=== PATIENT | female | born 1940 | race Caucasian/White ===

== ENCOUNTER 2017-04-23 04:49 | Inpatient (IN) | payer MEDICARE, MEDICAID ==
[~2017-04-23] VITALS: Ht 154.9 cm; Wt 49.5 kg
[2017-04-23] VITALS (19 sets, daily range): BP systolic 118–213; BP diastolic 56–103; PULSE 74–114; RESP 12–30; TEMP 98–98.5; O2SAT 97–100
[2017-04-23] MEDS ORDERED: SODIUM CHLORIDE 0.9% FLUSH 10 ML FLUSH IVF PRN (05:00)
[2017-04-23] MEDS ORDERED: methylPREDNISolone SOD SUCC 125 MG/2 ML VIAL IV PUSH ONE (05:00)
[2017-04-23] MEDS: RESP: ALBUTEROL 2.5 MG/IPRATROPIUM 0.5 MG NEB (SCH) INH ×2 (05:10→05:11)
[2017-04-23] MEDS ORDERED: NITROGLYCERIN 0.4 MG SL 25 TABS/BTL SL PRN (05:15)
[2017-04-23] MEDS ORDERED: NITROGLYCERIN 2% OINT 1 GM PACKET TOPICAL ONE (05:15)
--- NOTE | 2017-04-23 05:17 | PD ---
HPI Chief Complaint: Respiratory Distress Time Seen by Provider: 04:59 Travel History International Travel<30 days: No Contact w/Intl Traveler<30days: No Traveled to known affect area: No History of Present Illness HPI The patient is a 76 year old female who presents to the [facility] emergency department with a history of increased shortness of breath that she reports began 2 days ago. The patient reports that she continues to smoke daily , however she has decided to quit today. The patient also reports having history of congestive heart failure. The patient is noted to have lower extremity edema, however she reports that this is no worse than usual. The patient reports having chest pressure with attempted to take a deep breath. She reports having wheezing. She reports having a cough productive of white sputum. She denies having any known fevers. Otherwise on review of systems, she denies having any worsening neck pain, abdominal pain, vomiting, diarrhea, urinary symptoms, or new neurologic symptoms. The patient is brought in by ambulance services on CPAP. The patient was noted on room air to be saturating 85%. She denies being on any oxygen at home. The patient was given one sublingual nitroglycerin prior to arrival as her blood pressure was 200 systolic. The patient was placed on 4 L nasal cannula O2 and her O2 saturation came up to 95%, however she continued to have significant work of breathing, therefore the patient was placed on CPAP. On arrival the patient reports feeling slightly improved. [facility] Past Medical History Narrative Medical The patient's past medical history is significant for tobacco abuse, hyperlipidemia, history of congestive heart failure, history of coronary artery disease, history of having a valve replacement, history of osteoarthritis, history of spinal stenosis with degenerative disc disease of the spine, history of diabetes mellitus, neuropathy. Arthritis: Yes Asthma: No Autoimmune Disease: No Blood Disorders: No Anxiety: No Depression: No Heart Rhythm Problems: Yes (valve REPLACEMENT) Cancer: Yes (uterine cancer) Cardiovascular Problems: Yes (S/P VALVE REPLACEMENT, [place]) High Cholesterol: Yes Chemotherapy: No Chest Pain: No Congestive Heart Failure: Yes COPD: No Cerebrovascular Accident: No Diabetes: Yes Diminished Hearing: No Endocrine: No Gastrointestinal Disorders: Yes GERD: No Glaucoma: No Genitourinary: No Hepatitis: No Hiatal Hernia: No Hypertension: Yes Immune Disorder: No Implanted Vascular Access Dvce: Yes Musculoskeletal: Yes (OSTEOPOROSIS) Neurologic: Yes (NEUROPATHY FEET) Psychiatric: No Reproductive: No Respiratory: Yes Immunizations Current: Yes Migraines: No Myocardial Infarction: Yes Radiation Therapy: No Seizures: No Thyroid Disease: No Ulcer: No ?: Not Menopausal: Yes Ovarian Cysts: Yes Past Surgical History Narrative Surgical The patient's past surgical history is significant for a hysterectomy, cervical and lumbar spine surgery, spinal stimulator implant, right ankle surgery, valve replacement, 3 vessel coronary artery bypass grafting, cholecystectomy, breast surgery. 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 CD. STIMULATOR FOR PAIN Cardiac Surgery: Yes (open heart valve replacment by-pass x2) Cholecystectomy: Yes Coronary Artery Bypass Graft: Yes (3 vessel) Ear Surgery: No Endocrine Surgery: No Eye Surgery: No Genitourinary Surgery: No Gynecologic Surgery: Yes (hysterectomy ) Hysterectomy: Yes Insulin Pump: No Joint Replacement: Yes (ISAIAS. KNEE, ISAIAS. HIPS) Neurologic Surgery: Yes (CERVICAL FUSION, PLACEMENT SCS, LUMBAR SX X2) Pacemaker: No Thoracic Surgery: Yes (MULTI BREAST LYMPHNODE REMOVAL) Other Surgery: Yes Social History Alcohol Use: No Tobacco Use: Yes (1 PACK PER DAY) Substance Use: No Allergies-Medications (Allergen,Severity, Reaction): Coded Allergies: aspirin (Unverified Allergy, Severe, HIVES, 04/23/17) HIVES diatrizoate meglumine (Unverified Allergy, Severe, HIVES, 04/23/17) diazepam (Unverified Allergy, Severe, 04/23/17) HIVES gadobenic acid (Unverified Allergy, Severe, HIVES, 04/23/17) gadodiamide (Unverified Allergy, Severe, HIVES, 04/23/17) gadoteridol (Unverified Allergy, Severe, HIVES, 04/23/17) iodixanol (Unverified Allergy, Severe, HIVES, 04/23/17) iohexol (Unverified Allergy, Severe, HIVES, 04/23/17) ketorolac (Unverified Allergy, Severe, RASH, 04/23/17) ibuprofen (Unverified Allergy, Intermediate, Itching, 04/23/17) FROM [facility]. FD and C no.5 (tartrazine) (Unverified Allergy, Unknown, 04/23/17) FROM [facility] meperidine (Unverified Allergy, Unknown, 04/23/17) FROM [facility]. Reported Meds & Prescriptions Reported Meds & Active Scripts Active Reported Neurontin (Gabapentin) 400 Mg Cap 400 Mg PO BID Prozac (Fluoxetine HCl) 40 Mg Cap 40 Mg PO DAILY Coumadin (Warfarin) 1 Mg Tab 0.5 Mg PO HS Percocet (Oxycodone-Acetaminophen) 10-325 mg Tab 1 Tab PO TID PRN Clonidine (Clonidine HCl) 0.1 Mg Tab 0.1 Mg PO BID Review of Systems Except as stated in HPI: all other systems reviewed are Neg General / Constitutional: No: Fever Eyes: No: Visual changes HENT: Positive: Congestion, No: Headaches Cardiovascular: Positive: Chest Pain or Discomfort, Dyspnea on exertion Respiratory: Positive: Cough, Shortness of Breath Gastrointestinal: No: Nausea, Vomiting, Diarrhea, Abdominal Pain Genitourinary: No: Dysuria Musculoskeletal: No: Pain Skin: No Rash Neurologic: No: Weakness, Focal Abnormalities, Change in Mentation, Slurred Speech Psychiatric: No: Depression Endocrine: No: Polydipsia Hematologic/Lymphatic: No: Easy Bruising Physical Exam Narrative General: The patient is a well-developed well-nourished female in no acute distress on arrival. Head and Neck exam: Head is normocephalic atraumatic. Eyes: EOMI, pupils are equal round and reactive to light. Nose: Midline septum with pink mucous membranes Mouth: Dentition unremarkable. Moist mucus membranes. Posterior oropharynx is not erythematous. No tonsillar hypertrophy. Uvula midline. Airway patent. Neck: No palpable lymphadenopathy. No nuchal rigidity. No thyromegaly. Cardiovascular: Sinus tachycardia in the 1 teens without murmurs, gallops, or rubs. No pulse deficit to the extremities on simultaneous auscultation and palpation of her radial artery. Lungs: Decreased breath sounds in bilateral bases, crackles audible in the left lower lung base. No rhonchi. No accessory muscle use. No paroxysmal abdominal breathing. No tripoding. Abdomen: Soft, without tenderness to palpation in all 4 quadrants of the abdomen. No guarding, rebound, or rigidity. Normal bowel sounds are audible. No tenderness on palpation of McBurney's point. Extremities: No clubbing or cyanosis. The patient has 1+ pitting edema bilateral lower extremities. 2+ pulses in all 4 extremities. No calf tenderness on palpation. Hyperpigmentation noted of her lower extremities consistent with venous stasis changes. Back: No spinous process tenderness to palpation. No costovertebral angle tenderness to palpation. Neurologic Exam: Grossly nonfocal. Skin Exam: No rash noted. Intact skin that is warm and dry. Data Data Last Documented VS Vital Signs Date Time Temp Pulse Resp B/P (MAP) Pulse Ox O2 Delivery O2 Flow Rate FiO2 04/23/17 05:15 100 BiPAP 35 04/23/17 05:10 28 04/23/17 04:54 98.4 94 211/98 (135) Orders Orders Complete Blood Count With Diff (04/23/17 04:59) Comprehensive Metabolic Panel (04/23/17 04:59) B-Type Natriuretic Peptide (04/23/17 04:59) Act Partial Throm Time (Ptt) (04/23/17 04:59) Prothrombin Time / Inr (Pt) (04/23/17 04:59) Magnesium (Mg) (04/23/17 04:59) Ckmb (Isoenzyme) Profile (04/23/17 04:59) Troponin I (04/23/17 04:59) Arterial Blood Gas (Abg) (04/23/17 04:59) Urinalysis - C+S If Indicated (04/23/17 04:59) Iv Access Insert/Monitor (04/23/17 04:59) Electrocardiogram (04/23/17 04:59) Ecg Monitoring (04/23/17 04:59) Oximetry (04/23/17 04:59) Oxygen Administration (04/23/17 04:59) Chest, Single Ap (04/23/17 04:59) Sodium Chloride 0.9% Flush (Ns Flush) (04/23/17 05:00) Methylprednisolone So Succ Inj (Solumedr (04/23/17 05:00) Albuterol-Ipratropium Neb (Duoneb Neb) (04/23/17 05:00) Resp Bipap / Cpap Non Invas Vt (04/23/17 04:59) Nitroglycerin 2% Oint (Nitroglycerin 2% (04/23/17 05:15) Nitroglycerin Sl (Nitrostat Sl) (04/23/17 05:15) Morphine Inj (Morphine Inj) (04/23/17 05:45) Ondansetron Inj (Zofran Inj) (04/23/17 05:45) Furosemide Inj (Lasix Inj) (04/23/17 06:15) Ceftriaxone Inj (Rocephin Inj) (04/23/17 06:15) Azithromycin Inj (Zithromax Inj) (04/23/17 06:15) Blood Culture (04/23/17 06:15) Lactic Acid Sepsis Protocol (04/23/17 06:15) Ceftriaxone Inj (Rocephin Inj) (04/24/17 06:00) Azithromycin Inj (Zithromax Inj) (04/24/17 06:00) Albuterol-Ipratropium Neb (Duoneb Neb) (04/23/17 08:00) Albuterol-Ipratropium Neb (Duoneb Neb) (04/23/17 06:30) Budeson-Formot 160-4.5 Mcg Inh (Symbicor (04/23/17 09:00) Guaifenesin Er (Mucinex Er) (04/23/17 09:00) Methylprednisolone So Succ Inj (Solumedr (04/23/17 12:00) Furosemide Inj (Lasix Inj) (04/23/17 09:00) Admit To Inpatient (04/23/17 ) Vital Signs (Adult) Q4H (04/23/17 06:24) Activity Oob With Assistance (04/23/17 06:24) Gatekeeper / Telemetry .CONTINUOUS (04/23/17 06:24) Intake + Output HENNY.QSHIFT (04/23/17 06:24) Diet Heart Healthy (04/23/17 Breakfast) Sodium Chloride 0.9% Flush (Ns Flush) (04/23/17 06:30) Sodium Chloride 0.9% Flush (Ns Flush) (04/23/17 09:00) Ondansetron Inj (Zofran Inj) (04/23/17 06:30) Comprehensive Metabolic Panel (04/24/17 06:00) Complete Blood Count With Diff (04/24/17 06:00) Troponin I (04/23/17 11:00) Troponin I (04/23/17 17:00) Heparin Inj (Heparin Inj) (04/23/17 09:00) Acetaminophen (Tylenol) (04/23/17 06:30) Acetamin-Hydrocod 325-5 Mg ([place] 5-325 (04/23/17 06:30) Acetamin-Hydrocod 325-10 Mg ([place] 10-32 (04/23/17 06:30) Docusate Sodium-Senna (Nathaly-Colace) (04/23/17 09:00) Magnesium Hydroxide Liq (Milk Of Magnesi (04/23/17 06:30) Sennosides (Senokot) (04/23/17 06:30) Bisacodyl Supp (Dulcolax Supp) (04/23/17 06:30) Lactulose Liq (Lactulose Liq) (04/23/17 06:30) Inpatient Certification (04/23/17 ) Admit Order (Ed Use Only) (04/23/17 06:33) Echo 2d Comp With Doppler (04/24/17 ) Labs Laboratory Tests Test 04/23/17 05:00 04/23/17 05:13 White Blood Count 7.8 TH/MM3 Red Blood Count 2.92 MIL/MM3 Hemoglobin 9.3 GM/DL Hematocrit 27.5 % Mean Corpuscular Volume 94.1 FL Mean Corpuscular Hemoglobin 31.8 PG Mean Corpuscular Hemoglobin Concent 33.8 % Red Cell Distribution Width 15.6 % Platelet Count 260 TH/MM3 Mean Platelet Volume 9.5 FL Neutrophils (%) (Auto) 68.8 % Lymphocytes (%) (Auto) 17.8 % Monocytes (%) (Auto) 9.6 % Eosinophils (%) (Auto) 2.5 % Basophils (%) (Auto) 1.3 % Neutrophils # (Auto) 5.4 TH/MM3 Lymphocytes # (Auto) 1.4 TH/MM3 Monocytes # (Auto) 0.8 TH/MM3 Eosinophils # (Auto) 0.2 TH/MM3 Basophils # (Auto) 0.1 TH/MM3 CBC Comment DIFF FINAL Differential Comment Prothrombin Time 10.8 SEC Prothromb Time International Ratio 1.1 RATIO Activated Partial Thromboplast Time 24.1 SEC Blood Urea Nitrogen 37 MG/DL Creatinine 2.19 MG/DL Random Glucose 76 MG/DL Total Protein 6.8 GM/DL Albumin 2.5 GM/DL Calcium Level 8.0 MG/DL Magnesium Level 1.8 MG/DL Alkaline Phosphatase 111 U/L Aspartate Amino Transf (AST/SGOT) 23 U/L Alanine Aminotransferase (ALT/SGPT) 13 U/L Total Bilirubin 0.4 MG/DL Sodium Level 138 MEQ/L Potassium Level 3.9 MEQ/L Chloride Level 105 MEQ/L Carbon Dioxide Level 23.4 MEQ/L Anion Gap 10 MEQ/L Estimat Glomerular Filtration Rate 22 ML/MIN Total Creatine Kinase 60 U/L Troponin I 0.06 NG/ML B-Type Natriuretic Peptide 4056 PG/ML Blood Gas Puncture Site RT RADIAL Blood Gas Patient Temperature 98.6 Blood Gas HCO3 22 mmol/L Blood Gas Base Excess -2.6 mmol/L Blood Gas Oxygen Saturation 94 % Arterial Blood pH 7.38 Arterial Blood Partial Pressure CO2 38 mmHg Arterial Blood Partial Pressure O2 94 mmHG Arterial Blood Oxygen Content 11.9 Vol % Arterial Blood Carboxyhemoglobin 3.0 % Arterial Blood Methemoglobin 0.7 % Blood Gas Hemoglobin 8.9 G/DL Oxygen Delivery Device BiPAP Blood Gas Ventilator Setting IPAP12/[id number] Blood Gas Inspired Oxygen 35 % MDM Medical Decision Making Medical Screen Exam Complete: Yes Emergency Medical Condition: Yes Medical Record Reviewed: Yes Interpretation(s) Last Impressions Chest X-Ray 04/23/17 0459 Signed Impressions: Service Date/Time: Sunday, April 23, 2017 05:10 - CONCLUSION: Bibasilar minimal areas of consolidation or atelectasis. Rasta Vieira MD Differential Diagnosis COPD exacerbation, versus congestive heart failure exacerbation, versus acute coronary syndrome, versus pulmonary embolism, versus pneumothorax Narrative Course During the course of the patients emergency department visit, the patients history, examination, and differential diagnosis were reviewed with the patient. The patient was placed on a cellophane tester with oximetry and frequent blood pressure monitoring. The patient had IV access obtained and blood work sent for analysis. The patient was continued on BiPAP at 12 over 5, 40%. An ABG will be ordered. The patient had an ECG done on arrival that shows a sinus rhythm heart rate of 92, QRS duration is 87 ms, QTC 408 ms with what appeared to be ST segment elevation in V2 V3, however this is compared to prior ECG done at this facility and is similar in appearance regarding this ST elevation in the anteroseptal leads when compared to an August 11, 2014 ECG. T waves are inverted in lead 3, aVF which is new compared to previously. The patient was initially provided nitroglycerin sublingual every 5 minutes 3, nitroglycerin 1 inch to the chest wall. According to the record, the patient does have a severe allergy to aspirin. The patient is unsure whether she's been on Plavix in the past. She reports that she is on Coumadin, however she has not been taking this over the last few days as she has not had a good appetite. The patient's INR is 1.1. The patient's troponin is elevated at 0.06. The patient was started on heparin per [place] protocol, Plavix 75 mg by mouth 1. The patient on reexamination reports feeling improved. She is resting comfortably on BiPAP. The patients laboratory studies were reviewed and remarkable for a CBC that shows a hemoglobin of 9.3 which is stable compared to previously, CMP remarkable for a BUN of 37, creatinine 2.19 in a patient with a history of renal insufficiency, troponin I slightly elevated at 0.06 which could be related to her renal insufficiency, however an acute coronary syndrome will be ruled out with serial cardiac enzymes. BNP is 4056, INR 1.1, urinalysis is unremarkable. Radiology studies were reviewed and remarkable for a chest x-ray that shows bibasilar consolidation versus atelectasis. The patients results were discussed with the patient, including the plan of care. I explained that further testing and/ or monitoring is indicated based on the patients history, examination, and/ or laboratory findings. Therefore, I recommended admission for additional evaluation. The patient expressed understanding and was agreeable with this plan. The patient was admitted to the hospital in guarded condition and [facility] Physician Communication Physician Communication The patient's case including history, pertinent physical examination findings, and laboratory studies were discussed with Dr. Lopez. It was agreed that [facility] Diagnosis Primary Impression: CHF exacerbation Qualified Codes: I50.9 - Heart failure, unspecified Additional Impressions: Elevated troponin Renal insufficiency Admitting Information Admitting Physician Requests: Admit Rain Vera MD Apr 23, 2017 05:17
[2017-04-23 05:25] LABS: AUTOMATED NEUTROPHIL # 5.4 TH/MM3 (1.8-7.7); BASOPHIL # 0.1 TH/MM3 (0-0.2); BASOPHIL % 1.3 % (0.0-2.0); EOSINOPHIL # 0.2 TH/MM3 (0-0.4); EOSINOPHIL % 2.5 % (0.0-4.0); HEMATOCRIT 27.5 % (35.0-46.0); HEMOGLOBIN 9.3 GM/DL (11.6-15.3); LYMPH % 17.8 % (9.0-44.0); LYMPHOCYTE # 1.4 TH/MM3 (1.0-4.8); MEAN CELL VOLUME 94.1 FL (80.0-100.0); MEAN CORPUSCULAR HEMOGLOBIN 31.8 PG (27.0-34.0); MEAN CORPUSCULAR HGB CONC 33.8 % (32.0-36.0); MEAN PLATELET VOLUME 9.5 FL (7.0-11.0); MONO % 9.6 % (0.0-8.0); MONOCYTE # 0.8 TH/MM3 (0-0.9); NEUT % 68.8 % (16.0-70.0); PLATELET COUNT 260 TH/MM3 (150-450); RED BLOOD COUNT 2.92 MIL/MM3 (4.00-5.30); RED CELL DISTRIBUTION WIDTH 15.6 % (11.6-17.2); WHITE BLOOD COUNT 7.8 TH/MM3 (4.0-11.0)
[2017-04-23] MEDS ORDERED: CLON0.1T PO (05:33)
[2017-04-23] MEDS ORDERED: PERC10TA27 PO (05:33)
[2017-04-23] MEDS ORDERED: PROZ40CA PO (05:33)
[2017-04-23] MEDS ORDERED: COUM1TAB PO (05:33)
[2017-04-23] MEDS ORDERED: NEUR400C PO (05:33)
[2017-04-23] MEDS ORDERED: MORPHINE SULFATE 2 MG/ML INJ IV PUSH ONE (05:45)
[2017-04-23] MEDS ORDERED: ONDANSETRON HCL 4 MG/2 ML VIAL IV PUSH ONE (05:45)
[2017-04-23 05:46] LABS: ALBUMIN 2.5 GM/DL (3.4-5.0); AST (GOT) 23 U/L (15-37); BICARBONATE 23.4 MEQ/L (21.0-32.0); BLOOD UREA NITROGEN 37 MG/DL (7-18); CHLORIDE 105 MEQ/L (98-107); CREATININE 2.19 MG/DL (0.50-1.00); GLOMERULAR FILTRATION RATE 22 ML/MIN (>89); GLUCOSE,RANDOM 76 MG/DL (74-106); INTERNATIONAL NORMALIZED RATIO 1.1 RATIO; MAGNESIUM 1.8 MG/DL (1.5-2.5); PROTHROMBIN TIME - PATIENT 10.8 SEC (9.8-11.6); SODIUM (NA) 138 MEQ/L (136-145)
[2017-04-23 05:47] LABS: ALT (GPT) 13 U/L (10-53)
[2017-04-23 05:51] LABS: ALKALINE PHOSPHATASE 111 U/L (45-117); TOTAL BILIRUBIN ADULT 0.4 MG/DL (0.2-1.0); TOTAL PROTEIN 6.8 GM/DL (6.4-8.2); TROPONIN I 0.06 NG/ML (0.02-0.05)
--- NOTE | 2017-04-23 05:53 | RADRPT ---
EXAM DATE/TIME: 04/23/2017 05:10 [facility] COMPARISON: CHEST SINGLE AP, June 08, 2014, 9:02. INDICATIONS : Shortness of breath. MEDICAL HISTORY : Congestive heart failure. Diabetes mellitus type II. Hypertension. [facility] SURGICAL HISTORY : Fusion, cervical. Fusion, lumbar. Appendectomy. CABG Cholecystectomy ENCOUNTER: Initial ACUITY: 1 day PAIN SCORE: 0/10 LOCATION: Bilateral chest FINDINGS: The patient is status post sternotomy. The heart size is normal. There is minimal increased density at the lateral bases bilaterally. The remaining aspects of the lungs are clear. There is electronic d evice and lead seen over the right chest. Surgical hardware seen in the lumbar spine. There is surgic al plate at the left humerus. Surgical hardware is seen in the cervical spine. CONCLUSION: Bibasilar minimal areas of consolidation or atelectasis. Rasta Vieira MD on April 23, 2017 at 5:49 Board Certified Radiologist. This report was verified electronically.
[2017-04-23] MEDS ORDERED: cefTRIAXone INJ 1,000 MG in SODIUM CHLORIDE 0.9% INJ 100 ML IV ONE (06:15)
[2017-04-23] MEDS ORDERED: AZITHROMYCIN INJ 500 MG in SODIUM CHLOR 0.9% 250 ML INJ 250 ML IV ONE (06:15)
[2017-04-23] MEDS ORDERED: FUROSEMIDE 40 MG/4 ML VIAL IV PUSH ONE (06:15)
[2017-04-23] MEDS ORDERED: LACTULOSE SYRUP 20 GM/30 ML CUP PO PRN (06:30)
[2017-04-23] MEDS ORDERED: SODIUM CHLORIDE 0.9% FLUSH 10 ML FLUSH IV FLUSH PRN (06:30)
[2017-04-23] MEDS ORDERED: ONDANSETRON HCL 4 MG/2 ML VIAL IVP PRN (06:30)
[2017-04-23] MEDS ORDERED: BISACODYL 10 MG SUPP RECTAL PRN (06:30)
[2017-04-23] MEDS ORDERED: SENNOSIDES 8.6 MG TAB PO PRN (06:30)
[2017-04-23] MEDS ORDERED: ACETAMINOPHEN 325 MG TAB PO PRN (06:30)
[2017-04-23] MEDS ORDERED: HEPARIN-D5W 25,000 U/250 ML 250 ML IV PRN ×2 (06:45→15:15)
[2017-04-23] MEDS ORDERED: HEPARIN SODIUM - IV 10,000 UNITS/10 ML VIAL IV ONE (06:45)
[2017-04-23] MEDS ORDERED: CLOPIDOGREL 75 MG TAB PO ONE (06:45)
[2017-04-23] MEDS: ACETAMINOPHEN/HYDROcodone 325 MG/10 MG TAB PO PRN ×2 (07:10→15:59)
[2017-04-23] MEDS: RESP: ALBUTEROL 2.5 MG/IPRATROPIUM 0.5 MG NEB (SCH) NEB ×3 (07:14→20:36)
[2017-04-23 07:15] LABS: HEMOGLOBIN 8.7 GM/DL (11.6-15.3); MEAN CELL VOLUME 93.4 FL (80.0-100.0); MEAN CORPUSCULAR HEMOGLOBIN 31.4 PG (27.0-34.0); MEAN CORPUSCULAR HGB CONC 33.6 % (32.0-36.0); MEAN PLATELET VOLUME 9.1 FL (7.0-11.0); PLATELET COUNT 219 TH/MM3 (150-450); RED BLOOD COUNT 2.79 MIL/MM3 (4.00-5.30); RED CELL DISTRIBUTION WIDTH 15.9 % (11.6-17.2); WHITE BLOOD COUNT 8.1 TH/MM3 (4.0-11.0)
[2017-04-23 07:22] LABS: INTERNATIONAL NORMALIZED RATIO 1.1 RATIO; PROTHROMBIN TIME - PATIENT 11.1 SEC (9.8-11.6)
[2017-04-23] MEDS: DOCUSATE SODIUM 50 MG/SENNA 8.6 MG TAB PO SCH ×2 (09:00→20:09)
[2017-04-23] MEDS: SODIUM CHLORIDE 0.9% FLUSH 10 ML FLUSH IV FLUSH SCH ×2 (09:00→20:58)
[2017-04-23] MEDS ORDERED: HEPARIN SODIUM - SQ 10,000 UNITS/ML VIAL SQ SCH (09:00)
[2017-04-23 10:52] LABS: BACTERIA, URINE OCC /hpf; BILIRUBIN, URINE NEG (NEG); BLOOD, URINE TRACE (NEG); GLUCOSE,URINE NEG (NEG); KETONE, URINE NEG (NEG); NITRITE,URINE NEG (NEG); PH, URINE 6.5 (5.0-8.5); SQUAMOUS EPITHELIAL CELL URINE <1 /hpf (0-5); URINE COLOR LIGHT-YELLOW (YELLW/STRAW); URINE LEUKOCYTE ESTERASE SMALL (NEG)
[2017-04-23] MEDS: guaiFENesin E.R. 600 MG TAB PO SCH ×2 (10:58→20:09)
[2017-04-23] MEDS: FUROSEMIDE 20 MG/2 ML VIAL IV PUSH SCH ×2 (10:58→18:00)
--- NOTE | 2017-04-23 11:26 | HHI.HP ---
HPI Service [facility] Hospitalists Primary Care Physician Unknown Admission Diagnosis Chf and copd exacerbation Diagnoses: Chief Complaint: Difficulty breathing. Travel History International Travel<30 Days: No Contact w/Intl Traveler <30 Da: No Traveled to Known Affected Are: No History of Present Illness This is a 76-year-old female with past medical history significant for CHF, COPD , diabetes, hypertension and history of cervical cancer who presents to [facility] complaining of worsening shortness of breath which started approximately 2 days before associated with cough which is productive of clear sputum and chest tightness which is nonradiating and as per patient was constant , described as tightness increased when trying to take a deep breath. The patient was seen in emergency department and provided emergency care administering 125 mg of IV Solu-Medrol and 40 mg of IV Lasix. The patient had to be placed on BiPAP which she has been taken off on his cornea nasal cannula. The patient denies any chest pain at the moment. Patient also denies any fevers or chills, dysuria, abdominal pain. Review of Systems As per history of present illness, other systems reviewed by me and negative. Past Family Social History Past Medical History 1. COPD. 2. Diabetes mellitus. 3. Hypertension. 4. Congestive heart failure. 5. History of cervical cancer. Past Surgical History 1. CABG in 2003. 2. Bilateral knee replacement. 3. Bilateral hip replacement. 4. Left humeral fracture ORIF. 5. Right ankle surgery. 6. Umbilical hernia repair. 8. The lateral breast cystectomy. 9. Total abdominal hysterectomy with bilateral septic nephrectomy. 10. Cholecystectomy. 11. Appendectomy. 12. Cervical fusion. Reported Medications Reported Meds & Active Scripts Active Reported Neurontin (Gabapentin) 400 Mg Cap 400 Mg PO BID Prozac (Fluoxetine HCl) 40 Mg Cap 40 Mg PO DAILY Coumadin (Warfarin) 1 Mg Tab 0.5 Mg PO HS Percocet (Oxycodone-Acetaminophen) 10-325 mg Tab 1 Tab PO TID PRN Clonidine (Clonidine HCl) 0.1 Mg Tab 0.1 Mg PO BID Allergies: Coded Allergies: aspirin (Unverified Allergy, Severe, HIVES, 04/23/17) HIVES diatrizoate meglumine (Unverified Allergy, Severe, HIVES, 04/23/17) diazepam (Unverified Allergy, Severe, 04/23/17) HIVES gadobenic acid (Unverified Allergy, Severe, HIVES, 04/23/17) gadodiamide (Unverified Allergy, Severe, HIVES, 04/23/17) gadoteridol (Unverified Allergy, Severe, HIVES, 04/23/17) iodixanol (Unverified Allergy, Severe, HIVES, 04/23/17) iohexol (Unverified Allergy, Severe, HIVES, 04/23/17) ketorolac (Unverified Allergy, Severe, RASH, 04/23/17) ibuprofen (Unverified Allergy, Intermediate, Itching, 04/23/17) FROM [facility]. FD and C no.5 (tartrazine) (Unverified Allergy, Unknown, 04/23/17) FROM [facility] meperidine (Unverified Allergy, Unknown, 04/23/17) FROM [facility]. Active Ordered Medications Current Medications Medications (Trade) Dose Ordered Sig/Rosemarie Route Start Time Stop Time Status Last Admin (NS Flush) 2 ml UNSCH PRN IVF 04/23/17 05:00 (Nitrostat Sl) 0.4 mg Q5M PRN SL 04/23/17 05:15 Ceftriaxone Sodium 1000 mg/ Sodium Chloride 100 ml @ 200 mls/hr Q24H IV 04/24/17 06:00 Azithromycin 500 mg/Sodium Chloride 250 ml @ 250 mls/hr Q24H IV 04/24/17 06:00 (Duoneb Neb) 1 ampule Q4HR WHILE AWAKE NEB NEB 04/23/17 08:00 04/23/17 07:14 (Duoneb Neb) 1 ampule Q2HR NEB PRN NEB 04/23/17 06:30 (Symbicort 160-4.5 Mcg Inh) 2 puff Q12HR INH 04/23/17 09:00 04/23/17 12:55 (Mucinex Er) 600 mg BID PO 04/23/17 09:00 04/23/17 10:58 (SoluMEDROL INJ) 40 mg Q6HR IV PUSH 04/23/17 12:00 (Lasix Inj) 20 mg BID@09,18 IV PUSH 04/23/17 09:00 04/23/17 10:58 (NS Flush) 2 ml UNSCH PRN IV FLUSH 04/23/17 06:30 (NS Flush) 2 ml BID IV FLUSH 04/23/17 09:00 (Zofran Inj) 4 mg Q6H PRN IVP 04/23/17 06:30 (Tylenol) 650 mg Q6H PRN PO 04/23/17 06:30 ([place] 5-325 Mg) 1 tab Q4H PRN PO 04/23/17 06:30 04/23/17 13:39 ([place] 10-325 Mg) 1 tab Q4H PRN PO 04/23/17 06:30 04/23/17 07:10 (Nathaly-Colace) 1 tab BID PO 04/23/17 09:00 (Milk Of Magnesia Liq) 30 ml Q12H PRN PO 04/23/17 06:30 (Senokot) 17.2 mg Q12H PRN PO 04/23/17 06:30 (Dulcolax Supp) 10 mg DAILY PRN RECTAL 04/23/17 06:30 (Lactulose Liq) 30 ml DAILY PRN PO 04/23/17 06:30 Heparin Sodium/ Dextrose 250 ml @ 7 mls/hr TITRATE PRN IV 04/23/17 06:45 Family History Patient states her son from brain cancer. Social History The patient smokes one pack per day. Denies alcohol intake or illicit drug use. The patient is she has 2 children, a daughter and a son. Her daughter is at bedside during this interview. Physical Exam Vital Signs Vital Signs Date Time Temp Pulse Resp B/P (MAP) Pulse Ox O2 Delivery O2 Flow Rate FiO2 04/23/17 09:45 83 18 146/67 (93) 100 Nasal Cannula 3.00 04/23/17 08:31 98 Nasal Cannula 3.00 04/23/17 07:15 97 35 04/23/17 07:12 83 18 162/69 (100) 98 BiPAP 04/23/17 06:43 84 12 118/56 (76) 98 BiPAP 35 12/18/17 05:15 100 BiPAP 35 04/23/17 05:10 28 100 BiPAP 35 04/23/17 04:54 98.4 94 30 211/98 (135) 99 04/23/17 04:50 100 35 04/23/17 04:50 100 BiPAP 35 Physical Exam GENERAL: This is a well-nourished, well-developed patient, in no apparent distress. SKIN: No rashes, ecchymoses or lesions. Cool and dry. HEAD: Atraumatic. Normocephalic. No temporal or scalp tenderness. EYES: Pupils equal round and reactive. Extraocular motions intact. No scleral icterus. No injection or drainage. ENT: Nose without bleeding, purulent drainage or septal hematoma. Throat without erythema, tonsillar hypertrophy or exudate. Uvula midline. Airway patent. NECK: Trachea midline. No JVD or lymphadenopathy. Supple, nontender, no meningeal signs. CARDIOVASCULAR: Regular rate and rhythm without murmurs, gallops, or rubs. RESPIRATORY: Decreased breath sounds bilaterally with mild crackles at bilateral bases. GASTROINTESTINAL: Abdomen soft, non-tender, nondistended. No hepato-splenomegaly , or palpable masses. No guarding. MUSCULOSKELETAL: Extremities without clubbing, cyanosis, or edema. No joint tenderness, effusion, or edema noted. No calf tenderness. Negative Homans sign bilaterally. NEUROLOGICAL: Awake and alert. Cranial nerves II through XII intact. Motor and sensory grossly within normal limits. Five out of 5 muscle strength in all muscle groups. Normal speech. Laboratory Laboratory Tests Test 04/23/17 05:00 04/23/17 05:13 04/23/17 06:45 04/23/17 06:55 White Blood Count 7.8 8.1 Red Blood Count 2.92 2.79 Hemoglobin 9.3 8.7 Hematocrit 27.5 26.0 Mean Corpuscular Volume 94.1 93.4 Mean Corpuscular Hemoglobin 31.8 31.4 Mean Corpuscular Hemoglobin Concent 33.8 33.6 Red Cell Distribution Width 15.6 15.9 Platelet Count 260 219 Mean Platelet Volume 9.5 9.1 Neutrophils (%) (Auto) 68.8 Lymphocytes (%) (Auto) 17.8 Monocytes (%) (Auto) 9.6 Eosinophils (%) (Auto) 2.5 Basophils (%) (Auto) 1.3 Neutrophils # (Auto) 5.4 Lymphocytes # (Auto) 1.4 Monocytes # (Auto) 0.8 Eosinophils # (Auto) 0.2 Basophils # (Auto) 0.1 CBC Comment DIFF FINAL Differential Comment Prothrombin Time 10.8 11.1 Prothromb Time International Ratio 1.1 1.1 Activated Partial Thromboplast Time 24.1 24.5 Blood Urea Nitrogen 37 Creatinine 2.19 Random Glucose 76 Total Protein 6.8 Albumin 2.5 Calcium Level 8.0 Magnesium Level 1.8 Alkaline Phosphatase 111 Aspartate Amino Transf (AST/SGOT) 23 Alanine Aminotransferase (ALT/SGPT) 13 Total Bilirubin 0.4 Sodium Level 138 Potassium Level 3.9 Chloride Level 105 Carbon Dioxide Level 23.4 Anion Gap 10 Estimat Glomerular Filtration Rate 22 Total Creatine Kinase 60 Troponin I 0.06 B-Type Natriuretic Peptide 4056 Blood Gas Puncture Site RT RADIAL Blood Gas Patient Temperature 98.6 Blood Gas HCO3 22 Blood Gas Base Excess -2.6 Blood Gas Oxygen Saturation 94 Arterial Blood pH 7.38 Arterial Blood Partial Pressure CO2 38 Arterial Blood Partial Pressure O2 94 Arterial Blood Oxygen Content 11.9 Arterial Blood Carboxyhemoglobin 3.0 Arterial Blood Methemoglobin 0.7 Blood Gas Hemoglobin 8.9 Oxygen Delivery Device BiPAP Blood Gas Ventilator Setting IPAP12/EPAP5 Blood Gas Inspired Oxygen 35 Lactic Acid Level 1.0 Test 04/23/17 10:33 Urine Color LIGHT-YELLOW Urine Turbidity CLEAR Urine pH 6.5 Urine Specific [place] 1.008 Urine Protein 100 Urine Glucose (UA) NEG Urine Ketones NEG Urine Occult Blood TRACE Urine Nitrite NEG Urine Bilirubin NEG Urine Urobilinogen LESS THAN 2.0 Urine Leukocyte Esterase SMALL Urine RBC 2 Urine WBC 4 Urine Squamous Epithelial Cells <1 Urine Bacteria OCC Microscopic Urinalysis Comment CULT NOT INDICATED Date/Time Source Procedure Growth Status 04/23/17 06:55 Blood Peripheral Aerobic Blood Culture Pending Received 04/23/17 06:55 Blood Peripheral Anaerobic Blood Culture Pending Received Result Diagram: 04/23/17 0645 04/23/17 0500 Imaging Last Impressions Chest X-Ray 04/23/17 0459 Signed Impressions: Service Date/Time: Sunday, April 23, 2017 05:10 - CONCLUSION: Bibasilar minimal areas of consolidation or atelectasis. Rasta Vieira MD Reviewed by me. Alfred VTE Risk Assessment Alfred VTE Risk Assessment: Mod/High Risk (score >= 2) Caprini Risk Assessment Model Point Value = 1 Point Value = 2 Point Value = 3 Point Value = 5 Age 41-60 Minor surgery BMI > 25 kg/m2 Swollen legs Varicose veins or History of unexplained or recurrent spontaneous Oral contraceptives or hormone replacement Sepsis (< 1 month) Serious lung disease, including pneumonia (< 1 month) Abnormal pulmonary function Acute myocardial infarction Congestive heart failure (< 1 month) History of inflammatory bowel disease Medical patient at bed rest Age 61-74 Arthroscopic surgery Major open surgery (> 45 min) Laparoscopic surgery (> 45 min) Malignancy Confined to bed (> 72 hours) Immobilizing plaster cast Central venous access Age >= 75 History of VTE Family history of VTE Factor V Leiden Prothrombin [id number] Lupus anticoagulant Anticardiolipin antibodies Elevated serum homocysteine Heparin-induced thrombocytopenia Other congenital or acquired thrombophilia Stroke (< 1 month) Elective arthroplasty Hip, pelvis, or leg fracture Acute spinal cord injury (< 1 month) Prophylaxis Regimen Total Risk Factor Score Risk Level Prophylaxis Regimen 0-1 Low Early ambulation 2 Moderate Order ONE of the following: *Sequential Compression Device (SCD) *Heparin 5000 units SQ BID 3-4 Higher Order ONE of the following medications: *Heparin 5000 units SQ TID *Enoxaparin/Lovenox 40 mg SQ daily (WT < 150 kg, CrCl > 30 mL/min) *Enoxaparin/Lovenox 30 mg SQ daily (WT < 150 kg, CrCl > 10-29 mL/min) *Enoxaparin/Lovenox 30 mg SQ BID (WT < 150 kg, CrCl > 30 mL/min) AND/OR *Sequential Compression Device (SCD) 5 or more Highest Order ONE of the following medications: *Heparin 5000 units SQ TID (Preferred with Epidurals) *Enoxaparin/Lovenox 40 mg SQ daily (WT < 150 kg, CrCl > 30 mL/min) *Enoxaparin/Lovenox 30 mg SQ daily (WT < 150 kg, CrCl > 10-29 mL/min) *Enoxaparin/Lovenox 30 mg SQ BID (WT < 150 kg, CrCl > 30 mL/min) AND *Sequential Compression Device (SCD) Assessment and Plan Problem List: (1) Acute hypoxemic respiratory failure ICD Code: J96.01 - Acute respiratory failure with hypoxia Status: Acute Plan: The patient presented with respiratory distress and acute hypoxemic respiratory secondary to a combination of congestive heart failure exacerbation , COPD exacerbation and pneumonia. Patient had to be placed on BiPAP, when oxygen as tolerated to keep oxygen saturation more than 92%. Chest x-ray reviewed by me show bibasilar minimal areas of consolidation or atelectasis. Method the patient to the medical floor, continue IV Rocephin and azithromycin. Continue IV Solu-Medrol and IV Lasix. (2) CHF exacerbation ICD Code: I50.9 - Heart failure, unspecified Status: Acute Plan: BNP elevated at 4056 in a patient with shortness of breath and respiratory failure. At this moment unknown type of congestive heart failure. We'll check 2-D echocardiogram. Status post-IV Lasix in the emergency department. I will continue IV Lasix with a caution to follow-up the creatinine to avoid further rise on it. (3) Community acquired pneumonia ICD Code: J18.9 - Pneumonia, unspecified organism Status: Acute Plan: Continue empiric IV broad-spectrum antibiotics as mentioned above. Follow-up blood cultures, check a strep pneumonia antigen, urine Legionella antigen and mycoplasma antigen. (4) COPD exacerbation ICD Code: J44.1 - Obstructive chronic bronchitis with exacerbation Status: Acute Plan: Status post one-time 125 mg of IV Solu-Medrol in emergency department. Continue treatment with IV steroids. (5) MILI (acute kidney injury) ICD Code: N17.9 - Acute kidney injury Status: Acute Plan: Upon review of records the patient has had elevated creatinine in 2016. 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 Baseline creatinine seems to be between 1.4 1.6, creatinine currently at 2.19. Continue to monitor BUN/creatinine, monitor strict I's and O's, avoid nephrotoxins. (6) Anemia ICD Code: D64.9 - Anemia Status: Chronic Plan: Anemia seems to be chronic and normocytic. I will check iron studies and stool guaiac. (7) Elevated troponin ICD Code: R74.8 - Abnormal levels of other serum enzymes Plan: Patient has mildly elevated troponin of 0.06 associated with chest pain. I will order a cardiology consultation and continue heparin IV drip for now. (8) HTN (hypertension) ICD Code: I10 - Hypertension Status: Chronic Plan: Continue home clonidine. Vital signs. BP seems to be relatively stable. (9) DM (diabetes mellitus screen) ICD Code: Z13.1 - Screening for diabetes mellitus Status: Chronic Plan: Blood sugars today controlled as the patient states she has lost a lot of weight. We'll place on SSI with insulin NovoLog and monitor Accu-Cheks given that the patient has been administered IV steroids. Code Status Full code Discussed Condition With Patient Physician Certification 2 Midnight Certification Type: Admission for Inpatient Services Order for Inpatient Services The services are ordered in accordance with Medicare regulations or non- Medicare payer requirements, as applicable. In the case of services not specified as inpatient-only, they are appropriately provided as inpatient services in accordance with the 2-midnight benchmark. Estimated LOS (days): 2 days is the estimated time the patient will need to remain in the hospital, assuming treatment plan goals are met and no additional complications. Post-Hospital Plan: Not yet determined Problem Qualifiers (1) CHF exacerbation: Qualified Codes: I50.9 - Heart failure, unspecified (2) Community acquired pneumonia: Qualified Codes: J18.9 - Pneumonia, unspecified organism (3) Anemia: Qualified Codes: D64.9 - Anemia, unspecified (4) HTN (hypertension): Qualified Codes: I10 - Essential (primary) hypertension Arnaldo Wiggins MD Apr 23, 2017 11:26
[2017-04-23] MEDS: methylPREDNISolone SOD SUCC 40 MG/1 ML VIAL IV PUSH SCH ×2 (12:00→18:00)
[2017-04-23] MEDS: BUDESONIDE-FORMOTEROL 160/4.5 MCG INHALER INH SCH ×2 (12:55→20:08)
[2017-04-23] MEDS: ACETAMINOPHEN/HYDROcodone 325 MG/5 MG TAB PO PRN ×2 (13:39→20:09)
--- NOTE | 2017-04-23 17:25 | MB ---
cc: DUNCAN ABEL DATE OF CONSULTATION 04/23/2017 HISTORY A 76-year-old white female with history of coronary artery bypass by Dr. Wesley in 2003 presented with progressive dyspnea and cough for the last two days. She has had chronic lower extremity edema. She denies any chest pain. She had myocardial infarction and chest pain prior to her bypass. PAST MEDICAL HISTORY Positive for: 1. Coronary bypass. 2. Coronary artery disease. 3. Myocardial infarction. 4. Coronary bypass in 2003. The patient has not seen a community liaison since her bypass. 5. History of COPD. 6. Diabetes mellitus. 7. Hypertension. 8. Congestive heart failure. 9. Cervical cancer. 10. Bilateral knee replacement. 11. bilateral hip replacement. 12. Left humeral fracture open reduction, internal fixation. 13. Right ankle surgery. 14. Umbilical hernia repair. 15. Breast cystectomy. 16. Abdominal hysterectomy with bilateral oophorectomy. 17. Cholecystectomy. 18. Appendectomy. 19. Cervical fusion. MEDICATIONS Include: 1. Clonidine. 2. Percocet. 3. Coumadin. 4. Prozac. 5. Neurontin. ALLERGIES INCLUDE ASPIRIN, DIATRIZOATE, MEGLUMINE, DIAZEPAM, GADODIAMIDE, IBUPROFEN, IODIXANOL, MEPERIDINE, TARTRAZINE. SOCIAL HISTORY The patient is a smoker. She quit smoking after a bypass but started to smoke three months later. She does not drink alcohol. FAMILY HISTORY Positive for heart disease in her father. REVIEW OF SYSTEMS Otherwise negative. PHYSICAL EXAMINATION VITAL SIGNS: Blood pressure 160/71, pulse 74 and regular. HEENT: Negative. 2+ carotid upstrokes. No bruits. LUNGS: With a few bilateral crackles. Decreased breath sounds. HEART: Regular with no murmur, gallop or rub. ABDOMEN: Soft. No bruits. EXTREMITIES: With 2+ pitting edema. Diminished distal pulses NEUROLOGIC: Exam is grossly nonfocal. EKG was reviewed and showed sinus rhythm, PACs, right axis, delayed R-wave progression of pericardial leads and anteroseptal Q-waves, diffuse ST-T changes. LABORATORY DATA Hemoglobin 8.7. Potassium 3.9, creatinine 2.2, AST 23, ALT 1.3. Troponin 0.06 and 0.04. BNP 4056. DIAGNOSES 1. Acute congestive heart failure. 2. Coronary artery disease, history of coronary artery bypass. 3. Acute respiratory failure. 4. Pneumonia. 5. COPD exacerbation. 6. Renal insufficiency. 7. Anemia. 8. Hypertension. 9. Diabetes mellitus. DISPOSITION Ms. Silvestre will be monitored on telemetry. Recommend to continue IV diuresis closely monitoring her renal function. Recommend strict monitoring of her ins and outs. We will obtain echocardiogram to evaluate her left ventricle function. Her troponin is slightly abnormal, this is likely related to her renal insufficiency. There is no evidence of acute coronary syndrome at this time. I will follow her for cardiology during her hospitalization. She was strongly encouraged to quit smoking. I recommend to continue therapy for her COPD exacerbation and suspected pneumonia. MD FARA Olson/KK /4:32 PM /4:58 PM GUS
--- NOTE | 2017-04-23 18:07 | EKG ---
Date Performed: 04/23/2017 Time Performed: 04:58:11 PTAGE: 76 years EKG: Sinus rhythm WITH FREQUENT SUPRAVENTRICULAR PREMATURE COMPLEXES POSSIBLE RIGHT VENTRICULAR HYPERTROPHY INFERIOR M YOCARDIAL INFARCTION ANTEROSEPTAL MYOCARDIAL INFARCTION ABNORMAL ECG PREVIOUS TRACING 08/11/2014 08.49.06 Since previous tracing, no significant change noted DOCTOR: Regino Xavier Interpretating Date/Time 04/23/2017 18:05:01
[2017-04-23 18:48] LABS: % SATURATION IRON PROFILE 11.4 % (20-50); IRON (FE) 29 MCG/DL (50-170); TOTAL IRON BINDING CAPACITY 255 MCG/DL (250-450)
[2017-04-23 18:51] LABS: FERRITIN 83 NG/ML (8-252); TROPONIN I 0.03 NG/ML (0.02-0.05)
[2017-04-23] MEDS: GABAPENTIN 400 MG CAP PO SCH (20:09)
[2017-04-23] MEDS: cloNIDine HCL 0.1 MG TAB PO SCH (20:09)
[2017-04-24] VITALS (30 sets, daily range): BP systolic 135–196; BP diastolic 60–118; PULSE 63–107; RESP 16–19; TEMP 98.1–98.8; O2SAT 94–99
[2017-04-24] MEDS: methylPREDNISolone SOD SUCC 40 MG/1 ML VIAL IV PUSH SCH ×5 (00:06→21:30)
[2017-04-24] MEDS: ACETAMINOPHEN/HYDROcodone 325 MG/10 MG TAB PO PRN ×6 (00:07→21:30)
[2017-04-24] MEDS: LABETALOL HCL 100 MG/20 ML VIAL IV PUSH PRN ×2 (04:09→16:14)
[2017-04-24] MEDS: AZITHROMYCIN INJ 500 MG in SODIUM CHLOR 0.9% 250 ML INJ 250 ML IV SCH (05:53)
[2017-04-24 06:31] LABS: AUTOMATED NEUTROPHIL # 7.5 TH/MM3 (1.8-7.7); BASOPHIL % 0.1 % (0.0-2.0); HEMATOCRIT 23.8 % (35.0-46.0); LYMPH % 3.7 % (9.0-44.0); LYMPHOCYTE # 0.3 TH/MM3 (1.0-4.8); MEAN CELL VOLUME 93.2 FL (80.0-100.0); MEAN CORPUSCULAR HEMOGLOBIN 31.3 PG (27.0-34.0); MEAN CORPUSCULAR HGB CONC 33.6 % (32.0-36.0); MEAN PLATELET VOLUME 9.4 FL (7.0-11.0); MONO % 1.4 % (0.0-8.0); MONOCYTE # 0.1 TH/MM3 (0-0.9); NEUT % 94.8 % (16.0-70.0); PLATELET COUNT 207 TH/MM3 (150-450); RED BLOOD COUNT 2.56 MIL/MM3 (4.00-5.30); RED CELL DISTRIBUTION WIDTH 15.4 % (11.6-17.2); WHITE BLOOD COUNT 7.9 TH/MM3 (4.0-11.0)
[2017-04-24 07:02] LABS: ALBUMIN 2.4 GM/DL (3.4-5.0); ALT (GPT) 10 U/L (10-53); AST (GOT) 13 U/L (15-37); BLOOD UREA NITROGEN 52 MG/DL (7-18); CHLORIDE 102 MEQ/L (98-107); CREATININE 2.57 MG/DL (0.50-1.00); GLOMERULAR FILTRATION RATE 18 ML/MIN (>89); GLUCOSE,RANDOM 223 MG/DL (74-106); SODIUM (NA) 134 MEQ/L (136-145)
[2017-04-24 07:03] LABS: ALKALINE PHOSPHATASE 97 U/L (45-117); TOTAL BILIRUBIN ADULT 0.3 MG/DL (0.2-1.0); TOTAL PROTEIN 6.3 GM/DL (6.4-8.2)
[2017-04-24] MEDS: cefTRIAXone INJ 1,000 MG in SODIUM CHLORIDE 0.9% INJ 100 ML IV SCH (07:23)
[2017-04-24] MEDS: RESP: ALBUTEROL 2.5 MG/IPRATROPIUM 0.5 MG NEB (SCH) NEB ×4 (07:52→21:57)
[2017-04-24] MEDS: guaiFENesin E.R. 600 MG TAB PO SCH ×2 (08:19→21:29)
[2017-04-24] MEDS: FUROSEMIDE 20 MG/2 ML VIAL IV PUSH SCH ×2 (08:20→18:00)
[2017-04-24] MEDS: GABAPENTIN 400 MG CAP PO SCH ×2 (08:20→21:29)
[2017-04-24] MEDS: FLUoxetine HCL 20 MG CAP PO SCH (08:20)
[2017-04-24] MEDS: cloNIDine HCL 0.1 MG TAB PO SCH ×2 (08:21→21:29)
[2017-04-24] MEDS: SODIUM CHLORIDE 0.9% FLUSH 10 ML FLUSH IV FLUSH SCH ×2 (08:22→21:30)
[2017-04-24] MEDS: BUDESONIDE-FORMOTEROL 160/4.5 MCG INHALER INH SCH ×2 (08:22→21:30)
[2017-04-24] MEDS: DOCUSATE SODIUM 50 MG/SENNA 8.6 MG TAB PO SCH ×2 (08:23→21:29)
[2017-04-24] MEDS ORDERED: DEXTROSE 50% IN WATER 50 ML VIAL(D50) IV PUSH PRN (15:00)
[2017-04-24] MEDS ORDERED: GLUCAGON 1 MG/ML VIAL OTHER PRN (15:00)
--- NOTE | 2017-04-24 16:57 | HHI.PR ---
Subjective Remarks breathing better. Creatinine rising. c/o headache. Blood sugars severely elevated. started having epistaxis few moments ago. Objective Vitals Vital Signs Date Time Temp Pulse Resp B/P (MAP) Pulse Ox O2 Delivery O2 Flow Rate FiO2 04/24/17 16:14 64 18 176/76 (109) 94 04/24/17 14:14 18 04/24/17 13:00 70 04/24/17 12:00 68 04/24/17 11:20 98.4 65 17 135/60 (85) 95 04/24/17 11:00 63 04/24/17 10:00 76 04/24/17 09:00 74 04/24/17 08:00 68 04/24/17 07:52 95 21 04/24/17 07:46 98.2 70 16 169/80 (109) 94 04/24/17 07:00 69 04/24/17 06:03 74 04/24/17 05:12 70 04/24/17 04:30 73 04/24/17 03:30 76 04/24/17 03:30 98.1 107 19 170/118 (135) 94 04/24/17 02:15 77 04/24/17 01:04 81 04/24/17 00:56 95 04/24/17 00:00 80 04/23/17 23:40 98.5 95 18 182/74 (110) 97 04/23/17 23:00 88 04/23/17 22:00 90 04/23/17 21:00 110 04/23/17 20:36 100 Nasal Cannula 3.00 04/23/17 20:00 109 04/23/17 19:00 98.1 114 17 213/103 (139) 99 04/23/17 19:00 85 04/23/17 18:02 78 04/23/17 17:00 74 I/O 04/23/17 04/23/17 04/23/17 04/24/17 04/24/17 04/24/17 07:00 15:00 23:00 07:00 15:00 23:00 Intake Total 350 ml 480 ml Output Total 700 ml Balance 350 ml -220 ml Intake Oral 350 ml 480 ml Output Urine Total 700 ml Result Diagram: 04/24/17 0541 04/24/17 0541 Imaging Last Impressions Chest X-Ray 04/23/17 0459 Signed Impressions: Service Date/Time: Sunday, April 23, 2017 05:10 - CONCLUSION: Bibasilar minimal areas of consolidation or atelectasis. Rasta Vieira MD Objective Remarks GENERAL: This is a well-nourished, well-developed patient, in no apparent distress. SKIN: No rashes, ecchymoses or lesions. Cool and dry. HEAD: Atraumatic. Normocephalic. No temporal or scalp tenderness. EYES: Pupils equal round and reactive. Extraocular motions intact. No scleral icterus. No injection or drainage. ENT: Nose without bleeding, purulent drainage or septal hematoma. Throat without erythema, tonsillar hypertrophy or exudate. Uvula midline. Airway patent. NECK: Trachea midline. No JVD or lymphadenopathy. Supple, nontender, no meningeal signs. CARDIOVASCULAR: Regular rate and rhythm without murmurs, gallops, or rubs. RESPIRATORY: Better air movement with improved breath sounds which are clear to auscultation BL. GASTROINTESTINAL: Abdomen soft, non-tender, nondistended. No hepato-splenomegaly , or palpable masses. No guarding. MUSCULOSKELETAL: Extremities without clubbing, cyanosis, or edema. No joint tenderness, effusion, or edema noted. No calf tenderness. Negative Homans sign bilaterally. NEUROLOGICAL: Awake and alert. Cranial nerves II through XII intact. Motor and sensory grossly within normal limits. Five out of 5 muscle strength in all muscle groups. Normal speech. Medications and IVs Current Medications Medications (Trade) Dose Ordered Sig/Rosemarie Route Start Time Stop Time Status Last Admin (NS Flush) 2 ml UNSCH PRN IVF 04/23/17 05:00 (Nitrostat Sl) 0.4 mg Q5M PRN SL 04/23/17 05:15 Ceftriaxone Sodium 1000 mg/ Sodium Chloride 100 ml @ 200 mls/hr Q24H IV 04/24/17 06:00 04/24/17 07:23 Azithromycin 500 mg/Sodium Chloride 250 ml @ 250 mls/hr Q24H IV 04/24/17 06:00 04/24/17 05:53 (Duoneb Neb) 1 ampule Q4HR WHILE AWAKE NEB NEB 04/23/17 08:00 04/24/17 16:31 (Duoneb Neb) 1 ampule Q2HR NEB PRN NEB 04/23/17 06:30 (Symbicort 160-4.5 Mcg Inh) 2 puff Q12HR INH 04/23/17 09:00 04/24/17 08:22 (Mucinex Er) 600 mg BID PO 04/23/17 09:00 04/24/17 08:19 (SoluMEDROL INJ) 40 mg Q6HR IV PUSH 04/23/17 12:00 04/24/17 12:56 (Lasix Inj) 20 mg BID@18 IV PUSH 04/23/17 09:00 04/24/17 08:20 (NS Flush) 2 ml UNSCH PRN IV FLUSH 04/23/17 06:30 (NS Flush) 2 ml BID IV FLUSH 04/23/17 09:00 04/24/17 08:22 (Zofran Inj) 4 mg Q6H PRN IVP 04/23/17 06:30 (Tylenol) 650 mg Q6H PRN PO 04/23/17 06:30 ([place] 5-325 Mg) 1 tab Q4H PRN PO 04/23/17 06:30 04/23/17 20:09 ([place] 10-325 Mg) 1 tab Q4H PRN PO 04/23/17 06:30 04/24/17 12:57 (Nathaly-Colace) 1 tab BID PO 04/23/17 09:00 04/23/17 20:09 (Milk Of Magnesia Liq) 30 ml Q12H PRN PO 04/23/17 06:30 (Senokot) 17.2 mg Q12H PRN PO 04/23/17 06:30 (Dulcolax Supp) 10 mg DAILY PRN RECTAL 04/23/17 06:30 (Lactulose Liq) 30 ml DAILY PRN PO 04/23/17 06:30 Heparin Sodium/ Dextrose 250 ml @ 7.08 mls/hr TITRATE PRN IV 04/23/17 15:15 04/23/17 15:56 (Catapres) 0.1 mg BID PO 04/23/17 21:00 04/24/17 08:21 (Neurontin) 400 mg BID PO 04/23/17 21:00 04/24/17 08:20 (PROzac) 40 mg DAILY PO 04/24/17 09:00 04/24/17 08:20 (Trandate Inj) 10 mg Q6H PRN IV PUSH 04/23/17 20:45 04/24/17 16:14 (D50w (Vial) Inj) 50 ml UNSCH PRN IV PUSH 04/24/17 15:00 (Glucagon Inj) 1 mg UNSCH PRN OTHER 04/24/17 15:00 (NovoLOG SUPPLEMENTAL SCALE) 1 ACHS SLIDING SCALE SQ 04/24/17 17:00 A/P Problem List: (1) Acute hypoxemic respiratory failure ICD Code: J96.01 - Acute respiratory failure with hypoxia Status: Acute Plan: The patient presented with respiratory distress and acute hypoxemic respiratory secondary to a combination of congestive heart failure exacerbation , COPD exacerbation and pneumonia. Patient had to be placed on BiPAP, when oxygen as tolerated to keep oxygen saturation more than 92%. Chest x-ray reviewed by me show bibasilar minimal areas of consolidation or atelectasis. Method the patient to the medical floor, continue IV Rocephin and azithromycin. Continue IV Solu-Medrol and IV Lasix. 04/24 Breathing status much improved. Continue IV antibiotics, IV steroids, DC IV Lasix given rising creatinine. (2) CHF exacerbation ICD Code: I50.9 - Heart failure, unspecified Status: Acute Plan: BNP elevated at 4056 in a patient with shortness of breath and respiratory failure. At this moment unknown type of congestive heart failure. We'll check 2-D echocardiogram. Status post-IV Lasix in the emergency department. I will continue IV Lasix with a caution to follow-up the creatinine to avoid further rise on it. 04/24 with an trending up. Discontinue Lasix. Continue to monitor BUN/ creatinine. 2-D echocardiogram shows the ventricular systolic function that is low normal with an estimated ejection fraction the range of 50-55%. Mild concentric left ventricular hypertrophy. Mild to moderate mitral valve regurgitation. Moderate mitral valve stenosis. Trace tricuspid valve regurgitation and a moderate left-sided pleural effusion is noted. (3) Community acquired pneumonia ICD Code: J18.9 - Pneumonia, unspecified organism Status: Acute Plan: Continue empiric IV broad-spectrum antibiotics as mentioned above. Follow-up blood cultures, check a strep pneumonia antigen, urine Legionella antigen and mycoplasma antigen. (4) COPD exacerbation ICD Code: J44.1 - Obstructive chronic bronchitis with exacerbation Status: Acute Plan: Status post one-time 125 mg of IV Solu-Medrol in emergency department. 04/24 decrease Solu-Medrol dose down to 40 g IV every 12 hours. (5) MILI (acute kidney injury) ICD Code: N17.9 - Acute kidney injury Status: Acute Plan: Upon review of records the patient has had elevated creatinine in 2016. 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 Baseline creatinine seems to be between 1.4 1.6, creatinine currently at 2.19. Continue to monitor BUN/creatinine, monitor strict I's and O's, avoid nephrotoxins. 04/24 creatinine is trending up from 2.19-2.57. I will DC IV Lasix and start on gentle IV fluids. Monitor for overload. (6) Anemia ICD Code: D64.9 - Anemia Status: Chronic Plan: Anemia seems to be chronic and normocytic. I will check iron studies and stool guaiac. 04/24 I studies consistent with iron deficiency anemia. I will start the patient for sulfate. Will also find out if patient has had previous colonoscopies or endoscopies in the past. If not then the patient to follow-up as an outpatient with gastroenterology. (7) Elevated troponin ICD Code: R74.8 - Abnormal levels of other serum enzymes Plan: Patient has mildly elevated troponin of 0.06 associated with chest pain. I will order a cardiology consultation and continue heparin IV drip for now. 04/24 Appreciate cardiology input. Recommended continuing IV diuresis, however at this point the patient's history of present illness is worsening. I will DC Lasix and start the patient on gentle IV fluid hydration. Troponin elevation likely secondary to demand ischemia and CHF exacerbation with decreased clearance from acute kidney injury. Patient is chest pain-free. (8) HTN (hypertension) ICD Code: I10 - Hypertension Status: Chronic Plan: BP elevated. Continue clonidine 0.1 mg by mouth twice a day. Continue labetalol as needed for elevated blood pressure. If BP continues to be elevated then will increase the dose of clonidine. (9) DM (diabetes mellitus screen) ICD Code: Z13.1 - Screening for diabetes mellitus Status: Chronic Plan: On admission blood sugars were very well controlled. Patient not on any medications after she lost weight. 04/24 blood sugars very elevated and uncontrolled in the [address] on SSI with insulin NovoLog and monitor Accu-Cheks. The blood sugar showed improved after steroids are tapered. (10) Epistaxis ICD Code: R04.0 - Epistaxis Status: Acute Plan: Discontinue IV heparin (11) Headache ICD Code: R51 - Headache Plan: Patient is complaining of headaches today. I will start the patient oral Percocet. Assessment and Plan DVT prophylaxis: SCDs, DC IV heparin. No chemoprophylaxis given epistaxis. Discharge Planning Continue to monitor the telemetry floor. Creatinine trending up. Problem Qualifiers (1) CHF exacerbation: Qualified Codes: I50.9 - Heart failure, unspecified (2) Community acquired pneumonia: Qualified Codes: J18.9 - Pneumonia, unspecified organism (3) Anemia: Qualified Codes: D64.9 - Anemia, unspecified (4) HTN (hypertension): Qualified Codes: I10 - Essential (primary) hypertension Arnaldo Wiggins MD Apr 24, 2017 16:57
--- NOTE | 2017-04-24 17:23 | ECHRPT ---
Indication: Heart Failure CONCLUSIONS The left ventricular systolic function is low normal with an estimated ejection fraction in the rang e of 50- 55%. Mild concentric left ventricular hypertrophy. Ouqs-hx-chgebirx mitral valve regurgitation. Moderate mitral valve stenosis (MVA 2.68, mean grad 7 mmHg at 71bpm). There is trace tricuspid valve regurgitation. A moderate left sided pleural effusion is noted. BP: 170 / 118 HR: 107 Rhythm: Technical Quality:Good FINDINGS LEFT VENTRICLE Normal left ventricular size. Mild concentric left ventricular hypertrophy. The left ventricular systolic function is low normal with an estimated ejection fraction in the rang e of 50- 55%. There is apical hypokinesis. RIGHT VENTRICLE The right ventricular systoilc function is mildly decreased. LEFT ATRIUM The left atrial size is mildly dilated. RIGHT ATRIUM The right atrial size is normal. ATRIAL SEPTUM Normal atrial septal thickness. AORTA The aortic root and proximal ascending aorta are normal in size on limited imaging. MITRAL VALVE Moderate mitral annular calcification Crhm-ti-fuvozqmk mitral valve regurgitation. Moderate mitral valve stenosis (MVA 2.68, mean grad 7 mmHg at 71bpm) AORTIC VALVE Aortic valve sclerosis is present. No aortic valve regurgitation. No aortic valve stenosis. TRICUSPID VALVE Structurally normal tricuspid valve. There is trace tricuspid valve regurgitation. There is estimated blmiblvu-rt-zccjbu pulmonary hypertension present (70 mmHg). PULMONARY VALVE Trivial pulmonary valve regurgitation. VESSELS The inferior vena cava is normal in size. PERICARDIUM A moderate left sided pleural effusion is noted. Hussain Lyon DO (Electronically Signed) Final Date:24 April 2017 17:08
[2017-04-24] MEDS: INSULIN ASPART SUPPLEMENTAL SCALE SQ SCH ×2 (17:30→21:00)
[2017-04-24] MEDS: SODIUM CHLOR 0.9% 1000 ML INJ 1,000 ML IV SCH (18:00)
--- NOTE | 2017-04-24 20:46 | PD.CARD.PN ---
Subjective Subjective Remarks No CP, mild SOB, c/o [place] Objective Medications Current Medications Medications (Trade) Dose Ordered Sig/Rosemarie Route Start Time Stop Time Status Last Admin (NS Flush) 2 ml UNSCH PRN IVF 04/23/17 05:00 (Nitrostat Sl) 0.4 mg Q5M PRN SL 04/23/17 05:15 Ceftriaxone Sodium 1000 mg/ Sodium Chloride 100 ml @ 200 mls/hr Q24H IV 04/24/17 06:00 04/24/17 07:23 Azithromycin 500 mg/Sodium Chloride 250 ml @ 250 mls/hr Q24H IV 04/24/17 06:00 04/24/17 05:53 (Duoneb Neb) 1 ampule Q4HR WHILE AWAKE NEB NEB 04/23/17 08:00 04/24/17 16:31 (Duoneb Neb) 1 ampule Q2HR NEB PRN NEB 04/23/17 06:30 (Symbicort 160-4.5 Mcg Inh) 2 puff Q12HR INH 04/23/17 09:00 04/24/17 08:22 (Mucinex Er) 600 mg BID PO 04/23/17 09:00 04/24/17 08:19 (NS Flush) 2 ml UNSCH PRN IV FLUSH 04/23/17 06:30 (NS Flush) 2 ml BID IV FLUSH 04/23/17 09:00 04/24/17 08:22 (Zofran Inj) 4 mg Q6H PRN IVP 04/23/17 06:30 (Tylenol) 650 mg Q6H PRN PO 04/23/17 06:30 ([place] 5-325 Mg) 1 tab Q4H PRN PO 04/23/17 06:30 04/23/17 20:09 ([place] 10-325 Mg) 1 tab Q4H PRN PO 04/23/17 06:30 04/24/17 17:02 (Nathaly-Colace) 1 tab BID PO 04/23/17 09:00 04/23/17 20:09 (Milk Of Magnesia Liq) 30 ml Q12H PRN PO 04/23/17 06:30 (Senokot) 17.2 mg Q12H PRN PO 04/23/17 06:30 (Dulcolax Supp) 10 mg DAILY PRN RECTAL 04/23/17 06:30 (Lactulose Liq) 30 ml DAILY PRN PO 04/23/17 06:30 (Catapres) 0.1 mg BID PO 04/23/17 21:00 04/24/17 08:21 (Neurontin) 400 mg BID PO 04/23/17 21:00 04/24/17 08:20 (PROzac) 40 mg DAILY PO 04/24/17 09:00 04/24/17 08:20 (Trandate Inj) 10 mg Q6H PRN IV PUSH 04/23/17 20:45 04/24/17 16:14 (D50w (Vial) Inj) 50 ml UNSCH PRN IV PUSH 04/24/17 15:00 (Glucagon Inj) 1 mg UNSCH PRN OTHER 04/24/17 15:00 (NovoLOG SUPPLEMENTAL SCALE) 1 ACHS SLIDING SCALE SQ 04/24/17 17:00 04/24/17 17:30 (SoluMEDROL INJ) 40 mg Q12HR IV PUSH 04/24/17 21:00 Sodium Chloride 1,000 ml @ 84 mls/hr [id number] IV 04/24/17 17:00 04/24/17 18:00 Vital Signs / I&O Vital Signs Date Time Temp Pulse Resp B/P (MAP) Pulse Ox O2 Delivery O2 Flow Rate FiO2 04/24/17 18:00 76 04/24/17 17:00 70 04/24/17 16:14 64 18 176/76 (109) 94 04/24/17 16:00 72 04/24/17 15:00 71 04/24/17 14:14 18 04/24/17 14:00 68 04/24/17 13:00 70 04/24/17 12:00 68 04/24/17 11:20 98.4 65 17 135/60 (85) 95 04/24/17 11:00 63 04/24/17 10:00 76 04/24/17 09:00 74 04/24/17 08:00 68 04/24/17 07:52 95 21 04/24/17 07:46 98.2 70 16 169/80 (109) 94 04/24/17 07:00 69 04/24/17 06:03 74 04/24/17 05:12 70 04/24/17 04:30 73 04/24/17 03:30 76 04/24/17 03:30 98.1 107 19 170/118 (135) 94 04/24/17 02:15 77 04/24/17 01:04 81 04/24/17 00:56 95 04/24/17 00:00 80 04/23/17 23:40 98.5 95 18 182/74 (110) 97 04/23/17 23:00 88 04/23/17 22:00 90 04/23/17 21:00 110 I/O 04/23/17 04/23/17 04/23/17 04/24/17 04/24/17 04/24/17 07:00 15:00 23:00 07:00 15:00 23:00 Intake Total 350 ml 480 ml 740 ml Output Total 700 ml 850 ml Balance 350 ml -220 ml -110 ml Intake Oral 350 ml 480 ml 740 ml Output Urine Total 700 ml 850 ml Physical Exam GENERAL: In NAD SKIN: Warm and dry. HEAD: Normocephalic. EYES: No scleral icterus. No injection or drainage. NECK: Supple, trachea midline. No JVD or lymphadenopathy. CARDIOVASCULAR: Regular rate and rhythm without murmurs, gallops, or rubs. RESPIRATORY: Breath sounds equal bilaterally. No accessory muscle use. GASTROINTESTINAL: Abdomen soft, non-tender, nondistended. MUSCULOSKELETAL: No cyanosis, mild edema. Laboratory Laboratory Tests Test 04/23/17 22:19 04/24/17 05:41 04/24/17 12:48 04/24/17 19:35 Activated Partial Thromboplast Time 28.8 SEC 33.4 SEC 23.8 SEC White Blood Count 7.9 TH/MM3 Red Blood Count 2.56 MIL/MM3 Hemoglobin 8.0 GM/DL Hematocrit 23.8 % Mean Corpuscular Volume 93.2 FL Mean Corpuscular Hemoglobin 31.3 PG Mean Corpuscular Hemoglobin Concent 33.6 % Red Cell Distribution Width 15.4 % Platelet Count 207 TH/MM3 Mean Platelet Volume 9.4 FL Neutrophils (%) (Auto) 94.8 % Lymphocytes (%) (Auto) 3.7 % Monocytes (%) (Auto) 1.4 % Eosinophils (%) (Auto) 0.0 % Basophils (%) (Auto) 0.1 % Neutrophils # (Auto) 7.5 TH/MM3 Lymphocytes # (Auto) 0.3 TH/MM3 Monocytes # (Auto) 0.1 TH/MM3 Eosinophils # (Auto) 0.0 TH/MM3 Basophils # (Auto) 0.0 TH/MM3 CBC Comment DIFF FINAL Differential Comment Blood Urea Nitrogen 52 MG/DL Creatinine 2.57 MG/DL Random Glucose 223 MG/DL Total Protein 6.3 GM/DL Albumin 2.4 GM/DL Calcium Level 8.0 MG/DL Alkaline Phosphatase 97 U/L Aspartate Amino Transf (AST/SGOT) 13 U/L Alanine Aminotransferase (ALT/SGPT) 10 U/L Total Bilirubin 0.3 MG/DL Sodium Level 134 MEQ/L Potassium Level 4.3 MEQ/L Chloride Level 102 MEQ/L Carbon Dioxide Level 25.0 MEQ/L Anion Gap 7 MEQ/L Estimat Glomerular Filtration Rate 18 ML/MIN Assessment and Plan Problem List: (1) Acute hypoxemic respiratory failure ICD Codes: J96.01 - Acute respiratory failure with hypoxia Status: Acute (2) CHF exacerbation ICD Codes: I50.9 - Heart failure, unspecified Status: Acute (3) COPD exacerbation ICD Codes: J44.1 - Obstructive chronic bronchitis with exacerbation Status: Acute (4) Community acquired pneumonia ICD Codes: J18.9 - Pneumonia, unspecified organism Status: Acute (5) MILI (acute kidney injury) ICD Codes: N17.9 - Acute kidney injury Status: Acute (6) Anemia ICD Codes: D64.9 - Anemia Status: Chronic (7) HTN (hypertension) ICD Codes: I10 - Hypertension Status: Chronic (8) DM (diabetes mellitus screen) ICD Codes: Z13.1 - Screening for diabetes mellitus Status: Chronic Assessment and Plan Continue tx for CHF including diuresis closely monitoring renal fx. Echo with low nl LV fx. Continue tx for pneumonia and COPD exacerbation. Increase activity. Problem Qualifiers (1) CHF exacerbation: Qualified Codes: I50.9 - Heart failure, unspecified (2) Community acquired pneumonia: Qualified Codes: J18.9 - Pneumonia, unspecified organism (3) Anemia: Qualified Codes: D64.9 - Anemia, unspecified (4) HTN (hypertension): Qualified Codes: I10 - Essential (primary) hypertension Yulissa Fitzgerald MD Apr 24, 2017 20:46
[2017-04-24] MEDS ORDERED: oxyCODONE/ACETAMINOPHEN 10 MG/325 MG TAB PO ONE (21:45)
[2017-04-25] VITALS (28 sets, daily range): BP systolic 136–191; BP diastolic 67–85; PULSE 66–88; RESP 18–20; TEMP 97.1–98.6; O2SAT 97–100
[2017-04-25] MEDS: LABETALOL HCL 100 MG/20 ML VIAL IV PUSH PRN ×2 (00:08→15:48)
--- NOTE | 2017-04-25 00:09 | RADRPT ---
EXAM DATE/TIME: 04/24/2017 23:08 [facility] COMPARISON: US KIDNEY/RENAL/BLADDER, May 17, 2014, 14:48. INDICATIONS : Increased lab values. MEDICAL HISTORY : Hypertension. Hypercholesterolemia. Chronic obstructive pulmonary disease. Congestive heart failure. Myocardial infarction. Osteoporosis. DIabetes. SURGICAL HISTORY : Cholecystectomy. Appendectomy. Bilateral knee replacement. Bilateral hip replacement. ENCOUNTER: Initial ACUITY: 1 day PAIN SCORE: 0/10 LOCATION: Bilateral flank MEASUREMENTS: RIGHT KIDNEY: 10.4 x 5.2 x 4.7 cm LEFT KIDNEY: 9.6 x 4.5 x 4.7 cm FINDINGS: The kidneys demonstrate increased echogenicity. No hydronephrosis is seen. There is a 1.6 cm cyst at the inferior right kidney. There is a minimal amount of fluid between the right kidney and the liver. There is a left pleural effusion. CONCLUSION: 1. Echogenic kidneys likely secondary to medical renal disease. 2. Minimal ascites. 3. Left pleural effusion. Rasta Vieira MD on April 25, 2017 at 0:05 Board Certified Radiologist. This report was verified electronically.
[2017-04-25] MEDS: ACETAMINOPHEN/HYDROcodone 325 MG/10 MG TAB PO PRN ×5 (03:41→16:42)
[2017-04-25] MEDS ORDERED: hydrALAZINE HCL 20 MG/ML VIAL IV PUSH ONE (04:15)
[2017-04-25] MEDS: AZITHROMYCIN INJ 500 MG in SODIUM CHLOR 0.9% 250 ML INJ 250 ML IV SCH (04:37)
[2017-04-25] MEDS: SODIUM CHLOR 0.9% 1000 ML INJ 1,000 ML IV SCH ×2 (04:37→15:51)
[2017-04-25] MEDS: cefTRIAXone INJ 1,000 MG in SODIUM CHLORIDE 0.9% INJ 100 ML IV SCH (05:30)
[2017-04-25 06:43] LABS: HEMATOCRIT 23.8 % (35.0-46.0); HEMOGLOBIN 7.8 GM/DL (11.6-15.3); MEAN CORPUSCULAR HEMOGLOBIN 30.9 PG (27.0-34.0); MEAN CORPUSCULAR HGB CONC 32.9 % (32.0-36.0); MEAN PLATELET VOLUME 9.8 FL (7.0-11.0); PLATELET COUNT 203 TH/MM3 (150-450); RED BLOOD COUNT 2.53 MIL/MM3 (4.00-5.30); RED CELL DISTRIBUTION WIDTH 15.3 % (11.6-17.2); WHITE BLOOD COUNT 12.3 TH/MM3 (4.0-11.0)
[2017-04-25 07:19] LABS: BICARBONATE 22.9 MEQ/L (21.0-32.0); CALCIUM 7.9 MG/DL (8.5-10.1); CREATININE 2.45 MG/DL (0.50-1.00); MAGNESIUM 1.7 MG/DL (1.5-2.5); PHOSPHORUS 4.9 MG/DL (2.5-4.9)
[2017-04-25] MEDS: RESP: ALBUTEROL 2.5 MG/IPRATROPIUM 0.5 MG NEB (SCH) NEB ×4 (07:43→19:27)
[2017-04-25] MEDS: INSULIN ASPART SUPPLEMENTAL SCALE SQ SCH ×4 (08:26→21:00)
[2017-04-25] MEDS: guaiFENesin E.R. 600 MG TAB PO SCH ×2 (08:27→21:19)
[2017-04-25] MEDS: methylPREDNISolone SOD SUCC 40 MG/1 ML VIAL IV PUSH SCH ×2 (08:27→21:21)
[2017-04-25] MEDS: GABAPENTIN 400 MG CAP PO SCH ×2 (08:27→21:21)
[2017-04-25] MEDS: cloNIDine HCL 0.1 MG TAB PO SCH (08:27)
[2017-04-25] MEDS: FLUoxetine HCL 20 MG CAP PO SCH (08:27)
[2017-04-25] MEDS: SODIUM CHLORIDE 0.9% FLUSH 10 ML FLUSH IV FLUSH SCH ×2 (08:28→21:21)
[2017-04-25] MEDS: DOCUSATE SODIUM 50 MG/SENNA 8.6 MG TAB PO SCH ×2 (08:28→21:20)
[2017-04-25] MEDS: BUDESONIDE-FORMOTEROL 160/4.5 MCG INHALER INH SCH ×2 (11:16→21:26)
--- NOTE | 2017-04-25 14:15 | PD.CARD.PN ---
Subjective Subjective Remarks No CP, mild SOB, still c/o [place] Objective Medications Current Medications Medications (Trade) Dose Ordered Sig/Rosemarie Route Start Time Stop Time Status Last Admin (NS Flush) 2 ml UNSCH PRN IVF 04/23/17 05:00 (Nitrostat Sl) 0.4 mg Q5M PRN SL 04/23/17 05:15 Ceftriaxone Sodium 1000 mg/ Sodium Chloride 100 ml @ 200 mls/hr Q24H IV 04/24/17 06:00 04/25/17 05:30 Azithromycin 500 mg/Sodium Chloride 250 ml @ 250 mls/hr Q24H IV 04/24/17 06:00 04/25/17 04:37 (Duoneb Neb) 1 ampule Q4HR WHILE AWAKE NEB NEB 04/23/17 08:00 04/25/17 07:43 (Duoneb Neb) 1 ampule Q2HR NEB PRN NEB 04/23/17 06:30 (Symbicort 160-4.5 Mcg Inh) 2 puff Q12HR INH 04/23/17 09:00 04/25/17 11:16 (Mucinex Er) 600 mg BID PO 04/23/17 09:00 04/25/17 08:27 (NS Flush) 2 ml UNSCH PRN IV FLUSH 04/23/17 06:30 (NS Flush) 2 ml BID IV FLUSH 04/23/17 09:00 04/25/17 08:28 (Zofran Inj) 4 mg Q6H PRN IVP 04/23/17 06:30 (Tylenol) 650 mg Q6H PRN PO 04/23/17 06:30 ([place] 5-325 Mg) 1 tab Q4H PRN PO 04/23/17 06:30 04/23/17 20:09 ([place] 10-325 Mg) 1 tab Q4H PRN PO 04/23/17 06:30 04/25/17 11:28 (Nathaly-Colace) 1 tab BID PO 04/23/17 09:00 04/25/17 08:28 (Milk Of Magnesia Liq) 30 ml Q12H PRN PO 04/23/17 06:30 (Senokot) 17.2 mg Q12H PRN PO 04/23/17 06:30 (Dulcolax Supp) 10 mg DAILY PRN RECTAL 04/23/17 06:30 (Lactulose Liq) 30 ml DAILY PRN PO 04/23/17 06:30 (Catapres) 0.1 mg BID PO 04/23/17 21:00 04/25/17 08:27 (Neurontin) 400 mg BID PO 04/23/17 21:00 04/25/17 08:27 (PROzac) 40 mg DAILY PO 04/24/17 09:00 04/25/17 08:27 (Trandate Inj) 10 mg Q6H PRN IV PUSH 04/23/17 20:45 04/25/17 00:08 (D50w (Vial) Inj) 50 ml UNSCH PRN IV PUSH 04/24/17 15:00 (Glucagon Inj) 1 mg UNSCH PRN OTHER 04/24/17 15:00 (NovoLOG SUPPLEMENTAL SCALE) 1 ACHS SLIDING SCALE SQ 04/24/17 17:00 04/25/17 12:59 (SoluMEDROL INJ) 40 mg Q12HR IV PUSH 04/24/17 21:00 04/25/17 08:27 Sodium Chloride 1,000 ml @ 84 mls/hr [id number] IV 04/24/17 17:00 04/25/17 04:37 Vital Signs / I&O Vital Signs Date Time Temp Pulse Resp B/P (MAP) Pulse Ox O2 Delivery O2 Flow Rate FiO2 04/25/17 13:00 70 04/25/17 12:00 70 04/25/17 11:20 98.2 73 19 151/71 (97) 97 04/25/17 11:00 70 04/25/17 10:00 88 04/25/17 09:00 78 04/25/17 08:00 76 04/25/17 07:43 98 21 04/25/17 07:30 67 04/25/17 07:30 97.9 69 18 155/69 (97) 97 04/25/17 06:00 68 04/25/17 05:32 136/67 (90) 04/25/17 05:00 71 04/25/17 04:00 71 04/25/17 03:00 98.6 69 20 190/84 (119) 98 04/25/17 02:00 70 04/25/17 01:00 71 04/25/17 00:00 75 04/25/17 00:00 76 04/24/17 23:00 98.8 76 18 171/71 (104) 95 04/24/17 22:00 76 04/24/17 21:57 94 21 04/24/17 21:00 78 04/24/17 20:00 80 04/24/17 19:00 98.7 82 18 196/88 (124) 99 04/24/17 18:00 76 04/24/17 17:00 70 04/24/17 16:14 64 18 176/76 (109) 94 04/24/17 16:00 72 04/24/17 15:00 71 I/O 04/24/17 04/24/17 04/24/17 04/25/17 04/25/17 04/25/17 07:00 15:00 23:00 07:00 15:00 23:00 Intake Total 480 ml 740 ml 360 ml Output Total 700 ml 850 ml 1350 ml Balance -220 ml -110 ml -990 ml Intake Oral 480 ml 740 ml 360 ml Output Urine Total 700 ml 850 ml 1350 ml Physical Exam GENERAL: In NAD SKIN: Warm and dry. HEAD: Normocephalic. EYES: No scleral icterus. No injection or drainage. NECK: Supple, trachea midline. No JVD or lymphadenopathy. CARDIOVASCULAR: Regular rate and rhythm without murmurs, gallops, or rubs. RESPIRATORY: Breath sounds equal bilaterally. No accessory muscle use. GASTROINTESTINAL: Abdomen soft, non-tender, nondistended. MUSCULOSKELETAL: No cyanosis, mild edema. Laboratory Laboratory Tests Test 04/24/17 19:35 04/25/17 06:05 04/25/17 13:06 Activated Partial Thromboplast Time 23.8 SEC White Blood Count 12.3 TH/MM3 Red Blood Count 2.53 MIL/MM3 Hemoglobin 7.8 GM/DL Hematocrit 23.8 % Mean Corpuscular Volume 94.0 FL Mean Corpuscular Hemoglobin 30.9 PG Mean Corpuscular Hemoglobin Concent 32.9 % Red Cell Distribution Width 15.3 % Platelet Count 203 TH/MM3 Mean Platelet Volume 9.8 FL Blood Urea Nitrogen 65 MG/DL Creatinine 2.45 MG/DL Random Glucose 142 MG/DL Calcium Level 7.9 MG/DL Phosphorus Level 4.9 MG/DL Magnesium Level 1.7 MG/DL Sodium Level 134 MEQ/L Potassium Level 4.0 MEQ/L Chloride Level 103 MEQ/L Carbon Dioxide Level 22.9 MEQ/L Anion Gap 8 MEQ/L Estimat Glomerular Filtration Rate 19 ML/MIN Assessment and Plan Problem List: (1) Acute hypoxemic respiratory failure ICD Codes: J96.01 - Acute respiratory failure with hypoxia Status: Acute (2) CHF exacerbation ICD Codes: I50.9 - Heart failure, unspecified Status: Acute (3) COPD exacerbation ICD Codes: J44.1 - Obstructive chronic bronchitis with exacerbation Status: Acute (4) Community acquired pneumonia ICD Codes: J18.9 - Pneumonia, unspecified organism Status: Acute (5) MILI (acute kidney injury) ICD Codes: N17.9 - Acute kidney injury Status: Acute (6) Anemia ICD Codes: D64.9 - Anemia Status: Chronic (7) HTN (hypertension) ICD Codes: I10 - Hypertension Status: Chronic (8) DM (diabetes mellitus screen) ICD Codes: Z13.1 - Screening for diabetes mellitus Status: Chronic Assessment and Plan Slow progress. Renal fx impaired, pt still volume overloaded. Continue tx for CHF including diuresis closely monitoring renal fx. Echo with low nl LV syst fx. Continue tx for pneumonia and COPD exacerbation. Increase activity. Problem Qualifiers (1) CHF exacerbation: Qualified Codes: I50.9 - Heart failure, unspecified (2) Community acquired pneumonia: Qualified Codes: J18.9 - Pneumonia, unspecified organism (3) Anemia: Qualified Codes: D64.9 - Anemia, unspecified (4) HTN (hypertension): Qualified Codes: I10 - Essential (primary) hypertension Yulissa Fitzgerald MD Apr 25, 2017 14:15
[2017-04-25] MEDS ORDERED: SODIUM CHLORID 0.9% 500 ML INJ 500 ML IV SCH (15:30)
[2017-04-25] MEDS ORDERED: DOXAZOSIN MESYLATE 2 MG TAB PO ONE (17:00)
[2017-04-25] MEDS: hydrALAZINE HCL 20 MG/ML VIAL IV PUSH PRN (17:51)
[2017-04-25] MEDS ORDERED: oxyCODONE/ACETAMINOPHEN 10 MG/325 MG TAB PO ONE (18:00)
--- NOTE | 2017-04-25 19:47 | HHI.PR ---
Subjective Remarks deferred entry - patient seen earlier at 10:30 am Patient c/o neck pain and headache states breathing is improved. Objective Vitals Vital Signs Date Time Temp Pulse Resp B/P (MAP) Pulse Ox O2 Delivery O2 Flow Rate FiO2 04/25/17 19:30 21 04/25/17 15:40 97.9 73 19 191/84 (119) 100 04/25/17 13:00 70 04/25/17 12:00 70 04/25/17 11:20 98.2 73 19 151/71 (97) 97 04/25/17 11:00 70 04/25/17 10:00 88 04/25/17 09:00 78 04/25/17 08:00 76 04/25/17 07:43 98 21 04/25/17 07:30 67 04/25/17 07:30 97.9 69 18 155/69 (97) 97 04/25/17 06:00 68 04/25/17 05:32 136/67 (90) 04/25/17 05:00 71 04/25/17 04:00 71 04/25/17 03:00 98.6 69 20 190/84 (119) 98 04/25/17 02:00 70 04/25/17 01:00 71 04/25/17 00:00 75 04/25/17 00:00 76 04/24/17 23:00 98.8 76 18 171/71 (104) 95 04/24/17 22:00 76 04/24/17 21:57 94 21 04/24/17 21:00 78 04/24/17 20:00 80 I/O 04/24/17 04/24/17 04/24/17 04/25/17 04/25/17 04/25/17 07:00 15:00 23:00 07:00 15:00 23:00 Intake Total 480 ml 740 ml 360 ml 1710 ml Output Total 700 ml 850 ml 1350 ml 650 ml Balance -220 ml -110 ml -990 ml 1060 ml Intake Oral 480 ml 740 ml 360 ml 520 ml IV Total 1190 ml Output Urine Total 700 ml 850 ml 1350 ml 650 ml # Voids 2 # Bowel Movements 0 Result Diagram: 04/25/17 0605 04/25/17 0605 Imaging Last Impressions Renal Ultrasound 04/24/17 0000 Signed Impressions: Service Date/Time: Monday, April 24, 2017 23:08 - CONCLUSION: 1. Echogenic kidneys likely secondary to medical renal disease. 2. Minimal ascites. 3. Left pleural effusion. Rasta Vieira MD Chest X-Ray 04/23/17 0459 Signed Impressions: Service Date/Time: Sunday, April 23, 2017 05:10 - CONCLUSION: Bibasilar minimal areas of consolidation or atelectasis. Rasta Vieira MD Objective Remarks GENERAL: This is a well-nourished, well-developed patient, in no apparent distress. SKIN: No rashes, ecchymoses or lesions. Cool and dry. HEAD: Atraumatic. Normocephalic. No temporal or scalp tenderness. EYES: Pupils equal round and reactive. Extraocular motions intact. No scleral icterus. No injection or drainage. ENT: Nose without bleeding, purulent drainage or septal hematoma. Throat without erythema, tonsillar hypertrophy or exudate. Uvula midline. Airway patent. NECK: Trachea midline. No JVD or lymphadenopathy. Supple, nontender, no meningeal signs. CARDIOVASCULAR: Regular rate and rhythm without murmurs, gallops, or rubs. RESPIRATORY: Better air movement with improved breath sounds which are clear to auscultation BL. GASTROINTESTINAL: Abdomen soft, non-tender, nondistended. No hepato-splenomegaly , or palpable masses. No guarding. MUSCULOSKELETAL: Extremities without clubbing, cyanosis, or edema. No joint tenderness, effusion, or edema noted. No calf tenderness. Negative Homans sign bilaterally. NEUROLOGICAL: Awake and alert. Cranial nerves II through XII intact. Motor and sensory grossly within normal limits. Five out of 5 muscle strength in all muscle groups. Normal speech. Medications and IVs Current Medications Medications (Trade) Dose Ordered Sig/Rosemarie Route Start Time Stop Time Status Last Admin (NS Flush) 2 ml UNSCH PRN IVF 04/23/17 05:00 (Nitrostat Sl) 0.4 mg Q5M PRN SL 04/23/17 05:15 Ceftriaxone Sodium 1000 mg/ Sodium Chloride 100 ml @ 200 mls/hr Q24H IV 04/24/17 06:00 04/25/17 05:30 Azithromycin 500 mg/Sodium Chloride 250 ml @ 250 mls/hr Q24H IV 04/24/17 06:00 04/25/17 04:37 (Duoneb Neb) 1 ampule Q4HR WHILE AWAKE NEB NEB 04/23/17 08:00 04/25/17 19:27 (Duoneb Neb) 1 ampule Q2HR NEB PRN NEB 04/23/17 06:30 (Symbicort 160-4.5 Mcg Inh) 2 puff Q12HR INH 04/23/17 09:00 04/25/17 11:16 (Mucinex Er) 600 mg BID PO 04/23/17 09:00 04/25/17 08:27 (NS Flush) 2 ml UNSCH PRN IV FLUSH 04/23/17 06:30 (NS Flush) 2 ml BID IV FLUSH 04/23/17 09:00 04/25/17 08:28 (Zofran Inj) 4 mg Q6H PRN IVP 04/23/17 06:30 (Tylenol) 650 mg Q6H PRN PO 04/23/17 06:30 (Nathaly-Colace) 1 tab BID PO 04/23/17 09:00 04/25/17 08:28 (Milk Of Magnesia Liq) 30 ml Q12H PRN PO 04/23/17 06:30 (Senokot) 17.2 mg Q12H PRN PO 04/23/17 06:30 (Dulcolax Supp) 10 mg DAILY PRN RECTAL 04/23/17 06:30 (Lactulose Liq) 30 ml DAILY PRN PO 04/23/17 06:30 (Catapres) 0.1 mg BID PO 04/23/17 21:00 04/25/17 08:27 (Neurontin) 400 mg BID PO 04/23/17 21:00 04/25/17 08:27 (PROzac) 40 mg DAILY PO 04/24/17 09:00 04/25/17 08:27 (Trandate Inj) 10 mg Q6H PRN IV PUSH 04/23/17 20:45 04/25/17 15:48 (D50w (Vial) Inj) 50 ml UNSCH PRN IV PUSH 04/24/17 15:00 (Glucagon Inj) 1 mg UNSCH PRN OTHER 04/24/17 15:00 (NovoLOG SUPPLEMENTAL SCALE) 1 ACHS SLIDING SCALE SQ 04/24/17 17:00 04/25/17 18:01 (SoluMEDROL INJ) 40 mg Q12HR IV PUSH 04/24/17 21:00 04/25/17 08:27 Sodium Chloride 1,000 ml @ 84 mls/hr [id number] IV 04/24/17 17:00 04/25/17 15:51 (Apresoline Inj) 10 mg Q4HR PRN IV PUSH 04/25/17 16:15 04/25/17 17:51 (Percocet 10-325 Mg) 1 tab Q4H PRN PO 04/25/17 18:00 (Catapres) 0.2 mg Q8HR PO 04/25/17 22:00 UNV A/P Problem List: (1) Acute hypoxemic respiratory failure ICD Code: J96.01 - Acute respiratory failure with hypoxia Status: Acute (2) CHF exacerbation ICD Code: I50.9 - Heart failure, unspecified Status: Acute (3) Community acquired pneumonia ICD Code: J18.9 - Pneumonia, unspecified organism Status: Acute (4) COPD exacerbation ICD Code: J44.1 - Obstructive chronic bronchitis with exacerbation Status: Acute (5) MILI (acute kidney injury) ICD Code: N17.9 - Acute kidney injury Status: Acute (6) Anemia ICD Code: D64.9 - Anemia Status: Chronic (7) Elevated troponin ICD Code: R74.8 - Abnormal levels of other serum enzymes (8) HTN (hypertension) ICD Code: I10 - Hypertension Status: Chronic (9) DM (diabetes mellitus screen) ICD Code: Z13.1 - Screening for diabetes mellitus Status: Chronic (10) Epistaxis ICD Code: R04.0 - Epistaxis Status: Acute (11) Headache ICD Code: R51 - Headache Status: Acute (12) Pleural effusion, left ICD Code: J90 - Pleural effusion, not elsewhere classified Plan: Chest x-ray obtained 04/23 and reviewed by me showed bibasilar areas of consolidation or atelectasis. Echocardiogram mentions a moderate left-sided pleural effusion. I will repeat a chest x-ray to assess this finding and to determine the need of a thoracentesis. Pleural effusions likely parapneumonic. Assessment and Plan (1) Acute hypoxemic respiratory failure Plan: The patient presented with respiratory distress and acute hypoxemic respiratory secondary to a combination of congestive heart failure exacerbation , COPD exacerbation and pneumonia. Patient had to be placed on BiPAP, when oxygen as tolerated to keep oxygen saturation more than 92%. Chest x-ray reviewed by me show bibasilar minimal areas of consolidation or atelectasis. Method the patient to the medical floor, continue IV Rocephin and azithromycin. Continue IV Solu-Medrol and IV Lasix. 04/24 Breathing status much improved. Continue IV antibiotics, IV steroids, DC IV Lasix given rising creatinine. 04/25 DC IV Solumedrol. Start on oral prednisone 20 mg po bid. (2) CHF exacerbation Plan: BNP elevated at 4056 in a patient with shortness of breath and respiratory failure. At this moment unknown type of congestive heart failure. We'll check 2-D echocardiogram. Status post-IV Lasix in the emergency department. I will continue IV Lasix with a caution to follow-up the creatinine to avoid further rise on it. 04/24 Creatinine trending up. Discontinue Lasix. Continue to monitor BUN/ creatinine. 2-D echocardiogram shows the ventricular systolic function that is low normal with an estimated ejection fraction the range of 50-55%. Mild concentric left ventricular hypertrophy. Mild to moderate mitral valve regurgitation. Moderate mitral valve stenosis. Trace tricuspid valve regurgitation and a moderate left-sided pleural effusion is noted. (3) Community acquired pneumonia Plan: Continue empiric IV broad-spectrum antibiotics as mentioned above. Follow-up blood cultures, check a strep pneumonia antigen, urine Legionella antigen and mycoplasma antigen --> ordered (4) COPD exacerbation Plan: Status post one-time 125 mg of IV Solu-Medrol in emergency department. 04/24 decrease Solu-Medrol dose down to 40 g IV every 12 hours. 04/25 Much improved Dc solumedrol and start prednisone taper. (5) MILI (acute kidney injury) Plan: Upon review of records the patient has had elevated creatinine in 2016. 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 Baseline creatinine seems to be between 1.4 1.6, creatinine currently at 2.19. Continue to monitor BUN/creatinine, monitor strict I's and O's, avoid nephrotoxins. 04/24 creatinine is trending up from 2.19-2.57. I will DC IV Lasix and start on gentle IV fluids. Monitor for overload. 04/25 Creatinine improving and down to 2.45. Continue gentle IV fluids. Continue to monitor BUN/creatinine. No signs of fluid overload. Renal us shows signs of medical renal disease and a left pleural effusion. (6) Anemia Plan: Anemia seems to be chronic and normocytic. I will check iron studies and stool guaiac. 04/24 I studies consistent with iron deficiency anemia. I will start the patient for sulfate. Will also find out if patient has had previous colonoscopies or endoscopies in the past. If not then the patient to follow-up as an outpatient with gastroenterology. 04/25 hemoglobin trending down from 9.3 on admission down to 7.8. Will start on protonix. Continue to monitor hemoglobin. Transfuse as needed for hemoglobin less than 7 or symptomatic anemia. Goal hemoglobin after transfusion more than 8. check stool guaiac for occult blood. Will Rx IV iron. Consult GI. (7) Elevated troponin ICD Code: R74.8 - Abnormal levels of other serum enzymes Plan: Patient has mildly elevated troponin of 0.06 associated with chest pain. I will order a cardiology consultation and continue heparin IV drip for now. Appreciate cardiology input. Recommended continuing IV diuresis, however at this point the patient's history of present illness is worsening. I will DC Lasix and start the patient on gentle IV fluid hydration. Troponin elevation likely secondary to demand ischemia and CHF exacerbation with decreased clearance from acute kidney injury. Patient is chest pain-free. (8) HTN (hypertension) Plan: BP elevated. Continue clonidine 0.1 mg by mouth twice a day. Continue labetalol as needed for elevated blood pressure. If BP continues to be elevated then will increase the dose of clonidine. 04/25 BP very uncontrolled and severely elevated to a systolic blood pressure max of 190. This is even after given a dose of Cardura. I will increase the dose of clonidine to 0.2 minutes by mouth 3 times a day. I will also DC IV Solu -Medrol and start on prednisone taper which should help on BP control. BP likely controlled secondary to steroids. (9) DM (diabetes mellitus screen) Plan: On admission blood sugars were very well controlled. Patient not on any medications after she lost weight. 04/24 blood sugars very elevated and uncontrolled in the [address] on SSI with insulin NovoLog and monitor Accu-Cheks. The blood sugar showed improved after steroids are tapered. 04/25 blood sugars still elevated but with improved control. Continue SSI with insulin NovoLog and Accu-Cheks. Check hemoglobin A1c. (10) Epistaxis Plan: Likely secondary to IV heparin. Resolved after IV heparin discontinuation. Continue to monitor for recurrent epistaxis. (11) Headache Plan: Patient is complaining of headaches today. I will start the patient oral Percocet. 04/[address] of the head without IV contrast given that the patient has persistent severe headache and has been recently on IV heparin to rule out intracranial hemorrhage. Consult PT DVT prophylaxis: SCDs, DC IV heparin. No chemoprophylaxis given h/o epistaxis. Discharge Planning Continue to monitor the telemetry floor. GI consulted due to drop in hemoglobin. Creatinine better but still elevated. Problem Qualifiers (1) CHF exacerbation: Qualified Codes: I50.9 - Heart failure, unspecified (2) Community acquired pneumonia: Qualified Codes: J18.9 - Pneumonia, unspecified organism (3) Anemia: Qualified Codes: D64.9 - Anemia, unspecified (4) HTN (hypertension): Qualified Codes: I10 - Essential (primary) hypertension Arnaldo Wiggins MD Apr 25, 2017 19:47
[2017-04-25] MEDS ORDERED: IRON DEXTRAN 100 MG/2 ML VIAL IV PUSH ONE ×2 (20:00→22:00)
[2017-04-25] MEDS: cloNIDine HCL 0.2 MG TAB PO SCH (21:20)
[2017-04-25] MEDS: oxyCODONE/ACETAMINOPHEN 10 MG/325 MG TAB PO PRN (21:20)
[2017-04-25] MEDS: PANTOPRAZOLE SOD 40 MG DELAYED RELEASE TAB PO SCH (21:20)
--- NOTE | 2017-04-25 23:14 | RADRPT ---
EXAM DATE/TIME: 04/25/2017 22:28 [facility] COMPARISON: CT BRAIN W/O CONTRAST, August 11, 2014, 9:02. INDICATIONS : Cephalgia. RADIATION DOSE: 45.89 CTDIvol (mGy) MEDICAL HISTORY : Hypertension. Myocardial infarction. Chronic obstructive pulmonary disease. SURGICAL HISTORY : CABG ENCOUNTER: Initial ACUITY: 1 day PAIN SCALE: 8/10 LOCATION: cranial TECHNIQUE: Multiple contiguous axial images were obtained of the head. Using automated exposure control and adj ustment of the mA and/or kV according to patient size, radiation dose was kept as low as reasonably a chievable to obtain optimal diagnostic quality images. DICOM format image data is available electro nically for review and comparison. FINDINGS: CEREBRUM: The ventricles are normal for age. No evidence of midline shift, mass lesion, hemorrhage or acute in farction. No extra-axial fluid collections are seen. POSTERIOR FOSSA: The cerebellum and brainstem are intact. The 4th ventricle is midline. The cerebellopontine angle i s unremarkable. EXTRACRANIAL: The visualized portion of the orbits is intact. SKULL: The calvaria is intact. No evidence of skull fracture. CONCLUSION: 1. Negative noncontrast CT brain. Leo Gonzales MD on April 25, 2017 at 23:11 Board Certified Radiologist. This report was verified electronically.
--- NOTE | 2017-04-25 23:35 | RADRPT ---
EXAM DATE/TIME: 04/25/2017 21:41 [facility] COMPARISON: CHEST SINGLE AP, April 23, 2017, 5:10. INDICATIONS : Cough, chest congestion MEDICAL HISTORY : Congestive heart failure. Diabetes mellitus type II. Hypertension. GA SURGICAL HISTORY : Fusion, cervical. Fusion, lumbar. Appendectomy. CABG Cholecystectomy ENCOUNTER: Subsequent ACUITY: 3 days PAIN SCORE: 0/10 LOCATION: Bilateral chest FINDINGS: The patient is status post sternotomy. The heart size is enlarged. The lungs demonstrate mild diffuse increased interstitial markings. Minimal bilateral pleural effusions are present. Surgical hardware seen at the cervical spine and at the left humerus. CONCLUSION: Cardiomegaly with increased interstitial markings and mild bilateral effusions likely related to CHF. This appears worse when compared to the prior exam. Rasta Vieira MD on April 25, 2017 at 23:32 Board Certified Radiologist. This report was verified electronically.
[2017-04-26] VITALS (27 sets, daily range): BP systolic 124–178; BP diastolic 54–76; PULSE 56–71; RESP 18–20; TEMP 96.8–98.5; O2SAT 92–100
[2017-04-26] MEDS: oxyCODONE/ACETAMINOPHEN 10 MG/325 MG TAB PO PRN ×5 (02:50→20:58)
[2017-04-26] MEDS: SODIUM CHLOR 0.9% 1000 ML INJ 1,000 ML IV SCH (04:45)
[2017-04-26] MEDS: cloNIDine HCL 0.2 MG TAB PO SCH ×3 (06:04→21:01)
[2017-04-26] MEDS: cefTRIAXone INJ 1,000 MG in SODIUM CHLORIDE 0.9% INJ 100 ML IV SCH (06:06)
[2017-04-26] MEDS: AZITHROMYCIN INJ 500 MG in SODIUM CHLOR 0.9% 250 ML INJ 250 ML IV SCH (06:06)
[2017-04-26 06:23] LABS: AUTOMATED NEUTROPHIL # 12.7 TH/MM3 (1.8-7.7); BASOPHIL % 0.1 % (0.0-2.0); HEMATOCRIT 24.7 % (35.0-46.0); LYMPH % 1.3 % (9.0-44.0); LYMPHOCYTE # 0.2 TH/MM3 (1.0-4.8); MEAN CORPUSCULAR HEMOGLOBIN 30.4 PG (27.0-34.0); MEAN CORPUSCULAR HGB CONC 32.3 % (32.0-36.0); MEAN PLATELET VOLUME 10.1 FL (7.0-11.0); MONO % 1.3 % (0.0-8.0); MONOCYTE # 0.2 TH/MM3 (0-0.9); NEUT % 97.3 % (16.0-70.0); PLATELET COUNT 214 TH/MM3 (150-450); RED BLOOD COUNT 2.62 MIL/MM3 (4.00-5.30); RED CELL DISTRIBUTION WIDTH 15.7 % (11.6-17.2)
[2017-04-26 07:00] LABS: ALBUMIN 2.5 GM/DL (3.4-5.0); ALKALINE PHOSPHATASE 81 U/L (45-117); ALT (GPT) 20 U/L (10-53); AST (GOT) 19 U/L (15-37); BICARBONATE 21.1 MEQ/L (21.0-32.0); BLOOD UREA NITROGEN 68 MG/DL (7-18); CALCIUM 7.9 MG/DL (8.5-10.1); CHLORIDE 103 MEQ/L (98-107); CREATININE 2.58 MG/DL (0.50-1.00); GLOMERULAR FILTRATION RATE 18 ML/MIN (>89); GLUCOSE,RANDOM 165 MG/DL (74-106); MAGNESIUM 1.7 MG/DL (1.5-2.5); PHOSPHORUS 4.5 MG/DL (2.5-4.9); SODIUM (NA) 133 MEQ/L (136-145); TOTAL BILIRUBIN ADULT 0.2 MG/DL (0.2-1.0); TOTAL PROTEIN 6.1 GM/DL (6.4-8.2)
[2017-04-26] MEDS: RESP: ALBUTEROL 2.5 MG/IPRATROPIUM 0.5 MG NEB (SCH) NEB ×4 (08:00→20:00)
[2017-04-26] MEDS ORDERED: DOXAZOSIN MESYLATE 2 MG TAB PO SCH (09:00)
[2017-04-26] MEDS ORDERED: IRON DEXTRAN 100 MG/2 ML VIAL IV PUSH SCH (09:00)
[2017-04-26] MEDS: BUDESONIDE-FORMOTEROL 160/4.5 MCG INHALER INH SCH ×2 (09:01→21:00)
[2017-04-26] MEDS: PANTOPRAZOLE SOD 40 MG DELAYED RELEASE TAB PO SCH ×2 (09:01→20:59)
[2017-04-26] MEDS: INSULIN ASPART SUPPLEMENTAL SCALE SQ SCH ×4 (09:01→22:13)
[2017-04-26] MEDS: methylPREDNISolone SOD SUCC 40 MG/1 ML VIAL IV PUSH SCH ×2 (09:02→21:00)
[2017-04-26] MEDS: DOCUSATE SODIUM 50 MG/SENNA 8.6 MG TAB PO SCH ×2 (09:02→20:59)
[2017-04-26] MEDS: GABAPENTIN 400 MG CAP PO SCH ×2 (09:03→20:59)
[2017-04-26] MEDS: FLUoxetine HCL 20 MG CAP PO SCH (09:03)
[2017-04-26] MEDS: guaiFENesin E.R. 600 MG TAB PO SCH ×2 (09:03→20:59)
[2017-04-26] MEDS: SODIUM CHLORIDE 0.9% FLUSH 10 ML FLUSH IV FLUSH SCH ×2 (09:04→21:00)
[2017-04-26] MEDS ORDERED: DOXAZOSIN MESYLATE 2 MG TAB PO ONE (10:00)
--- NOTE | 2017-04-26 10:02 | PD.CONS ---
HPI History of Present Illness This is a 76 year old female admitted to the hospital on the 04-23-2017 with symptoms of shortness of breath and cough 1 week, patient has known COPD and is a current smoker but states that she has not been able to smoke since her illness. She notes 2 episodes of epistaxis last week; patient is a long-term Coumadin patient it is noted in her labs the patient has chronic normocytic anemia, current hemoglobin is 9.3 on admission now 8.7. Patient denies any acute bleeding, no nausea, no vomiting, no heartburn, no recent weight loss or weight gain. Patient does have a history of heart disease and CABG. Patient has been off her Coumadin for 3 days, supplemented with heparin. Initially patient was managed on BiPAP for her COPD but is now able to tolerate O2 per nasal cannula. She denies any fever or abdominal pain. (Sofya John) [facility] Past Medical History 1. COPD. 2. Diabetes mellitus. 3. Hypertension. 4. Congestive heart failure. 5. History of cervical cancer. Coumadin therapy Cardiovascular disease Past Surgical History 1. CABG in 2003. 2. Bilateral knee replacement. 3. Bilateral hip replacement. 4. Left humeral fracture ORIF. 5. Right ankle surgery. 6. Umbilical hernia repair. 8. The lateral breast cystectomy. 9. Total abdominal hysterectomy with bilateral septic nephrectomy. 10. Cholecystectomy. 11. Appendectomy. 12. Cervical fusion. (Sofya John) Coded Allergies: aspirin (Unverified Allergy, Severe, HIVES, 04/23/17) HIVES diatrizoate meglumine (Unverified Allergy, Severe, HIVES, 04/23/17) diazepam (Unverified Allergy, Severe, 04/23/17) HIVES gadobenic acid (Unverified Allergy, Severe, HIVES, 04/23/17) gadodiamide (Unverified Allergy, Severe, HIVES, 04/23/17) gadoteridol (Unverified Allergy, Severe, HIVES, 04/23/17) iodixanol (Unverified Allergy, Severe, HIVES, 04/23/17) iohexol (Unverified Allergy, Severe, HIVES, 04/23/17) ketorolac (Unverified Allergy, Severe, RASH, 04/23/17) ibuprofen (Unverified Allergy, Intermediate, Itching, 04/23/17) FROM [facility]. FD and C no.5 (tartrazine) (Unverified Allergy, Unknown, 04/23/17) FROM [facility] meperidine (Unverified Allergy, Unknown, 04/23/17) FROM [facility]. Medications Administered Medications Medications (Trade) Dose Ordered Sig/Rosemarie Route PRN Reason Start Time Stop Time Status Last Admin Dose Admin Ceftriaxone Sodium 1000 mg/ Sodium Chloride 100 ml @ 200 mls/hr Q24H IV 04/24/17 06:00 04/26/17 06:06 Azithromycin 500 mg/Sodium Chloride 250 ml @ 250 mls/hr Q24H IV 04/24/17 06:00 04/26/17 06:06 Albuterol/ Ipratropium (Duoneb Neb) 1 ampule Q4HR WHILE AWAKE NEB NEB 04/23/17 08:00 04/25/17 19:27 Budesonide/ Formoterol Fumarate (Symbicort 160-4.5 Mcg Inh) 2 puff Q12HR INH 04/23/17 09:00 04/26/17 09:01 Guaifenesin (Mucinex Er) 600 mg BID PO 04/23/17 09:00 04/26/17 09:03 Sodium Chloride (NS Flush) 2 ml BID IV FLUSH 04/23/17 09:00 04/26/17 09:04 Senna/Docusate Sodium (Nathaly-Colace) 1 tab BID PO 04/23/17 09:00 04/26/17 09:02 Sennosides (Senokot) 17.2 mg Q12H PRN PO Moderate constipation 04/23/17 06:30 04/25/17 21:22 Gabapentin (Neurontin) 400 mg BID PO 04/23/17 21:00 04/26/17 09:03 Fluoxetine HCl (PROzac) 40 mg DAILY PO 04/24/17 09:00 04/26/17 09:03 Labetalol HCl (Trandate Inj) 10 mg Q6H PRN IV PUSH SEE LABEL COMMENTS 04/23/17 20:45 04/25/17 15:48 Insulin Aspart (NovoLOG SUPPLEMENTAL SCALE) 1 ACHS SLIDING SCALE SQ 04/24/17 17:00 12/21/17 09:01 Methylprednisolone Sodium Succinate (SoluMEDROL INJ) 40 mg Q12HR IV PUSH 04/24/17 21:00 04/26/17 09:02 Sodium Chloride 1,000 ml @ 84 mls/hr [id number] IV 04/24/17 17:00 04/26/17 04:45 Hydralazine HCl (Apresoline Inj) 10 mg Q4HR PRN IV PUSH SYS BP GREATER THAN 170 MMHG 04/25/17 16:15 04/25/17 17:51 Oxycodone/ Acetaminophen (Percocet 10-325 Mg) 1 tab Q4H PRN PO PAIN 1 TO 10 AND/OR AGITATION 04/25/17 18:00 04/26/17 06:43 Clonidine (Catapres) 0.2 mg Q8HR PO 04/25/17 22:00 04/26/17 06:04 Iron Dextran (Infed Inj) 100 mg DAILY IV PUSH 04/26/17 09:00 04/26/17 09:04 Pantoprazole Sodium (Protonix) 40 mg Q12HR PO 04/25/17 21:00 04/26/17 09:01 Family History Patient states her son from brain cancer. Patient is single and lives alone Social History The patient smokes one pack per day for many years Denies alcohol intake or illicit drug use. Currently patient lives alone (Sofya John) Review of Systems Constitutional: COMPLAINS OF: Fatigue Cardiovascular: COMPLAINS OF: Chest pain (currently stabilized) (Sofya John) GI Exam Vitals I&O Vital Signs Date Time Temp Pulse Resp B/P (MAP) Pulse Ox O2 Delivery O2 Flow Rate FiO2 04/26/17 08:11 98.2 66 18 161/75 (103) 98 04/26/17 06:40 161/68 (99) 04/26/17 06:00 63 04/26/17 05:00 69 04/26/17 04:00 70 04/26/17 04:00 98.5 70 20 166/65 (98) 97 04/26/17 03:00 67 04/26/17 02:00 70 04/26/17 01:00 68 04/26/17 00:00 71 04/25/17 23:00 97.1 69 20 158/85 (109) 97 04/25/17 23:00 70 04/25/17 22:00 82 04/25/17 21:00 78 04/25/17 20:00 74 04/25/17 19:30 21 04/25/17 19:00 97.8 79 20 156/76 (102) 98 04/25/17 19:00 77 04/25/17 18:00 66 04/25/17 17:00 66 04/25/17 16:00 72 04/25/17 15:40 97.9 73 19 191/84 (119) 100 04/25/17 15:00 73 04/25/17 14:00 76 04/25/17 13:00 70 04/25/17 12:00 70 04/25/17 11:20 98.2 73 19 151/71 (97) 97 04/25/17 11:00 70 I/O 04/25/17 04/25/17 04/25/17 04/26/17 04/26/17 04/26/17 07:00 15:00 23:00 07:00 15:00 23:00 Intake Total 360 ml 1710 ml 240 ml 350 ml Output Total 1350 ml 650 ml 300 ml Balance -990 ml 1060 ml -60 ml 350 ml Intake Oral 360 ml 520 ml 240 ml IV Total 1190 ml 350 ml Output Urine Total 1350 ml 650 ml 300 ml # Voids 2 1 # Bowel Movements 0 Imaging Last Impressions Head CT 04/25/17 0000 Signed Impressions: Service Date/Time: Tuesday, April 25, 2017 22:28 - CONCLUSION: 1. Negative noncontrast CT brain. Leo Gonzales MD Chest X-Ray 04/25/17 0000 Signed Impressions: Service Date/Time: Tuesday, April 25, 2017 21:41 - CONCLUSION: Cardiomegaly with increased interstitial markings and mild bilateral effusions likely related to CHF. This appears worse when compared to the prior exam. Rasta Vieira MD Renal Ultrasound 04/24/17 0000 Signed Impressions: Service Date/Time: Monday, April 24, 2017 23:08 - CONCLUSION: 1. Echogenic kidneys likely secondary to medical renal disease. 2. Minimal ascites. 3. Left pleural effusion. Rasta Vieira MD Laboratory Test 04/25/17 13:06 04/26/17 04:50 04/26/17 04:56 Blood Urea Nitrogen 68 MG/DL Creatinine 2.58 MG/DL Random Glucose 165 MG/DL Total Protein 6.1 GM/DL Albumin 2.5 GM/DL Calcium Level 7.9 MG/DL Phosphorus Level 4.5 MG/DL Magnesium Level 1.7 MG/DL Alkaline Phosphatase 81 U/L Aspartate Amino Transf (AST/SGOT) 19 U/L Alanine Aminotransferase (ALT/SGPT) 20 U/L Total Bilirubin 0.2 MG/DL Sodium Level 133 MEQ/L Potassium Level 4.1 MEQ/L Chloride Level 103 MEQ/L Carbon Dioxide Level 21.1 MEQ/L Anion Gap 9 MEQ/L Estimat Glomerular Filtration Rate 18 ML/MIN White Blood Count 13.0 TH/MM3 Red Blood Count 2.62 MIL/MM3 Hemoglobin 8.0 GM/DL Hematocrit 24.7 % Mean Corpuscular Volume 94.0 FL Mean Corpuscular Hemoglobin 30.4 PG Mean Corpuscular Hemoglobin Concent 32.3 % Red Cell Distribution Width 15.7 % Platelet Count 214 TH/MM3 Mean Platelet Volume 10.1 FL Neutrophils (%) (Auto) 97.3 % Lymphocytes (%) (Auto) 1.3 % Monocytes (%) (Auto) 1.3 % Eosinophils (%) (Auto) 0.0 % Basophils (%) (Auto) 0.1 % Neutrophils # (Auto) 12.7 TH/MM3 Lymphocytes # (Auto) 0.2 TH/MM3 Monocytes # (Auto) 0.2 TH/MM3 Eosinophils # (Auto) 0.0 TH/MM3 Basophils # (Auto) 0.0 TH/MM3 CBC Comment DIFF FINAL Differential Comment Date/Time Source Procedure Growth Status 04/23/17 06:55 Blood Peripheral Aerobic Blood Culture - Preliminary NO GROWTH IN 2 DAYS Resulted 04/23/17 06:55 Blood Peripheral Anaerobic Blood Culture - Preliminary NO GROWTH IN 2 DAYS Resulted Physical Examination HEENT: Pupils round and reactive to light; normocephalic; atraumatic; no jaundice. NECK: Neck is supple, no JVD, no lymphadenopathy. CHEST: Chest is with low volumes, small amount of rhonchi small amount of wheezing noted CARDIAC: Regular rate and rhythm with no murmur gallop or rubs. ABDOMEN: Soft, nondistended, nontender; no hepatosplenomegaly; bowel sounds are present in all four quadrants. EXTREMITIES: 3+ chronic lower extremity edema. SKIN: Thin skin turgor Normal; no rash; no jaundice. SAFETY SUPERVISOR: No focal deficits; alert and oriented times three. (Sofya John) Assessment and Plan Assessment: (1) Periodic health assessment, general screening, adult ICD Codes: Z00.00 - Encounter for general adult medical examination without abnormal findings (2) Iron deficiency anemia ICD Codes: D50.9 - Iron deficiency anemia, unspecified (3) Epistaxis ICD Codes: R04.0 - Epistaxis Status: Acute (4) GI bleed ICD Codes: K92.2 - Gastrointestinal hemorrhage Status: Acute Plan Plan for EGD and colonoscopy in a.m. Nothing by mouth at midnight Clear liquids today, patient had regular heart healthy breakfast Hold all blood thinners PT INR in a.m. Fresh frozen plasma on hold for today and tomorrow Consents to procedure Call for any acute bleeding hemorrhage Monitor labs PPI Plan of care will be based on patient's symptoms and findings This patient was seen by myself and , this note was written on his behalf (Sofya John) Physician Comments Seen and examined, plan as above, will proceed with EGD and Colonoscopy in AM. (Sanjay Mo MD) Sofya John Apr 26, 2017 10:02 Sanjay Mo MD Apr 26, 2017 12:54
[2017-04-26] MEDS ORDERED: POLYETHYLENE GLYCOL 17 GM PKG PO ONE (11:00)
[2017-04-26] MEDS ORDERED: BISACODYL EC 5 MG TABEC PO ONE (11:00)
[2017-04-26 14:45] LABS: MYCOPLASMA PNEUMONIAE IGG Negative (Negative); MYCOPLASMA PNEUMONIAE IGM Negative (Negative)
--- NOTE | 2017-04-26 14:45 | PD.CONS ---
HPI Service Nephrology Consult Requested By Reason for Consult Acute on CKD Primary Care Physician Unknown History of Present Illness This is a very pleasant 76 y/o female patient. She was admitted on for shortness fo breath, productive cough, and pleuritic chest pain. PMH of COPD, current smoker, CHF, aortic valve replacement on chronic Coumadin. She is being treated for community acquired PNA, is on Zithromax and Rocephin. Her creatinine was 2.19 on admission, is 2.5 today and has remained relatively stable overnight. She is making urine. IVF was stopped and she has began diuresis with Lasix BID. US is negative for obstruction. She has seen Dr. Ramirez in the past month, but he does not have privileges at this facility therefore we were consulted to assist with management. she is a full code. (Camila Cline) Review of Systems Constitutional: COMPLAINS OF: Fatigue, Weight gain, DENIES: Fever Respiratory: COMPLAINS OF: Cough, Sputum production, Shortness of breath, DENIES: Hemoptysis Cardiovascular: COMPLAINS OF: Chest pain, Dyspnea on Exertion, Lower Extremity Edema, DENIES: Palpitations Gastrointestinal: DENIES: Abdominal pain (Camila Cline) Past Family Social History Allergies: Coded Allergies: aspirin (Unverified Allergy, Severe, HIVES, 04/23/17) HIVES diatrizoate meglumine (Unverified Allergy, Severe, HIVES, 04/23/17) diazepam (Unverified Allergy, Severe, 04/23/17) HIVES gadobenic acid (Unverified Allergy, Severe, HIVES, 04/23/17) gadodiamide (Unverified Allergy, Severe, HIVES, 04/23/17) gadoteridol (Unverified Allergy, Severe, HIVES, 04/23/17) iodixanol (Unverified Allergy, Severe, HIVES, 04/23/17) iohexol (Unverified Allergy, Severe, HIVES, 04/23/17) ketorolac (Unverified Allergy, Severe, RASH, 04/23/17) ibuprofen (Unverified Allergy, Intermediate, Itching, 04/23/17) FROM [facility]. FD and C no.5 (tartrazine) (Unverified Allergy, Unknown, 04/23/17) FROM [facility] meperidine (Unverified Allergy, Unknown, 04/23/17) FROM [facility]. Past Medical History CKD 3, baseline GFR 30, Creatinine 1.61 COPD. Diabetes mellitus II Hypertension. Congestive heart failure. History of cervical cancer. Aortic mechanical valve replacement on chronic coumadin therapy CAD Depression Chronic pain Past Surgical History Mechanical valve replacement 2003 Bilateral TKR Bilateral hip replacement. Left humeral fracture ORIF. Right ankle surgery. Umbilical hernia repair. Unilateral breast lumpectomy Total abdominal hysterectomy with bilateral salpingectomy Cholecystectomy. Appendectomy. Cervical fusion. Reported Medications Neurontin (Gabapentin) 400 Mg Cap 400 Mg PO BID Prozac (Fluoxetine HCl) 40 Mg Cap 40 Mg PO DAILY Coumadin (Warfarin) 1 Mg Tab 0.5 Mg PO HS Percocet (Oxycodone-Acetaminophen) 10-325 mg Tab 1 Tab PO TID PRN Clonidine (Clonidine HCl) 0.1 Mg Tab 0.1 Mg PO BID Active Ordered Medications Current Medications Medications (Trade) Dose Ordered Sig/Rosemarie Route Start Time Stop Time Status Last Admin (NS Flush) 2 ml UNSCH PRN IVF 04/23/17 05:00 (Nitrostat Sl) 0.4 mg Q5M PRN SL 04/23/17 05:15 Ceftriaxone Sodium 1000 mg/ Sodium Chloride 100 ml @ 200 mls/hr Q24H IV 04/24/17 06:00 04/26/17 06:06 Azithromycin 500 mg/Sodium Chloride 250 ml @ 250 mls/hr Q24H IV 04/24/17 06:00 04/26/17 06:06 (Duoneb Neb) 1 ampule Q2HR NEB PRN NEB 04/23/17 06:30 (Symbicort 160-4.5 Mcg Inh) 2 puff Q12HR INH 04/23/17 09:00 04/26/17 09:01 (Mucinex Er) 600 mg BID PO 04/23/17 09:00 04/26/17 09:03 (NS Flush) 2 ml UNSCH PRN IV FLUSH 04/23/17 06:30 (NS Flush) 2 ml BID IV FLUSH 04/23/17 09:00 04/26/17 09:04 (Zofran Inj) 4 mg Q6H PRN IVP 04/23/17 06:30 (Tylenol) 650 mg Q6H PRN PO 04/23/17 06:30 (Nathaly-Colace) 1 tab BID PO 04/23/17 09:00 04/26/17 09:02 (Milk Of Magnesia Liq) 30 ml Q12H PRN PO 04/23/17 06:30 (Senokot) 17.2 mg Q12H PRN PO 04/23/17 06:30 04/25/17 21:22 (Dulcolax Supp) 10 mg DAILY PRN RECTAL 04/23/17 06:30 (Lactulose Liq) 30 ml DAILY PRN PO 04/23/17 06:30 (Neurontin) 400 mg BID PO 04/23/17 21:00 04/26/17 09:03 (PROzac) 40 mg DAILY PO 04/24/17 09:00 04/26/17 09:03 (Trandate Inj) 10 mg Q6H PRN IV PUSH 04/23/17 20:45 04/25/17 15:48 (D50w (Vial) Inj) 50 ml UNSCH PRN IV PUSH 04/24/17 15:00 (Glucagon Inj) 1 mg UNSCH PRN OTHER 04/24/17 15:00 (NovoLOG SUPPLEMENTAL SCALE) 1 ACHS SLIDING SCALE SQ 04/24/17 17:00 04/26/17 09:01 (SoluMEDROL INJ) 40 mg Q12HR IV PUSH 04/24/17 21:00 04/26/17 09:02 (Apresoline Inj) 10 mg Q4HR PRN IV PUSH 04/25/17 16:15 04/25/17 17:51 (Percocet 10-325 Mg) 1 tab Q4H PRN PO 04/25/17 18:00 04/26/17 12:39 (Catapres) 0.2 mg Q8HR PO 04/25/17 22:00 04/26/17 13:44 (Protonix) 40 mg Q12HR PO 04/25/17 21:00 04/26/17 09:01 (Cardura) 2 mg DAILY PO 04/27/17 09:00 (Duoneb Neb) 1 ampule Q4HR WHILE AWAKE NEB NEB 04/26/17 16:00 (Lasix Inj) 40 mg BID@09,18 IV PUSH 04/26/17 18:00 Iron Sucrose 100 mg/Sodium Chloride 105 ml @ 105 mls/hr DAILY IV 04/27/17 09:00 04/29/17 09:59 Family History No hx of renal disorders Social History Smokes tobacco daily No ETOH , lives alone locally Retired Full Code (Camila Cline) Physical Exam Vital Signs Vital Signs Date Time Temp Pulse Resp B/P (MAP) Pulse Ox O2 Delivery O2 Flow Rate FiO2 04/26/17 12:09 97.8 61 20 147/70 (95) 98 04/26/17 12:00 56 04/26/17 11:00 58 04/26/17 10:00 60 04/26/17 09:00 58 04/26/17 08:11 98.2 66 18 161/75 (103) 98 04/26/17 08:00 60 04/26/17 07:00 63 04/26/17 06:40 161/68 (99) 04/26/17 06:00 63 04/26/17 05:00 69 04/26/17 04:00 70 04/26/17 04:00 98.5 70 20 166/65 (98) 97 04/26/17 03:00 67 04/26/17 02:00 70 04/26/17 01:00 68 04/26/17 00:00 71 04/25/17 23:00 97.1 69 20 158/85 (109) 97 04/25/17 23:00 70 04/25/17 22:00 82 04/25/17 21:00 78 04/25/17 20:00 74 04/25/17 19:30 21 04/25/17 19:00 97.8 79 20 156/76 (102) 98 04/25/17 19:00 77 04/25/17 18:00 66 04/25/17 17:00 66 04/25/17 16:00 72 04/25/17 15:40 97.9 73 19 191/84 (119) 100 04/25/17 15:00 73 Physical Exam GENERAL: Elderly female, she appears malnourished. SKIN: Warm and dry. Abrasions and skin tears to lower extremities. HEAD: Normocephalic. EYES: No scleral icterus. No injection or drainage. NECK: Supple, trachea midline. No JVD or lymphadenopathy. CARDIOVASCULAR: Regular rate and rhythm without murmurs, gallops, or rubs. Mechanical valve auscultated. RESPIRATORY: Breath sounds equal bilaterally. No accessory muscle use. + bibasilar rales, scattered, expiratory wheezing. GASTROINTESTINAL: Abdomen soft, non-tender, nondistended. MUSCULOSKELETAL: No cyanosis, 2-3+ lower extremity edema. BACK: Nontender without obvious deformity. No CVA tenderness. Laboratory Laboratory Tests Test 04/26/17 04:50 04/26/17 04:56 Blood Urea Nitrogen 68 Creatinine 2.58 Random Glucose 165 Total Protein 6.1 Albumin 2.5 Calcium Level 7.9 Phosphorus Level 4.5 Magnesium Level 1.7 Alkaline Phosphatase 81 Aspartate Amino Transf (AST/SGOT) 19 Alanine Aminotransferase (ALT/SGPT) 20 Total Bilirubin 0.2 Sodium Level 133 Potassium Level 4.1 Chloride Level 103 Carbon Dioxide Level 21.1 Anion Gap 9 Estimat Glomerular Filtration Rate 18 White Blood Count 13.0 Red Blood Count 2.62 Hemoglobin 8.0 Hematocrit 24.7 Mean Corpuscular Volume 94.0 Mean Corpuscular Hemoglobin 30.4 Mean Corpuscular Hemoglobin Concent 32.3 Red Cell Distribution Width 15.7 Platelet Count 214 Mean Platelet Volume 10.1 Neutrophils (%) (Auto) 97.3 Lymphocytes (%) (Auto) 1.3 Monocytes (%) (Auto) 1.3 Eosinophils (%) (Auto) 0.0 Basophils (%) (Auto) 0.1 Neutrophils # (Auto) 12.7 Lymphocytes # (Auto) 0.2 Monocytes # (Auto) 0.2 Eosinophils # (Auto) 0.0 Basophils # (Auto) 0.0 CBC Comment DIFF FINAL Differential Comment Date/Time Source Procedure Growth Status 04/23/17 06:55 Blood Peripheral Aerobic Blood Culture - Preliminary NO GROWTH IN 3 DAYS Resulted 04/23/17 06:55 Blood Peripheral Anaerobic Blood Culture - Preliminary NO GROWTH IN 3 DAYS Resulted (Camila Cline) Result Diagram: 04/26/17 0456 04/26/17 0450 Imaging Last [address] 04/25/17 0000 Signed Impressions: Service Date/Time: Tuesday, April 25, 2017 22:28 - CONCLUSION: 1. Negative noncontrast CT brain. Leo Gonzales MD Chest X-Ray 04/25/17 0000 Signed Impressions: Service Date/Time: Tuesday, April 25, 2017 21:41 - CONCLUSION: Cardiomegaly with increased interstitial markings and mild bilateral effusions likely related to CHF. This appears worse when compared to the prior exam. Rasta Vieira MD Renal Ultrasound 04/24/17 0000 Signed Impressions: Service Date/Time: Monday, April 24, 2017 23:08 - CONCLUSION: 1. Echogenic kidneys likely secondary to medical renal disease. 2. Minimal ascites. 3. Left pleural effusion. Rasta Vieira MD (Camila Cline) Assessment and Plan Problem List: (1) MILI (acute kidney injury) ICD Codes: N17.9 - Acute kidney injury Status: Acute Plan: She has underlying CKD 3, baseline GFR 30, creatinine 1.61 Suspected underlying diabetic nephropathy as she does have proteinuria. SPEP in 2014 showed hyper gamma globulinemia with no abnormal bands. MILI may be due to CHF exacerbation and increased renal vein pressure. IVF was stopped, needs diuresis. On Lasix 40 BID and doxazosin. Follow urine output, she is non oliguric. Quantify proteinuria. Renal US showing medical renal disease Avoid nephrotoxic agents, renally dose when appropriate Repeat labs in AM (2) Anemia ICD Codes: D64.9 - Anemia Status: Chronic Plan: She has iron deficiency. Venofer ordered. May have anemia of chronic disease. (3) CHF exacerbation ICD Codes: I50.9 - Heart failure, unspecified Status: Acute Plan: Echo this month shows: LVH Apical hypokinesis Left ventricular function is low normal, EF 50-55% follow I/O, fluid status, weight fluid restriction discussed. (4) Acute hypoxemic respiratory failure ICD Codes: J96.01 - Acute respiratory failure with hypoxia Status: Resolved Plan: Being treated for CAP On Zithromax and Rocephin Refusing BiPap, on oxygen via nasal canula Recent saturation 98% oh 2L NC Former smoker, cessation discussed (5) Community acquired pneumonia ICD Codes: J18.9 - Pneumonia, unspecified organism Status: Acute Plan: See above Continue supportive care On nebulizers, inhalers, oxygen . (Camila Cline) Problem List: (1) MILI (acute kidney injury) ICD Codes: N17.9 - Acute kidney injury Status: Acute Plan: She has underlying CKD 3, baseline GFR 30, creatinine 1.61 Suspected underlying diabetic nephropathy as she does have proteinuria. SPEP in 2014 showed hyper gamma globulinemia with no abnormal bands. MILI may be due to CHF exacerbation and increased renal vein pressure. IVF was stopped, needs diuresis. On Lasix 40 BID and doxazosin. Follow urine output, she is non oliguric. Quantify proteinuria. Renal US showing medical renal disease Avoid nephrotoxic agents, renally dose when appropriate Repeat labs in AM (2) Anemia ICD Codes: D64.9 - Anemia Status: Chronic Plan: She has iron deficiency. Venofer ordered. May have anemia of chronic disease. (3) CHF exacerbation ICD Codes: I50.9 - Heart failure, unspecified Status: Acute Plan: Echo this month shows: LVH Apical hypokinesis Left ventricular function is low normal, EF 50-55% follow I/O, fluid status, weight fluid restriction discussed. (4) Acute hypoxemic respiratory failure ICD Codes: J96.01 - Acute respiratory failure with hypoxia Status: Resolved Plan: Being treated for CAP On Zithromax and Rocephin Refusing BiPap, on oxygen via nasal canula Recent saturation 98% oh 2L NC Former smoker, cessation discussed (5) Community acquired pneumonia ICD Codes: J18.9 - Pneumonia, unspecified organism Status: Acute Plan: See above Continue supportive care On nebulizers, inhalers, oxygen . Assessment and Plan patient was seen and examined. Agree with above assessment and plan. Acute on CKD, possible diabetic nephropathy. Avoid nephrotoxins. On Lasix. (Abebe Patten MD) Problem Qualifiers (1) Anemia: Qualified Codes: D64.9 - Anemia, unspecified (2) CHF exacerbation: Qualified Codes: I50.9 - Heart failure, unspecified (3) Community acquired pneumonia: Qualified Codes: J18.9 - Pneumonia, unspecified organism Camila ClineP Apr 26, 2017 14:45 Abebe Patten MD Apr 27, 2017 15:41
[2017-04-26] MEDS: hydrALAZINE HCL 20 MG/ML VIAL IV PUSH PRN (15:04)
[2017-04-26] MEDS: FUROSEMIDE 40 MG/4 ML VIAL IV PUSH SCH (17:03)
--- NOTE | 2017-04-26 17:18 | HHI.PR ---
Subjective Remarks Patient states headache is improving. States breathing is much improved. Denies cp/sob. c/o lower extremity edema. Creatinine stable at 2.5 Objective Vitals Vital Signs Date Time Temp Pulse Resp B/P (MAP) Pulse Ox O2 Delivery O2 Flow Rate FiO2 04/26/17 16:40 92 04/26/17 16:23 61 18 124/54 (77) 99 04/26/17 15:01 98.2 62 20 178/76 (110) 100 04/26/17 14:00 64 04/26/17 13:00 62 04/26/17 12:09 97.8 61 20 147/70 (95) 98 04/26/17 12:00 56 04/26/17 11:00 58 04/26/17 10:00 60 04/26/17 09:00 58 04/26/17 08:11 98.2 66 18 161/75 (103) 98 04/26/17 08:00 60 04/26/17 07:00 63 04/26/17 06:40 161/68 (99) 04/26/17 06:00 63 04/26/17 05:00 69 04/26/17 04:00 70 04/26/17 04:00 98.5 70 20 166/65 (98) 97 04/26/17 03:00 67 04/26/17 02:00 70 04/26/17 01:00 68 04/26/17 00:00 71 04/25/17 23:00 97.1 69 20 158/85 (109) 97 04/25/17 23:00 70 04/25/17 22:00 82 04/25/17 21:00 78 04/25/17 20:00 74 04/25/17 19:30 21 04/25/17 19:00 97.8 79 20 156/76 (102) 98 04/25/17 19:00 77 04/25/17 18:00 66 I/O 04/25/17 04/25/17 04/25/17 04/26/17 04/26/17 04/26/17 07:00 15:00 23:00 07:00 15:00 23:00 Intake Total 360 ml 1710 ml 240 ml 770 ml Output Total 1350 ml 650 ml 300 ml Balance -990 ml 1060 ml -60 ml 770 ml Intake Oral 360 ml 520 ml 240 ml IV Total 1190 ml 770 ml Output Urine Total 1350 ml 650 ml 300 ml # Voids 2 1 # Bowel Movements 0 Result Diagram: 04/26/17 0456 04/26/17 0450 Imaging Last [address] 04/25/17 0000 Signed Impressions: Service Date/Time: Tuesday, April 25, 2017 22:28 - CONCLUSION: 1. Negative noncontrast CT brain. Leo Gonzales MD Chest X-Ray 04/25/17 0000 Signed Impressions: Service Date/Time: Tuesday, April 25, 2017 21:41 - CONCLUSION: Cardiomegaly with increased interstitial markings and mild bilateral effusions likely related to CHF. This appears worse when compared to the prior exam. Rasta Vieira MD Renal Ultrasound 04/24/17 0000 Signed Impressions: Service Date/Time: Monday, April 24, 2017 23:08 - CONCLUSION: 1. Echogenic kidneys likely secondary to medical renal disease. 2. Minimal ascites. 3. Left pleural effusion. Rasta Vieira MD Objective Remarks GENERAL: This is a well-nourished, well-developed patient, in no apparent distress. SKIN: No rashes, ecchymoses or lesions. Cool and dry. HEAD: Atraumatic. Normocephalic. No temporal or scalp tenderness. EYES: Pupils equal round and reactive. Extraocular motions intact. No scleral icterus. No injection or drainage. ENT: Nose without bleeding, purulent drainage or septal hematoma. Throat without erythema, tonsillar hypertrophy or exudate. Uvula midline. Airway patent. NECK: Trachea midline. No JVD or lymphadenopathy. Supple, nontender, no meningeal signs. CARDIOVASCULAR: Regular rate and rhythm without murmurs, gallops, or rubs. RESPIRATORY: Better air movement with improved breath sounds which are clear to auscultation BL. GASTROINTESTINAL: Abdomen soft, non-tender, nondistended. No hepato-splenomegaly , or palpable masses. No guarding. MUSCULOSKELETAL: Extremities without clubbing, cyanosis, or edema. No joint tenderness, effusion, or edema noted. No calf tenderness. Negative Homans sign bilaterally. NEUROLOGICAL: Awake and alert. Cranial nerves II through XII intact. Motor and sensory grossly within normal limits. Five out of 5 muscle strength in all muscle groups. Normal speech. Medications and IVs Current Medications Medications (Trade) Dose Ordered Sig/Rosemarie Route Start Time Stop Time Status Last Admin (Nitrostat Sl) 0.4 mg Q5M PRN SL 04/23/17 05:15 Ceftriaxone Sodium 1000 mg/ Sodium Chloride 100 ml @ 200 mls/hr Q24H IV 04/24/17 06:00 04/26/17 06:06 Azithromycin 500 mg/Sodium Chloride 250 ml @ 250 mls/hr Q24H IV 04/24/17 06:00 04/26/17 06:06 (Duoneb Neb) 1 ampule Q2HR NEB PRN NEB 04/23/17 06:30 (Symbicort 160-4.5 Mcg Inh) 2 puff Q12HR INH 04/23/17 09:00 04/26/17 09:01 (Mucinex Er) 600 mg BID PO 04/23/17 09:00 04/26/17 09:03 (NS Flush) 2 ml UNSCH PRN IV FLUSH 04/23/17 06:30 (NS Flush) 2 ml BID IV FLUSH 04/23/17 09:00 04/26/17 09:04 (Zofran Inj) 4 mg Q6H PRN IVP 04/23/17 06:30 (Tylenol) 650 mg Q6H PRN PO 04/23/17 06:30 (Nathaly-Colace) 1 tab BID PO 04/23/17 09:00 04/26/17 09:02 (Milk Of Magnesia Liq) 30 ml Q12H PRN PO 04/23/17 06:30 (Senokot) 17.2 mg Q12H PRN PO 04/23/17 06:30 04/25/17 21:22 (Dulcolax Supp) 10 mg DAILY PRN RECTAL 04/23/17 06:30 (Lactulose Liq) 30 ml DAILY PRN PO 04/23/17 06:30 (Neurontin) 400 mg BID PO 04/23/17 21:00 04/26/17 09:03 (PROzac) 40 mg DAILY PO 04/24/17 09:00 04/26/17 09:03 (Trandate Inj) 10 mg Q6H PRN IV PUSH 04/23/17 20:45 04/25/17 15:48 (D50w (Vial) Inj) 50 ml UNSCH PRN IV PUSH 04/24/17 15:00 (Glucagon Inj) 1 mg UNSCH PRN OTHER 04/24/17 15:00 (NovoLOG SUPPLEMENTAL SCALE) 1 ACHS SLIDING SCALE SQ 04/24/17 17:00 04/26/17 09:01 (SoluMEDROL INJ) 40 mg Q12HR IV PUSH 04/24/17 21:00 04/26/17 09:02 (Apresoline Inj) 10 mg Q4HR PRN IV PUSH 04/25/17 16:15 04/26/17 15:04 (Percocet 10-325 Mg) 1 tab Q4H PRN PO 04/25/17 18:00 04/26/17 17:02 (Catapres) 0.2 mg Q8HR PO 04/25/17 22:00 04/26/17 13:44 (Protonix) 40 mg Q12HR PO 04/25/17 21:00 04/26/17 09:01 (Cardura) 2 mg DAILY PO 04/27/17 09:00 (Duoneb Neb) 1 ampule Q4HR WHILE AWAKE NEB NEB 04/26/17 16:00 04/26/17 16:35 (Lasix Inj) 40 mg BID@09,18 IV PUSH 04/26/17 18:00 04/26/17 17:03 Iron Sucrose 100 mg/Sodium Chloride 105 ml @ 105 mls/hr DAILY IV 04/27/17 09:00 04/29/17 09:59 A/P Problem List: (1) Acute hypoxemic respiratory failure ICD Code: J96.01 - Acute respiratory failure with hypoxia Status: Resolved (2) CHF exacerbation ICD Code: I50.9 - Heart failure, unspecified Status: Acute (3) Community acquired pneumonia ICD Code: J18.9 - Pneumonia, unspecified organism Status: Acute (4) COPD exacerbation ICD Code: J44.1 - Obstructive chronic bronchitis with exacerbation Status: Resolved (5) MILI (acute kidney injury) ICD Code: N17.9 - Acute kidney injury Status: Acute (6) Anemia ICD Code: D64.9 - Anemia Status: Chronic (7) Elevated troponin ICD Code: R74.8 - Abnormal levels of other serum enzymes Status: Acute (8) HTN (hypertension) ICD Code: I10 - Hypertension Status: Chronic (9) DM (diabetes mellitus screen) ICD Code: Z13.1 - Screening for diabetes mellitus Status: Chronic (10) Epistaxis ICD Code: R04.0 - Epistaxis Status: Resolved (11) Headache ICD Code: R51 - Headache Status: Acute (12) Pleural effusion, left ICD Code: J90 - Pleural effusion, not elsewhere classified Status: Acute Assessment and Plan (1) Acute hypoxemic respiratory failure Plan: The patient presented with respiratory distress and acute hypoxemic respiratory secondary to a combination of congestive heart failure exacerbation , COPD exacerbation and pneumonia. Patient had to be placed on BiPAP, when oxygen as tolerated to keep oxygen saturation more than 92%. Chest x-ray reviewed by me show bibasilar minimal areas of consolidation or atelectasis. Method the patient to the medical floor, continue IV Rocephin and azithromycin. Continue IV Solu-Medrol and IV Lasix. 04/24 Breathing status much improved. Continue IV antibiotics, IV steroids, DC IV Lasix given rising creatinine. 04/25 DC IV Solumedrol. Start on oral prednisone 20 mg po bid. 04/26 continue to taper. (2) CHF exacerbation Plan: BNP elevated at 4056 in a patient with shortness of breath and respiratory failure. At this moment unknown type of congestive heart failure. We'll check 2-D echocardiogram. Status post-IV Lasix in the emergency department. I will continue IV Lasix with a caution to follow-up the creatinine to avoid further rise on it. Creatinine was trending up on 04/24. Lasix was discontinued and the patient was placed on gentle IV fluids with transient improvement of creatinine. 2-D echocardiogram shows the ventricular systolic function that is low normal with an estimated ejection fraction the range of 50-55%. Mild concentric left ventricular hypertrophy. Mild to moderate mitral valve regurgitation. Moderate mitral valve stenosis. Trace tricuspid valve regurgitation and a moderate left-sided pleural effusion is noted. 04/26 CHF likely acute on chronic systolic heart failure. Discontinue IV fluids and start the patient on Lasix given pulmonary vascular congestion seen on chest x-ray. (3) Community acquired pneumonia Plan: Continue empiric IV broad-spectrum antibiotics as mentioned above. Follow-up blood cultures, check a strep pneumonia antigen, urine Legionella antigen and mycoplasma antigen --> ordered (4) COPD exacerbation Plan: Status post one-time 125 mg of IV Solu-Medrol in emergency department. 04/24 decrease Solu-Medrol dose down to 40 g IV every 12 hours. 04/25 Much improved Dc solumedrol and start prednisone taper. 04/26 continue steroid taper. (5) MILI (acute kidney injury) Plan: Upon review of records the patient has had elevated creatinine in 2016. 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 Baseline creatinine seems to be between 1.4 1.6, creatinine currently at 2.19. Continue to monitor BUN/creatinine, monitor strict I's and O's, avoid nephrotoxins. 04/24 creatinine is trending up from 2.19-2.57. I will DC IV Lasix and start on gentle IV fluids. Monitor for overload. 04/25 Creatinine improving and down to 2.45. Continue gentle IV fluids. Continue to monitor BUN/creatinine. No signs of fluid overload. Renal us shows signs of medical renal disease and a left pleural effusion. 04/26 creatinine slightly elevated but at 2.5. I will consult nephrology and discontinue IV fluids. I will start the patient on Lasix. (6) Anemia Plan: Anemia seems to be chronic and normocytic. I will check iron studies and stool guaiac. 04/24 I studies consistent with iron deficiency anemia. I will start the patient for sulfate. Will also find out if patient has had previous colonoscopies or endoscopies in the past. If not then the patient to follow-up as an outpatient with gastroenterology. 04/25 hemoglobin trending down from 9.3 on admission down to 7.8. Will start on protonix. Continue to monitor hemoglobin. Transfuse as needed for hemoglobin less than 7 or symptomatic anemia. Goal hemoglobin after transfusion more than 8. check stool guaiac for occult blood. Will Rx IV iron. Consult GI. 04/26 case discussed with GI - Dr Mo. The patient will go for EGD for/ colonoscopy in a.m. (7) Elevated troponin ICD Code: R74.8 - Abnormal levels of other serum enzymes Plan: Patient has mildly elevated troponin of 0.06 associated with chest pain. I will order a cardiology consultation and continue heparin IV drip for now. Appreciate cardiology input. Recommended continuing IV diuresis, however at this point the patient's history of present illness is worsening. I will DC Lasix and start the patient on gentle IV fluid hydration. Troponin elevation likely secondary to demand ischemia and CHF exacerbation with decreased clearance from acute kidney injury. Patient is chest pain-free. (8) HTN (hypertension) Plan: BP elevated. Continue clonidine 0.1 mg by mouth twice a day. Continue labetalol as needed for elevated blood pressure. If BP continues to be elevated then will increase the dose of clonidine. 04/25 BP very uncontrolled and severely elevated to a systolic blood pressure max of 190. This is even after given a dose of Cardura. I will increase the dose of clonidine to 0.2 minutes by mouth 3 times a day. I will also DC IV Solu -Medrol and start on prednisone taper which should help on BP control. BP likely controlled secondary to steroids. 04/26 blood pressure much improved. Continue management with clonidine 0.2 mg by mouth times a day and Cardura 2 mg by mouth daily. (9) DM (diabetes mellitus screen) Plan: On admission blood sugars were very well controlled. Patient not on any medications after she lost weight. 04/24 blood sugars very elevated and uncontrolled in the [address] on SSI with insulin NovoLog and monitor Accu-Cheks. The blood sugar showed improved after steroids are tapered. blood sugars still elevated but with improved control. Continue SSI with insulin NovoLog and Accu-Cheks. Check hemoglobin A1c. (10) Epistaxis Plan: Likely secondary to IV heparin. Resolved after IV heparin discontinuation. Continue to monitor for recurrent epistaxis. (11) Headache Plan: Patient is complaining of headaches today. I will start the patient oral Percocet. ET of the head negative for acute process. Patient states headache is much improved after BP controlled and with oral Percocet. Consult PT DVT prophylaxis: SCDs, DC IV heparin. No chemoprophylaxis given h/o epistaxis. Discharge Planning Continue to monitor the telemetry floor. GI consulted due to drop in hemoglobin. Creatinine better but still elevated. Problem Qualifiers (1) CHF exacerbation: Qualified Codes: I50.9 - Heart failure, unspecified (2) Community acquired pneumonia: Qualified Codes: J18.9 - Pneumonia, unspecified organism (3) Anemia: Qualified Codes: D64.9 - Anemia, unspecified (4) HTN (hypertension): Qualified Codes: I10 - Essential (primary) hypertension (5) Headache: Qualified Codes: R51 - Headache Arnaldo Wiggins MD Apr 26, 2017 17:18
--- NOTE | 2017-04-26 17:57 | PD.CARD.PN ---
Subjective Subjective Remarks No CP, mild SOB, sitting in the chair Objective Medications Current Medications Medications (Trade) Dose Ordered Sig/Rosemarie Route Start Time Stop Time Status Last Admin (Nitrostat Sl) 0.4 mg Q5M PRN SL 04/23/17 05:15 Ceftriaxone Sodium 1000 mg/ Sodium Chloride 100 ml @ 200 mls/hr Q24H IV 04/24/17 06:00 04/26/17 06:06 Azithromycin 500 mg/Sodium Chloride 250 ml @ 250 mls/hr Q24H IV 04/24/17 06:00 04/26/17 06:06 (Duoneb Neb) 1 ampule Q2HR NEB PRN NEB 04/23/17 06:30 (Symbicort 160-4.5 Mcg Inh) 2 puff Q12HR INH 04/23/17 09:00 04/26/17 09:01 (Mucinex Er) 600 mg BID PO 04/23/17 09:00 04/26/17 09:03 (NS Flush) 2 ml UNSCH PRN IV FLUSH 04/23/17 06:30 (NS Flush) 2 ml BID IV FLUSH 04/23/17 09:00 04/26/17 09:04 (Zofran Inj) 4 mg Q6H PRN IVP 04/23/17 06:30 (Tylenol) 650 mg Q6H PRN PO 04/23/17 06:30 (Nathaly-Colace) 1 tab BID PO 04/23/17 09:00 04/26/17 09:02 (Milk Of Magnesia Liq) 30 ml Q12H PRN PO 04/23/17 06:30 (Senokot) 17.2 mg Q12H PRN PO 04/23/17 06:30 04/25/17 21:22 (Dulcolax Supp) 10 mg DAILY PRN RECTAL 04/23/17 06:30 (Lactulose Liq) 30 ml DAILY PRN PO 04/23/17 06:30 (Neurontin) 400 mg BID PO 04/23/17 21:00 04/26/17 09:03 (PROzac) 40 mg DAILY PO 04/24/17 09:00 04/26/17 09:03 (Trandate Inj) 10 mg Q6H PRN IV PUSH 04/23/17 20:45 04/25/17 15:48 (D50w (Vial) Inj) 50 ml UNSCH PRN IV PUSH 04/24/17 15:00 (Glucagon Inj) 1 mg UNSCH PRN OTHER 04/24/17 15:00 (NovoLOG SUPPLEMENTAL SCALE) 1 ACHS SLIDING SCALE SQ 04/24/17 17:00 04/26/17 09:01 (SoluMEDROL INJ) 40 mg Q12HR IV PUSH 04/24/17 21:00 04/26/17 09:02 (Apresoline Inj) 10 mg Q4HR PRN IV PUSH 04/25/17 16:15 04/26/17 15:04 (Percocet 10-325 Mg) 1 tab Q4H PRN PO 04/25/17 18:00 04/26/17 17:02 (Catapres) 0.2 mg Q8HR PO 04/25/17 22:00 04/26/17 13:44 (Protonix) 40 mg Q12HR PO 04/25/17 21:00 04/26/17 09:01 (Cardura) 2 mg DAILY PO 04/27/17 09:00 (Duoneb Neb) 1 ampule Q4HR WHILE AWAKE NEB NEB 04/26/17 16:00 04/26/17 16:35 (Lasix Inj) 40 mg BID@09,18 IV PUSH 04/26/17 18:00 04/26/17 17:03 Iron Sucrose 100 mg/Sodium Chloride 105 ml @ 105 mls/hr DAILY IV 04/27/17 09:00 04/29/17 09:59 Vital Signs / I&O Vital Signs Date Time Temp Pulse Resp B/P (MAP) Pulse Ox O2 Delivery O2 Flow Rate FiO2 04/26/17 16:40 92 04/26/17 16:23 61 18 124/54 (77) 99 04/26/17 15:01 98.2 62 20 178/76 (110) 100 04/26/17 14:00 64 04/26/17 13:00 62 04/26/17 12:09 97.8 61 20 147/70 (95) 98 04/26/17 12:00 56 04/26/17 11:00 58 04/26/17 10:00 60 04/26/17 09:00 58 04/26/17 08:11 98.2 66 18 161/75 (103) 98 04/26/17 08:00 60 04/26/17 07:00 63 04/26/17 06:40 161/68 (99) 04/26/17 06:00 63 04/26/17 05:00 69 04/26/17 04:00 70 04/26/17 04:00 98.5 70 20 166/65 (98) 97 04/26/17 03:00 67 04/26/17 02:00 70 04/26/17 01:00 68 04/26/17 00:00 71 04/25/17 23:00 97.1 69 20 158/85 (109) 97 04/25/17 23:00 70 04/25/17 22:00 82 04/25/17 21:00 78 04/25/17 20:00 74 04/25/17 19:30 21 04/25/17 19:00 97.8 79 20 156/76 (102) 98 04/25/17 19:00 77 04/25/17 18:00 66 I/O 04/25/17 04/25/17 04/25/17 04/26/17 04/26/17 04/26/17 07:00 15:00 23:00 07:00 15:00 23:00 Intake Total 360 ml 1710 ml 240 ml 770 ml 720 ml Output Total 1350 ml 650 ml 300 ml 800 ml Balance -990 ml 1060 ml -60 ml 770 ml -80 ml Intake Oral 360 ml 520 ml 240 ml 720 ml IV Total 1190 ml 770 ml Output Urine Total 1350 ml 650 ml 300 ml 800 ml # Voids 2 1 # Bowel Movements 0 Physical Exam GENERAL: In NAD SKIN: Warm and dry. HEAD: Normocephalic. EYES: No scleral icterus. No injection or drainage. NECK: Supple, trachea midline. No JVD or lymphadenopathy. CARDIOVASCULAR: Regular rate and rhythm without murmurs, gallops, or rubs. RESPIRATORY: Breath sounds equal bilaterally. No accessory muscle use. GASTROINTESTINAL: Abdomen soft, non-tender, nondistended. MUSCULOSKELETAL: No cyanosis, mild edema. Laboratory Laboratory Tests Test 04/26/17 04:50 04/26/17 04:56 Blood Urea Nitrogen 68 MG/DL Creatinine 2.58 MG/DL Random Glucose 165 MG/DL Total Protein 6.1 GM/DL Albumin 2.5 GM/DL Calcium Level 7.9 MG/DL Phosphorus Level 4.5 MG/DL Magnesium Level 1.7 MG/DL Alkaline Phosphatase 81 U/L Aspartate Amino Transf (AST/SGOT) 19 U/L Alanine Aminotransferase (ALT/SGPT) 20 U/L Total Bilirubin 0.2 MG/DL Sodium Level 133 MEQ/L Potassium Level 4.1 MEQ/L Chloride Level 103 MEQ/L Carbon Dioxide Level 21.1 MEQ/L Anion Gap 9 MEQ/L Estimat Glomerular Filtration Rate 18 ML/MIN White Blood Count 13.0 TH/MM3 Red Blood Count 2.62 MIL/MM3 Hemoglobin 8.0 GM/DL Hematocrit 24.7 % Mean Corpuscular Volume 94.0 FL Mean Corpuscular Hemoglobin 30.4 PG Mean Corpuscular Hemoglobin Concent 32.3 % Red Cell Distribution Width 15.7 % Platelet Count 214 TH/MM3 Mean Platelet Volume 10.1 FL Neutrophils (%) (Auto) 97.3 % Lymphocytes (%) (Auto) 1.3 % Monocytes (%) (Auto) 1.3 % Eosinophils (%) (Auto) 0.0 % Basophils (%) (Auto) 0.1 % Neutrophils # (Auto) 12.7 TH/MM3 Lymphocytes # (Auto) 0.2 TH/MM3 Monocytes # (Auto) 0.2 TH/MM3 Eosinophils # (Auto) 0.0 TH/MM3 Basophils # (Auto) 0.0 TH/MM3 CBC Comment DIFF FINAL Differential Comment Assessment and Plan Problem List: (1) Acute hypoxemic respiratory failure ICD Codes: J96.01 - Acute respiratory failure with hypoxia Status: Resolved (2) CHF exacerbation ICD Codes: I50.9 - Heart failure, unspecified Status: Acute (3) COPD exacerbation ICD Codes: J44.1 - Obstructive chronic bronchitis with exacerbation Status: Resolved (4) Community acquired pneumonia ICD Codes: J18.9 - Pneumonia, unspecified organism Status: Acute (5) MILI (acute kidney injury) ICD Codes: N17.9 - Acute kidney injury Status: Acute (6) Anemia ICD Codes: D64.9 - Anemia Status: Chronic (7) HTN (hypertension) ICD Codes: I10 - Hypertension Status: Chronic (8) DM (diabetes mellitus screen) ICD Codes: Z13.1 - Screening for diabetes mellitus Status: Chronic Assessment and Plan No new cardiac issues. Continue current program including diuresis. Continue tx for CHF, closely monitor renal fx. Echo with low nl LV syst fx. Continue tx for pneumonia and COPD exacerbation as well. Increase activity. Problem Qualifiers (1) CHF exacerbation: Qualified Codes: I50.9 - Heart failure, unspecified (2) Community acquired pneumonia: Qualified Codes: J18.9 - Pneumonia, unspecified organism (3) Anemia: Qualified Codes: D64.9 - Anemia, unspecified (4) HTN (hypertension): Qualified Codes: I10 - Essential (primary) hypertension Yulissa Fitzgerald MD Apr 26, 2017 17:57
[2017-04-26] MEDS ORDERED: BUMETANIDE 1 MG TAB PO SCH (18:00)
[2017-04-27] VITALS (18 sets, daily range): BP systolic 112–160; BP diastolic 60–91; PULSE 57–82; RESP 16–20; TEMP 96.8–98.8; O2SAT 95–100
[2017-04-27] MEDS: oxyCODONE/ACETAMINOPHEN 10 MG/325 MG TAB PO PRN ×5 (01:09→20:52)
[2017-04-27] MEDS: AZITHROMYCIN INJ 500 MG in SODIUM CHLOR 0.9% 250 ML INJ 250 ML IV SCH (05:07)
[2017-04-27] MEDS: cefTRIAXone INJ 1,000 MG in SODIUM CHLORIDE 0.9% INJ 100 ML IV SCH (05:47)
[2017-04-27] MEDS: cloNIDine HCL 0.2 MG TAB PO SCH ×3 (05:49→20:52)
[2017-04-27 07:02] LABS: INTERNATIONAL NORMALIZED RATIO 1.1 RATIO; PROTHROMBIN TIME - PATIENT 11.4 SEC (9.8-11.6)
[2017-04-27 07:23] LABS: ALBUMIN 2.4 GM/DL (3.4-5.0); BICARBONATE 22.7 MEQ/L (21.0-32.0); CALCIUM 7.7 MG/DL (8.5-10.1); CREATININE 2.48 MG/DL (0.50-1.00)
[2017-04-27] MEDS: INSULIN ASPART SUPPLEMENTAL SCALE SQ SCH ×4 (08:00→20:58)
[2017-04-27] MEDS: RESP: ALBUTEROL 2.5 MG/IPRATROPIUM 0.5 MG NEB (SCH) NEB ×4 (08:00→21:41)
[2017-04-27] MEDS: PANTOPRAZOLE SOD 40 MG DELAYED RELEASE TAB PO SCH ×2 (08:32→20:51)
[2017-04-27] MEDS: guaiFENesin E.R. 600 MG TAB PO SCH ×2 (08:32→20:51)
[2017-04-27] MEDS: DOCUSATE SODIUM 50 MG/SENNA 8.6 MG TAB PO SCH ×2 (08:32→20:51)
[2017-04-27] MEDS: GABAPENTIN 400 MG CAP PO SCH ×2 (08:32→20:51)
[2017-04-27] MEDS: DOXAZOSIN MESYLATE 2 MG TAB PO SCH (08:32)
[2017-04-27] MEDS: FLUoxetine HCL 20 MG CAP PO SCH (08:32)
[2017-04-27] MEDS: BUDESONIDE-FORMOTEROL 160/4.5 MCG INHALER INH SCH ×2 (08:33→20:50)
[2017-04-27] MEDS: FUROSEMIDE 40 MG/4 ML VIAL IV PUSH SCH ×3 (08:33→17:32)
[2017-04-27] MEDS: SODIUM CHLORIDE 0.9% FLUSH 10 ML FLUSH IV FLUSH SCH ×2 (08:33→20:50)
[2017-04-27] MEDS: methylPREDNISolone SOD SUCC 40 MG/1 ML VIAL IV PUSH SCH ×2 (08:33→09:00)
[2017-04-27] MEDS: IRON SUCROSE INJ 100 MG in SODIUM CHLORIDE 0.9% INJ 100 ML IV SCH (08:40)
--- NOTE | 2017-04-27 10:08 | HHI.NPPN ---
Subjective General Problems: Anemia Renal Failure: Chronic, Acute, Stage III Interval History Renal function is slightly better. She is due for EGD/colonoscopy today but has not had good bowel prep. She is anxious about procedure. Urine output is adequate. (Camila Cline) Review of Systems General Constitutional: Fatigue (Camila Cline) Respiratory Lungs: SOB (Camila Cline) Cardiovascular Cardiac: Edema (Camila Cline) Objective Data Data Vital Signs Date Time Temp Pulse Resp B/P (MAP) Pulse Ox O2 Delivery O2 Flow Rate FiO2 04/27/17 04:00 98.8 70 18 152/91 (111) 100 04/27/17 04:00 Room Air 04/27/17 02:00 Room Air 04/27/17 00:26 96.8 61 18 160/70 (100) 98 04/27/17 00:25 64 04/27/17 00:25 98 Nasal Cannula 2.00 04/26/17 21:14 97 04/26/17 21:00 95 Nasal Cannula 2.00 04/26/17 21:00 96.8 64 18 139/67 (91) 95 04/26/17 21:00 63 04/26/17 18:09 65 04/26/17 17:00 68 04/26/17 16:40 92 04/26/17 16:23 61 18 124/54 (77) 99 04/26/17 16:00 60 04/26/17 15:01 98.2 62 20 178/76 (110) 100 04/26/17 15:00 61 04/26/17 14:00 64 04/26/17 13:00 62 04/26/17 12:09 97.8 61 20 147/70 (95) 98 04/26/17 12:00 56 04/26/17 11:00 58 (Camila Cline) -: 04/26/17 0456 04/27/17 0542 Imaging Last [address] 04/25/17 0000 Signed Impressions: Service Date/Time: Tuesday, April 25, 2017 22:28 - CONCLUSION: 1. Negative noncontrast CT brain. Leo Gonzales MD Chest X-Ray 04/25/17 0000 Signed Impressions: Service Date/Time: Tuesday, April 25, 2017 21:41 - CONCLUSION: Cardiomegaly with increased interstitial markings and mild bilateral effusions likely related to CHF. This appears worse when compared to the prior exam. Rasta Vieira MD (Camila Cline) Physical Exam General Appearance: Well Developed, Comfortable, Malnourished (Camila Cline B. LEAD RADIATION THERAPIST) Throat Throat Exam: Oral Mucosa Hooper & Moist (Camila Cline B. LEAD RADIATION THERAPIST) Neck Neck Exam: Neck Supple (Camila Cline B. LEAD RADIATION THERAPIST) Pulmonary Resp Exam: Clear Bilaterally, Breath Sounds Equal (Camila Cline B. LEAD RADIATION THERAPIST) Cardiology CV Exam: Regular, Normal Sinus Rhythm, Good Perfusion (Camila Cline B. LEAD RADIATION THERAPIST) Gastrointestinal/Abdomen GI Exam: Soft, Non-Tender, Bowel Sounds Present (Camila Cline B. LEAD RADIATION THERAPIST) Musculoskeletal MS Exam: Normal Gait, Normal Tone (Camila Cline B. LEAD RADIATION THERAPIST) Integumentary Skin Exam: Warm, Dry Skin Remarks scattered lower extremity abrasions (Camila Cline B. LEAD RADIATION THERAPIST) Extremeties Extremities Exam: Pedal Pulses Palpable, Moderate Edema (Camila Cline B. LEAD RADIATION THERAPIST) Neurologic Neuro Exam: Alert, Awake, Oriented, Speech Clear, Moving All Extremities (Camila Cline B. LEAD RADIATION THERAPIST) Psychiatric Psych Exam: Appropriate Responses (Camila Cline BMahogany LEAD RADIATION THERAPIST) Assessment/Plan Discussed Condition With: Patient Assessment Summary: MILI/Acute Renal Failure, Anemia of CKD, Fluid/Volume Overload, Proteinuria, Hypertension, Diabetes Mellitus, CKD Stage III Problem List: (1) MILI (acute kidney injury) ICD Codes: N17.9 - Acute kidney injury Status: Acute Plan: She has underlying CKD 3, baseline GFR 30, creatinine 1.61. Suspected underlying diabetic nephropathy MILI may be due to CHF exacerbation and increased renal vein pressure. Renal function is slightly better today. Continue diuresis with Lasix 40 BID and doxazosin. Avoid IVF. Follow urine output, she is currently non oliguric. Urine proteinuria quantification ordered but not available. Renal US showing medical renal disease Avoid nephrotoxic agents, renally dose when appropriate Repeat labs in AM Consider FARTUN inhibitor or ARB at discharge. (2) Anemia ICD Codes: D64.9 - Anemia Status: Chronic Plan: She has iron deficiency. Venofer ordered. May have anemia of chronic disease. Due for EGD/colonoscopy today. (3) CHF exacerbation ICD Codes: I50.9 - Heart failure, unspecified Status: Acute Plan: Echo this month shows: LVH Apical hypokinesis Left ventricular function is low normal, EF 50-55% follow I/O, fluid status, weight fluid restriction discussed. (4) Acute hypoxemic respiratory failure ICD Codes: J96.01 - Acute respiratory failure with hypoxia Status: Resolved Plan: Being treated for CAP On Zithromax and Rocephin Refusing BiPap, on oxygen via nasal canula Recent saturation 98% oh 2L NC Former smoker, cessation discussed (5) Community acquired pneumonia ICD Codes: J18.9 - Pneumonia, unspecified organism Status: Acute Plan: See above Continue supportive care On nebulizers, inhalers, oxygen . (6) DM (diabetes mellitus screen) ICD Codes: Z13.1 - Screening for diabetes mellitus Status: Chronic Plan: Insulin as needed, maintain glucose 140-180 mg/dL. (Camila Cline) Plan patient was seen and examined. Agree with above assessment and plan. Renal function is slightly better. (Abebe Patten MD) Problem Qualifiers (1) Anemia: Qualified Codes: D64.9 - Anemia, unspecified (2) CHF exacerbation: Qualified Codes: I50.9 - Heart failure, unspecified (3) Community acquired pneumonia: Qualified Codes: J18.9 - Pneumonia, unspecified organism Camila Cline Apr 27, 2017 10:08 Abebe Patten MD Apr 27, 2017 15:46
[2017-04-27] MEDS ORDERED: PROPOFOL 200 MG/20 ML AMP IV ONE (12:00)
[2017-04-27] MEDS ORDERED: DO NOT ADM ANY ANTICOAGULANT DRUGS PRN (12:01)
--- NOTE | 2017-04-27 12:03 | GIPROC ---
[facility] [address] [facility]. [facility], [address] EGD PROCEDURE REPORT EXAM DATE: 04/27/2017 PATIENT NAME: Felisa Silvestre MR #: [id number] BIRTHDATE: 1940 ATTENDING: Sanjay Mo MD ORDER #: [id number] WRITING TUTOR: Hayde Smith and Gertrude Naylor STATUS: inpatient INDICATIONS: The patient is a 76 yr old female here for an EGD due to anemia PROCEDURE PERFORMED: EGD w/ biopsy MEDICATIONS: None and Per Anesthesia. TOPICAL ANESTHETIC: none CONSENT: The patient understands the risks and benefits of the procedure and understands that these risks include, but are not limited to: sedation, allergic reaction, infection, perforation and/or bleeding. Alternative means of evaluation and treatment include, among others: physical exam, x-rays, and/or surgical intervention. The patient elects to proceed with this endoscopic procedure. medical equipment was checked for proper function. Hand hygiene and appropriate measures for infection prevention was taken. After the risks, benefits and alternatives of the procedure were thoroughly explained, Informed consent was verified, confirmed and timeout was successfully executed by the treatment team. The patient was anesthetized with topical anesthesia and the Pentax EG-[id number] endoscope was introduced through the mouth and advanced to the second portion of the duodenum. Retroflexed views revealed a hiatal hernia The gastroscope was then slowly withdrawn and removed. ESOPHAGUS: A mildly severe Schatzki ring was found in the lower third of the esophagus. STOMACH: There was erythematous moderate gastritis in the entire examined stomach. Multiple biopsies were performed using cold forceps. Sample sent for histology. DUODENUM: Mild duodenal inflammation was found in the duodenal bulb. ADVERSE EVENTS: There were no complications. IMPRESSIONS: 1. Schatzki ring was found in the lower third of the esophagus 2. There was erythematous gastritis in the entire examined stomach; multiple biopsies were performed 3. Duodenal inflammation was found in the duodenal bulb 4. Retroflexed views revealed a hiatal hernia RECOMMENDATIONS: 1. Await biopsy results. Biopsy results will not be ready for 7-10 days. If you don't hear from us in two weeks, call our office for biopsy results. 2. Continue PPI 3. Colonoscopy as out patient PATIENT CONDITION: stable DISPOSITION: Observation REPEAT EXAM: Colonoscopy as out patient for further evaluation. Sanjay Mo MD eSigned: Sanjay Mo MD 04/27/2017 12:03 PM cc: PATIENT NAME: Felisa Silvestre MR#: [id number]
[2017-04-27] MEDS ORDERED: *RESP: ALBUTEROL 2.5 MG/3 ML NEB (PRN) PERIprocedural Use ONLY NEB ONE (12:19)
--- NOTE | 2017-04-27 14:59 | PD.CARD.PN ---
Subjective Subjective Remarks No CP, mild SOB, no new c/o Objective Medications Current Medications Medications (Trade) Dose Ordered Sig/Rosemarie Route Start Time Stop Time Status Last Admin (Nitrostat Sl) 0.4 mg Q5M PRN SL 04/23/17 05:15 Ceftriaxone Sodium 1000 mg/ Sodium Chloride 100 ml @ 200 mls/hr Q24H IV 04/24/17 06:00 04/27/17 05:47 Azithromycin 500 mg/Sodium Chloride 250 ml @ 250 mls/hr Q24H IV 04/24/17 06:00 04/27/17 05:07 (Duoneb Neb) 1 ampule Q2HR NEB PRN NEB 04/23/17 06:30 (Symbicort 160-4.5 Mcg Inh) 2 puff Q12HR INH 04/23/17 09:00 04/27/17 08:33 (Mucinex Er) 600 mg BID PO 04/23/17 09:00 04/27/17 08:32 (NS Flush) 2 ml UNSCH PRN IV FLUSH 04/23/17 06:30 (NS Flush) 2 ml BID IV FLUSH 04/23/17 09:00 04/27/17 08:33 (Zofran Inj) 4 mg Q6H PRN IVP 04/23/17 06:30 (Tylenol) 650 mg Q6H PRN PO 04/23/17 06:30 (Nathaly-Colace) 1 tab BID PO 04/23/17 09:00 04/27/17 08:32 (Milk Of Magnesia Liq) 30 ml Q12H PRN PO 04/23/17 06:30 (Senokot) 17.2 mg Q12H PRN PO 04/23/17 06:30 04/25/17 21:22 (Dulcolax Supp) 10 mg DAILY PRN RECTAL 04/23/17 06:30 (Lactulose Liq) 30 ml DAILY PRN PO 04/23/17 06:30 (Neurontin) 400 mg BID PO 04/23/17 21:00 04/27/17 08:32 (PROzac) 40 mg DAILY PO 04/24/17 09:00 04/27/17 08:32 (Trandate Inj) 10 mg Q6H PRN IV PUSH 04/23/17 20:45 04/25/17 15:48 (D50w (Vial) Inj) 50 ml UNSCH PRN IV PUSH 04/24/17 15:00 (Glucagon Inj) 1 mg UNSCH PRN OTHER 04/24/17 15:00 (NovoLOG SUPPLEMENTAL SCALE) 1 ACHS SLIDING SCALE SQ 04/24/17 17:00 04/26/17 22:13 (SoluMEDROL INJ) 40 mg Q12HR IV PUSH 04/24/17 21:00 04/26/17 21:00 (Apresoline Inj) 10 mg Q4HR PRN IV PUSH 04/25/17 16:15 04/26/17 15:04 (Percocet 10-325 Mg) 1 tab Q4H PRN PO 04/25/17 18:00 04/27/17 11:02 (Catapres) 0.2 mg Q8HR PO 04/25/17 22:00 04/27/17 13:43 (Protonix) 40 mg Q12HR PO 04/25/17 21:00 04/27/17 08:32 (Cardura) 2 mg DAILY PO 04/27/17 09:00 04/27/17 08:32 (Duoneb Neb) 1 ampule Q4HR WHILE AWAKE NEB NEB 04/26/17 16:00 04/26/17 16:35 (Lasix Inj) 40 mg BID@09,18 IV PUSH 04/26/17 18:00 04/26/17 17:03 Iron Sucrose 100 mg/Sodium Chloride 105 ml @ 105 mls/hr DAILY IV 04/27/17 09:00 04/29/17 09:59 Miscellaneous Information ALL NURSING DEPARTME... UNSCH PRN .XX 04/27/17 12:01 04/28/17 12:00 Vital Signs / I&O Vital Signs Date Time Temp Pulse Resp B/P (MAP) Pulse Ox O2 Delivery O2 Flow Rate FiO2 04/27/17 14:07 61 04/27/17 13:11 66 04/27/17 12:15 58 25 140/65 (90) 98 Nasal Cannula 3 04/27/17 12:08 97.5 54 16 135/63 (87) 96 Nasal Cannula 3 04/27/17 11:00 95 Room Air 04/27/17 11:00 57 04/27/17 11:00 98.0 60 18 152/69 (96) 95 04/27/17 10:14 57 04/27/17 09:00 58 04/27/17 08:30 98.2 65 20 140/60 (86) 98 04/27/17 08:30 59 04/27/17 08:30 98 Room Air 04/27/17 04:00 98.8 70 18 152/91 (111) 100 04/27/17 04:00 Room Air 04/27/17 02:00 Room Air 04/27/17 00:26 96.8 61 18 160/70 (100) 98 04/27/17 00:25 64 04/27/17 00:25 98 Nasal Cannula 2.00 04/26/17 21:14 97 04/26/17 21:00 95 Nasal Cannula 2.00 04/26/17 21:00 96.8 64 18 139/67 (91) 95 04/26/17 21:00 63 04/26/17 18:09 65 04/26/17 17:00 68 04/26/17 16:40 92 04/26/17 16:23 61 18 124/54 (77) 99 04/26/17 16:00 60 04/26/17 15:01 98.2 62 20 178/76 (110) 100 04/26/17 15:00 61 I/O 04/26/17 04/26/17 04/26/17 04/27/17 04/27/17 04/27/17 07:00 15:00 23:00 07:00 15:00 23:00 Intake Total 240 ml 770 ml 720 ml 770 ml 100 ml Output Total 300 ml 800 ml 501 ml Balance -60 ml 770 ml -80 ml 269 ml 100 ml Intake Oral 240 ml 720 ml 520 ml IV Total 770 ml 250 ml Other 100 ml Output Urine Total 300 ml 800 ml 500 ml Stool Total 1 ml # Voids 1 Physical Exam GENERAL: In NAD SKIN: Warm and dry. HEAD: Normocephalic. EYES: No scleral icterus. No injection or drainage. NECK: Supple, trachea midline. No JVD or lymphadenopathy. CARDIOVASCULAR: Regular rate and rhythm without murmurs, gallops, or rubs. RESPIRATORY: Breath sounds equal bilaterally. No accessory muscle use. GASTROINTESTINAL: Abdomen soft, non-tender, nondistended. MUSCULOSKELETAL: No cyanosis, mild edema. Laboratory Laboratory Tests Test 04/26/17 19:11 04/27/17 05:42 Prothrombin Time 11.4 SEC Prothromb Time International Ratio 1.1 RATIO Blood Urea Nitrogen 66 MG/DL Creatinine 2.48 MG/DL Random Glucose 157 MG/DL Albumin 2.4 GM/DL Calcium Level 7.7 MG/DL Phosphorus Level 5.0 MG/DL Sodium Level 134 MEQ/L Potassium Level 4.3 MEQ/L Chloride Level 102 MEQ/L Carbon Dioxide Level 22.7 MEQ/L Anion Gap 9 MEQ/L Estimat Glomerular Filtration Rate 19 ML/MIN Assessment and Plan Problem List: (1) Acute hypoxemic respiratory failure ICD Codes: J96.01 - Acute respiratory failure with hypoxia Status: Resolved (2) CHF exacerbation ICD Codes: I50.9 - Heart failure, unspecified Status: Acute (3) COPD exacerbation ICD Codes: J44.1 - Obstructive chronic bronchitis with exacerbation Status: Resolved (4) Community acquired pneumonia ICD Codes: J18.9 - Pneumonia, unspecified organism Status: Acute (5) MILI (acute kidney injury) ICD Codes: N17.9 - Acute kidney injury Status: Acute (6) Anemia ICD Codes: D64.9 - Anemia Status: Chronic (7) HTN (hypertension) ICD Codes: I10 - Hypertension Status: Chronic (8) DM (diabetes mellitus screen) ICD Codes: Z13.1 - Screening for diabetes mellitus Status: Chronic Assessment and Plan Slow progress. Continue current program including diuresis. Continue tx for CHF , closely monitor renal fx (significantly impaired). Echo with low nl LV syst fx. Continue tx for pneumonia and COPD exacerbation. Increase activity. Problem Qualifiers (1) CHF exacerbation: Qualified Codes: I50.9 - Heart failure, unspecified (2) Community acquired pneumonia: Qualified Codes: J18.9 - Pneumonia, unspecified organism (3) Anemia: Qualified Codes: D64.9 - Anemia, unspecified (4) HTN (hypertension): Qualified Codes: I10 - Essential (primary) hypertension Yulissa Fitzgerald MD Apr 27, 2017 14:59
[2017-04-27 17:39] LABS: HEMOGLOBIN A1C 5.4 % (4.3-6.0)
--- NOTE | 2017-04-27 18:47 | HHI.PR ---
Subjective Remarks BP better. Creatinine improving. The patient denies headache. Denies chest pain or shortness of breath. Denies further epistaxis. States that she feels cold. Objective Vitals Vital Signs Date Time Temp Pulse Resp B/P (MAP) Pulse Ox O2 Delivery O2 Flow Rate FiO2 04/27/17 18:00 60 04/27/17 17:22 18 04/27/17 17:03 62 04/27/17 16:23 63 04/27/17 15:30 57 04/27/17 15:30 98.2 61 16 155/64 (94) 97 04/27/17 14:07 61 04/27/17 13:11 66 04/27/17 12:15 58 25 140/65 (90) 98 Nasal Cannula 3 04/27/17 12:08 97.5 54 16 135/63 (87) 96 Nasal Cannula 3 04/27/17 11:00 95 Room Air 04/27/17 11:00 57 04/27/17 11:00 98.0 60 18 152/69 (96) 95 04/27/17 10:14 57 04/27/17 09:00 58 04/27/17 08:30 98.2 65 20 140/60 (86) 98 04/27/17 08:30 59 04/27/17 08:30 98 Room Air 04/27/17 04:00 98.8 70 18 152/91 (111) 100 04/27/17 04:00 Room Air 04/27/17 02:00 Room Air 04/27/17 00:26 96.8 61 18 160/70 (100) 98 04/27/17 00:25 64 04/27/17 00:25 98 Nasal Cannula 2.00 04/26/17 21:14 97 04/26/17 21:00 95 Nasal Cannula 2.00 04/26/17 21:00 96.8 64 18 139/67 (91) 95 04/26/17 21:00 63 I/O 04/26/17 04/26/17 04/26/17 04/27/17 04/27/17 04/27/17 07:00 15:00 23:00 07:00 15:00 23:00 Intake Total 240 ml 770 ml 720 ml 770 ml 100 ml 460 ml Output Total 300 ml 800 ml 501 ml Balance -60 ml 770 ml -80 ml 269 ml 100 ml 460 ml Intake Oral 240 ml 720 ml 520 ml 460 ml IV Total 770 ml 250 ml Other 100 ml Output Urine Total 300 ml 800 ml 500 ml Stool Total 1 ml # Voids 1 2 # Bowel Movements 0 Result Diagram: 04/26/17 0456 04/27/17 0542 Imaging Last Impressions Head CT 04/25/17 0000 Signed Impressions: Service Date/Time: Tuesday, April 25, 2017 22:28 - CONCLUSION: 1. Negative noncontrast CT brain. Leo Gonzales MD Chest X-Ray 04/25/17 0000 Signed Impressions: Service Date/Time: Tuesday, April 25, 2017 21:41 - CONCLUSION: Cardiomegaly with increased interstitial markings and mild bilateral effusions likely related to CHF. This appears worse when compared to the prior exam. Rasta Vieira MD Renal Ultrasound 04/24/17 0000 Signed Impressions: Service Date/Time: Monday, April 24, 2017 23:08 - CONCLUSION: 1. Echogenic kidneys likely secondary to medical renal disease. 2. Minimal ascites. 3. Left pleural effusion. Rasta Vieira MD Objective Remarks GENERAL: This is a well-nourished, well-developed patient, in no apparent distress. SKIN: No rashes, ecchymoses or lesions. Cool and dry. HEAD: Atraumatic. Normocephalic. No temporal or scalp tenderness. EYES: Pupils equal round and reactive. Extraocular motions intact. No scleral icterus. No injection or drainage. ENT: Nose without bleeding, purulent drainage or septal hematoma. Throat without erythema, tonsillar hypertrophy or exudate. Uvula midline. Airway patent. NECK: Trachea midline. No JVD or lymphadenopathy. Supple, nontender, no meningeal signs. CARDIOVASCULAR: Regular rate and rhythm without murmurs, gallops, or rubs. RESPIRATORY: Better air movement with improved breath sounds which are clear to auscultation BL. GASTROINTESTINAL: Abdomen soft, non-tender, nondistended. No hepato-splenomegaly , or palpable masses. No guarding. MUSCULOSKELETAL: Extremities without clubbing, cyanosis, or edema. No joint tenderness, effusion, or edema noted. No calf tenderness. Negative Homans sign bilaterally. NEUROLOGICAL: Awake and alert. Cranial nerves II through XII intact. Motor and sensory grossly within normal limits. Five out of 5 muscle strength in all muscle groups. Normal speech. Medications and IVs Current Medications Medications (Trade) Dose Ordered Sig/Rosemarie Route Start Time Stop Time Status Last Admin (Nitrostat Sl) 0.4 mg Q5M PRN SL 04/23/17 05:15 Ceftriaxone Sodium 1000 mg/ Sodium Chloride 100 ml @ 200 mls/hr Q24H IV 04/24/17 06:00 04/27/17 05:47 Azithromycin 500 mg/Sodium Chloride 250 ml @ 250 mls/hr Q24H IV 04/24/17 06:00 04/27/17 05:07 (Duoneb Neb) 1 ampule Q2HR NEB PRN NEB 04/23/17 06:30 (Symbicort 160-4.5 Mcg Inh) 2 puff Q12HR INH 04/23/17 09:00 04/27/17 08:33 (Mucinex Er) 600 mg BID PO 04/23/17 09:00 04/27/17 08:32 (NS Flush) 2 ml UNSCH PRN IV FLUSH 04/23/17 06:30 (NS Flush) 2 ml BID IV FLUSH 04/23/17 09:00 04/27/17 08:33 (Zofran Inj) 4 mg Q6H PRN IVP 04/23/17 06:30 (Tylenol) 650 mg Q6H PRN PO 04/23/17 06:30 (Nathaly-Colace) 1 tab BID PO 04/23/17 09:00 04/27/17 08:32 (Milk Of Magnesia Liq) 30 ml Q12H PRN PO 04/23/17 06:30 (Senokot) 17.2 mg Q12H PRN PO 04/23/17 06:30 04/25/17 21:22 (Dulcolax Supp) 10 mg DAILY PRN RECTAL 04/23/17 06:30 (Lactulose Liq) 30 ml DAILY PRN PO 04/23/17 06:30 (Neurontin) 400 mg BID PO 04/23/17 21:00 04/27/17 08:32 (PROzac) 40 mg DAILY PO 04/24/17 09:00 04/27/17 08:32 (Trandate Inj) 10 mg Q6H PRN IV PUSH 04/23/17 20:45 04/25/17 15:48 (D50w (Vial) Inj) 50 ml UNSCH PRN IV PUSH 04/24/17 15:00 (Glucagon Inj) 1 mg UNSCH PRN OTHER 04/24/17 15:00 (NovoLOG SUPPLEMENTAL SCALE) 1 ACHS SLIDING SCALE SQ 04/24/17 17:00 04/27/17 17:00 (SoluMEDROL INJ) 40 mg Q12HR IV PUSH 04/24/17 21:00 04/26/17 21:00 (Apresoline Inj) 10 mg Q4HR PRN IV PUSH 04/25/17 16:15 04/26/17 15:04 (Percocet 10-325 Mg) 1 tab Q4H PRN PO 04/25/17 18:00 04/27/17 16:31 (Catapres) 0.2 mg Q8HR PO 04/25/17 22:00 04/27/17 13:43 (Protonix) 40 mg Q12HR PO 04/25/17 21:00 04/27/17 08:32 (Cardura) 2 mg DAILY PO 04/27/17 09:00 04/27/17 08:32 (Duoneb Neb) 1 ampule Q4HR WHILE AWAKE NEB NEB 04/26/17 16:00 04/26/17 16:35 (Lasix Inj) 40 mg BID@09,18 IV PUSH 04/26/17 18:00 04/27/17 17:32 Iron Sucrose 100 mg/Sodium Chloride 105 ml @ 105 mls/hr DAILY IV 04/27/17 09:00 04/29/17 09:59 Miscellaneous Information ALL NURSING DEPARTME... UNSCH PRN .XX 04/27/17 12:01 04/28/17 12:00 A/P Problem List: (1) Acute hypoxemic respiratory failure ICD Code: J96.01 - Acute respiratory failure with hypoxia Status: Resolved (2) CHF exacerbation ICD Code: I50.9 - Heart failure, unspecified Status: Acute (3) Community acquired pneumonia ICD Code: J18.9 - Pneumonia, unspecified organism Status: Acute (4) COPD exacerbation ICD Code: J44.1 - Obstructive chronic bronchitis with exacerbation Status: Resolved (5) MILI (acute kidney injury) ICD Code: N17.9 - Acute kidney injury Status: Acute (6) Anemia ICD Code: D64.9 - Anemia Status: Chronic (7) Elevated troponin ICD Code: R74.8 - Abnormal levels of other serum enzymes Status: Acute (8) HTN (hypertension) ICD Code: I10 - Hypertension Status: Chronic (9) DM (diabetes mellitus screen) ICD Code: Z13.1 - Screening for diabetes mellitus Status: Chronic (10) Epistaxis ICD Code: R04.0 - Epistaxis Status: Resolved (11) Headache ICD Code: R51 - Headache Status: Acute (12) Pleural effusion, left ICD Code: J90 - Pleural effusion, not elsewhere classified Status: Acute Assessment and Plan (1) Acute hypoxemic respiratory failure Plan: The patient presented with respiratory distress and acute hypoxemic respiratory secondary to a combination of congestive heart failure exacerbation , COPD exacerbation and pneumonia. Patient had to be placed on BiPAP, when oxygen as tolerated to keep oxygen saturation more than 92%. Chest x-ray reviewed by me show bibasilar minimal areas of consolidation or atelectasis. Method the patient to the medical floor, continue IV Rocephin and azithromycin. Continue IV Solu-Medrol and IV Lasix. 04/27 DV IV Solumedrol which has not been discontinued yet and start prednisone. (2) CHF exacerbation Plan: BNP elevated at 4056 in a patient with shortness of breath and respiratory failure. At this moment unknown type of congestive heart failure. We'll check 2-D echocardiogram. Status post-IV Lasix in the emergency department. I will continue IV Lasix with a caution to follow-up the creatinine to avoid further rise on it. Creatinine was trending up on 04/24. Lasix was discontinued and the patient was placed on gentle IV fluids with transient improvement of creatinine. 2-D echocardiogram shows the ventricular systolic function that is low normal with an estimated ejection fraction the range of 50-55%. Mild concentric left ventricular hypertrophy. Mild to moderate mitral valve regurgitation. Moderate mitral valve stenosis. Trace tricuspid valve regurgitation and a moderate left-sided pleural effusion is noted. 04/26 CHF likely acute on chronic systolic heart failure. Discontinue IV fluids and start the patient on Lasix given pulmonary vascular congestion seen on chest x-ray. 04/27 Continue IV lasix. (3) Community acquired pneumonia Plan: Continue empiric IV broad-spectrum antibiotics as mentioned above. Blood cultures NTD, check a strep pneumonia antigen, urine Legionella antigen and mycoplasma antigen --> ordered (4) COPD exacerbation Plan: Status post one-time 125 mg of IV Solu-Medrol in emergency department. 04/24 decrease Solu-Medrol dose down to 40 g IV every 12 hours. 04/25 Much improved Dc solumedrol and start prednisone taper. 04/26 continue steroid taper. (5) MILI (acute kidney injury) Plan: Upon review of records the patient has had elevated creatinine in 2016. 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 Baseline creatinine seems to be between 1.4 1.6, creatinine currently at 2.19. Continue to monitor BUN/creatinine, monitor strict I's and O's, avoid nephrotoxins. 04/24 creatinine is trending up from 2.19-2.57. I will DC IV Lasix and start on gentle IV fluids. Monitor for overload. 04/25 Creatinine improving and down to 2.45. Continue gentle IV fluids. Continue to monitor BUN/creatinine. No signs of fluid overload. Renal us shows signs of medical renal disease and a left pleural effusion. 04/26 creatinine slightly elevated but at 2.5. I will consult nephrology and discontinue IV fluids. I will start the patient on Lasix. 04/27 appreciate nephrology input. Creatinine slowly trended down and now 2.48. Continue to monitor BUN/creatinine. Avoid nephrotoxins. (6) Anemia Plan: Anemia seems to be chronic and normocytic. I will check iron studies and stool guaiac. 04/24 I studies consistent with iron deficiency anemia. I will start the patient for sulfate. Will also find out if patient has had previous colonoscopies or endoscopies in the past. If not then the patient to follow-up as an outpatient with gastroenterology. 04/25 hemoglobin trending down from 9.3 on admission down to 7.8. Will start on protonix. Continue to monitor hemoglobin. Transfuse as needed for hemoglobin less than 7 or symptomatic anemia. Goal hemoglobin after transfusion more than 8. check stool guaiac for occult blood. Will Rx IV iron. Consult GI. 04/26 case discussed with GI - Dr Mo. The patient will go for EGD for/ colonoscopy in a.m. 04/27 status post EGD for/colonoscopy which showed Schatzki ring found in the lower third of the esophagus. Erythematous gastritis, duodenal inflammation, hiatal hernia. Await biopsy results, continue PPI, colonoscopy as an outpatient. (7) Elevated troponin ICD Code: R74.8 - Abnormal levels of other serum enzymes Plan: Patient has mildly elevated troponin of 0.06 associated with chest pain. I will order a cardiology consultation and continue heparin IV drip for now. Is a cardiology input. Levator troponin likely secondary to acute kidney injury. The patient is chest pain-free. (8) HTN (hypertension) Plan: BP elevated. Continue clonidine 0.1 mg by mouth twice a day. Continue labetalol as needed for elevated blood pressure. If BP continues to be elevated then will increase the dose of clonidine. 04/25 BP very uncontrolled and severely elevated to a systolic blood pressure max of 190. This is even after given a dose of Cardura. I will increase the dose of clonidine to 0.2 minutes by mouth 3 times a day. I will also DC IV Solu -Medrol and start on prednisone taper which should help on BP control. BP likely controlled secondary to steroids. 04/27 blood pressure much improved. Continue management with clonidine 0.2 mg by mouth times a day and Cardura 2 mg by mouth daily. BP likely isn't controlled secondary to steroid use. (9) DM (diabetes mellitus screen) Plan: On admission blood sugars were very well controlled. Patient not on any medications after she lost weight. 04/24 blood sugars very elevated and uncontrolled in the [address] on SSI with insulin NovoLog and monitor Accu-Cheks. The blood sugar showed improved after steroids are tapered. blood sugars still elevated but with improved control. Continue SSI with insulin NovoLog and Accu-Cheks. Check hemoglobin A1c. (10) Epistaxis Plan: Likely secondary to IV heparin. Resolved after IV heparin discontinuation. Continue to monitor for recurrent epistaxis. (11) Headache Plan: Patient is complaining of headaches today. I will start the patient oral Percocet. ET of the head negative for acute process. Patient states headache is much improved after BP controlled and with oral Percocet. 04/27 headache has resolved. Continue pain control as above. Consult PT DVT prophylaxis: SCDs, DC IV heparin. No chemoprophylaxis given h/o epistaxis. Discharge Planning Continue to monitor the telemetry floor. GI consulted due to drop in hemoglobin. Creatinine better but still elevated. Problem Qualifiers (1) CHF exacerbation: Qualified Codes: I50.9 - Heart failure, unspecified (2) Community acquired pneumonia: Qualified Codes: J18.9 - Pneumonia, unspecified organism (3) Anemia: Qualified Codes: D64.9 - Anemia, unspecified (4) HTN (hypertension): Qualified Codes: I10 - Essential (primary) hypertension (5) Headache: Qualified Codes: R51 - Headache Arnaldo Wiggins MD Apr 27, 2017 18:47
[2017-04-27] MEDS: predniSONE 10 MG TAB PO SCH (20:51)
[2017-04-27] MEDS ORDERED: BENZOCAINE-MENTHOL (SUGAR FREE) 15 MG-3.6 MG LOZENGE BUCCAL PRN (23:00)
[2017-04-28] VITALS (24 sets, daily range): BP systolic 134–180; BP diastolic 58–77; PULSE 60–73; RESP 16–20; TEMP 97.7–98.5; O2SAT 95–98
[2017-04-28] MEDS: oxyCODONE/ACETAMINOPHEN 10 MG/325 MG TAB PO PRN ×6 (00:53→21:01)
[2017-04-28] MEDS: AZITHROMYCIN INJ 500 MG in SODIUM CHLOR 0.9% 250 ML INJ 250 ML IV SCH (05:33)
[2017-04-28] MEDS: cefTRIAXone INJ 1,000 MG in SODIUM CHLORIDE 0.9% INJ 100 ML IV SCH (06:00)
[2017-04-28] MEDS: cloNIDine HCL 0.2 MG TAB PO SCH ×3 (06:00→21:54)
[2017-04-28 07:38] LABS: ALBUMIN 2.4 GM/DL (3.4-5.0); BICARBONATE 22.1 MEQ/L (21.0-32.0); CALCIUM 7.7 MG/DL (8.5-10.1); CREATININE 2.57 MG/DL (0.50-1.00); PHOSPHORUS 4.2 MG/DL (2.5-4.9)
[2017-04-28] MEDS: RESP: ALBUTEROL 2.5 MG/IPRATROPIUM 0.5 MG NEB (SCH) NEB ×4 (08:00→21:00)
[2017-04-28] MEDS: INSULIN ASPART SUPPLEMENTAL SCALE SQ SCH ×4 (08:00→21:00)
[2017-04-28] MEDS: SODIUM CHLORIDE 0.9% FLUSH 10 ML FLUSH IV FLUSH SCH ×2 (08:53→21:53)
[2017-04-28] MEDS: guaiFENesin E.R. 600 MG TAB PO SCH ×2 (08:54→21:53)
[2017-04-28] MEDS: FUROSEMIDE 40 MG/4 ML VIAL IV PUSH SCH ×2 (08:54→17:05)
[2017-04-28] MEDS: FLUoxetine HCL 20 MG CAP PO SCH (08:54)
[2017-04-28] MEDS: GABAPENTIN 400 MG CAP PO SCH ×2 (08:54→21:52)
[2017-04-28] MEDS: DOXAZOSIN MESYLATE 2 MG TAB PO SCH (08:54)
[2017-04-28] MEDS: DOCUSATE SODIUM 50 MG/SENNA 8.6 MG TAB PO SCH ×2 (08:55→21:53)
[2017-04-28] MEDS: BUDESONIDE-FORMOTEROL 160/4.5 MCG INHALER INH SCH (09:00)
[2017-04-28] MEDS: PANTOPRAZOLE SOD 40 MG DELAYED RELEASE TAB PO SCH ×2 (10:43→21:53)
[2017-04-28] MEDS: IRON SUCROSE INJ 100 MG in SODIUM CHLORIDE 0.9% INJ 100 ML IV SCH (10:43)
[2017-04-28] MEDS: predniSONE 10 MG TAB PO SCH ×2 (10:43→21:52)
--- NOTE | 2017-04-28 10:53 | HHI.NPPN ---
Subjective General Problems: Anemia Renal Failure: Chronic, Acute, Stage III Additional Remarks Patient is alert, sitting on the chair, breathing is better, not in distress. Review of Systems General Constitutional: Fatigue Respiratory Lungs: SOB Cardiovascular Cardiac: Edema Objective Data Data Vital Signs Date Time Temp Pulse Resp B/P (MAP) Pulse Ox O2 Delivery O2 Flow Rate FiO2 04/28/17 09:59 98 21 04/28/17 06:28 18 04/28/17 06:00 71 04/28/17 05:00 70 04/28/17 04:00 70 04/28/17 03:00 62 04/28/17 03:00 98.2 73 18 167/71 (103) 95 04/28/17 02:00 64 04/28/17 01:00 66 04/28/17 00:00 66 04/27/17 23:00 98.1 68 16 158/67 (97) 97 04/27/17 23:00 68 04/27/17 22:00 62 04/27/17 21:00 60 04/27/17 20:00 58 04/27/17 19:00 97.5 60 18 155/76 (102) 99 04/27/17 19:00 60 04/27/17 18:00 60 04/27/17 17:03 62 04/27/17 16:23 63 04/27/17 15:30 57 04/27/17 15:30 98.2 61 16 155/64 (94) 97 04/27/17 14:07 61 04/27/17 13:11 66 04/27/17 12:15 58 25 140/65 (90) 98 Nasal Cannula 3 04/27/17 12:08 97.5 54 16 135/63 (87) 96 Nasal Cannula 3 04/27/17 11:00 95 Room Air 04/27/17 11:00 57 04/27/17 11:00 98.0 60 18 152/69 (96) 95 -: 04/26/17 0456 04/28/17 0630 Physical Exam General Appearance: Well Developed, No Acute Distress, Comfortable, Malnourished Throat Throat Exam: Oral Mucosa [place] & Moist Neck Neck Exam: Neck Supple Pulmonary Resp Exam: Clear Bilaterally, Breath Sounds Equal Cardiology CV Exam: Regular, Normal Sinus Rhythm, Good Perfusion Gastrointestinal/Abdomen GI Exam: Soft, Non-Tender, Bowel Sounds Present Musculoskeletal MS Exam: Normal Gait, Normal Tone Integumentary Skin Exam: Warm, Dry Extremeties Extremities Exam: Moderate Edema, Pitting Edema, Dependent Edema Neurologic Neuro Exam: Alert, Awake, Oriented, Speech Clear, Moving All Extremities Psychiatric Psych Exam: Appropriate Responses Assessment/Plan Discussed Condition With: Patient Assessment Summary: MILI/Acute Renal Failure, Anemia of CKD, Fluid/Volume Overload, Proteinuria, Hypertension, Diabetes Mellitus, CKD Stage III Problem List: (1) MILI (acute kidney injury) ICD Codes: N17.9 - Acute kidney injury Status: Acute Plan: She has underlying CKD 3, baseline GFR 30, creatinine 1.61 Suspected underlying diabetic nephropathy as she does have proteinuria. SPEP in 2015 showed hyper gamma globulinemia with no abnormal bands. MILI may be due to CHF exacerbation and increased renal vein pressure. IVF was stopped, needs diuresis. On Lasix 40 BID and doxazosin. Follow urine output, she is non oliguric. Quantify proteinuria. Renal US showing medical renal disease Avoid nephrotoxic agents, renally dose when appropriate Creatinine is stable, Continue Lasix. Told to restrict salt and fluid intake. (2) Anemia ICD Codes: D64.9 - Anemia Status: Chronic Plan: She has iron deficiency. Venofer ordered. May have anemia of chronic disease. (3) CHF exacerbation ICD Codes: I50.9 - Heart failure, unspecified Status: Acute Plan: Echo this month shows: LVH Apical hypokinesis Left ventricular function is low normal, EF 50-55% follow I/O, fluid status, weight fluid restriction discussed. (4) Acute hypoxemic respiratory failure ICD Codes: J96.01 - Acute respiratory failure with hypoxia Status: Resolved Plan: Being treated for CAP On Zithromax and Rocephin Refusing BiPap, on oxygen via nasal canula Recent saturation 98% oh 2L NC Former smoker, cessation discussed (5) Community acquired pneumonia ICD Codes: J18.9 - Pneumonia, unspecified organism Status: Acute Plan: See above Continue supportive care On nebulizers, inhalers, oxygen . Plan patient was seen and examined. Agree with above assessment and plan. Renal function is slightly better. Problem Qualifiers (1) Anemia: Qualified Codes: D64.9 - Anemia, unspecified (2) CHF exacerbation: Qualified Codes: I50.9 - Heart failure, unspecified (3) Community acquired pneumonia: Qualified Codes: J18.9 - Pneumonia, unspecified organism Jumani,Ranjith Q. MD Apr 28, 2017 10:53
--- NOTE | 2017-04-28 13:48 | HHI.PR ---
Subjective Remarks Follow-up CHF exacerbation/community acquired pneumonia/acute renal failure/ respiratory failure/anemia 04/28/17-patient seen and examined, reports some improvement or shortness of breath, and denies any chest pain and still with some bilateral lower extremity edema. Creatinine trending up Objective Vitals Vital Signs Date Time Temp Pulse Resp B/P (MAP) Pulse Ox O2 Delivery O2 Flow Rate FiO2 04/28/17 09:59 98 21 04/28/17 08:00 97.9 68 16 165/58 (93) 95 04/28/17 06:28 18 04/28/17 06:00 71 04/28/17 05:00 70 04/28/17 04:00 70 04/28/17 03:00 62 04/28/17 03:00 98.2 73 18 167/71 (103) 95 04/28/17 02:00 64 04/28/17 01:00 66 04/28/17 00:00 66 04/27/17 23:00 98.1 68 16 158/67 (97) 97 04/27/17 23:00 68 04/27/17 22:00 62 04/27/17 21:00 60 04/27/17 20:00 58 04/27/17 19:00 97.5 60 18 155/76 (102) 99 04/27/17 19:00 60 04/27/17 18:00 60 04/27/17 17:03 62 04/27/17 16:23 63 04/27/17 15:30 57 04/27/17 15:30 98.2 61 16 155/64 (94) 97 04/27/17 14:07 61 I/O 04/27/17 04/27/17 04/27/17 04/28/17 04/28/17 04/28/17 07:00 15:00 23:00 07:00 15:00 23:00 Intake Total 770 ml 100 ml 460 ml 840 ml Output Total 501 ml Balance 269 ml 100 ml 460 ml 840 ml Intake Oral 520 ml 460 ml 840 ml IV Total 250 ml Other 100 ml Output Urine Total 500 ml Stool Total 1 ml # Voids 2 3 # Bowel Movements 0 Result Diagram: 04/26/17 0456 04/28/17 0630 Imaging Last Impressions Head CT 04/25/17 0000 Signed Impressions: Service Date/Time: Tuesday, April 25, 2017 22:28 - CONCLUSION: 1. Negative noncontrast CT brain. Leo Gonzales MD Chest X-Ray 04/25/17 0000 Signed Impressions: Service Date/Time: Tuesday, April 25, 2017 21:41 - CONCLUSION: Cardiomegaly with increased interstitial markings and mild bilateral effusions likely related to CHF. This appears worse when compared to the prior exam. Rasta Vieira MD Renal Ultrasound 04/24/17 0000 Signed Impressions: Service Date/Time: Monday, April 24, 2017 23:08 - CONCLUSION: 1. Echogenic kidneys likely secondary to medical renal disease. 2. Minimal ascites. 3. Left pleural effusion. Rasta Vieira MD Objective Remarks GENERAL: NAD SKIN: Warm and dry. HEAD: Normocephalic. EYES: No scleral icterus. No injection or drainage. NECK: Supple, trachea midline. No JVD or lymphadenopathy. CARDIOVASCULAR: Regular rate and rhythm without murmurs, gallops, or rubs. RESPIRATORY: Breath sounds equal bilaterally. No accessory muscle use. GASTROINTESTINAL: Abdomen soft, non-tender, nondistended. MUSCULOSKELETAL: No cyanosis; + BLE edema. BACK: Nontender without obvious deformity. No CVA tenderness. A/P Problem List: (1) Acute hypoxemic respiratory failure ICD Code: J96.01 - Acute respiratory failure with hypoxia Status: Resolved (2) CHF exacerbation ICD Code: I50.9 - Heart failure, unspecified Status: Acute (3) Community acquired pneumonia ICD Code: J18.9 - Pneumonia, unspecified organism Status: Acute (4) COPD exacerbation ICD Code: J44.1 - Obstructive chronic bronchitis with exacerbation Status: Resolved (5) MILI (acute kidney injury) ICD Code: N17.9 - Acute kidney injury Status: Acute (6) Anemia ICD Code: D64.9 - Anemia Status: Chronic (7) Elevated troponin ICD Code: R74.8 - Abnormal levels of other serum enzymes Status: Acute (8) HTN (hypertension) ICD Code: I10 - Hypertension Status: Chronic (9) DM (diabetes mellitus screen) ICD Code: Z13.1 - Screening for diabetes mellitus Status: Chronic (10) Epistaxis ICD Code: R04.0 - Epistaxis Status: Resolved (11) Headache ICD Code: R51 - Headache Status: Acute (12) Pleural effusion, left ICD Code: J90 - Pleural effusion, not elsewhere classified Status: Acute Assessment and Plan 76-year-old female with Acute hypoxemic respiratory failure Community-acquired pneumonia continue IV Rocephin and azithromycin. Continue with prednisone 10 mg twice a day, long-acting beta agonist as well as short-acting. Maintain oxygen saturation above 92% CHF exacerbation 2-D echocardiogram shows the ventricular systolic function that is low normal with an estimated ejection fraction the range of 50-55%. Appreciate input from cardiology Continue IV lasix. Community acquired pneumonia Continue empiric IV broad-spectrum antibiotics including azithromycin and Rocephin Blood cultures NTD COPD exacerbation Continue prednisone 10 mg twice a day, breathing therapy, maintain oxygen saturation above 92% MILI (acute kidney injury)-stage IV Appreciate input from nephrology, continue to monitor BUN and creatinine and avoid all nephrotoxic drugs Anemia status post EGD for/colonoscopy which showed Schatzki ring found in the lower third of the esophagus. Erythematous gastritis, duodenal inflammation, hiatal hernia. Await biopsy results, continue PPI, colonoscopy as an outpatient. Elevated troponin Elevated troponin likely secondary to acute kidney injury. Appreciate input from cardiology HTN (hypertension) Continue clonidine 0.2 mg by mouth twice a day and Cardura 2 mg by mouth daily. DM (diabetes mellitus screen) Continue SSI with insulin NovoLog and Accu-Cheks. Epistaxis Resolved Headache Resolved. Continue pain control as above. Consult PT DVT prophylaxis: SCDs, No chemoprophylaxis given h/o epistaxis. Problem Qualifiers (1) CHF exacerbation: Qualified Codes: I50.9 - Heart failure, unspecified (2) Community acquired pneumonia: Qualified Codes: J18.9 - Pneumonia, unspecified organism (3) Anemia: Qualified Codes: D64.9 - Anemia, unspecified (4) HTN (hypertension): Qualified Codes: I10 - Essential (primary) hypertension (5) Headache: Qualified Codes: R51 - Headache Fernando Trotter MD Apr 28, 2017 13:48
--- NOTE | 2017-04-28 16:23 | PD.CARD.PN ---
Subjective Subjective Remarks No CP, still has edema and dyspnea Objective Medications Current Medications Medications (Trade) Dose Ordered Sig/Rosemarie Route Start Time Stop Time Status Last Admin (Nitrostat Sl) 0.4 mg Q5M PRN SL 04/23/17 05:15 Ceftriaxone Sodium 1000 mg/ Sodium Chloride 100 ml @ 200 mls/hr Q24H IV 04/24/17 06:00 04/28/17 06:00 Azithromycin 500 mg/Sodium Chloride 250 ml @ 250 mls/hr Q24H IV 04/24/17 06:00 04/28/17 05:33 (Duoneb Neb) 1 ampule Q2HR NEB PRN NEB 04/23/17 06:30 (Symbicort 160-4.5 Mcg Inh) 2 puff Q12HR INH 04/23/17 09:00 04/28/17 09:00 (Mucinex Er) 600 mg BID PO 04/23/17 09:00 04/28/17 08:54 (NS Flush) 2 ml UNSCH PRN IV FLUSH 04/23/17 06:30 (NS Flush) 2 ml BID IV FLUSH 04/23/17 09:00 04/28/17 08:53 (Zofran Inj) 4 mg Q6H PRN IVP 04/23/17 06:30 (Tylenol) 650 mg Q6H PRN PO 04/23/17 06:30 (Nathaly-Colace) 1 tab BID PO 04/23/17 09:00 04/28/17 08:55 (Milk Of Magnesia Liq) 30 ml Q12H PRN PO 04/23/17 06:30 (Senokot) 17.2 mg Q12H PRN PO 04/23/17 06:30 04/25/17 21:22 (Dulcolax Supp) 10 mg DAILY PRN RECTAL 04/23/17 06:30 (Lactulose Liq) 30 ml DAILY PRN PO 04/23/17 06:30 (Neurontin) 400 mg BID PO 04/23/17 21:00 04/28/17 08:54 (PROzac) 40 mg DAILY PO 04/24/17 09:00 04/28/17 08:54 (Trandate Inj) 10 mg Q6H PRN IV PUSH 04/23/17 20:45 04/25/17 15:48 (D50w (Vial) Inj) 50 ml UNSCH PRN IV PUSH 04/24/17 15:00 (Glucagon Inj) 1 mg UNSCH PRN OTHER 04/24/17 15:00 (NovoLOG SUPPLEMENTAL SCALE) 1 ACHS SLIDING SCALE SQ 04/24/17 17:00 04/27/17 17:00 (Apresoline Inj) 10 mg Q4HR PRN IV PUSH 04/25/17 16:15 04/26/17 15:04 (Percocet 10-325 Mg) 1 tab Q4H PRN PO 04/25/17 18:00 04/28/17 13:12 (Catapres) 0.2 mg Q8HR PO 04/25/17 22:00 04/28/17 13:16 (Protonix) 40 mg Q12HR PO 04/25/17 21:00 04/28/17 10:43 (Cardura) 2 mg DAILY PO 04/27/17 09:00 04/28/17 08:54 (Duoneb Neb) 1 ampule Q4HR WHILE AWAKE NEB NEB 04/26/17 16:00 04/27/17 21:41 (Lasix Inj) 40 mg BID@09,18 IV PUSH 04/26/17 18:00 04/28/17 08:54 Iron Sucrose 100 mg/Sodium Chloride 105 ml @ 105 mls/hr DAILY IV 04/27/17 09:00 04/29/17 09:59 04/28/17 10:43 (Deltasone) 10 mg BID PO 04/27/17 21:00 04/28/17 10:43 (Cepacol Extra Uli (Sugar Free)) 1 lozenge Q2HR PRN BUCCAL 04/27/17 23:00 Vital Signs / I&O Vital Signs Date Time Temp Pulse Resp B/P (MAP) Pulse Ox O2 Delivery O2 Flow Rate FiO2 04/28/17 14:00 70 04/28/17 13:00 72 04/28/17 12:00 98.1 66 20 148/63 (91) 96 04/28/17 11:00 62 04/28/17 10:00 70 04/28/17 09:59 98 21 04/28/17 09:00 60 04/28/17 08:00 97.9 68 16 165/58 (93) 95 04/28/17 08:00 66 04/28/17 06:28 18 04/28/17 06:00 71 04/28/17 05:00 70 04/28/17 04:00 70 04/28/17 03:00 62 04/28/17 03:00 98.2 73 18 167/71 (103) 95 04/28/17 02:00 64 04/28/17 01:00 66 04/28/17 00:00 66 04/27/17 23:00 98.1 68 16 158/67 (97) 97 04/27/17 23:00 68 04/27/17 22:00 62 04/27/17 21:00 60 04/27/17 20:00 58 04/27/17 19:00 97.5 60 18 155/76 (102) 99 04/27/17 19:00 60 04/27/17 18:00 60 04/27/17 17:03 62 04/27/17 16:23 63 I/O 04/27/17 04/27/17 04/27/17 04/28/17 04/28/17 04/28/17 07:00 15:00 23:00 07:00 15:00 23:00 Intake Total 770 ml 100 ml 460 ml 840 ml Output Total 501 ml Balance 269 ml 100 ml 460 ml 840 ml Intake Oral 520 ml 460 ml 840 ml IV Total 250 ml Other 100 ml Output Urine Total 500 ml Stool Total 1 ml # Voids 2 3 # Bowel Movements 0 Physical Exam GENERAL: In NAD SKIN: Warm and dry. HEAD: Normocephalic. EYES: No scleral icterus. No injection or drainage. NECK: Supple, trachea midline. No JVD or lymphadenopathy. CARDIOVASCULAR: Regular rate and rhythm without murmurs, gallops, or rubs. RESPIRATORY: Breath sounds equal bilaterally. No accessory muscle use. GASTROINTESTINAL: Abdomen soft, non-tender, nondistended. MUSCULOSKELETAL: No cyanosis, mild edema. Laboratory Laboratory Tests Test 04/28/17 06:30 Blood Urea Nitrogen 64 MG/DL Creatinine 2.57 MG/DL Random Glucose 152 MG/DL Albumin 2.4 GM/DL Calcium Level 7.7 MG/DL Phosphorus Level 4.2 MG/DL Sodium Level 132 MEQ/L Potassium Level 4.2 MEQ/L Chloride Level 101 MEQ/L Carbon Dioxide Level 22.1 MEQ/L Anion Gap 9 MEQ/L Estimat Glomerular Filtration Rate 18 ML/MIN Assessment and Plan Problem List: (1) Acute hypoxemic respiratory failure ICD Codes: J96.01 - Acute respiratory failure with hypoxia Status: Resolved (2) CHF exacerbation ICD Codes: I50.9 - Heart failure, unspecified Status: Acute (3) COPD exacerbation ICD Codes: J44.1 - Obstructive chronic bronchitis with exacerbation Status: Resolved (4) Community acquired pneumonia ICD Codes: J18.9 - Pneumonia, unspecified organism Status: Acute (5) MILI (acute kidney injury) ICD Codes: N17.9 - Acute kidney injury Status: Acute (6) Anemia ICD Codes: D64.9 - Anemia Status: Chronic (7) HTN (hypertension) ICD Codes: I10 - Hypertension Status: Chronic (8) DM (diabetes mellitus screen) ICD Codes: Z13.1 - Screening for diabetes mellitus Status: Chronic Assessment and Plan Still dyspneic with minimal exertion and edematous. Continue current program including diuresis, monitor renal fx. Continue tx for CHF. Echo with low nl LV syst fx. Continue tx for pneumonia and COPD exacerbation. Increase activity, PT. Problem Qualifiers (1) CHF exacerbation: Qualified Codes: I50.9 - Heart failure, unspecified (2) Community acquired pneumonia: Qualified Codes: J18.9 - Pneumonia, unspecified organism (3) Anemia: Qualified Codes: D64.9 - Anemia, unspecified (4) HTN (hypertension): Qualified Codes: I10 - Essential (primary) hypertension Yulissa Fitzgerald MD Apr 28, 2017 16:23
[2017-04-28] MEDS: hydrALAZINE HCL 20 MG/ML VIAL IV PUSH PRN (17:04)
[2017-04-28] MEDS: MAGNESIUM HYDROXIDE SUSP 30 ML CUP PO PRN (18:04)
[2017-04-29] VITALS (23 sets, daily range): BP systolic 144–175; BP diastolic 59–72; PULSE 60–88; RESP 16–22; TEMP 97.3–98.6; O2SAT 97–100
[2017-04-29] MEDS: BUDESONIDE-FORMOTEROL 160/4.5 MCG INHALER INH SCH ×3 (01:27→21:00)
[2017-04-29] MEDS: oxyCODONE/ACETAMINOPHEN 10 MG/325 MG TAB PO PRN ×6 (01:28→20:46)
[2017-04-29] MEDS: hydrALAZINE HCL 20 MG/ML VIAL IV PUSH PRN (03:54)
[2017-04-29] MEDS: cloNIDine HCL 0.2 MG TAB PO SCH ×3 (05:37→22:00)
[2017-04-29] MEDS: AZITHROMYCIN INJ 500 MG in SODIUM CHLOR 0.9% 250 ML INJ 250 ML IV SCH (05:37)
[2017-04-29] MEDS: RESP: ALBUTEROL 2.5 MG/IPRATROPIUM 0.5 MG NEB (SCH) NEB ×4 (07:35→20:00)
[2017-04-29 08:02] LABS: AUTOMATED NEUTROPHIL # 8.1 TH/MM3 (1.8-7.7); BASOPHIL % 0.2 % (0.0-2.0); EOSINOPHIL % 0.1 % (0.0-4.0); HEMATOCRIT 22.9 % (35.0-46.0); HEMOGLOBIN 7.5 GM/DL (11.6-15.3); LYMPH % 2.8 % (9.0-44.0); LYMPHOCYTE # 0.3 TH/MM3 (1.0-4.8); MEAN CELL VOLUME 94.2 FL (80.0-100.0); MEAN CORPUSCULAR HEMOGLOBIN 30.9 PG (27.0-34.0); MEAN CORPUSCULAR HGB CONC 32.8 % (32.0-36.0); MEAN PLATELET VOLUME 10.9 FL (7.0-11.0); MONO % 7.1 % (0.0-8.0); MONOCYTE # 0.6 TH/MM3 (0-0.9); NEUT % 89.8 % (16.0-70.0); PLATELET COUNT 182 TH/MM3 (150-450); RED BLOOD COUNT 2.43 MIL/MM3 (4.00-5.30); RED CELL DISTRIBUTION WIDTH 15.2 % (11.6-17.2)
[2017-04-29 08:32] LABS: BICARBONATE 22.7 MEQ/L (21.0-32.0); CALCIUM 7.6 MG/DL (8.5-10.1); CREATININE 2.52 MG/DL (0.50-1.00)
[2017-04-29] MEDS: cefTRIAXone INJ 1,000 MG in SODIUM CHLORIDE 0.9% INJ 100 ML IV SCH (08:33)
[2017-04-29] MEDS: FUROSEMIDE 40 MG/4 ML VIAL IV PUSH SCH ×2 (08:40→16:51)
[2017-04-29] MEDS: DOXAZOSIN MESYLATE 2 MG TAB PO SCH (08:42)
[2017-04-29] MEDS: PANTOPRAZOLE SOD 40 MG DELAYED RELEASE TAB PO SCH ×2 (08:42→20:45)
[2017-04-29] MEDS: guaiFENesin E.R. 600 MG TAB PO SCH ×2 (08:42→20:44)
[2017-04-29] MEDS: GABAPENTIN 400 MG CAP PO SCH ×2 (08:42→20:45)
[2017-04-29] MEDS: DOCUSATE SODIUM 50 MG/SENNA 8.6 MG TAB PO SCH ×2 (08:42→20:45)
[2017-04-29] MEDS: FLUoxetine HCL 20 MG CAP PO SCH (08:42)
[2017-04-29] MEDS: predniSONE 10 MG TAB PO SCH ×2 (08:42→20:45)
[2017-04-29] MEDS: INSULIN ASPART SUPPLEMENTAL SCALE SQ SCH ×4 (08:43→21:00)
--- NOTE | 2017-04-29 10:26 | HHI.PR ---
Subjective Remarks Follow-up CHF exacerbation/community acquired pneumonia/acute renal failure/ respiratory failure/anemia 04/28/17-patient seen and examined, reports some improvement or shortness of breath, and denies any chest pain and still with some bilateral lower extremity edema. Creatinine trending up 04/29/17-patient seen and examined, reports some slight shortness of breath and continues to complain of bilateral lower extremity edema. Denies any chest pain Objective Vitals Vital Signs Date Time Temp Pulse Resp B/P (MAP) Pulse Ox O2 Delivery O2 Flow Rate FiO2 04/29/17 08:27 98.1 64 18 150/65 (93) 100 04/29/17 07:35 99 Nasal Cannula 2.00 04/29/17 06:00 68 04/29/17 04:29 98.0 74 18 175/63 (100) 97 04/29/17 04:00 70 04/29/17 03:01 70 04/29/17 00:00 98.0 74 18 144/59 (87) 97 04/28/17 21:00 97 04/28/17 20:00 97.7 65 20 134/60 (84) 97 04/28/17 18:00 62 04/28/17 17:42 153/69 (97) 04/28/17 17:00 68 04/28/17 16:55 180/77 (111) 04/28/17 16:26 98.5 65 20 170/77 (108) 98 04/28/17 16:00 62 04/28/17 15:00 64 04/28/17 14:00 70 04/28/17 13:00 72 04/28/17 12:00 98.1 66 20 148/63 (91) 96 04/28/17 11:00 62 I/O 04/28/17 04/28/17 04/28/17 04/29/17 04/29/17 04/29/17 07:00 15:00 23:00 07:00 15:00 23:00 Intake Total 840 ml 960 ml 600 ml Output Total 600 ml 1200 ml Balance 840 ml 360 ml -600 ml Intake Oral 840 ml 960 ml 600 ml Output Urine Total 600 ml 1200 ml # Voids 3 3 Result Diagram: 04/29/1771304/29/17713 Objective Remarks GENERAL: NAD SKIN: Warm and dry. HEAD: Normocephalic. EYES: No scleral icterus. No injection or drainage. NECK: Supple, trachea midline. No JVD or lymphadenopathy. CARDIOVASCULAR: Regular rate and rhythm without murmurs, gallops, or rubs. RESPIRATORY: Breath sounds equal bilaterally. No accessory muscle use. GASTROINTESTINAL: Abdomen soft, non-tender, nondistended. MUSCULOSKELETAL: No cyanosis; + BLE edema. BACK: Nontender without obvious deformity. No CVA tenderness. A/P Problem List: (1) Acute hypoxemic respiratory failure ICD Code: J96.01 - Acute respiratory failure with hypoxia Status: Resolved (2) CHF exacerbation ICD Code: I50.9 - Heart failure, unspecified Status: Acute (3) Community acquired pneumonia ICD Code: J18.9 - Pneumonia, unspecified organism Status: Acute (4) COPD exacerbation ICD Code: J44.1 - Obstructive chronic bronchitis with exacerbation Status: Resolved (5) MILI (acute kidney injury) ICD Code: N17.9 - Acute kidney injury Status: Acute (6) Anemia ICD Code: D64.9 - Anemia Status: Chronic (7) Elevated troponin ICD Code: R74.8 - Abnormal levels of other serum enzymes Status: Acute (8) HTN (hypertension) ICD Code: I10 - Hypertension Status: Chronic (9) DM (diabetes mellitus screen) ICD Code: Z13.1 - Screening for diabetes mellitus Status: Chronic (10) Epistaxis ICD Code: R04.0 - Epistaxis Status: Resolved (11) Headache ICD Code: R51 - Headache Status: Resolved (12) Pleural effusion, left ICD Code: J90 - Pleural effusion, not elsewhere classified Status: Acute Assessment and Plan 76-year-old female with Acute hypoxemic respiratory failure-resolved Community-acquired pneumonia Currently on IV Rocephin and azithromycin. Continue with prednisone 10 mg twice a day, long-acting beta agonist as well as short-acting. Maintain oxygen saturation above 92% CHF exacerbation 2-D echocardiogram shows the ventricular systolic function that is low normal with an estimated ejection fraction the range of 50-55%. Appreciate input from cardiology Continue IV Lasix. Community acquired pneumonia Currently on IV broad-spectrum antibiotics including azithromycin and Rocephin, and continue treatment 1 more day Blood cultures NTD COPD exacerbation Continue prednisone 10 mg twice a day, breathing therapy, antibiotics, maintain oxygen saturation above 92% MILI (acute kidney injury)-stage IV Appreciate input from nephrology, continue to monitor BUN and creatinine and avoid all nephrotoxic drugs Anemia status post EGD for/colonoscopy which showed Schatzki ring found in the lower third of the esophagus. Erythematous gastritis, duodenal inflammation, hiatal hernia. Await biopsy results, continue PPI, colonoscopy as an outpatient. Elevated troponin Elevated troponin likely secondary to acute kidney injury. Appreciate input from cardiology HTN (hypertension) Continue clonidine 0.2 mg by mouth twice a day and Cardura 2 mg by mouth daily. DM (diabetes mellitus screen) Continue SSI with insulin NovoLog and Accu-Cheks. Epistaxis Resolved Headache Resolved. Continue pain control as above. Consult PT DVT prophylaxis: SCDs, No chemoprophylaxis given h/o epistaxis. Problem Qualifiers (1) CHF exacerbation: Qualified Codes: I50.9 - Heart failure, unspecified (2) Community acquired pneumonia: Qualified Codes: J18.9 - Pneumonia, unspecified organism (3) Anemia: Qualified Codes: D64.9 - Anemia, unspecified (4) HTN (hypertension): Qualified Codes: I10 - Essential (primary) hypertension (5) Headache: Qualified Codes: R51 - Headache Fernando Trotter MD Apr 29, 2017 10:26
--- NOTE | 2017-04-29 10:32 | HHI.NPPN ---
Subjective General Problems: Anemia Renal Failure: Chronic, Acute, Stage III Additional Remarks Patient is alert, sitting on the chair, breathing is better, clinically same. Review of Systems General Constitutional: Fatigue Respiratory Lungs: SOB Cardiovascular Cardiac: Edema Objective Data Data Vital Signs Date Time Temp Pulse Resp B/P (MAP) Pulse Ox O2 Delivery O2 Flow Rate FiO2 04/29/17 08:27 98.1 64 18 150/65 (93) 100 04/29/17 07:35 99 Nasal Cannula 2.00 04/29/17 06:00 68 04/29/17 04:29 98.0 74 18 175/63 (100) 97 04/29/17 04:00 70 04/29/17 03:01 70 04/29/17 00:00 98.0 74 18 144/59 (87) 97 04/28/17 21:00 97 04/28/17 20:00 97.7 65 20 134/60 (84) 97 04/28/17 18:00 62 04/28/17 17:42 153/69 (97) 04/28/17 17:00 68 04/28/17 16:55 180/77 (111) 04/28/17 16:26 98.5 65 20 170/77 (108) 98 04/28/17 16:00 62 04/28/17 15:00 64 04/28/17 14:00 70 04/28/17 13:00 72 04/28/17 12:00 98.1 66 20 148/63 (91) 96 04/28/17 11:00 62 -: 04/29/17 0714 04/29/17 0714 Physical Exam General Appearance: Well Developed, No Acute Distress, Comfortable, Malnourished Throat Throat Exam: Oral Mucosa Blanca & Moist Neck Neck Exam: Neck Supple Pulmonary Resp Exam: Clear Bilaterally, Breath Sounds Equal Cardiology CV Exam: Regular, Normal Sinus Rhythm, Good Perfusion Gastrointestinal/Abdomen GI Exam: Soft, Non-Tender, Bowel Sounds Present Musculoskeletal MS Exam: Normal Gait, Normal Tone Integumentary Skin Exam: Warm, Dry Extremeties Extremities Exam: Moderate Edema, Pitting Edema, Dependent Edema Neurologic Neuro Exam: Alert, Awake, Oriented, Speech Clear, Moving All Extremities Psychiatric Psych Exam: Appropriate Responses Assessment/Plan Discussed Condition With: Patient Assessment Summary: MILI/Acute Renal Failure, Anemia of CKD, Fluid/Volume Overload, Proteinuria, Hypertension, Diabetes Mellitus, CKD Stage III Problem List: (1) MILI (acute kidney injury) ICD Codes: N17.9 - Acute kidney injury Status: Acute Plan: She has underlying CKD 3, baseline GFR 30, creatinine 1.61 Suspected underlying diabetic nephropathy as she does have proteinuria. SPEP in 2015 showed hyper gamma globulinemia with no abnormal bands. MILI may be due to CHF exacerbation and increased renal vein pressure. IVF was stopped, needs diuresis. On Lasix 40 BID and doxazosin. Follow urine output, she is non oliguric. Quantify proteinuria. Renal US showing medical renal disease Avoid nephrotoxic agents, renally dose when appropriate Creatinine is stable, Continue Lasix. Told to restrict salt and fluid intake. Na. is 130, urine out put is better. Dr. Patten will follow from AM. (2) Anemia ICD Codes: D64.9 - Anemia Status: Chronic Plan: She has iron deficiency. Venofer ordered. May have anemia of chronic disease. (3) CHF exacerbation ICD Codes: I50.9 - Heart failure, unspecified Status: Acute Plan: Echo this month shows: LVH Apical hypokinesis Left ventricular function is low normal, EF 50-55% follow I/O, fluid status, weight fluid restriction discussed. (4) Acute hypoxemic respiratory failure ICD Codes: J96.01 - Acute respiratory failure with hypoxia Status: Resolved Plan: Being treated for CAP On Zithromax and Rocephin Refusing BiPap, on oxygen via nasal canula Recent saturation 98% oh 2L NC Former smoker, cessation discussed (5) Community acquired pneumonia ICD Codes: J18.9 - Pneumonia, unspecified organism Status: Acute Plan: See above Continue supportive care On nebulizers, inhalers, oxygen . Plan patient was seen and examined. Agree with above assessment and plan. Renal function is slightly better. Problem Qualifiers (1) Anemia: Qualified Codes: D64.9 - Anemia, unspecified (2) CHF exacerbation: Qualified Codes: I50.9 - Heart failure, unspecified (3) Community acquired pneumonia: Qualified Codes: J18.9 - Pneumonia, unspecified organism Tennille Schuler MD Apr 29, 2017 10:32
[2017-04-29] MEDS: IRON SUCROSE INJ 100 MG in SODIUM CHLORIDE 0.9% INJ 100 ML IV SCH (12:05)
[2017-04-29] MEDS: SODIUM CHLORIDE 0.9% FLUSH 10 ML FLUSH IV FLUSH SCH ×2 (12:06→20:49)
--- NOTE | 2017-04-29 12:11 | HHI.GIFU ---
Subjective Remarks Pt OOB to chair, just had bath. tolerating diet. c/o constipation. (Nelida Fisher) Objective Vitals I&O Vital Signs Date Time Temp Pulse Resp B/P (MAP) Pulse Ox O2 Delivery O2 Flow Rate FiO2 04/29/17 10:00 64 04/29/17 09:00 64 04/29/17 08:27 98.1 64 18 150/65 (93) 100 04/29/17 08:00 65 04/29/17 07:35 99 Nasal Cannula 2.00 04/29/17 06:00 68 04/29/17 04:29 98.0 74 18 175/63 (100) 97 04/29/17 04:00 70 04/29/17 03:01 70 04/29/17 00:00 98.0 74 18 144/59 (87) 97 04/28/17 21:00 97 04/28/17 20:00 97.7 65 20 134/60 (84) 97 04/28/17 18:00 62 04/28/17 17:42 153/69 (97) 04/28/17 17:00 68 04/28/17 16:55 180/77 (111) 04/28/17 16:26 98.5 65 20 170/77 (108) 98 04/28/17 16:00 62 04/28/17 15:00 64 04/28/17 14:00 70 04/28/17 13:00 72 I/O 04/28/17 04/28/17 04/28/17 04/29/17 04/29/17 04/29/17 07:00 15:00 23:00 07:00 15:00 23:00 Intake Total 840 ml 960 ml 600 ml Output Total 600 ml 1200 ml Balance 840 ml 360 ml -600 ml Intake Oral 840 ml 960 ml 600 ml Output Urine Total 600 ml 1200 ml # Voids 3 3 Laboratory Laboratory Tests Test 04/29/17 07:14 White Blood Count 9.0 Red Blood Count 2.43 Hemoglobin 7.5 Hematocrit 22.9 Mean Corpuscular Volume 94.2 Mean Corpuscular Hemoglobin 30.9 Mean Corpuscular Hemoglobin Concent 32.8 Red Cell Distribution Width 15.2 Platelet Count 182 Mean Platelet Volume 10.9 Neutrophils (%) (Auto) 89.8 Lymphocytes (%) (Auto) 2.8 Monocytes (%) (Auto) 7.1 Eosinophils (%) (Auto) 0.1 Basophils (%) (Auto) 0.2 Neutrophils # (Auto) 8.1 Lymphocytes # (Auto) 0.3 Monocytes # (Auto) 0.6 Eosinophils # (Auto) 0.0 Basophils # (Auto) 0.0 CBC Comment DIFF FINAL Differential Comment Blood Urea Nitrogen 71 Creatinine 2.52 Random Glucose 163 Calcium Level 7.6 Sodium Level 130 Potassium Level 4.4 Chloride Level 99 Carbon Dioxide Level 22.7 Anion Gap 8 Estimat Glomerular Filtration Rate 19 Date/Time Source Procedure Growth Status 04/23/17 06:55 Blood Peripheral Aerobic Blood Culture - Final NO GROWTH IN 5 DAYS Complete 04/23/17 06:55 Blood Peripheral Anaerobic Blood Culture - Final NO GROWTH IN 5 DAYS Complete Imaging Last Impressions Head CT 04/25/17 0000 Signed Impressions: Service Date/Time: Tuesday, April 25, 2017 22:28 - CONCLUSION: 1. Negative noncontrast CT brain. Leo Gonzales MD Chest X-Ray 04/25/17 0000 Signed Impressions: Service Date/Time: Tuesday, April 25, 2017 21:41 - CONCLUSION: Cardiomegaly with increased interstitial markings and mild bilateral effusions likely related to CHF. This appears worse when compared to the prior exam. Rasta Vieira MD Renal Ultrasound 04/24/17 0000 Signed Impressions: Service Date/Time: Monday, April 24, 2017 23:08 - CONCLUSION: 1. Echogenic kidneys likely secondary to medical renal disease. 2. Minimal ascites. 3. Left pleural effusion. Rasta Vieira MD Physical Exam HEENT: PERRL; normocephalic; atraumatic; no jaundice. CHEST: CTA CARDIAC: RRR ABDOMEN: Soft, mildly distended, nontender; no hepatosplenomegaly; bowel sounds are present in all four quadrants. EXTREMITIES: No clubbing, cyanosis, or edema. SKIN: hypopigmented lesions and scabs BLE ; no rash; no jaundice. HULL DRAFTER: No focal deficits; alert and oriented times three. (Nelida Fisher) Assessment and Plan Assessment: (1) Periodic health assessment, general screening, adult ICD Codes: Z00.00 - Encounter for general adult medical examination without abnormal findings (2) Iron deficiency anemia ICD Codes: D50.9 - Iron deficiency anemia, unspecified (3) Epistaxis ICD Codes: R04.0 - Epistaxis Status: Resolved (4) GI bleed ICD Codes: K92.2 - Gastrointestinal hemorrhage Status: Acute Plan 04/29/17 - HH mild drop today, no obvious bleeding. s/p EGD found schatzkiring , hiatal hernia, duodenal inflammation, path pending. c/o constipation. has tried pericolace, stool softener, MOM PLAN - 1 x bottle mg citrate - if above unsuccessful for BM will consider relistor - await path - monitor labs - notify GI of active bleeding - supportive care This patient was seen by myself and , this note was written on his behalf (Nelida Fisher) Physician Comments Seen and examined, plan as above. Further recommendations to follow. (Sanjay Mo MD) Nelida Fisher Apr 29, 2017 12:11 Sanjay Mo MD Apr 29, 2017 13:40
[2017-04-29] MEDS ORDERED: MAGNESIUM CITRATE SOLN 300 ML BTL PO ONE (12:15)
--- NOTE | 2017-04-29 16:34 | PD.CARD.PN ---
Subjective Subjective Remarks No CP, still has edema, c/o dyspnea and [place] Objective Medications Current Medications Medications (Trade) Dose Ordered Sig/Rosemarie Route Start Time Stop Time Status Last Admin (Nitrostat Sl) 0.4 mg Q5M PRN SL 04/23/17 05:15 Ceftriaxone Sodium 1000 mg/ Sodium Chloride 100 ml @ 200 mls/hr Q24H IV 04/24/17 06:00 04/29/17 08:33 Azithromycin 500 mg/Sodium Chloride 250 ml @ 250 mls/hr Q24H IV 04/24/17 06:00 04/29/17 05:37 (Duoneb Neb) 1 ampule Q2HR NEB PRN NEB 04/23/17 06:30 (Symbicort 160-4.5 Mcg Inh) 2 puff Q12HR INH 04/23/17 09:00 04/29/17 12:05 (Mucinex Er) 600 mg BID PO 04/23/17 09:00 04/29/17 08:42 (NS Flush) 2 ml UNSCH PRN IV FLUSH 04/23/17 06:30 (NS Flush) 2 ml BID IV FLUSH 04/23/17 09:00 04/29/17 12:06 (Zofran Inj) 4 mg Q6H PRN IVP 04/23/17 06:30 (Tylenol) 650 mg Q6H PRN PO 04/23/17 06:30 (Nathaly-Colace) 1 tab BID PO 04/23/17 09:00 04/29/17 08:42 (Milk Of Magnesia Liq) 30 ml Q12H PRN PO 04/23/17 06:30 04/28/17 18:04 (Senokot) 17.2 mg Q12H PRN PO 04/23/17 06:30 04/25/17 21:22 (Dulcolax Supp) 10 mg DAILY PRN RECTAL 04/23/17 06:30 (Lactulose Liq) 30 ml DAILY PRN PO 04/23/17 06:30 (Neurontin) 400 mg BID PO 04/23/17 21:00 04/29/17 08:42 (PROzac) 40 mg DAILY PO 04/24/17 09:00 04/29/17 08:42 (Trandate Inj) 10 mg Q6H PRN IV PUSH 04/23/17 20:45 04/25/17 15:48 (D50w (Vial) Inj) 50 ml UNSCH PRN IV PUSH 04/24/17 15:00 (Glucagon Inj) 1 mg UNSCH PRN OTHER 04/24/17 15:00 (NovoLOG SUPPLEMENTAL SCALE) 1 ACHS SLIDING SCALE SQ 04/24/17 17:00 04/29/17 08:43 (Apresoline Inj) 10 mg Q4HR PRN IV PUSH 04/25/17 16:15 04/29/17 03:54 (Percocet 10-325 Mg) 1 tab Q4H PRN PO 04/25/17 18:00 04/29/17 12:07 (Catapres) 0.2 mg Q8HR PO 04/25/17 22:00 04/29/17 15:21 (Protonix) 40 mg Q12HR PO 04/25/17 21:00 04/29/17 08:42 (Cardura) 2 mg DAILY PO 04/27/17 09:00 04/29/17 08:42 (Duoneb Neb) 1 ampule Q4HR WHILE AWAKE NEB NEB 04/26/17 16:00 04/28/17 21:00 (Lasix Inj) 40 mg BID@09,18 IV PUSH 04/26/17 18:00 04/29/17 08:40 (Deltasone) 10 mg BID PO 04/27/17 21:00 04/29/17 08:42 (Cepacol Extra Uli (Sugar Free)) 1 lozenge Q2HR PRN BUCCAL 04/27/17 23:00 Vital Signs / I&O Vital Signs Date Time Temp Pulse Resp B/P (MAP) Pulse Ox O2 Delivery O2 Flow Rate FiO2 04/29/17 16:00 88 04/29/17 15:33 97.3 75 16 04/29/17 15:33 74 04/29/17 15:29 16 04/29/17 13:00 60 04/29/17 12:00 64 04/29/17 11:00 98.2 62 18 151/72 (98) 98 04/29/17 10:00 64 04/29/17 09:00 64 04/29/17 08:27 98.1 64 18 150/65 (93) 100 04/29/17 08:00 65 04/29/17 07:35 99 Nasal Cannula 2.00 04/29/17 06:00 68 04/29/17 04:29 98.0 74 18 175/63 (100) 97 04/29/17 04:00 70 04/29/17 03:01 70 04/29/17 00:00 98.0 74 18 144/59 (87) 97 04/28/17 21:00 97 04/28/17 20:00 97.7 65 20 134/60 (84) 97 04/28/17 18:00 62 04/28/17 17:42 153/69 (97) 04/28/17 17:00 68 04/28/17 16:55 180/77 (111) I/O 04/28/17 04/28/17 04/28/17 04/29/17 04/29/17 04/29/17 07:00 15:00 23:00 07:00 15:00 23:00 Intake Total 840 ml 960 ml 600 ml Output Total 600 ml 1200 ml Balance 840 ml 360 ml -600 ml Intake Oral 840 ml 960 ml 600 ml Output Urine Total 600 ml 1200 ml # Voids 3 3 Physical Exam GENERAL: In NAD SKIN: Warm and dry. HEAD: Normocephalic. EYES: No scleral icterus. No injection or drainage. NECK: Supple, trachea midline. No JVD or lymphadenopathy. CARDIOVASCULAR: Regular rate and rhythm without murmurs, gallops, or rubs. RESPIRATORY: Breath sounds equal bilaterally. No accessory muscle use. GASTROINTESTINAL: Abdomen soft, non-tender, nondistended. MUSCULOSKELETAL: No cyanosis, mild edema. Laboratory Laboratory Tests Test 04/29/17 07:14 White Blood Count 9.0 TH/MM3 Red Blood Count 2.43 MIL/MM3 Hemoglobin 7.5 GM/DL Hematocrit 22.9 % Mean Corpuscular Volume 94.2 FL Mean Corpuscular Hemoglobin 30.9 PG Mean Corpuscular Hemoglobin Concent 32.8 % Red Cell Distribution Width 15.2 % Platelet Count 182 TH/MM3 Mean Platelet Volume 10.9 FL Neutrophils (%) (Auto) 89.8 % Lymphocytes (%) (Auto) 2.8 % Monocytes (%) (Auto) 7.1 % Eosinophils (%) (Auto) 0.1 % Basophils (%) (Auto) 0.2 % Neutrophils # (Auto) 8.1 TH/MM3 Lymphocytes # (Auto) 0.3 TH/MM3 Monocytes # (Auto) 0.6 TH/MM3 Eosinophils # (Auto) 0.0 TH/MM3 Basophils # (Auto) 0.0 TH/MM3 CBC Comment DIFF FINAL Differential Comment Blood Urea Nitrogen 71 MG/DL Creatinine 2.52 MG/DL Random Glucose 163 MG/DL Calcium Level 7.6 MG/DL Sodium Level 130 MEQ/L Potassium Level 4.4 MEQ/L Chloride Level 99 MEQ/L Carbon Dioxide Level 22.7 MEQ/L Anion Gap 8 MEQ/L Estimat Glomerular Filtration Rate 19 ML/MIN Assessment and Plan Problem List: (1) Acute hypoxemic respiratory failure ICD Codes: J96.01 - Acute respiratory failure with hypoxia Status: Resolved (2) CHF exacerbation ICD Codes: I50.9 - Heart failure, unspecified Status: Acute (3) COPD exacerbation ICD Codes: J44.1 - Obstructive chronic bronchitis with exacerbation Status: Resolved (4) Community acquired pneumonia ICD Codes: J18.9 - Pneumonia, unspecified organism Status: Acute (5) MILI (acute kidney injury) ICD Codes: N17.9 - Acute kidney injury Status: Acute (6) Anemia ICD Codes: D64.9 - Anemia Status: Chronic (7) HTN (hypertension) ICD Codes: I10 - Hypertension Status: Chronic (8) DM (diabetes mellitus screen) ICD Codes: Z13.1 - Screening for diabetes mellitus Status: Chronic Assessment and Plan Still dyspneic with minimal exertion and edematous. Continue current program including diuresis, monitor renal fx (has renal insufficiency). Continue tx for CHF. Echo with low nl LV syst fx. Continue tx for pneumonia and COPD exacerbation. Increase activity, PT. Slow progress. Problem Qualifiers (1) CHF exacerbation: Qualified Codes: I50.9 - Heart failure, unspecified (2) Community acquired pneumonia: Qualified Codes: J18.9 - Pneumonia, unspecified organism (3) Anemia: Qualified Codes: D64.9 - Anemia, unspecified (4) HTN (hypertension): Qualified Codes: I10 - Essential (primary) hypertension Yulissa Fitzgerald MD Apr 29, 2017 16:34
[2017-04-29] MEDS: MAGNESIUM HYDROXIDE SUSP 30 ML CUP PO PRN (20:53)
[2017-04-30] VITALS (22 sets, daily range): BP systolic 152–172; BP diastolic 68–76; PULSE 62–70; RESP 20; TEMP 98–98.6; O2SAT 95–100
[2017-04-30] MEDS: oxyCODONE/ACETAMINOPHEN 10 MG/325 MG TAB PO PRN ×6 (01:22→22:51)
[2017-04-30] MEDS: cloNIDine HCL 0.2 MG TAB PO SCH ×3 (05:19→21:37)
[2017-04-30] MEDS: cefTRIAXone INJ 1,000 MG in SODIUM CHLORIDE 0.9% INJ 100 ML IV SCH (05:22)
[2017-04-30] MEDS: AZITHROMYCIN INJ 500 MG in SODIUM CHLOR 0.9% 250 ML INJ 250 ML IV SCH (05:22)
[2017-04-30] MEDS: INSULIN ASPART SUPPLEMENTAL SCALE SQ SCH ×4 (08:00→22:13)
[2017-04-30] MEDS: DOCUSATE SODIUM 50 MG/SENNA 8.6 MG TAB PO SCH ×2 (09:00→21:37)
[2017-04-30] MEDS: predniSONE 10 MG TAB PO SCH ×2 (09:03→21:36)
[2017-04-30] MEDS: GABAPENTIN 400 MG CAP PO SCH ×2 (09:03→21:00)
[2017-04-30] MEDS: DOXAZOSIN MESYLATE 2 MG TAB PO SCH (09:03)
[2017-04-30] MEDS: FUROSEMIDE 40 MG/4 ML VIAL IV PUSH SCH ×2 (09:03→17:38)
[2017-04-30] MEDS: FLUoxetine HCL 20 MG CAP PO SCH (09:03)
[2017-04-30] MEDS: PANTOPRAZOLE SOD 40 MG DELAYED RELEASE TAB PO SCH ×2 (09:03→21:36)
[2017-04-30] MEDS: SODIUM CHLORIDE 0.9% FLUSH 10 ML FLUSH IV FLUSH SCH ×2 (09:04→21:37)
[2017-04-30] MEDS: guaiFENesin E.R. 600 MG TAB PO SCH ×2 (09:04→21:37)
[2017-04-30] MEDS: BUDESONIDE-FORMOTEROL 160/4.5 MCG INHALER INH SCH ×2 (09:07→21:38)
--- NOTE | 2017-04-30 10:48 | HHI.NPPN ---
Subjective General Problems: Anemia Renal Failure: Chronic, Acute, Stage III Interval History sitting on a chair, reports that she is feeling a little better, but continues to have symptoms of shortness of breath and also has edema. Review of Systems General Constitutional: Fatigue Respiratory Lungs: SOB Cardiovascular Cardiac: Edema Objective Data Data Vital Signs Date Time Temp Pulse Resp B/P (MAP) Pulse Ox O2 Delivery O2 Flow Rate FiO2 04/30/17 08:32 98.2 62 20 163/76 (105) 99 04/30/17 04:51 98.6 63 20 169/70 (103) 98 04/30/17 03:00 66 04/30/17 02:00 68 04/30/17 01:23 157/68 (97) 04/30/17 01:00 66 04/30/17 00:00 69 04/29/17 23:15 98.6 69 18 165/69 (101) 97 04/29/17 23:00 66 04/29/17 22:00 64 04/29/17 21:00 62 04/29/17 20:00 68 04/29/17 19:53 97.6 62 22 163/70 (101) 99 04/29/17 19:00 66 04/29/17 18:15 79 04/29/17 17:26 14 04/29/17 16:00 88 04/29/17 15:33 97.3 75 16 04/29/17 15:33 74 04/29/17 13:00 60 04/29/17 12:00 64 04/29/17 11:00 98.2 62 18 151/72 (98) 98 -: 04/29/17 0714 04/29/17 0714 Physical Exam General Appearance: Well Developed, No Acute Distress, Comfortable, Malnourished Throat Throat Exam: Oral Mucosa [place] & Moist Neck Neck Exam: Neck Supple Pulmonary Resp Exam: Clear Bilaterally, Breath Sounds Equal Cardiology CV Exam: Regular, Normal Sinus Rhythm, Good Perfusion Gastrointestinal/Abdomen GI Exam: Soft, Non-Tender, Bowel Sounds Present Musculoskeletal MS Exam: Normal Gait, Normal Tone Integumentary Skin Exam: Warm, Dry Extremeties Extremities Exam: Moderate Edema, Pitting Edema, Dependent Edema Neurologic Neuro Exam: Alert, Awake, Oriented, Speech Clear, Moving All Extremities Psychiatric Psych Exam: Appropriate Responses Assessment/Plan Discussed Condition With: Patient Assessment Summary: MILI/Acute Renal Failure, Anemia of CKD, Fluid/Volume Overload, Proteinuria, Hypertension, Diabetes Mellitus, CKD Stage III Problem List: (1) MILI (acute kidney injury) ICD Codes: N17.9 - Acute kidney injury Status: Acute Plan: She has underlying CKD 3, baseline GFR 30, creatinine 1.61 Suspected underlying diabetic nephropathy as she does have proteinuria. SPEP in 2015 showed hyper gamma globulinemia with no abnormal bands. MILI may be due to CHF exacerbation and increased renal vein pressure. On Lasix. Follow urine output, she is non oliguric. Quantify proteinuria. Results not available. Renal US showing medical renal disease Avoid nephrotoxic agents, renally dose when appropriate Creatinine is stable, Continue Lasix. Told to restrict salt and fluid intake. (2) Anemia ICD Codes: D64.9 - Anemia Status: Chronic Plan: She has iron deficiency. Venofer ordered. May have anemia of chronic disease. (3) CHF exacerbation ICD Codes: I50.9 - Heart failure, unspecified Status: Acute Plan: Echo this month shows: LVH Apical hypokinesis Left ventricular function is low normal, EF 50-55% follow I/O, fluid status, weight fluid restriction discussed. (4) Acute hypoxemic respiratory failure ICD Codes: J96.01 - Acute respiratory failure with hypoxia Status: Resolved Plan: Being treated for CAP On Zithromax and Rocephin Refusing BiPap, on oxygen via nasal canula Recent saturation 98% oh 2L NC Former smoker, cessation discussed (5) Community acquired pneumonia ICD Codes: J18.9 - Pneumonia, unspecified organism Status: Acute Plan: See above Continue supportive care On nebulizers, inhalers, oxygen . Problem Qualifiers (1) Anemia: Qualified Codes: D64.9 - Anemia, unspecified (2) CHF exacerbation: Qualified Codes: I50.9 - Heart failure, unspecified (3) Community acquired pneumonia: Qualified Codes: J18.9 - Pneumonia, unspecified organism Abebe Patten MD Apr 30, 2017 10:48
--- NOTE | 2017-04-30 12:15 | HHI.PR ---
Subjective Remarks Follow-up CHF exacerbation/community acquired pneumonia/acute renal failure/ respiratory failure/anemia 04/28/17-patient seen and examined, reports some improvement or shortness of breath, and denies any chest pain and still with some bilateral lower extremity edema. Creatinine trending up 04/29/17-patient seen and examined, reports some slight shortness of breath and continues to complain of bilateral lower extremity edema. Denies any chest pain 04/30/17-patient seen and examined, still complains of some shortness of breath + BLE edema Objective Vitals Vital Signs Date Time Temp Pulse Resp B/P (MAP) Pulse Ox O2 Delivery O2 Flow Rate FiO2 04/30/17 11:05 20 04/30/17 08:32 98.2 62 20 163/76 (105) 99 04/30/17 04:51 98.6 63 20 169/70 (103) 98 04/30/17 03:00 66 04/30/17 02:00 68 04/30/17 01:23 157/68 (97) 04/30/17 01:00 66 04/30/17 00:00 69 04/29/17 23:15 98.6 69 18 165/69 (101) 97 04/29/17 23:00 66 04/29/17 22:00 64 04/29/17 21:00 62 04/29/17 20:00 68 04/29/17 19:53 97.6 62 22 163/70 (101) 99 04/29/17 19:00 66 04/29/17 18:15 79 04/29/17 16:00 88 04/29/17 15:33 97.3 75 16 04/29/17 15:33 74 04/29/17 13:00 60 I/O 04/29/17 04/29/17 04/29/17 04/30/17 04/30/17 04/30/17 07:00 15:00 23:00 07:00 15:00 23:00 Intake Total 600 ml 600 ml 580 ml Output Total 1200 ml 1200 ml Balance -600 ml 600 ml -620 ml Intake Oral 600 ml 600 ml 480 ml IV Total 100 ml Output Urine Total 1200 ml 1200 ml # Voids 4 # Bowel Movements 0 Result Diagram: 04/29/17 0714 04/29/17 0714 Imaging Last Impressions Head CT 04/25/17 0000 Signed Impressions: Service Date/Time: Tuesday, April 25, 2017 22:28 - CONCLUSION: 1. Negative noncontrast CT brain. Leo Gonzales MD Chest X-Ray 04/25/17 0000 Signed Impressions: Service Date/Time: Tuesday, April 25, 2017 21:41 - CONCLUSION: Cardiomegaly with increased interstitial markings and mild bilateral effusions likely related to CHF. This appears worse when compared to the prior exam. Rasta Vieira MD Renal Ultrasound 04/24/17 0000 Signed Impressions: Service Date/Time: Monday, April 24, 2017 23:08 - CONCLUSION: 1. Echogenic kidneys likely secondary to medical renal disease. 2. Minimal ascites. 3. Left pleural effusion. Rasta Vieira MD Objective Remarks GENERAL: NAD SKIN: Warm and dry. HEAD: Normocephalic. EYES: No scleral icterus. No injection or drainage. NECK: Supple, trachea midline. No JVD or lymphadenopathy. CARDIOVASCULAR: Regular rate and rhythm without murmurs, gallops, or rubs. RESPIRATORY: Breath sounds equal bilaterally. No accessory muscle use. GASTROINTESTINAL: Abdomen soft, non-tender, nondistended. MUSCULOSKELETAL: No cyanosis; + BLE edema. BACK: Nontender without obvious deformity. No CVA tenderness. A/P Problem List: (1) Acute hypoxemic respiratory failure ICD Code: J96.01 - Acute respiratory failure with hypoxia Status: Resolved (2) CHF exacerbation ICD Code: I50.9 - Heart failure, unspecified Status: Acute (3) Community acquired pneumonia ICD Code: J18.9 - Pneumonia, unspecified organism Status: Acute (4) COPD exacerbation ICD Code: J44.1 - Obstructive chronic bronchitis with exacerbation Status: Resolved (5) MILI (acute kidney injury) ICD Code: N17.9 - Acute kidney injury Status: Acute (6) Anemia ICD Code: D64.9 - Anemia Status: Chronic (7) Elevated troponin ICD Code: R74.8 - Abnormal levels of other serum enzymes Status: Acute (8) HTN (hypertension) ICD Code: I10 - Hypertension Status: Chronic (9) DM (diabetes mellitus screen) ICD Code: Z13.1 - Screening for diabetes mellitus Status: Chronic (10) Epistaxis ICD Code: R04.0 - Epistaxis Status: Resolved (11) Headache ICD Code: R51 - Headache Status: Resolved (12) Pleural effusion, left ICD Code: J90 - Pleural effusion, not elsewhere classified Status: Acute Assessment and Plan 76-year-old female with Acute hypoxemic respiratory failure-resolved Community-acquired pneumonia d/c IV Rocephin and azithromycin. Continue with prednisone 10 mg twice a day, long-acting beta agonist as well as short-acting. Maintain oxygen saturation above 92% CHF exacerbation 2-D echocardiogram shows the ventricular systolic function that is low normal with an estimated ejection fraction the range of 50-55%. Appreciate input from cardiology Continue IV Lasix. Community acquired pneumonia Currently on IV broad-spectrum antibiotics including azithromycin and Rocephin, which I will d/c Blood cultures NTD COPD exacerbation Continue prednisone 10 mg twice a day, breathing therapy, antibiotics, maintain oxygen saturation above 92% MILI (acute kidney injury)-stage IV Appreciate input from nephrology, continue to monitor BUN and creatinine and avoid all nephrotoxic drugs Anemia status post EGD for/colonoscopy which showed Schatzki ring found in the lower third of the esophagus. Erythematous gastritis, duodenal inflammation, hiatal hernia. Await biopsy results, continue PPI, colonoscopy as an outpatient. Elevated troponin Elevated troponin likely secondary to acute kidney injury. Appreciate input from cardiology HTN (hypertension) Continue clonidine 0.2 mg by mouth twice a day and Cardura 2 mg by mouth daily. DM (diabetes mellitus screen) Continue SSI with insulin NovoLog and Accu-Cheks. Epistaxis Resolved Headache Resolved. Continue pain control as above. Consult PT DVT prophylaxis: SCDs, No chemoprophylaxis given h/o epistaxis. Problem Qualifiers (1) CHF exacerbation: Qualified Codes: I50.9 - Heart failure, unspecified (2) Community acquired pneumonia: Qualified Codes: J18.9 - Pneumonia, unspecified organism (3) Anemia: Qualified Codes: D64.9 - Anemia, unspecified (4) HTN (hypertension): Qualified Codes: I10 - Essential (primary) hypertension (5) Headache: Qualified Codes: R51 - Headache Fernando Trotter MD Apr 30, 2017 12:15
--- NOTE | 2017-04-30 19:32 | PD.CARD.PN ---
Subjective Subjective Remarks No CP, still has edema and SOB Objective Medications Current Medications Medications (Trade) Dose Ordered Sig/Rosemarie Route Start Time Stop Time Status Last Admin (Nitrostat Sl) 0.4 mg Q5M PRN SL 04/23/17 05:15 (Duoneb Neb) 1 ampule Q2HR NEB PRN NEB 04/23/17 06:30 (Symbicort 160-4.5 Mcg Inh) 2 puff Q12HR INH 04/23/17 09:00 04/30/17 09:07 (Mucinex Er) 600 mg BID PO 04/23/17 09:00 04/30/17 09:04 (NS Flush) 2 ml UNSCH PRN IV FLUSH 04/23/17 06:30 (NS Flush) 2 ml BID IV FLUSH 04/23/17 09:00 04/30/17 09:04 (Zofran Inj) 4 mg Q6H PRN IVP 04/23/17 06:30 (Tylenol) 650 mg Q6H PRN PO 04/23/17 06:30 (Nathaly-Colace) 1 tab BID PO 04/23/17 09:00 04/29/17 20:45 (Milk Of Magnesia Liq) 30 ml Q12H PRN PO 04/23/17 06:30 04/29/17 20:53 (Senokot) 17.2 mg Q12H PRN PO 04/23/17 06:30 04/25/17 21:22 (Dulcolax Supp) 10 mg DAILY PRN RECTAL 04/23/17 06:30 (Lactulose Liq) 30 ml DAILY PRN PO 04/23/17 06:30 (Neurontin) 400 mg BID PO 04/23/17 21:00 04/30/17 09:03 (PROzac) 40 mg DAILY PO 04/24/17 09:00 04/30/17 09:03 (Trandate Inj) 10 mg Q6H PRN IV PUSH 04/23/17 20:45 04/25/17 15:48 (D50w (Vial) Inj) 50 ml UNSCH PRN IV PUSH 04/24/17 15:00 (Glucagon Inj) 1 mg UNSCH PRN OTHER 04/24/17 15:00 (NovoLOG SUPPLEMENTAL SCALE) 1 ACHS SLIDING SCALE SQ 04/24/17 17:00 04/30/17 17:44 (Apresoline Inj) 10 mg Q4HR PRN IV PUSH 04/25/17 16:15 04/29/17 03:54 (Percocet 10-325 Mg) 1 tab Q4H PRN PO 04/25/17 18:00 04/30/17 17:43 (Catapres) 0.2 mg Q8HR PO 04/25/17 22:00 04/30/17 17:46 (Protonix) 40 mg Q12HR PO 04/25/17 21:00 04/30/17 09:03 (Cardura) 2 mg DAILY PO 04/27/17 09:00 04/30/17 09:03 (Lasix Inj) 40 mg BID@,18 IV PUSH 04/26/17 18:00 04/30/17 17:38 (Deltasone) 10 mg BID PO 04/27/17 21:00 04/30/17 09:03 (Cepacol Extra Uli (Sugar Free)) 1 lozenge Q2HR PRN BUCCAL 04/27/17 23:00 (Duoneb Neb) 1 ampule Q4HR WHILE AWAKE NEB NEB 04/30/17 16:00 (Zithromax) 250 mg DAILY PO 05/01/17 09:00 Vital Signs / I&O Vital Signs Date Time Temp Pulse Resp B/P (MAP) Pulse Ox O2 Delivery O2 Flow Rate FiO2 04/30/17 18:08 98.0 70 20 159/68 (98) 98 04/30/17 18:00 68 04/30/17 15:30 20 04/30/17 14:00 66 04/30/17 13:00 66 04/30/17 12:33 95 04/30/17 12:00 98.6 68 172/76 (108) 99 04/30/17 10:00 68 04/30/17 09:00 64 04/30/17 08:32 98.2 62 20 163/76 (105) 99 04/30/17 04:51 98.6 63 20 169/70 (103) 98 04/30/17 03:00 66 04/30/17 02:00 68 04/30/17 01:23 157/68 (97) 04/30/17 01:00 66 04/30/17 00:00 69 04/29/17 23:15 98.6 69 18 165/69 (101) 97 04/29/17 23:00 66 04/29/17 22:00 64 04/29/17 21:00 62 04/29/17 20:00 68 04/29/17 19:53 97.6 62 22 163/70 (101) 99 I/O 04/29/17 04/29/17 04/29/17 04/30/17 04/30/17 04/30/17 07:00 15:00 23:00 07:00 15:00 23:00 Intake Total 600 ml 600 ml 580 ml 200 ml Output Total 1200 ml 1200 ml 1200 ml Balance -600 ml 600 ml -620 ml -1000 ml Intake Oral 600 ml 600 ml 480 ml IV Total 100 ml 200 ml Output Urine Total 1200 ml 1200 ml 1200 ml # Voids 4 1 # Bowel Movements 0 Physical Exam GENERAL: In NAD SKIN: Warm and dry. HEAD: Normocephalic. EYES: No scleral icterus. No injection or drainage. NECK: Supple, trachea midline. No JVD or lymphadenopathy. CARDIOVASCULAR: Regular rate and rhythm without murmurs, gallops, or rubs. RESPIRATORY: Breath sounds equal bilaterally. No accessory muscle use. GASTROINTESTINAL: Abdomen soft, non-tender, nondistended. MUSCULOSKELETAL: No cyanosis, 1-2+ edema. Assessment and Plan Problem List: (1) Acute hypoxemic respiratory failure ICD Codes: J96.01 - Acute respiratory failure with hypoxia Status: Resolved (2) CHF exacerbation ICD Codes: I50.9 - Heart failure, unspecified Status: Acute (3) COPD exacerbation ICD Codes: J44.1 - Obstructive chronic bronchitis with exacerbation Status: Resolved (4) Community acquired pneumonia ICD Codes: J18.9 - Pneumonia, unspecified organism Status: Acute (5) MILI (acute kidney injury) ICD Codes: N17.9 - Acute kidney injury Status: Acute (6) Anemia ICD Codes: D64.9 - Anemia Status: Chronic (7) HTN (hypertension) ICD Codes: I10 - Hypertension Status: Chronic (8) DM (diabetes mellitus screen) ICD Codes: Z13.1 - Screening for diabetes mellitus Status: Chronic Assessment and Plan Not much improvement. Still dyspneic with minimal exertion and edematous. Continue current program including diuresis, closely monitor renal fx (has underlying renal insufficiency). Echo with low nl LV syst fx. Also continue tx for pneumonia and COPD exacerbation. Increase activity, PT. Problem Qualifiers (1) CHF exacerbation: Qualified Codes: I50.9 - Heart failure, unspecified (2) Community acquired pneumonia: Qualified Codes: J18.9 - Pneumonia, unspecified organism (3) Anemia: Qualified Codes: D64.9 - Anemia, unspecified (4) HTN (hypertension): Qualified Codes: I10 - Essential (primary) hypertension Yulissa Fitzgerald MD Apr 30, 2017 19:32
[2017-04-30] MEDS: RESP: ALBUTEROL 2.5 MG/IPRATROPIUM 0.5 MG NEB (SCH) NEB (20:00)
[2017-04-30] MEDS: RESP: ALBUTEROL 2.5 MG/IPRATROPIUM 0.5 MG NEB (PRN) NEB (23:32)
[2017-05-01] VITALS (28 sets, daily range): BP systolic 159–178; BP diastolic 66–76; PULSE 60–80; RESP 16–20; TEMP 97.7–98.5; O2SAT 97–99
[2017-05-01] MEDS: oxyCODONE/ACETAMINOPHEN 10 MG/325 MG TAB PO PRN ×5 (03:14→20:08)
[2017-05-01] MEDS: cloNIDine HCL 0.2 MG TAB PO SCH ×3 (06:17→21:17)
[2017-05-01 06:35] LABS: BICARBONATE 25.7 MEQ/L (21.0-32.0); CALCIUM 8.3 MG/DL (8.5-10.1); CREATININE 2.51 MG/DL (0.50-1.00)
[2017-05-01] MEDS: GABAPENTIN 400 MG CAP PO SCH ×2 (07:53→21:16)
[2017-05-01] MEDS: PANTOPRAZOLE SOD 40 MG DELAYED RELEASE TAB PO SCH ×2 (07:53→21:17)
[2017-05-01] MEDS: DOXAZOSIN MESYLATE 2 MG TAB PO SCH (07:53)
[2017-05-01] MEDS: AZITHROMYCIN 250 MG TAB PO SCH (07:54)
[2017-05-01] MEDS: FLUoxetine HCL 20 MG CAP PO SCH (07:54)
[2017-05-01] MEDS: DOCUSATE SODIUM 50 MG/SENNA 8.6 MG TAB PO SCH (07:54)
[2017-05-01] MEDS: FUROSEMIDE 40 MG/4 ML VIAL IV PUSH SCH (07:54)
[2017-05-01] MEDS: guaiFENesin E.R. 600 MG TAB PO SCH ×2 (07:54→21:16)
[2017-05-01] MEDS: predniSONE 10 MG TAB PO SCH ×2 (07:54→21:17)
[2017-05-01] MEDS: SODIUM CHLORIDE 0.9% FLUSH 10 ML FLUSH IV FLUSH SCH ×2 (07:55→21:16)
[2017-05-01] MEDS: BUDESONIDE-FORMOTEROL 160/4.5 MCG INHALER INH SCH ×2 (07:56→21:15)
[2017-05-01] MEDS: INSULIN ASPART SUPPLEMENTAL SCALE SQ SCH ×4 (08:00→21:00)
[2017-05-01] MEDS: RESP: ALBUTEROL 2.5 MG/IPRATROPIUM 0.5 MG NEB (SCH) NEB ×4 (08:30→19:52)
--- NOTE | 2017-05-01 10:33 | HHI.PR ---
Subjective Remarks Follow-up CHF exacerbation/community acquired pneumonia/acute renal failure/ respiratory failure/anemia 04/28/17-patient seen and examined, reports some improvement or shortness of breath, and denies any chest pain and still with some bilateral lower extremity edema. Creatinine trending up 04/29/17-patient seen and examined, reports some slight shortness of breath and continues to complain of bilateral lower extremity edema. Denies any chest pain 04/30/17-patient seen and examined, still complains of some shortness of breath + BLE edema 05/01/17-patient seen and examined, reports significant improvement or shortness of breath as well as lower extremity edema. Renal indices trending up and BP up Objective Vitals Vital Signs Date Time Temp Pulse Resp B/P (MAP) Pulse Ox O2 Delivery O2 Flow Rate FiO2 05/01/17 09:00 70 05/01/17 09:00 16 05/01/17 08:33 99 05/01/17 08:00 68 05/01/17 07:00 68 16 172/71 (104) 97 05/01/17 07:00 66 05/01/17 05:00 74 05/01/17 04:12 166/74 (104) 05/01/17 04:00 73 05/01/17 03:14 98.4 73 18 172/68 (102) 97 05/01/17 03:00 74 05/01/17 02:00 72 05/01/17 01:00 74 05/01/17 00:00 97.9 76 20 159/70 (99) 99 05/01/17 00:00 75 04/30/17 23:33 96 04/30/17 23:00 68 04/30/17 22:00 64 04/30/17 21:00 64 04/30/17 20:26 97 04/30/17 20:00 98.0 66 20 152/72 (98) 100 04/30/17 20:00 64 04/30/17 19:00 68 04/30/17 18:08 98.0 70 20 159/68 (98) 98 04/30/17 18:00 68 04/30/17 14:00 66 04/30/17 13:00 66 04/30/17 12:33 95 04/30/17 12:00 98.6 68 172/76 (108) 99 I/O 04/30/17 04/30/17 04/30/17 05/01/17 05/01/17 05/01/17 07:00 15:00 23:00 07:00 15:00 23:00 Intake Total 580 ml 200 ml 480 ml Output Total 1200 ml 1200 ml 600 ml Balance -620 ml -1000 ml -120 ml Intake Oral 480 ml 480 ml IV Total 100 ml 200 ml Output Urine Total 1200 ml 1200 ml 600 ml # Voids 1 # Bowel Movements 0 0 Result Diagram: 04/29/17 0714 05/01/17 0542 Imaging Last Impressions Head CT 04/25/17 0000 Signed Impressions: Service Date/Time: Tuesday, April 25, 2017 22:28 - CONCLUSION: 1. Negative noncontrast CT brain. Leo Gonzales MD Chest X-Ray 04/25/17 0000 Signed Impressions: Service Date/Time: Tuesday, April 25, 2017 21:41 - CONCLUSION: Cardiomegaly with increased interstitial markings and mild bilateral effusions likely related to CHF. This appears worse when compared to the prior exam. Rasta Vieira MD Renal Ultrasound 04/24/17 0000 Signed Impressions: Service Date/Time: Monday, April 24, 2017 23:08 - CONCLUSION: 1. Echogenic kidneys likely secondary to medical renal disease. 2. Minimal ascites. 3. Left pleural effusion. Rasta Vieira MD Objective Remarks GENERAL: NAD SKIN: Warm and dry. HEAD: Normocephalic. EYES: No scleral icterus. No injection or drainage. NECK: Supple, trachea midline. No JVD or lymphadenopathy. CARDIOVASCULAR: Regular rate and rhythm without murmurs, gallops, or rubs. RESPIRATORY: Breath sounds equal bilaterally. No accessory muscle use. GASTROINTESTINAL: Abdomen soft, non-tender, nondistended. MUSCULOSKELETAL: No cyanosis; + BLE edema. BACK: Nontender without obvious deformity. No CVA tenderness. A/P Problem List: (1) Acute hypoxemic respiratory failure ICD Code: J96.01 - Acute respiratory failure with hypoxia Status: Resolved (2) CHF exacerbation ICD Code: I50.9 - Heart failure, unspecified Status: Acute (3) Community acquired pneumonia ICD Code: J18.9 - Pneumonia, unspecified organism Status: Acute (4) COPD exacerbation ICD Code: J44.1 - Obstructive chronic bronchitis with exacerbation Status: Resolved (5) MILI (acute kidney injury) ICD Code: N17.9 - Acute kidney injury Status: Acute (6) Anemia ICD Code: D64.9 - Anemia Status: Chronic (7) Elevated troponin ICD Code: R74.8 - Abnormal levels of other serum enzymes Status: Acute (8) HTN (hypertension) ICD Code: I10 - Hypertension Status: Chronic (9) DM (diabetes mellitus screen) ICD Code: Z13.1 - Screening for diabetes mellitus Status: Chronic (10) Epistaxis ICD Code: R04.0 - Epistaxis Status: Resolved (11) Headache ICD Code: R51 - Headache Status: Resolved (12) Pleural effusion, left ICD Code: J90 - Pleural effusion, not elsewhere classified Status: Acute Assessment and Plan 76-year-old female with Acute hypoxemic respiratory failure-resolved Community-acquired pneumonia s/p IV Rocephin and azithromycin. Continue with prednisone 10 mg twice a day, long-acting beta agonist as well as short-acting. Maintain oxygen saturation above 92% CHF exacerbation 2-D echocardiogram shows the ventricular systolic function that is low normal with an estimated ejection fraction the range of 50-55%. Appreciate input from cardiology Continue IV Lasix however decrease to 40mg daily. Community acquired pneumonia Completed IV broad-spectrum antibiotics including azithromycin and Rocephin Blood cultures NTD COPD exacerbation-resolved Continue prednisone 10 mg twice a day, breathing therapy, antibiotics, maintain oxygen saturation above 92% MILI (acute kidney injury)-stage IV Appreciate input from nephrology, continue to monitor BUN and creatinine and avoid all nephrotoxic drugs Worsening renal function, will decrease Lasix to 40 mg daily Anemia status post EGD for/colonoscopy which showed Schatzki ring found in the lower third of the esophagus. Erythematous gastritis, duodenal inflammation, hiatal hernia. Await biopsy results, continue PPI, colonoscopy as an outpatient. Elevated troponin Elevated troponin likely secondary to acute kidney injury. Appreciate input from cardiology HTN (hypertension) Labile BP Add hydralazine 50 mg twice a day Continue clonidine 0.2 mg by mouth twice a day and Cardura 2 mg by mouth daily. DM (diabetes mellitus screen) Continue SSI with insulin NovoLog and Accu-Cheks. Epistaxis Resolved Headache Resolved. Continue pain control as above. Consult PT DVT prophylaxis: SCDs, No chemoprophylaxis given h/o epistaxis. Problem Qualifiers (1) CHF exacerbation: Qualified Codes: I50.9 - Heart failure, unspecified (2) Community acquired pneumonia: Qualified Codes: J18.9 - Pneumonia, unspecified organism (3) Anemia: Qualified Codes: D64.9 - Anemia, unspecified (4) HTN (hypertension): Qualified Codes: I10 - Essential (primary) hypertension (5) Headache: Qualified Codes: R51 - Headache Fernando Trotter MD May 01, 2017 10:32
--- NOTE | 2017-05-01 10:55 | HHI.NPPN ---
Subjective General Problems: Anemia Renal Failure: Chronic, Acute, Stage III Interval History Lasix changed to oral formulation. BUN is higher, Creatinine about the same. Review of Systems General Constitutional: Fatigue Respiratory Lungs: SOB Cardiovascular Cardiac: Edema Objective Data Data Vital Signs Date Time Temp Pulse Resp B/P (MAP) Pulse Ox O2 Delivery O2 Flow Rate FiO2 05/01/17 09:00 70 05/01/17 09:00 16 05/01/17 08:33 99 05/01/17 08:00 68 05/01/17 07:00 68 16 172/71 (104) 97 05/01/17 07:00 66 05/01/17 05:00 74 05/01/17 04:12 166/74 (104) 05/01/17 04:00 73 05/01/17 03:14 98.4 73 18 172/68 (102) 97 05/01/17 03:00 74 05/01/17 02:00 72 05/01/17 01:00 74 05/01/17 00:00 97.9 76 20 159/70 (99) 99 05/01/17 00:00 75 04/30/17 23:33 96 04/30/17 23:00 68 04/30/17 22:00 64 04/30/17 21:00 64 04/30/17 20:26 97 04/30/17 20:00 98.0 66 20 152/72 (98) 100 04/30/17 20:00 64 04/30/17 19:00 68 04/30/17 18:08 98.0 70 20 159/68 (98) 98 04/30/17 18:00 68 04/30/17 14:00 66 04/30/17 13:00 66 04/30/17 12:33 95 04/30/17 12:00 98.6 68 172/76 (108) 99 -: 04/29/17 0714 05/01/17 0542 Physical Exam General Appearance: Well Developed, No Acute Distress, Comfortable, Malnourished Throat Throat Exam: Oral Mucosa [place] & Moist Neck Neck Exam: Neck Supple Pulmonary Resp Exam: Clear Bilaterally, Breath Sounds Equal Cardiology CV Exam: Regular, Normal Sinus Rhythm, Good Perfusion Gastrointestinal/Abdomen GI Exam: Soft, Non-Tender, Bowel Sounds Present Musculoskeletal MS Exam: Normal Gait, Normal Tone Integumentary Skin Exam: Warm, Dry Extremeties Extremities Exam: Moderate Edema, Pitting Edema, Dependent Edema Neurologic Neuro Exam: Alert, Awake, Oriented, Speech Clear, Moving All Extremities Psychiatric Psych Exam: Appropriate Responses Assessment/Plan Discussed Condition With: Patient Assessment Summary: MILI/Acute Renal Failure, Anemia of CKD, Fluid/Volume Overload, Proteinuria, Hypertension, Diabetes Mellitus, CKD Stage III Problem List: (1) MILI (acute kidney injury) ICD Codes: N17.9 - Acute kidney injury Status: Acute Plan: She has underlying CKD 3, baseline GFR 30, creatinine 1.61 Suspected underlying diabetic nephropathy as she does have proteinuria. SPEP in 2015 showed hyper gamma globulinemia with no abnormal bands. MILI may be due to CHF exacerbation and increased renal vein pressure. On Lasix. Follow urine output, she is non oliguric. Quantify proteinuria. Results not available. Reordered. Renal US showing medical renal disease Avoid nephrotoxic agents, renally dose when appropriate Creatinine is stable, Continue Lasix. Told to restrict salt and fluid intake. (2) Anemia ICD Codes: D64.9 - Anemia Status: Chronic Plan: She has iron deficiency. Venofer ordered. May have anemia of chronic disease. (3) CHF exacerbation ICD Codes: I50.9 - Heart failure, unspecified Status: Acute Plan: Echo this month shows: LVH Apical hypokinesis Left ventricular function is low normal, EF 50-55% follow I/O, fluid status, weight fluid restriction discussed. (4) Acute hypoxemic respiratory failure ICD Codes: J96.01 - Acute respiratory failure with hypoxia Status: Resolved Plan: Being treated for CAP On Zithromax and Rocephin Refusing BiPap, on oxygen via nasal canula Recent saturation 98% oh 2L NC Former smoker, cessation discussed (5) Community acquired pneumonia ICD Codes: J18.9 - Pneumonia, unspecified organism Status: Acute Plan: See above Continue supportive care On nebulizers, inhalers, oxygen . Plan She can be discharged from renal standpoint. Problem Qualifiers (1) Anemia: Qualified Codes: D64.9 - Anemia, unspecified (2) CHF exacerbation: Qualified Codes: I50.9 - Heart failure, unspecified (3) Community acquired pneumonia: Qualified Codes: J18.9 - Pneumonia, unspecified organism Abebe Patten MD May 01, 2017 10:55
--- NOTE | 2017-05-01 11:37 | HHI.GIFU ---
Subjective Remarks Ambulating and sitting up in chair Noted hemoglobin 7.5 today but patient denies any shortness of breath or dizziness Constipation 1 week relieved with large hard formed stool on 04/30/17 Occasional mild lower abdominal cramping which seems to be better today after large BM (Sofya John) Objective Vitals I&O Vital Signs Date Time Temp Pulse Resp B/P (MAP) Pulse Ox O2 Delivery O2 Flow Rate FiO2 05/01/17 09:00 70 05/01/17 09:00 16 05/01/17 08:33 99 05/01/17 08:00 68 05/01/17 07:00 68 16 172/71 (104) 97 05/01/17 07:00 66 05/01/17 05:00 74 05/01/17 04:12 166/74 (104) 05/01/17 04:00 73 05/01/17 03:14 98.4 73 18 172/68 (102) 97 05/01/17 03:00 74 05/01/17 02:00 72 05/01/17 01:00 74 05/01/17 00:00 97.9 76 20 159/70 (99) 99 05/01/17 00:00 75 04/30/17 23:33 96 04/30/17 23:00 68 04/30/17 22:00 64 04/30/17 21:00 64 04/30/17 20:26 97 04/30/17 20:00 98.0 66 20 152/72 (98) 100 04/30/17 20:00 64 04/30/17 19:00 68 04/30/17 18:08 98.0 70 20 159/68 (98) 98 04/30/17 18:00 68 04/30/17 14:00 66 04/30/17 13:00 66 04/30/17 12:33 95 04/30/17 12:00 98.6 68 172/76 (108) 99 I/O 04/30/17 04/30/17 04/30/17 05/01/17 05/01/17 05/01/17 06:59 14:59 22:59 06:59 14:59 22:59 Intake Total 580 ml 200 ml 480 ml Output Total 1200 ml 1200 ml 600 ml Balance -620 ml -1000 ml -120 ml Intake Oral 480 ml 480 ml IV Total 100 ml 200 ml Output Urine Total 1200 ml 1200 ml 600 ml # Voids 1 # Bowel Movements 0 0 Laboratory Laboratory Tests Test 05/01/17 05:42 Blood Urea Nitrogen 81 Creatinine 2.51 Random Glucose 164 Calcium Level 8.3 Sodium Level 128 Potassium Level 4.8 Chloride Level 95 Carbon Dioxide Level 25.7 Anion Gap 7 Estimat Glomerular Filtration Rate 19 Date/Time Source Procedure Growth Status 04/23/17 06:55 Blood Peripheral Aerobic Blood Culture - Final NO GROWTH IN 5 DAYS Complete 04/23/17 06:55 Blood Peripheral Anaerobic Blood Culture - Final NO GROWTH IN 5 DAYS Complete Imaging Last Impressions Head CT 04/25/17 0000 Signed Impressions: Service Date/Time: Tuesday, April 25, 2017 22:28 - CONCLUSION: 1. Negative noncontrast CT brain. Leo Gonzales MD Chest X-Ray 04/25/17 0000 Signed Impressions: Service Date/Time: Tuesday, April 25, 2017 21:41 - CONCLUSION: Cardiomegaly with increased interstitial markings and mild bilateral effusions likely related to CHF. This appears worse when compared to the prior exam. Rasta Vieira MD Renal Ultrasound 04/24/17 0000 Signed Impressions: Service Date/Time: Monday, April 24, 2017 23:08 - CONCLUSION: 1. Echogenic kidneys likely secondary to medical renal disease. 2. Minimal ascites. 3. Left pleural effusion. Rasta Vieira MD Physical Exam HEENT: PERRL; normocephalic; atraumatic; no jaundice. oral cavity clean CHEST: CTA CARDIAC: RRR ABDOMEN: Soft, mild bloating, nontender to light palpation but does note some lower abdominal cramping at times; ; bowel sounds are present in all four quadrants. EXTREMITIES: No clubbing, cyanosis, or edema. SKIN: hypopigmented lesions and scabs BLE ; no rash; no jaundice. Ha dry skin TIRE BUSTER: No focal deficits; alert and oriented times three. (Sofya John) Assessment and Plan Assessment: (1) Periodic health assessment, general screening, adult ICD Codes: Z00.00 - Encounter for general adult medical examination without abnormal findings (2) Iron deficiency anemia ICD Codes: D50.9 - Iron deficiency anemia, unspecified (3) Epistaxis ICD Codes: R04.0 - Epistaxis Status: Resolved (4) GI bleed ICD Codes: K92.2 - Gastrointestinal hemorrhage Status: Acute Plan Hemoglobin per labs 7.5 today , denies any shortness of breath or obvious dizziness no obvious bleeding. s/p EGD found schatzkiring, hiatal hernia, duodenal inflammation, path pending. constipation with no BM 1 week. Large hard formed stool on 04/30/17, cramping and lower abdominal pain is resolving. PLAN - Bowel regimen, with stool softeners and laxatives, add Senokot-S daily to patient's regimen - monitor labs, recheck hemoglobin and hematocrit in the morning Continue PPI - Biopsy results pending from EGD - notify GI of active bleeding - supportive care This patient was seen by myself and , this note was written on his behalf (Sofya John) Sofya John May 01, 2017 11:37 Sanjay Mo MD May 01, 2017 15:49
[2017-05-01] MEDS: hydrALAZINE HCL 50 MG TAB PO SCH ×2 (12:00→21:17)
--- NOTE | 2017-05-01 18:07 | PD.CARD.PN ---
Subjective Subjective Remarks No CP, still has edema and SOB, feels slightly better Objective Medications Current Medications Medications (Trade) Dose Ordered Sig/Rosemarie Route Start Time Stop Time Status Last Admin (Nitrostat Sl) 0.4 mg Q5M PRN SL 04/23/17 05:15 (Duoneb Neb) 1 ampule Q2HR NEB PRN NEB 04/23/17 06:30 04/30/17 23:32 (Symbicort 160-4.5 Mcg Inh) 2 puff Q12HR INH 04/23/17 09:00 05/01/17 07:56 (Mucinex Er) 600 mg BID PO 04/23/17 09:00 05/01/17 07:54 (NS Flush) 2 ml UNSCH PRN IV FLUSH 04/23/17 06:30 (NS Flush) 2 ml BID IV FLUSH 04/23/17 09:00 05/01/17 07:55 (Zofran Inj) 4 mg Q6H PRN IVP 04/23/17 06:30 (Tylenol) 650 mg Q6H PRN PO 04/23/17 06:30 (Milk Of Magnesia Liq) 30 ml Q12H PRN PO 04/23/17 06:30 04/29/17 20:53 (Senokot) 17.2 mg Q12H PRN PO 04/23/17 06:30 04/25/17 21:22 (Dulcolax Supp) 10 mg DAILY PRN RECTAL 04/23/17 06:30 (Lactulose Liq) 30 ml DAILY PRN PO 04/23/17 06:30 (Neurontin) 400 mg BID PO 04/23/17 21:00 05/01/17 07:53 (PROzac) 40 mg DAILY PO 04/24/17 09:00 05/01/17 07:54 (Trandate Inj) 10 mg Q6H PRN IV PUSH 04/23/17 20:45 04/25/17 15:48 (D50w (Vial) Inj) 50 ml UNSCH PRN IV PUSH 04/24/17 15:00 (Glucagon Inj) 1 mg UNSCH PRN OTHER 04/24/17 15:00 (NovoLOG SUPPLEMENTAL SCALE) 1 ACHS SLIDING SCALE SQ 04/24/17 17:00 05/01/17 16:58 (Apresoline Inj) 10 mg Q4HR PRN IV PUSH 04/25/17 16:15 04/29/17 03:54 (Percocet 10-325 Mg) 1 tab Q4H PRN PO 04/25/17 18:00 05/01/17 15:57 (Catapres) 0.2 mg Q8HR PO 04/25/17 22:00 05/01/17 14:21 (Protonix) 40 mg Q12HR PO 04/25/17 21:00 05/01/17 07:53 (Cardura) 2 mg DAILY PO 04/27/17 09:00 05/01/17 07:53 (Deltasone) 10 mg BID PO 04/27/17 21:00 05/01/17 07:54 (Cepacol Extra Uli (Sugar Free)) 1 lozenge Q2HR PRN BUCCAL 04/27/17 23:00 (Duoneb Neb) 1 ampule Q4HR WHILE AWAKE NEB NEB 04/30/17 16:00 05/01/17 15:22 (Zithromax) 250 mg DAILY PO 05/01/17 09:00 05/01/17 07:54 (Apresoline) 50 mg Q12HR PO 05/01/17 11:00 05/01/17 12:00 (Lasix Inj) 40 mg DAILY IV PUSH 05/02/17 09:00 (Nathaly-Colace) 2 tab DAILY PO 05/02/17 09:00 Vital Signs / I&O Vital Signs Date Time Temp Pulse Resp B/P (MAP) Pulse Ox O2 Delivery O2 Flow Rate FiO2 05/01/17 17:00 74 05/01/17 16:00 78 05/01/17 15:22 97 21 05/01/17 15:00 97.7 72 18 163/71 (101) 99 05/01/17 15:00 80 05/01/17 14:12 74 05/01/17 13:00 80 05/01/17 12:00 98.2 78 20 163/66 (98) 98 05/01/17 12:00 78 05/01/17 11:00 70 05/01/17 10:00 72 05/01/17 09:00 70 05/01/17 09:00 16 05/01/17 08:33 99 12/26/17 08:00 68 05/01/17 07:00 68 16 172/71 (104) 97 05/01/17 07:00 66 05/01/17 05:00 74 05/01/17 04:12 166/74 (104) 05/01/17 04:00 73 05/01/17 03:14 98.4 73 18 172/68 (102) 97 05/01/17 03:00 74 05/01/17 02:00 72 05/01/17 01:00 74 05/01/17 00:00 97.9 76 20 159/70 (99) 99 05/01/17 00:00 75 04/30/17 23:33 96 04/30/17 23:00 68 04/30/17 22:00 64 04/30/17 21:00 64 04/30/17 20:26 97 04/30/17 20:00 98.0 66 20 152/72 (98) 100 04/30/17 20:00 64 04/30/17 19:00 68 04/30/17 18:08 98.0 70 20 159/68 (98) 98 I/O 04/30/17 04/30/17 04/30/17 05/01/17 05/01/17 05/01/17 07:00 15:00 23:00 07:00 15:00 23:00 Intake Total 580 ml 200 ml 480 ml 680 ml Output Total 1200 ml 1200 ml 600 ml Balance -620 ml -1000 ml -120 ml 680 ml Intake Oral 480 ml 480 ml 680 ml IV Total 100 ml 200 ml Output Urine Total 1200 ml 1200 ml 600 ml # Voids 1 5 # Bowel Movements 0 0 Physical Exam GENERAL: In NAD SKIN: Warm and dry. HEAD: Normocephalic. EYES: No scleral icterus. No injection or drainage. NECK: Supple, trachea midline. No JVD or lymphadenopathy. CARDIOVASCULAR: Regular rate and rhythm without murmurs, gallops, or rubs. RESPIRATORY: Breath sounds equal bilaterally. No accessory muscle use. GASTROINTESTINAL: Abdomen soft, non-tender, nondistended. MUSCULOSKELETAL: No cyanosis, 1-2+ edema. Laboratory Laboratory Tests Test 05/01/17 05:42 Blood Urea Nitrogen 81 MG/DL Creatinine 2.51 MG/DL Random Glucose 164 MG/DL Calcium Level 8.3 MG/DL Sodium Level 128 MEQ/L Potassium Level 4.8 MEQ/L Chloride Level 95 MEQ/L Carbon Dioxide Level 25.7 MEQ/L Anion Gap 7 MEQ/L Estimat Glomerular Filtration Rate 19 ML/MIN Assessment and Plan Problem List: (1) Acute hypoxemic respiratory failure ICD Codes: J96.01 - Acute respiratory failure with hypoxia Status: Resolved (2) CHF exacerbation ICD Codes: I50.9 - Heart failure, unspecified Status: Acute (3) COPD exacerbation ICD Codes: J44.1 - Obstructive chronic bronchitis with exacerbation Status: Resolved (4) Community acquired pneumonia ICD Codes: J18.9 - Pneumonia, unspecified organism Status: Acute (5) MILI (acute kidney injury) ICD Codes: N17.9 - Acute kidney injury Status: Acute (6) Anemia ICD Codes: D64.9 - Anemia Status: Chronic (7) HTN (hypertension) ICD Codes: I10 - Hypertension Status: Chronic (8) DM (diabetes mellitus screen) ICD Codes: Z13.1 - Screening for diabetes mellitus Status: Chronic Assessment and Plan Slow progress. Still dyspneic with minimal exertion and edematous. Recommend to intensify diuresis, closely monitor renal fx (has underlying renal insufficiency ). Echo with low nl LV syst fx, c/w diastolic dysfx. Continue tx for COPD exacerbation. Increase activity, PT. Problem Qualifiers (1) CHF exacerbation: Qualified Codes: I50.9 - Heart failure, unspecified (2) Community acquired pneumonia: Qualified Codes: J18.9 - Pneumonia, unspecified organism (3) Anemia: Qualified Codes: D64.9 - Anemia, unspecified (4) HTN (hypertension): Qualified Codes: I10 - Essential (primary) hypertension Yulissa Fitzgerald MD May 01, 2017 18:07
[2017-05-02] VITALS (28 sets, daily range): BP systolic 156–180; BP diastolic 67–76; PULSE 65–79; RESP 16–18; TEMP 98–98.6; O2SAT 94–98
[2017-05-02] MEDS: oxyCODONE/ACETAMINOPHEN 10 MG/325 MG TAB PO PRN ×6 (00:37→21:33)
[2017-05-02] MEDS: cloNIDine HCL 0.2 MG TAB PO SCH ×3 (05:57→21:33)
[2017-05-02] MEDS: INSULIN ASPART SUPPLEMENTAL SCALE SQ SCH ×4 (08:00→21:57)
[2017-05-02] MEDS: RESP: ALBUTEROL 2.5 MG/IPRATROPIUM 0.5 MG NEB (SCH) NEB ×4 (08:07→21:04)
[2017-05-02] MEDS: SODIUM CHLORIDE 0.9% FLUSH 10 ML FLUSH IV FLUSH SCH ×2 (08:35→21:57)
[2017-05-02] MEDS: BUDESONIDE-FORMOTEROL 160/4.5 MCG INHALER INH SCH ×2 (08:35→21:33)
[2017-05-02] MEDS: DOXAZOSIN MESYLATE 2 MG TAB PO SCH (08:36)
[2017-05-02] MEDS: FUROSEMIDE 40 MG/4 ML VIAL IV PUSH SCH (08:36)
[2017-05-02] MEDS: hydrALAZINE HCL 50 MG TAB PO SCH ×2 (08:36→21:33)
[2017-05-02] MEDS: guaiFENesin E.R. 600 MG TAB PO SCH ×2 (08:36→21:33)
[2017-05-02] MEDS: predniSONE 10 MG TAB PO SCH ×2 (08:36→21:33)
[2017-05-02] MEDS: FLUoxetine HCL 20 MG CAP PO SCH (08:37)
[2017-05-02] MEDS: PANTOPRAZOLE SOD 40 MG DELAYED RELEASE TAB PO SCH ×2 (08:38→21:33)
[2017-05-02] MEDS: DOCUSATE SODIUM 50 MG/SENNA 8.6 MG TAB PO SCH (08:38)
[2017-05-02] MEDS: AZITHROMYCIN 250 MG TAB PO SCH (08:38)
[2017-05-02] MEDS: GABAPENTIN 400 MG CAP PO SCH ×2 (08:38→21:33)
[2017-05-02] MEDS ORDERED: EPOETIN ALFA 20,000 UNITS/ML VIAL SQ ONE (09:00)
--- NOTE | 2017-05-02 09:02 | HHI.NPPN ---
Subjective General Problems: Anemia Renal Failure: Chronic, Acute, Stage III Interval History On Lasix 40 mg IV daily. Labs are pending. Review of Systems General Constitutional: Fatigue Respiratory Lungs: SOB Cardiovascular Cardiac: Edema Objective Data Data Vital Signs Date Time Temp Pulse Resp B/P (MAP) Pulse Ox O2 Delivery O2 Flow Rate FiO2 05/02/17 08:08 95 05/02/17 06:00 67 05/02/17 05:00 69 05/02/17 04:00 65 05/02/17 03:00 98.6 66 16 169/76 (107) 98 05/02/17 03:00 67 05/02/17 02:00 67 05/02/17 01:00 68 05/02/17 00:00 66 05/01/17 23:30 98.5 69 16 160/70 (100) 98 05/01/17 23:00 68 05/01/17 22:00 70 05/01/17 21:00 72 05/01/17 20:00 98.3 71 18 178/76 (110) 99 05/01/17 20:00 68 05/01/17 19:00 70 05/01/17 18:05 60 05/01/17 17:00 74 05/01/17 16:00 78 05/01/17 15:22 97 21 05/01/17 15:00 97.7 72 18 163/71 (101) 99 05/01/17 15:00 80 05/01/17 14:12 74 05/01/17 13:00 80 05/01/17 12:00 98.2 78 20 163/66 (98) 98 05/01/17 12:00 78 05/01/17 11:00 70 05/01/17 10:00 72 05/01/17 09:00 70 05/01/17 09:00 16 -: 04/29/17 0714 05/01/17 0542 Physical Exam General Appearance: Well Developed, No Acute Distress, Comfortable, Malnourished Throat Throat Exam: Oral Mucosa [place] & Moist Neck Neck Exam: Neck Supple Pulmonary Resp Exam: Clear Bilaterally, Breath Sounds Equal Cardiology CV Exam: Regular, Normal Sinus Rhythm, Good Perfusion Gastrointestinal/Abdomen GI Exam: Soft, Non-Tender, Bowel Sounds Present Musculoskeletal MS Exam: Normal Gait, Normal Tone Integumentary Skin Exam: Warm, Dry Extremeties Extremities Exam: Moderate Edema, Pitting Edema, Dependent Edema Neurologic Neuro Exam: Alert, Awake, Oriented, Speech Clear, Moving All Extremities Psychiatric Psych Exam: Appropriate Responses Assessment/Plan Discussed Condition With: Patient Assessment Summary: MILI/Acute Renal Failure, Anemia of CKD, Fluid/Volume Overload, Proteinuria, Hypertension, Diabetes Mellitus, CKD Stage III Problem List: (1) MILI (acute kidney injury) ICD Codes: N17.9 - Acute kidney injury Status: Acute Plan: She has underlying CKD 3, baseline GFR 30, creatinine 1.61 Suspected underlying diabetic nephropathy as she does have proteinuria. SPEP in 2015 showed hyper gamma globulinemia with no abnormal bands. MILI may be due to CHF exacerbation and increased renal vein pressure. On Lasix. Follow urine output, she is non oliguric. Quantify proteinuria. Results not available. Reordered on 05/01/17. Renal US showing medical renal disease Avoid nephrotoxic agents, renally dose when appropriate Restriction Sodium in her diet. . (2) Anemia ICD Codes: D64.9 - Anemia Status: Chronic Plan: She has iron deficiency. Received Venofer. May have anemia of chronic disease. Order Epogen. (3) CHF exacerbation ICD Codes: I50.9 - Heart failure, unspecified Status: Acute Plan: Echo this month shows: LVH Apical hypokinesis Left ventricular function is low normal, EF 50-55% follow I/O, fluid status, weight Needs fluid restriction on account of hyponatremia. (4) Acute hypoxemic respiratory failure ICD Codes: J96.01 - Acute respiratory failure with hypoxia Status: Resolved Plan: Being treated for CAP On Zithromax and Rocephin Refusing BiPap, on oxygen via nasal canula Recent saturation 98% oh 2L NC Former smoker, cessation discussed (5) Community acquired pneumonia ICD Codes: J18.9 - Pneumonia, unspecified organism Status: Acute Plan: See above Continue supportive care On nebulizers, inhalers, oxygen . Problem Qualifiers (1) Anemia: Qualified Codes: D64.9 - Anemia, unspecified (2) CHF exacerbation: Qualified Codes: I50.9 - Heart failure, unspecified (3) Community acquired pneumonia: Qualified Codes: J18.9 - Pneumonia, unspecified organism Abebe Patten MD May 02, 2017 09:02
[2017-05-02 09:32] LABS: HEMATOCRIT 23.6 % (35.0-46.0); HEMOGLOBIN 7.8 GM/DL (11.6-15.3); MEAN CELL VOLUME 93.9 FL (80.0-100.0); MEAN CORPUSCULAR HEMOGLOBIN 31.2 PG (27.0-34.0); MEAN CORPUSCULAR HGB CONC 33.2 % (32.0-36.0); MEAN PLATELET VOLUME 11.3 FL (7.0-11.0); PLATELET COUNT 210 TH/MM3 (150-450); RED BLOOD COUNT 2.51 MIL/MM3 (4.00-5.30); RED CELL DISTRIBUTION WIDTH 15.1 % (11.6-17.2); WHITE BLOOD COUNT 11.8 TH/MM3 (4.0-11.0)
[2017-05-02 10:08] LABS: BICARBONATE 25.4 MEQ/L (21.0-32.0); CALCIUM 8.2 MG/DL (8.5-10.1); CREATININE 2.38 MG/DL (0.50-1.00)
--- NOTE | 2017-05-02 12:07 | PD.CARD.PN ---
Subjective Subjective Remarks No CP, still has edema and SOB, feels slightly better, c/o [place] Objective Medications Current Medications Medications (Trade) Dose Ordered Sig/Rosemarie Route Start Time Stop Time Status Last Admin (Nitrostat Sl) 0.4 mg Q5M PRN SL 04/23/17 05:15 (Duoneb Neb) 1 ampule Q2HR NEB PRN NEB 04/23/17 06:30 04/30/17 23:32 (Symbicort 160-4.5 Mcg Inh) 2 puff Q12HR INH 04/23/17 09:00 05/02/17 08:35 (Mucinex Er) 600 mg BID PO 04/23/17 09:00 05/02/17 08:36 (NS Flush) 2 ml UNSCH PRN IV FLUSH 04/23/17 06:30 (NS Flush) 2 ml BID IV FLUSH 04/23/17 09:00 05/02/17 08:35 (Zofran Inj) 4 mg Q6H PRN IVP 04/23/17 06:30 (Tylenol) 650 mg Q6H PRN PO 04/23/17 06:30 (Milk Of Magnesia Liq) 30 ml Q12H PRN PO 04/23/17 06:30 04/29/17 20:53 (Senokot) 17.2 mg Q12H PRN PO 04/23/17 06:30 04/25/17 21:22 (Dulcolax Supp) 10 mg DAILY PRN RECTAL 04/23/17 06:30 (Lactulose Liq) 30 ml DAILY PRN PO 04/23/17 06:30 (Neurontin) 400 mg BID PO 04/23/17 21:00 05/02/17 08:38 (PROzac) 40 mg DAILY PO 04/24/17 09:00 05/02/17 08:37 (Trandate Inj) 10 mg Q6H PRN IV PUSH 04/23/17 20:45 04/25/17 15:48 (D50w (Vial) Inj) 50 ml UNSCH PRN IV PUSH 04/24/17 15:00 (Glucagon Inj) 1 mg UNSCH PRN OTHER 04/24/17 15:00 (NovoLOG SUPPLEMENTAL SCALE) 1 ACHS SLIDING SCALE SQ 04/24/17 17:00 05/02/17 08:00 (Apresoline Inj) 10 mg Q4HR PRN IV PUSH 04/25/17 16:15 04/29/17 03:54 (Percocet 10-325 Mg) 1 tab Q4H PRN PO 04/25/17 18:00 05/02/17 08:37 (Catapres) 0.2 mg Q8HR PO 04/25/17 22:00 05/02/17 05:57 (Protonix) 40 mg Q12HR PO 04/25/17 21:00 05/02/17 08:38 (Cardura) 2 mg DAILY PO 04/27/17 09:00 05/02/17 08:36 (Deltasone) 10 mg BID PO 04/27/17 21:00 05/02/17 08:36 (Cepacol Extra Uli (Sugar Free)) 1 lozenge Q2HR PRN BUCCAL 04/27/17 23:00 (Duoneb Neb) 1 ampule Q4HR WHILE AWAKE NEB NEB 04/30/17 16:00 05/02/17 08:07 (Zithromax) 250 mg DAILY PO 05/01/17 09:00 05/02/17 08:38 (Apresoline) 50 mg Q12HR PO 05/01/17 11:00 05/02/17 08:36 (Lasix Inj) 40 mg DAILY IV PUSH 05/02/17 09:00 05/02/17 08:36 (Nathaly-Colace) 2 tab DAILY PO 05/02/17 09:00 05/02/17 08:38 Vital Signs / I&O Vital Signs Date Time Temp Pulse Resp B/P (MAP) Pulse Ox O2 Delivery O2 Flow Rate FiO2 05/02/17 10:00 69 05/02/17 09:00 71 05/02/17 08:30 98.2 71 16 163/67 (99) 96 05/02/17 08:08 95 05/02/17 08:00 66 05/02/17 07:00 66 05/02/17 06:00 67 05/02/17 05:00 69 05/02/17 04:00 65 05/02/17 03:00 98.6 66 16 169/76 (107) 98 05/02/17 03:00 67 05/02/17 02:00 67 05/02/17 01:00 68 05/02/17 00:00 66 05/01/17 23:30 98.5 69 16 160/70 (100) 98 05/01/17 23:00 68 05/01/17 22:00 70 05/01/17 21:00 72 05/01/17 20:00 98.3 71 18 178/76 (110) 99 05/01/17 20:00 68 05/01/17 19:00 70 05/01/17 18:05 60 05/01/17 17:00 74 05/01/17 16:00 78 05/01/17 15:22 97 21 05/01/17 15:00 97.7 72 18 163/71 (101) 99 05/01/17 15:00 80 05/01/17 14:12 74 05/01/17 13:00 80 I/O 05/01/17 05/01/17 05/01/17 05/02/17 05/02/17 05/02/17 07:00 15:00 23:00 07:00 15:00 23:00 Intake Total 480 ml 680 ml 480 ml Output Total 600 ml 500 ml Balance -120 ml 680 ml -20 ml Intake Oral 480 ml 680 ml 480 ml Output Urine Total 600 ml 500 ml # Voids 5 1 # Bowel Movements 0 0 Physical Exam GENERAL: In NAD SKIN: Warm and dry. HEAD: Normocephalic. EYES: No scleral icterus. No injection or drainage. NECK: Supple, trachea midline. No JVD or lymphadenopathy. CARDIOVASCULAR: Regular rate and rhythm without murmurs, gallops, or rubs. RESPIRATORY: Breath sounds equal bilaterally. No accessory muscle use. GASTROINTESTINAL: Abdomen soft, non-tender, nondistended. MUSCULOSKELETAL: No cyanosis, 1+ edema. Laboratory Laboratory Tests Test 05/02/17 08:32 White Blood Count 11.8 TH/MM3 Red Blood Count 2.51 MIL/MM3 Hemoglobin 7.8 GM/DL Hematocrit 23.6 % Mean Corpuscular Volume 93.9 FL Mean Corpuscular Hemoglobin 31.2 PG Mean Corpuscular Hemoglobin Concent 33.2 % Red Cell Distribution Width 15.1 % Platelet Count 210 TH/MM3 Mean Platelet Volume 11.3 FL Blood Urea Nitrogen 82 MG/DL Creatinine 2.38 MG/DL Random Glucose 139 MG/DL Calcium Level 8.2 MG/DL Sodium Level 127 MEQ/L Potassium Level 4.5 MEQ/L Chloride Level 93 MEQ/L Carbon Dioxide Level 25.4 MEQ/L Anion Gap 9 MEQ/L Estimat Glomerular Filtration Rate 20 ML/MIN Assessment and Plan Problem List: (1) Acute hypoxemic respiratory failure ICD Codes: J96.01 - Acute respiratory failure with hypoxia Status: Resolved (2) CHF exacerbation ICD Codes: I50.9 - Heart failure, unspecified Status: Acute (3) COPD exacerbation ICD Codes: J44.1 - Obstructive chronic bronchitis with exacerbation Status: Resolved (4) Community acquired pneumonia ICD Codes: J18.9 - Pneumonia, unspecified organism Status: Acute (5) MILI (acute kidney injury) ICD Codes: N17.9 - Acute kidney injury Status: Acute (6) Anemia ICD Codes: D64.9 - Anemia Status: Chronic (7) HTN (hypertension) ICD Codes: I10 - Hypertension Status: Chronic (8) DM (diabetes mellitus screen) ICD Codes: Z13.1 - Screening for diabetes mellitus Status: Chronic Assessment and Plan Some improvement. Less dyspneic and edematous. Recommend to continue diuresis, closely monitor renal fx (has underlying renal insufficiency). Echo with low nl LV syst fx, c/w diastolic dysfx. Continue tx for COPD exacerbation. Increase activity, PT. Problem Qualifiers (1) CHF exacerbation: Qualified Codes: I50.9 - Heart failure, unspecified (2) Community acquired pneumonia: Qualified Codes: J18.9 - Pneumonia, unspecified organism (3) Anemia: Qualified Codes: D64.9 - Anemia, unspecified (4) HTN (hypertension): Qualified Codes: I10 - Essential (primary) hypertension Yulissa Fitzgerald MD May 02, 2017 12:07
--- NOTE | 2017-05-02 13:01 | HHI.PR ---
Subjective Remarks Follow-up CHF exacerbation/community acquired pneumonia/acute renal failure/ respiratory failure/anemia 04/28/17-patient seen and examined, reports some improvement or shortness of breath, and denies any chest pain and still with some bilateral lower extremity edema. Creatinine trending up 04/29/17-patient seen and examined, reports some slight shortness of breath and continues to complain of bilateral lower extremity edema. Denies any chest pain 04/30/17-patient seen and examined, still complains of some shortness of breath + BLE edema 05/01/17-patient seen and examined, reports significant improvement or shortness of breath as well as lower extremity edema. Renal indices trending up and BP up 05/02/17-patient seen and examined, states she is breathing better. No chest pain. Lower Extremities edema improving. Objective Vitals Vital Signs Date Time Temp Pulse Resp B/P (MAP) Pulse Ox O2 Delivery O2 Flow Rate FiO2 05/02/17 12:00 70 05/02/17 11:00 68 05/02/17 10:00 69 05/02/17 09:00 71 05/02/17 08:30 98.2 71 16 163/67 (99) 96 05/02/17 08:08 95 05/02/17 08:00 66 05/02/17 07:00 66 05/02/17 06:00 67 05/02/17 05:00 69 05/02/17 04:00 65 05/02/17 03:00 98.6 66 16 169/76 (107) 98 05/02/17 03:00 67 05/02/17 02:00 67 05/02/17 01:00 68 05/02/17 00:00 66 05/01/17 23:30 98.5 69 16 160/70 (100) 98 05/01/17 23:00 68 05/01/17 22:00 70 05/01/17 21:00 72 05/01/17 20:00 98.3 71 18 178/76 (110) 99 05/01/17 20:00 68 05/01/17 19:00 70 05/01/17 18:05 60 05/01/17 17:00 74 05/01/17 16:00 78 05/01/17 15:22 97 21 05/01/17 15:00 97.7 72 18 163/71 (101) 99 05/01/17 15:00 80 05/01/17 14:12 74 05/01/17 13:00 80 I/O 05/01/17 05/01/17 05/01/17 05/02/17 05/02/17 05/02/17 07:00 15:00 23:00 07:00 15:00 23:00 Intake Total 480 ml 680 ml 480 ml Output Total 600 ml 500 ml Balance -120 ml 680 ml -20 ml Intake Oral 480 ml 680 ml 480 ml Output Urine Total 600 ml 500 ml # Voids 5 1 # Bowel Movements 0 0 Result Diagram: 05/02/17 0832 05/02/17 0832 Imaging Last Impressions Head CT 04/25/17 0000 Signed Impressions: Service Date/Time: Tuesday, April 25, 2017 22:28 - CONCLUSION: 1. Negative noncontrast CT brain. Leo Gonzales MD Chest X-Ray 04/25/17 0000 Signed Impressions: Service Date/Time: Tuesday, April 25, 2017 21:41 - CONCLUSION: Cardiomegaly with increased interstitial markings and mild bilateral effusions likely related to CHF. This appears worse when compared to the prior exam. Rasta Vieira MD Renal Ultrasound 04/24/17 0000 Signed Impressions: Service Date/Time: Monday, April 24, 2017 23:08 - CONCLUSION: 1. Echogenic kidneys likely secondary to medical renal disease. 2. Minimal ascites. 3. Left pleural effusion. Rasta Vieira MD Objective Remarks GENERAL: NAD SKIN: Warm and dry. HEAD: Normocephalic. EYES: No scleral icterus. No injection or drainage. NECK: Supple, trachea midline. No JVD or lymphadenopathy. CARDIOVASCULAR: Regular rate and rhythm without murmurs, gallops, or rubs. RESPIRATORY: Breath sounds equal bilaterally. No accessory muscle use. GASTROINTESTINAL: Abdomen soft, non-tender, nondistended. MUSCULOSKELETAL: No cyanosis; + BLE edema. BACK: Nontender without obvious deformity. No CVA tenderness. A/P Problem List: (1) Acute hypoxemic respiratory failure ICD Code: J96.01 - Acute respiratory failure with hypoxia Status: Resolved (2) CHF exacerbation ICD Code: I50.9 - Heart failure, unspecified Status: Acute (3) Community acquired pneumonia ICD Code: J18.9 - Pneumonia, unspecified organism Status: Acute (4) COPD exacerbation ICD Code: J44.1 - Obstructive chronic bronchitis with exacerbation Status: Resolved (5) MILI (acute kidney injury) ICD Code: N17.9 - Acute kidney injury Status: Acute (6) Anemia ICD Code: D64.9 - Anemia Status: Chronic (7) Elevated troponin ICD Code: R74.8 - Abnormal levels of other serum enzymes Status: Acute (8) HTN (hypertension) ICD Code: I10 - Hypertension Status: Chronic (9) DM (diabetes mellitus screen) ICD Code: Z13.1 - Screening for diabetes mellitus Status: Chronic (10) Epistaxis ICD Code: R04.0 - Epistaxis Status: Resolved (11) Headache ICD Code: R51 - Headache Status: Resolved (12) Pleural effusion, left ICD Code: J90 - Pleural effusion, not elsewhere classified Status: Acute Assessment and Plan 76-year-old female with Acute hypoxemic respiratory failure-resolved Community-acquired pneumonia s/p IV Rocephin and azithromycin. Continue with prednisone 10 mg twice a day, long-acting beta agonist as well as short-acting. Maintain oxygen saturation above 92% CHF exacerbation 2-D echocardiogram shows the ventricular diastolic function that is low normal with an estimated ejection fraction the range of 50-55%. Appreciate input from cardiology Continue IV Lasix 40mg daily. Community acquired pneumonia Completed IV broad-spectrum antibiotics including azithromycin and Rocephin Blood cultures NTD COPD exacerbation-resolved Continue prednisone 10 mg twice a day, breathing therapy, antibiotics, maintain oxygen saturation above 92% MILI (acute kidney injury)-stage IV Appreciate input from nephrology, continue to monitor BUN and creatinine and avoid all nephrotoxic drugs Worsening renal function, will decrease Lasix to 40 mg daily Anemia status post EGD for/colonoscopy which showed Schatzki ring found in the lower third of the esophagus. Erythematous gastritis, duodenal inflammation, hiatal hernia. continue PPI, colonoscopy as an outpatient. Elevated troponin Elevated troponin likely secondary to acute kidney injury. Appreciate input from cardiology HTN (hypertension) Continue hydralazine 50 mg twice a day Continue clonidine 0.2 mg by mouth twice a day and Cardura 2 mg by mouth daily. DM (diabetes mellitus screen) Continue SSI with insulin NovoLog and Accu-Cheks. Epistaxis Resolved Headache Resolved. Continue pain control as above. Consult PT DVT prophylaxis: SCDs, No chemoprophylaxis given h/o epistaxis. Problem Qualifiers (1) CHF exacerbation: Qualified Codes: I50.9 - Heart failure, unspecified (2) Community acquired pneumonia: Qualified Codes: J18.9 - Pneumonia, unspecified organism (3) Anemia: Qualified Codes: D64.9 - Anemia, unspecified (4) HTN (hypertension): Qualified Codes: I10 - Essential (primary) hypertension (5) Headache: Qualified Codes: R51 - Headache Fernando Trotter MD May 02, 2017 13:01
--- NOTE | 2017-05-02 14:05 | HHI.GIFU ---
Subjective Remarks Pt is OOB in chair, in no distress. Reports occasional intermittent nausea. Tolerating heart healthy diet. Denies vomiting, abdominal pain. Last BM was Apr 30. (Selene Snyder) Objective Vitals I&O Vital Signs Date Time Temp Pulse Resp B/P (MAP) Pulse Ox O2 Delivery O2 Flow Rate FiO2 05/02/17 12:00 70 05/02/17 11:00 68 05/02/17 10:00 69 05/02/17 09:00 71 05/02/17 08:30 98.2 71 16 163/67 (99) 96 05/02/17 08:08 95 05/02/17 08:00 66 05/02/17 07:00 66 05/02/17 06:00 67 05/02/17 05:00 69 05/02/17 04:00 65 05/02/17 03:00 98.6 66 16 169/76 (107) 98 05/02/17 03:00 67 05/02/17 02:00 67 05/02/17 01:00 68 05/02/17 00:00 66 05/01/17 23:30 98.5 69 16 160/70 (100) 98 05/01/17 23:00 68 05/01/17 22:00 70 05/01/17 21:00 72 05/01/17 20:00 98.3 71 18 178/76 (110) 99 05/01/17 20:00 68 05/01/17 19:00 70 05/01/17 18:05 60 05/01/17 17:00 74 05/01/17 16:00 78 05/01/17 15:22 97 21 05/01/17 15:00 97.7 72 18 163/71 (101) 99 05/01/17 15:00 80 05/01/17 14:12 74 I/O 05/01/17 05/01/17 05/01/17 05/02/17 05/02/17 05/02/17 07:00 15:00 23:00 07:00 15:00 23:00 Intake Total 480 ml 680 ml 480 ml Output Total 600 ml 500 ml Balance -120 ml 680 ml -20 ml Intake Oral 480 ml 680 ml 480 ml Output Urine Total 600 ml 500 ml # Voids 5 1 # Bowel Movements 0 0 Laboratory Laboratory Tests Test 05/02/17 08:32 White Blood Count 11.8 Red Blood Count 2.51 Hemoglobin 7.8 Hematocrit 23.6 Mean Corpuscular Volume 93.9 Mean Corpuscular Hemoglobin 31.2 Mean Corpuscular Hemoglobin Concent 33.2 Red Cell Distribution Width 15.1 Platelet Count 210 Mean Platelet Volume 11.3 Blood Urea Nitrogen 82 Creatinine 2.38 Random Glucose 139 Calcium Level 8.2 Sodium Level 127 Potassium Level 4.5 Chloride Level 93 Carbon Dioxide Level 25.4 Anion Gap 9 Estimat Glomerular Filtration Rate 20 Date/Time Source Procedure Growth Status 04/23/17 06:55 Blood Peripheral Aerobic Blood Culture - Final NO GROWTH IN 5 DAYS Complete 04/23/17 06:55 Blood Peripheral Anaerobic Blood Culture - Final NO GROWTH IN 5 DAYS Complete Imaging Last Impressions Head CT 04/25/17 0000 Signed Impressions: Service Date/Time: Tuesday, April 25, 2017 22:28 - CONCLUSION: 1. Negative noncontrast CT brain. Leo Gonzales MD Chest X-Ray 04/25/17 0000 Signed Impressions: Service Date/Time: Tuesday, April 25, 2017 21:41 - CONCLUSION: Cardiomegaly with increased interstitial markings and mild bilateral effusions likely related to CHF. This appears worse when compared to the prior exam. Rasta Vieira MD Renal Ultrasound 04/24/17 0000 Signed Impressions: Service Date/Time: Monday, April 24, 2017 23:08 - CONCLUSION: 1. Echogenic kidneys likely secondary to medical renal disease. 2. Minimal ascites. 3. Left pleural effusion. Rasta Vieira MD Physical Exam HEENT: Normocephalic; atraumatic CHEST: Even/unlabored CARDIAC: RRR ABDOMEN: Soft, nontender, bowel sounds active x 4 EXTREMITIES: No clubbing, cyanosis, or edema. COLOR ARTIST: No focal deficits; alert and oriented times three. (Selene Snyder) Assessment and Plan Assessment: (1) Periodic health assessment, general screening, adult ICD Codes: Z00.00 - Encounter for general adult medical examination without abnormal findings (2) Iron deficiency anemia ICD Codes: D50.9 - Iron deficiency anemia, unspecified (3) Epistaxis ICD Codes: R04.0 - Epistaxis Status: Resolved (4) GI bleed ICD Codes: K92.2 - Gastrointestinal hemorrhage Status: Acute Plan Assessment: - Anemia- Normocytic, normochromic. Currently H/H 7.8/23.6. Has not received a blood transfusion during hospitalization. Likely multifactorial. Decreased renal function. Received epoetin cathryn today. EGD (04/27) --> Schatzki ring in the lower third of the esophagus, duodenal inflammation, erythematous gastritis, and hiatal hernia. Pathology --> (gastric antrum) Antral mucosa with regenerative epithelial changes and reactive gastropathy, as may be seen with bile reflux or drug therapy. Recommendation to continue PPI. Colonoscopy as outpatient. - Constipation- Last BM was 04/30 and prior to that was a week with no BM. Will add MiraLAX to take on a daily, not an as needed basis. PLAN: - Continue PPI - Add MiraLAX - Colonoscopy outpatient - Monitor H/H - Transfuse as needed - Supportive care - No obvious GI bleeding, will sign off, please reconsult as needed This patient has been seen and examined by myself and Dr. Mo and this note is written on his behalf (Selene Snyder) Physician Comments Sen and examined, plan as above. Will sign off for now, please notify us if needed. (Sanjay Mo MD) Selene Snyder May 02, 2017 14:05 Sanjay Mo MD May 02, 2017 14:23
[2017-05-02] MEDS: hydrALAZINE HCL 20 MG/ML VIAL IV PUSH PRN (23:42)
[2017-05-03] VITALS (28 sets, daily range): BP systolic 143–158; BP diastolic 55–68; PULSE 62–76; RESP 16–18; TEMP 97.5–98.7; O2SAT 96–98
[2017-05-03] MEDS: oxyCODONE/ACETAMINOPHEN 10 MG/325 MG TAB PO PRN ×5 (01:34→20:23)
[2017-05-03] MEDS: cloNIDine HCL 0.2 MG TAB PO SCH ×3 (05:45→20:22)
[2017-05-03 07:04] LABS: BICARBONATE 25.8 MEQ/L (21.0-32.0); CALCIUM 7.9 MG/DL (8.5-10.1); CREATININE 2.25 MG/DL (0.50-1.00)
[2017-05-03] MEDS: RESP: ALBUTEROL 2.5 MG/IPRATROPIUM 0.5 MG NEB (SCH) NEB ×3 (07:38→19:45)
[2017-05-03] MEDS: POLYETHYLENE GLYCOL 17 GM PKG PO SCH (08:45)
[2017-05-03] MEDS: BUDESONIDE-FORMOTEROL 160/4.5 MCG INHALER INH SCH ×2 (08:45→20:24)
[2017-05-03] MEDS: INSULIN ASPART SUPPLEMENTAL SCALE SQ SCH ×4 (08:46→20:24)
[2017-05-03] MEDS: FLUoxetine HCL 20 MG CAP PO SCH (08:46)
[2017-05-03] MEDS: AZITHROMYCIN 250 MG TAB PO SCH (08:47)
[2017-05-03] MEDS: DOCUSATE SODIUM 50 MG/SENNA 8.6 MG TAB PO SCH (08:47)
[2017-05-03] MEDS: predniSONE 10 MG TAB PO SCH ×2 (08:47→20:23)
[2017-05-03] MEDS: DOXAZOSIN MESYLATE 2 MG TAB PO SCH (08:47)
[2017-05-03] MEDS: PANTOPRAZOLE SOD 40 MG DELAYED RELEASE TAB PO SCH ×2 (08:47→20:23)
[2017-05-03] MEDS: guaiFENesin E.R. 600 MG TAB PO SCH ×2 (08:47→20:22)
[2017-05-03] MEDS: hydrALAZINE HCL 50 MG TAB PO SCH ×2 (08:47→20:22)
[2017-05-03] MEDS: GABAPENTIN 400 MG CAP PO SCH ×2 (08:47→20:22)
[2017-05-03] MEDS: FUROSEMIDE 40 MG/4 ML VIAL IV PUSH SCH (08:48)
[2017-05-03] MEDS: SODIUM CHLORIDE 0.9% FLUSH 10 ML FLUSH IV FLUSH SCH ×2 (08:50→20:24)
[2017-05-03] MEDS ORDERED: SODIUM CHLORIDE 1 GRAM TAB PO SCH (09:00)
[2017-05-03] MEDS ORDERED: TOLVAPTAN 15 MG TAB PO ONE (09:30)
--- NOTE | 2017-05-03 09:37 | HHI.NPPN ---
Subjective General Problems: Anemia, Edema, Heart Disease Renal Failure: Chronic, Acute, Stage III Interval History She reports having a "bad night". Had bilateral shoulder pressure, palpitations. Renal function is better. Excellent urine output. Worsening hyponatremia today. (Camila Cline) Review of Systems General Constitutional: Fatigue (Camila Cline) Respiratory Lungs: SOB (Camila Cline) Cardiovascular Cardiac: Palpitations, Edema (Camila Cline) Objective Data Data Vital Signs Date Time Temp Pulse Resp B/P (MAP) Pulse Ox O2 Delivery O2 Flow Rate FiO2 05/03/17 08:14 98.4 76 16 158/55 (89) 98 05/03/17 06:00 72 05/03/17 05:00 68 05/03/17 04:00 69 05/03/17 03:30 98.7 68 18 147/67 (93) 97 05/03/17 03:00 69 05/03/17 02:00 71 05/03/17 01:00 72 05/03/17 00:00 72 05/03/17 00:00 72 155/68 (97) 05/02/17 23:30 98.5 79 18 180/76 (110) 97 05/02/17 23:00 74 05/02/17 22:00 76 05/02/17 21:04 94 05/02/17 21:00 68 05/02/17 20:00 70 05/02/17 20:00 98.5 72 16 157/75 (102) 98 05/02/17 19:00 74 05/02/17 17:00 76 05/02/17 16:00 72 05/02/17 15:15 98.0 71 16 156/69 (98) 98 05/02/17 15:00 70 05/02/17 14:09 70 05/02/17 13:00 68 05/02/17 12:00 70 05/02/17 11:00 98.1 70 16 164/73 (103) 98 05/02/17 11:00 68 05/02/17 10:00 69 (Camila Cline) -: 05/02/17 0832 05/03/17 0439 Imaging Last Impressions Head CT 04/25/17 0000 Signed Impressions: Service Date/Time: Tuesday, April 25, 2017 22:28 - CONCLUSION: 1. Negative noncontrast CT brain. Leo Gonzales MD Chest X-Ray 04/25/17 0000 Signed Impressions: Service Date/Time: Tuesday, April 25, 2017 21:41 - CONCLUSION: Cardiomegaly with increased interstitial markings and mild bilateral effusions likely related to CHF. This appears worse when compared to the prior exam. Rasta Vieira MD Renal Ultrasound 04/24/17 0000 Signed Impressions: Service Date/Time: Monday, April 24, 2017 23:08 - CONCLUSION: 1. Echogenic kidneys likely secondary to medical renal disease. 2. Minimal ascites. 3. Left pleural effusion. Rasta Vieira MD (Camila Cline) Physical Exam General Appearance: Well Developed, No Acute Distress, Comfortable, Malnourished (Camila Cline ESOL INSTRUCTOR) Throat Throat Exam: Oral Mucosa [place] & Moist (Camila Cline) Neck Neck Exam: Neck Supple (Camila Cline) Pulmonary Resp Exam: Breath Sounds Equal, No Distress, Crackles, Decreased Bases (Camila Cline) Cardiology CV Exam: Regular, Normal Sinus Rhythm, Good Perfusion (Camila ClineP) Gastrointestinal/Abdomen GI Exam: Soft, Non-Tender, Bowel Sounds Present (Camila Cline) Musculoskeletal MS Exam: Normal Gait, Normal Tone (Camila Cline) Integumentary Skin Exam: Warm, Dry Skin Remarks scattered lower extremity abrasions (Camila Cline) Extremeties Extremities Exam: Pedal Pulses Palpable, Moderate Edema, Pitting Edema, Dependent Edema (Camila ClineP) Neurologic Neuro Exam: Alert, Awake, Oriented, Speech Clear, Moving All Extremities (Camila ClineP) Psychiatric Psych Exam: Appropriate Responses (Camila Cline) Assessment/Plan Discussed Condition With: Patient Assessment Summary: MILI/Acute Renal Failure, Anemia of CKD, Fluid/Volume Overload, Proteinuria, CHF, Hypertension, Diabetes Mellitus, CKD Stage III Problem List: (1) MILI (acute kidney injury) ICD Codes: N17.9 - Acute kidney injury Status: Acute Plan: She has underlying CKD 3, baseline GFR 30, creatinine 1.61 Suspected underlying diabetic nephropathy as she does have proteinuria. SPEP in 2014 showed hyper gamma globulinemia with no abnormal bands. MILI may be due to CHF exacerbation and increased renal vein pressure. Renal function improved. Non oliguric, currently on Lasix. Follow urine output Quantify proteinuria. It was reordered on 05/01/17. D/W nursing to send to lab. Avoid nephrotoxic agents, renally dose when appropriate Low protein diet encouraged. (2) Hyponatremia ICD Codes: E87.1 - Hypo-osmolality and hyponatremia Plan: Continue Lasix. Stop NaCl tabs given hx of CHF. Give a dose of Tolvaptan. Fluid restriction not necessary while on tolvaptan. (3) CHF exacerbation ICD Codes: I50.9 - Heart failure, unspecified Status: Acute Plan: Echo this month shows: LVH Apical hypokinesis Left ventricular function is low normal, EF 50-55% follow I/O, fluid status, weight Restriction of Sodium in her diet. (4) Anemia ICD Codes: D64.9 - Anemia Status: Chronic Plan: She has iron deficiency. Received Venofer. May have anemia of chronic disease. Order Epogen. (5) Acute hypoxemic respiratory failure ICD Codes: J96.01 - Acute respiratory failure with hypoxia Status: Resolved Plan: Being treated for CAP On Zithromax, prednisone; Rocephin stopped Refusing BiPap, on oxygen via nasal canula Recent saturation 98% oh 2L NC Former smoker, cessation discussed (6) Community acquired pneumonia ICD Codes: J18.9 - Pneumonia, unspecified organism Status: Acute Plan: See above Continue supportive care On nebulizers, inhalers, oxygen . (Camila Cline) Plan patient was seen and examined. Agree with above assessment and plan. Salt tablets are not to be used for hyponatremia associated with CHF. Will administer Tolvaptan. On the custodial, she will need fluid restriction. Prognosis is guarded. (Abebe Patten MD) Problem Qualifiers (1) CHF exacerbation: Qualified Codes: I50.9 - Heart failure, unspecified (2) Anemia: Qualified Codes: D64.9 - Anemia, unspecified (3) Community acquired pneumonia: Qualified Codes: J18.9 - Pneumonia, unspecified organism Camila Cline May 03, 2017 09:37 Abebe Patten MD May 03, 2017 14:36
--- NOTE | 2017-05-03 09:40 | HHI.PR ---
Subjective Remarks Follow-up CHF exacerbation/community acquired pneumonia/acute renal failure/ respiratory failure/anemia 04/28/17-patient seen and examined, reports some improvement or shortness of breath, and denies any chest pain and still with some bilateral lower extremity edema. Creatinine trending up 04/29/17-patient seen and examined, reports some slight shortness of breath and continues to complain of bilateral lower extremity edema. Denies any chest pain 04/30/17-patient seen and examined, still complains of some shortness of breath + BLE edema 05/01/17-patient seen and examined, reports significant improvement or shortness of breath as well as lower extremity edema. Renal indices trending up and BP up 05/02/17-patient seen and examined, states she is breathing better. No chest pain. Lower Extremities edema improving. 05/03/17-patient seen and examined, states she got sick last night however much improved this morning she complained of mild dyspnea but denies any chest pain.improving to 2.25. Sodium 124 Objective Vitals Vital Signs Date Time Temp Pulse Resp B/P (MAP) Pulse Ox O2 Delivery O2 Flow Rate FiO2 05/03/17 08:14 98.4 76 16 158/55 (89) 98 05/03/17 06:00 72 05/03/17 05:00 68 05/03/17 04:00 69 05/03/17 03:30 98.7 68 18 147/67 (93) 97 05/03/17 03:00 69 05/03/17 02:00 71 05/03/17 01:00 72 05/03/17 00:00 72 05/03/17 00:00 72 155/68 (97) 05/02/17 23:30 98.5 79 18 180/76 (110) 97 05/02/17 23:00 74 05/02/17 22:00 76 05/02/17 21:04 94 05/02/17 21:00 68 05/02/17 20:00 70 05/02/17 20:00 98.5 72 16 157/75 (102) 98 05/02/17 19:00 74 05/02/17 17:00 76 05/02/17 16:00 72 05/02/17 15:15 98.0 71 16 156/69 (98) 98 05/02/17 15:00 70 05/02/17 14:09 70 05/02/17 13:00 68 05/02/17 12:00 70 05/02/17 11:00 98.1 70 16 164/73 (103) 98 05/02/17 11:00 68 05/02/17 10:00 69 I/O 05/02/17 05/02/17 05/02/17 05/03/17 05/03/17 05/03/17 07:00 15:00 23:00 07:00 15:00 23:00 Intake Total 480 ml 720 ml 480 ml Output Total 500 ml 1000 ml 1500 ml Balance -20 ml -280 ml -1020 ml Intake Oral 480 ml 720 ml 480 ml Output Urine Total 500 ml 1000 ml 1500 ml # Voids 1 # Bowel Movements 0 0 Result Diagram: 05/02/17 0832 05/03/17 0439 Objective Remarks GENERAL: NAD SKIN: Warm and dry. HEAD: Normocephalic. EYES: No scleral icterus. No injection or drainage. NECK: Supple, trachea midline. No JVD or lymphadenopathy. CARDIOVASCULAR: Regular rate and rhythm without murmurs, gallops, or rubs. RESPIRATORY: Breath sounds equal bilaterally. No accessory muscle use. GASTROINTESTINAL: Abdomen soft, non-tender, nondistended. MUSCULOSKELETAL: No cyanosis; + BLE edema. BACK: Nontender without obvious deformity. No CVA tenderness. A/P Problem List: (1) Acute hypoxemic respiratory failure ICD Code: J96.01 - Acute respiratory failure with hypoxia Status: Resolved (2) CHF exacerbation ICD Code: I50.9 - Heart failure, unspecified Status: Acute (3) Community acquired pneumonia ICD Code: J18.9 - Pneumonia, unspecified organism Status: Acute (4) COPD exacerbation ICD Code: J44.1 - Obstructive chronic bronchitis with exacerbation Status: Resolved (5) MILI (acute kidney injury) ICD Code: N17.9 - Acute kidney injury Status: Acute (6) Anemia ICD Code: D64.9 - Anemia Status: Chronic (7) Elevated troponin ICD Code: R74.8 - Abnormal levels of other serum enzymes Status: Acute (8) HTN (hypertension) ICD Code: I10 - Hypertension Status: Chronic (9) DM (diabetes mellitus screen) ICD Code: Z13.1 - Screening for diabetes mellitus Status: Chronic (10) Epistaxis ICD Code: R04.0 - Epistaxis Status: Resolved (11) Headache ICD Code: R51 - Headache Status: Resolved (12) Pleural effusion, left ICD Code: J90 - Pleural effusion, not elsewhere classified Status: Acute Assessment and Plan 76-year-old female with Acute hypoxemic respiratory failure-resolved Community-acquired pneumonia s/p IV Rocephin and azithromycin. Continue with prednisone 10 mg twice a day, long-acting beta agonist as well as short-acting. Maintain oxygen saturation above 92% CHF exacerbation 2-D echocardiogram shows the ventricular diastolic function that is low normal with an estimated ejection fraction the range of 50-55%. Appreciate input from cardiology Continue IV Lasix 40mg daily. Community acquired pneumonia Completed IV broad-spectrum antibiotics including azithromycin and Rocephin Blood cultures NTD COPD exacerbation-resolved Continue prednisone 10 mg twice a day, breathing therapy, antibiotics, maintain oxygen saturation above 92% Taper redness on MILI (acute kidney injury)-stage IV Appreciate input from nephrology, continue to monitor BUN and creatinine and avoid all nephrotoxic drugs Renal indices improving with creatinine down to 2.25 Anemia status post EGD for/colonoscopy which showed Schatzki ring found in the lower third of the esophagus. Erythematous gastritis, duodenal inflammation, hiatal hernia. continue PPI, colonoscopy as an outpatient. Elevated troponin Elevated troponin likely secondary to acute kidney injury. Appreciate input from cardiology HTN (hypertension) Continue hydralazine 50 mg twice a day Continue clonidine 0.2 mg by mouth twice a day and Cardura 2 mg by mouth daily. DM (diabetes mellitus screen) Continue SSI with insulin NovoLog and Accu-Cheks. Epistaxis Resolved Headache Resolved. Continue pain control as above. Hyponatremia Start salt tablets 1 g daily 3 days Consult PT DVT prophylaxis: SCDs, No chemoprophylaxis given h/o epistaxis. Problem Qualifiers (1) CHF exacerbation: Qualified Codes: I50.9 - Heart failure, unspecified (2) Community acquired pneumonia: Qualified Codes: J18.9 - Pneumonia, unspecified organism (3) Anemia: Qualified Codes: D64.9 - Anemia, unspecified (4) HTN (hypertension): Qualified Codes: I10 - Essential (primary) hypertension (5) Headache: Qualified Codes: R51 - Headache Fernando Trotter MD May 03, 2017 09:40
--- NOTE | 2017-05-03 15:51 | PD.CARD.PN ---
Subjective Subjective Remarks No CP, still has edema and SOB, increased SOB last night Objective Medications Current Medications Medications (Trade) Dose Ordered Sig/Rosemarie Route Start Time Stop Time Status Last Admin (Nitrostat Sl) 0.4 mg Q5M PRN SL 04/23/17 05:15 (Duoneb Neb) 1 ampule Q2HR NEB PRN NEB 04/23/17 06:30 04/30/17 23:32 (Symbicort 160-4.5 Mcg Inh) 2 puff Q12HR INH 04/23/17 09:00 05/03/17 08:45 (Mucinex Er) 600 mg BID PO 04/23/17 09:00 05/03/17 08:47 (NS Flush) 2 ml UNSCH PRN IV FLUSH 04/23/17 06:30 (NS Flush) 2 ml BID IV FLUSH 04/23/17 09:00 05/03/17 08:50 (Zofran Inj) 4 mg Q6H PRN IVP 04/23/17 06:30 (Tylenol) 650 mg Q6H PRN PO 04/23/17 06:30 (Milk Of Magnesia Liq) 30 ml Q12H PRN PO 04/23/17 06:30 04/29/17 20:53 (Senokot) 17.2 mg Q12H PRN PO 04/23/17 06:30 04/25/17 21:22 (Dulcolax Supp) 10 mg DAILY PRN RECTAL 04/23/17 06:30 (Lactulose Liq) 30 ml DAILY PRN PO 04/23/17 06:30 (Neurontin) 400 mg BID PO 04/23/17 21:00 05/03/17 08:47 (PROzac) 40 mg DAILY PO 04/24/17 09:00 05/03/17 08:46 (Trandate Inj) 10 mg Q6H PRN IV PUSH 04/23/17 20:45 04/25/17 15:48 (D50w (Vial) Inj) 50 ml UNSCH PRN IV PUSH 04/24/17 15:00 (Glucagon Inj) 1 mg UNSCH PRN OTHER 04/24/17 15:00 (NovoLOG SUPPLEMENTAL SCALE) 1 ACHS SLIDING SCALE SQ 04/24/17 17:00 05/03/17 08:46 (Apresoline Inj) 10 mg Q4HR PRN IV PUSH 04/25/17 16:15 05/02/17 23:42 (Percocet 10-325 Mg) 1 tab Q4H PRN PO 04/25/17 18:00 05/03/17 15:20 (Catapres) 0.2 mg Q8HR PO 04/25/17 22:00 05/03/17 15:20 (Protonix) 40 mg Q12HR PO 04/25/17 21:00 05/03/17 08:47 (Cardura) 2 mg DAILY PO 04/27/17 09:00 05/03/17 08:47 (Deltasone) 10 mg BID PO 04/27/17 21:00 05/03/17 08:47 (Cepacol Extra Uli (Sugar Free)) 1 lozenge Q2HR PRN BUCCAL 04/27/17 23:00 (Duoneb Neb) 1 ampule Q4HR WHILE AWAKE NEB NEB 04/30/17 16:00 05/03/17 15:38 (Zithromax) 250 mg DAILY PO 05/01/17 09:00 05/03/17 08:47 (Apresoline) 50 mg Q12HR PO 05/01/17 11:00 05/03/17 08:47 (Lasix Inj) 40 mg DAILY IV PUSH 05/02/17 09:00 05/03/17 08:48 (Nathaly-Colace) 2 tab DAILY PO 05/02/17 09:00 05/03/17 08:47 (Miralax) 17 gm DAILY PO 05/03/17 09:00 05/03/17 08:45 Vital Signs / I&O Vital Signs Date Time Temp Pulse Resp B/P (MAP) Pulse Ox O2 Delivery O2 Flow Rate FiO2 05/03/17 15:38 96 21 05/03/17 15:14 97.9 66 16 155/62 (93) 96 05/03/17 14:00 68 05/03/17 13:00 68 05/03/17 12:00 66 05/03/17 11:05 97.9 69 16 143/63 (89) 98 05/03/17 11:00 66 05/03/17 10:00 70 05/03/17 09:00 72 05/03/17 08:14 98.4 76 16 158/55 (89) 98 05/03/17 08:00 74 05/03/17 07:00 68 05/03/17 06:00 72 05/03/17 05:00 68 05/03/17 04:00 69 05/03/17 03:30 98.7 68 18 147/67 (93) 97 05/03/17 03:00 69 05/03/17 02:00 71 05/03/17 01:00 72 05/03/17 00:00 72 05/03/17 00:00 72 155/68 (97) 05/02/17 23:30 98.5 79 18 180/76 (110) 97 05/02/17 23:00 74 05/02/17 22:00 76 05/02/17 21:04 94 05/02/17 21:00 68 05/02/17 20:00 70 05/02/17 20:00 98.5 72 16 157/75 (102) 98 05/02/17 19:00 74 05/02/17 17:00 76 05/02/17 16:00 72 I/O 05/02/17 05/02/17 05/02/17 05/03/17 05/03/17 05/03/17 06:59 14:59 22:59 06:59 14:59 22:59 Intake Total 480 ml 720 ml 480 ml Output Total 500 ml 1000 ml 1500 ml Balance -20 ml -280 ml -1020 ml Intake Oral 480 ml 720 ml 480 ml Output Urine Total 500 ml 1000 ml 1500 ml # Voids 1 # Bowel Movements 0 0 Physical Exam GENERAL: In NAD SKIN: Warm and dry. HEAD: Normocephalic. EYES: No scleral icterus. No injection or drainage. NECK: Supple, trachea midline. No JVD or lymphadenopathy. CARDIOVASCULAR: Regular rate and rhythm without murmurs, gallops, or rubs. RESPIRATORY: Breath sounds equal bilaterally. No accessory muscle use. GASTROINTESTINAL: Abdomen soft, non-tender, nondistended. MUSCULOSKELETAL: No cyanosis, 1+ edema. Laboratory Laboratory Tests Test 05/03/17 04:39 Blood Urea Nitrogen 92 MG/DL Creatinine 2.25 MG/DL Random Glucose 128 MG/DL Calcium Level 7.9 MG/DL Sodium Level 124 MEQ/L Potassium Level 4.8 MEQ/L Chloride Level 92 MEQ/L Carbon Dioxide Level 25.8 MEQ/L Anion Gap 6 MEQ/L Estimat Glomerular Filtration Rate 21 ML/MIN Assessment and Plan Problem List: (1) Acute hypoxemic respiratory failure ICD Codes: J96.01 - Acute respiratory failure with hypoxia Status: Resolved (2) CHF exacerbation ICD Codes: I50.9 - Heart failure, unspecified Status: Acute (3) COPD exacerbation ICD Codes: J44.1 - Obstructive chronic bronchitis with exacerbation Status: Resolved (4) Community acquired pneumonia ICD Codes: J18.9 - Pneumonia, unspecified organism Status: Acute (5) MILI (acute kidney injury) ICD Codes: N17.9 - Acute kidney injury Status: Acute (6) Anemia ICD Codes: D64.9 - Anemia Status: Chronic (7) HTN (hypertension) ICD Codes: I10 - Hypertension Status: Chronic (8) DM (diabetes mellitus screen) ICD Codes: Z13.1 - Screening for diabetes mellitus Status: Chronic Assessment and Plan No meaningful improvement. Recommend to continue diuresis, closely monitor renal fx (has underlying renal insufficiency). Echo with low nl LV syst fx, c/w diastolic dysfx. Also continue tx for COPD exacerbation. Increase activity, PT. Problem Qualifiers (1) CHF exacerbation: Qualified Codes: I50.9 - Heart failure, unspecified (2) Community acquired pneumonia: Qualified Codes: J18.9 - Pneumonia, unspecified organism (3) Anemia: Qualified Codes: D64.9 - Anemia, unspecified (4) HTN (hypertension): Qualified Codes: I10 - Essential (primary) hypertension Yulissa Fitzgerald MD May 03, 2017 15:51
[2017-05-04] VITALS (21 sets, daily range): BP systolic 140–160; BP diastolic 60–78; PULSE 62–84; RESP 18–22; TEMP 97.2–98; O2SAT 94–96
[2017-05-04] MEDS: oxyCODONE/ACETAMINOPHEN 10 MG/325 MG TAB PO PRN ×6 (00:30→20:53)
[2017-05-04] MEDS: cloNIDine HCL 0.2 MG TAB PO SCH ×3 (04:23→20:53)
[2017-05-04] MEDS: INSULIN ASPART SUPPLEMENTAL SCALE SQ SCH ×4 (08:00→19:54)
[2017-05-04] MEDS: RESP: ALBUTEROL 2.5 MG/IPRATROPIUM 0.5 MG NEB (SCH) NEB ×3 (08:20→15:11)
[2017-05-04] MEDS: DOXAZOSIN MESYLATE 2 MG TAB PO SCH (08:49)
[2017-05-04] MEDS: guaiFENesin E.R. 600 MG TAB PO SCH ×2 (08:49→19:41)
[2017-05-04] MEDS: PANTOPRAZOLE SOD 40 MG DELAYED RELEASE TAB PO SCH ×2 (08:49→19:42)
[2017-05-04] MEDS: FLUoxetine HCL 20 MG CAP PO SCH (08:50)
[2017-05-04] MEDS: AZITHROMYCIN 250 MG TAB PO SCH (08:50)
[2017-05-04] MEDS: predniSONE 10 MG TAB PO SCH ×2 (08:50→19:41)
[2017-05-04] MEDS: FUROSEMIDE 40 MG/4 ML VIAL IV PUSH SCH ×2 (08:50→19:41)
[2017-05-04] MEDS: DOCUSATE SODIUM 50 MG/SENNA 8.6 MG TAB PO SCH (08:50)
[2017-05-04] MEDS: hydrALAZINE HCL 50 MG TAB PO SCH ×2 (08:50→19:41)
[2017-05-04] MEDS: GABAPENTIN 400 MG CAP PO SCH ×2 (08:50→19:42)
[2017-05-04] MEDS: BUDESONIDE-FORMOTEROL 160/4.5 MCG INHALER INH SCH ×2 (08:51→19:47)
[2017-05-04] MEDS: SODIUM CHLORIDE 0.9% FLUSH 10 ML FLUSH IV FLUSH SCH ×2 (08:51→19:40)
[2017-05-04] MEDS: POLYETHYLENE GLYCOL 17 GM PKG PO SCH (08:54)
--- NOTE | 2017-05-04 10:55 | HHI.NPPN ---
Subjective General Problems: Anemia, Edema, Heart Disease Renal Failure: Chronic, Acute, Stage III Interval History AM labs not available. Her edema has increased. She is non oliguric. (Camila Cline) Review of Systems General Constitutional: Fatigue (Camila Cline) Respiratory Lungs: SOB (Camila Cline) Cardiovascular Cardiac: Palpitations, Edema (Camila Cline) Objective Data Data Vital Signs Date Time Temp Pulse Resp B/P (MAP) Pulse Ox O2 Delivery O2 Flow Rate FiO2 05/04/17 10:32 82 05/04/17 09:44 98.0 78 20 144/78 (100) 05/04/17 09:44 76 05/04/17 08:06 78 05/04/17 06:00 67 05/04/17 05:00 72 05/04/17 04:00 66 05/04/17 04:00 97.4 66 18 148/65 (92) 94 05/04/17 03:00 62 05/04/17 02:00 64 05/04/17 01:00 66 05/04/17 00:00 97.7 70 18 160/60 (93) 95 05/04/17 00:00 71 05/03/17 23:00 64 05/03/17 22:00 62 05/03/17 21:00 68 05/03/17 20:00 97.5 69 18 148/55 (86) 98 05/03/17 20:00 69 05/03/17 18:14 73 05/03/17 17:32 71 05/03/17 16:21 74 05/03/17 15:38 96 21 05/03/17 15:14 97.9 66 16 155/62 (93) 96 05/03/17 15:00 67 05/03/17 14:00 68 05/03/17 13:00 68 05/03/17 12:00 66 05/03/17 11:05 97.9 69 16 143/63 (89) 98 05/03/17 11:00 66 (Camila Cline) -: 05/02/17 0832 05/03/17 0439 Physical Exam General Appearance: Well Developed, No Acute Distress, Comfortable, Malnourished (Camila Cline INTAKE MAN) Throat Throat Exam: Oral Mucosa [place] & Moist (Camila Cline INTAKE MAN) Neck Neck Exam: Neck Supple (Camila Cline) Pulmonary Resp Exam: Breath Sounds Equal, No Distress, Crackles, Decreased Bases (Camila Cline INTAKE MAN) Cardiology CV Exam: Regular, Normal Sinus Rhythm, Good Perfusion (Camila ClineP) Gastrointestinal/Abdomen GI Exam: Soft, Non-Tender, Bowel Sounds Present (Camila Cline INTAKE MAN) Musculoskeletal MS Exam: Normal Gait, Normal Tone (Camila Cline INTAKE MAN) Integumentary Skin Exam: Warm, Dry Skin Remarks scattered lower extremity abrasions (Camila Cline) Extremeties Extremities Exam: Pedal Pulses Palpable, Moderate Edema, Pitting Edema, Dependent Edema (Camila Cline INTAKE MAN) Neurologic Neuro Exam: Alert, Awake, Oriented, Speech Clear, Moving All Extremities (Camila Cline) Psychiatric Psych Exam: Appropriate Responses (Camila Cline) Assessment/Plan Discussed Condition With: Patient Assessment Summary: MILI/Acute Renal Failure, Anemia of CKD, Fluid/Volume Overload, Proteinuria, CHF, Hypertension, Diabetes Mellitus, CKD Stage III Problem List: (1) MILI (acute kidney injury) ICD Codes: N17.9 - Acute kidney injury Status: Acute Plan: She has underlying CKD 3, baseline GFR 30, creatinine 1.61 Suspected underlying diabetic nephropathy as she does have proteinuria. SPEP in 2015 showed hyper gamma globulinemia with no abnormal bands. MILI may be due to CHF exacerbation and increased renal vein pressure. Renal function is improving. Non oliguric, currently on Lasix. Increase to 40 mg BID IV due to increased edema. Quantify proteinuria. It was reordered today. Unclear why not previously sent. Avoid nephrotoxic agents, renally dose when appropriate Low protein diet encouraged. Repeat labs in AM. (2) Hyponatremia ICD Codes: E87.1 - Hypo-osmolality and hyponatremia Plan: Continue Lasix. Avoid NaCl tabs given hx of CHF. Given a dose of Tolvaptan. Fluid restriction not necessary while on tolvaptan. Repeat sodium level ordered. (3) CHF exacerbation ICD Codes: I50.9 - Heart failure, unspecified Status: Acute Plan: Echo this month shows: LVH Apical hypokinesis Left ventricular function is low normal, EF 50-55% (diastolic dysfunction) follow I/O, fluid status, weight Restriction of Sodium in her diet. (4) Anemia ICD Codes: D64.9 - Anemia Status: Chronic Plan: She has iron deficiency. Received Venofer. On oral ferrous sulfate. May have anemia of chronic disease. Given Epogen Transfuse if necessary. (5) Acute hypoxemic respiratory failure ICD Codes: J96.01 - Acute respiratory failure with hypoxia Status: Resolved Plan: Being treated for CAP On Zithromax, prednisone; Rocephin stopped Refusing BiPap, on oxygen via nasal canula Recent saturation 98% oh 2L NC Former smoker, cessation discussed (6) Community acquired pneumonia ICD Codes: J18.9 - Pneumonia, unspecified organism Status: Acute Plan: See above Continue supportive care On nebulizers, inhalers, oxygen . (Camila Cline) Plan patient was seen and examined. Agree with above assessment and plan. Labs from today are pending. (Abebe Patten MD) Problem Qualifiers (1) CHF exacerbation: Qualified Codes: I50.9 - Heart failure, unspecified (2) Anemia: Qualified Codes: D64.9 - Anemia, unspecified (3) Community acquired pneumonia: Qualified Codes: J18.9 - Pneumonia, unspecified organism Camila Cline May 04, 2017 10:55 Abebe Patten MD May 04, 2017 13:55
[2017-05-04] MEDS: FERROUS SULFATE 325 MG (65 MG ELEMENTAL IRON) TAB PO SCH (11:00)
--- NOTE | 2017-05-04 11:48 | HHI.PR ---
Subjective Remarks Follow-up CHF exacerbation/community acquired pneumonia/acute renal failure/ respiratory failure/anemia 04/28/17-patient seen and examined, reports some improvement or shortness of breath, and denies any chest pain and still with some bilateral lower extremity edema. Creatinine trending up 04/29/17-patient seen and examined, reports some slight shortness of breath and continues to complain of bilateral lower extremity edema. Denies any chest pain 04/30/17-patient seen and examined, still complains of some shortness of breath + BLE edema 05/01/17-patient seen and examined, reports significant improvement or shortness of breath as well as lower extremity edema. Renal indices trending up and BP up 05/02/17-patient seen and examined, states she is breathing better. No chest pain. Lower Extremities edema improving. 05/03/17-patient seen and examined, states she got sick last night however much improved this morning she complained of mild dyspnea but denies any chest pain.improving to 2.25. Sodium 124 05/04/17-patient seen and examined, worsening bilateral lower extremity edema swelling, however patient denies any significant shortness of breath. Objective Vitals Vital Signs Date Time Temp Pulse Resp B/P (MAP) Pulse Ox O2 Delivery O2 Flow Rate FiO2 05/04/17 11:30 97.2 78 18 140/70 (93) 05/04/17 11:02 84 05/04/17 10:32 82 05/04/17 09:44 98.0 78 20 144/78 (100) 05/04/17 09:44 76 05/04/17 08:06 78 05/04/17 06:00 67 05/04/17 05:00 72 05/04/17 04:00 66 05/04/17 04:00 97.4 66 18 148/65 (92) 94 05/04/17 03:00 62 05/04/17 02:00 64 05/04/17 01:00 66 05/04/17 00:00 97.7 70 18 160/60 (93) 95 05/04/17 00:00 71 05/03/17 23:00 64 05/03/17 22:00 62 05/03/17 21:00 68 05/03/17 20:00 97.5 69 18 148/55 (86) 98 05/03/17 20:00 69 05/03/17 18:14 73 05/03/17 17:32 71 05/03/17 16:21 74 05/03/17 15:38 96 21 05/03/17 15:14 97.9 66 16 155/62 (93) 96 05/03/17 15:00 67 05/03/17 14:00 68 05/03/17 13:00 68 05/03/17 12:00 66 I/O 05/03/17 05/03/17 05/03/17 05/04/17 05/04/17 05/04/17 07:00 15:00 23:00 07:00 15:00 23:00 Intake Total 480 ml 720 ml 480 ml Output Total 1500 ml 1400 ml 1550 ml Balance -1020 ml -680 ml -1070 ml Intake Oral 480 ml 720 ml 480 ml Output Urine Total 1500 ml 1400 ml 1550 ml # Bowel Movements 0 0 Result Diagram: 05/02/17 0832 05/03/17 0439 Objective Remarks GENERAL: NAD SKIN: Warm and dry. HEAD: Normocephalic. EYES: No scleral icterus. No injection or drainage. NECK: Supple, trachea midline. No JVD or lymphadenopathy. CARDIOVASCULAR: Regular rate and rhythm without murmurs, gallops, or rubs. RESPIRATORY: Breath sounds equal bilaterally. No accessory muscle use. GASTROINTESTINAL: Abdomen soft, non-tender, nondistended. MUSCULOSKELETAL: No cyanosis; +1 BLE edema. BACK: Nontender without obvious deformity. No CVA tenderness. A/P Problem List: (1) Acute hypoxemic respiratory failure ICD Code: J96.01 - Acute respiratory failure with hypoxia Status: Resolved (2) CHF exacerbation ICD Code: I50.9 - Heart failure, unspecified Status: Acute (3) Community acquired pneumonia ICD Code: J18.9 - Pneumonia, unspecified organism Status: Acute (4) COPD exacerbation ICD Code: J44.1 - Obstructive chronic bronchitis with exacerbation Status: Resolved (5) MILI (acute kidney injury) ICD Code: N17.9 - Acute kidney injury Status: Acute (6) Anemia ICD Code: D64.9 - Anemia Status: Chronic (7) Elevated troponin ICD Code: R74.8 - Abnormal levels of other serum enzymes Status: Acute (8) HTN (hypertension) ICD Code: I10 - Hypertension Status: Chronic (9) DM (diabetes mellitus screen) ICD Code: Z13.1 - Screening for diabetes mellitus Status: Chronic (10) Epistaxis ICD Code: R04.0 - Epistaxis Status: Resolved (11) Headache ICD Code: R51 - Headache Status: Resolved (12) Pleural effusion, left ICD Code: J90 - Pleural effusion, not elsewhere classified Status: Acute Assessment and Plan 76-year-old female with Acute hypoxemic respiratory failure-resolved Community-acquired pneumonia s/p IV Rocephin and azithromycin. Continue with prednisone 10 mg twice a day, long-acting beta agonist as well as short-acting. Maintain oxygen saturation above 92% CHF exacerbation 2-D echocardiogram shows the ventricular diastolic function that is low normal with an estimated ejection fraction the range of 50-55%. Appreciate input from cardiology Increase IV Lasix 40mg to BID 05/04/17. Community acquired pneumonia Completed IV broad-spectrum antibiotics including azithromycin and Rocephin Blood cultures NTD COPD exacerbation-resolved Continue prednisone 10 mg twice a day, breathing therapy, antibiotics, maintain oxygen saturation above 92% Taper redness on MILI (acute kidney injury)-stage IV Appreciate input from nephrology, continue to monitor BUN and creatinine and avoid all nephrotoxic drugs Renal indices improving with creatinine down to 2.25 Anemia status post EGD for/colonoscopy which showed Schatzki ring found in the lower third of the esophagus. Erythematous gastritis, duodenal inflammation, hiatal hernia. continue PPI, colonoscopy as an outpatient. Elevated troponin Elevated troponin likely secondary to acute kidney injury. Appreciate input from cardiology HTN (hypertension) Continue hydralazine 50 mg twice a day Continue clonidine 0.2 mg by mouth twice a day and Cardura 2 mg by mouth daily. DM (diabetes mellitus screen) Continue SSI with insulin NovoLog and Accu-Cheks. Epistaxis Resolved Headache Resolved. Continue pain control as above. Hyponatremia Given a dose of Tolvaptan Per nephrology, avoid salt tablets secondary to CHF Consult PT DVT prophylaxis: SCDs, No chemoprophylaxis given h/o epistaxis. Problem Qualifiers (1) CHF exacerbation: Qualified Codes: I50.9 - Heart failure, unspecified (2) Community acquired pneumonia: Qualified Codes: J18.9 - Pneumonia, unspecified organism (3) Anemia: Qualified Codes: D64.9 - Anemia, unspecified (4) HTN (hypertension): Qualified Codes: I10 - Essential (primary) hypertension (5) Headache: Qualified Codes: R51 - Headache Fernando Trotter MD May 04, 2017 11:48
--- NOTE | 2017-05-04 13:57 | PD.CARD.PN ---
Subjective Subjective Remarks No CP, less SOB, feels better Objective Medications Current Medications Medications (Trade) Dose Ordered Sig/Rosemarie Route Start Time Stop Time Status Last Admin (Nitrostat Sl) 0.4 mg Q5M PRN SL 04/23/17 05:15 (Duoneb Neb) 1 ampule Q2HR NEB PRN NEB 04/23/17 06:30 04/30/17 23:32 (Symbicort 160-4.5 Mcg Inh) 2 puff Q12HR INH 04/23/17 09:00 05/04/17 08:51 (Mucinex Er) 600 mg BID PO 04/23/17 09:00 05/04/17 08:49 (NS Flush) 2 ml UNSCH PRN IV FLUSH 04/23/17 06:30 (NS Flush) 2 ml BID IV FLUSH 04/23/17 09:00 05/04/17 08:51 (Zofran Inj) 4 mg Q6H PRN IVP 04/23/17 06:30 (Tylenol) 650 mg Q6H PRN PO 04/23/17 06:30 (Milk Of Magnesia Liq) 30 ml Q12H PRN PO 04/23/17 06:30 04/29/17 20:53 (Senokot) 17.2 mg Q12H PRN PO 04/23/17 06:30 04/25/17 21:22 (Dulcolax Supp) 10 mg DAILY PRN RECTAL 04/23/17 06:30 (Lactulose Liq) 30 ml DAILY PRN PO 04/23/17 06:30 (Neurontin) 400 mg BID PO 04/23/17 21:00 05/04/17 08:50 (PROzac) 40 mg DAILY PO 04/24/17 09:00 05/04/17 08:50 (Trandate Inj) 10 mg Q6H PRN IV PUSH 04/23/17 20:45 04/25/17 15:48 (D50w (Vial) Inj) 50 ml UNSCH PRN IV PUSH 04/24/17 15:00 (Glucagon Inj) 1 mg UNSCH PRN OTHER 04/24/17 15:00 (NovoLOG SUPPLEMENTAL SCALE) 1 ACHS SLIDING SCALE SQ 04/24/17 17:00 05/04/17 12:37 (Apresoline Inj) 10 mg Q4HR PRN IV PUSH 04/25/17 16:15 05/02/17 23:42 (Percocet 10-325 Mg) 1 tab Q4H PRN PO 04/25/17 18:00 05/04/17 12:38 (Catapres) 0.2 mg Q8HR PO 04/25/17 22:00 05/04/17 12:38 (Protonix) 40 mg Q12HR PO 04/25/17 21:00 05/04/17 08:49 (Cardura) 2 mg DAILY PO 04/27/17 09:00 05/04/17 08:49 (Deltasone) 10 mg BID PO 04/27/17 21:00 05/04/17 08:50 (Cepacol Extra Uli (Sugar Free)) 1 lozenge Q2HR PRN BUCCAL 04/27/17 23:00 (Duoneb Neb) 1 ampule Q4HR WHILE AWAKE NEB NEB 04/30/17 16:00 05/04/17 11:34 (Zithromax) 250 mg DAILY PO 05/01/17 09:00 05/04/17 08:50 (Apresoline) 50 mg Q12HR PO 05/01/17 11:00 05/04/17 08:50 (Nathaly-Colace) 2 tab DAILY PO 05/02/17 09:00 05/04/17 08:50 (Miralax) 17 gm DAILY PO 05/03/17 09:00 05/03/17 08:45 (Ferrous Sulfate) 325 mg DAILY PO 05/04/17 11:00 05/04/17 11:00 (Lasix Inj) 40 mg BID IV PUSH 05/04/17 21:00 Vital Signs / I&O Vital Signs Date Time Temp Pulse Resp B/P (MAP) Pulse Ox O2 Delivery O2 Flow Rate FiO2 05/04/17 13:09 16 05/04/17 11:30 97.2 78 18 140/70 (93) 05/04/17 11:02 84 05/04/17 10:32 82 05/04/17 09:44 98.0 78 20 144/78 (100) 05/04/17 09:44 76 05/04/17 08:06 78 05/04/17 06:00 67 05/04/17 05:00 72 05/04/17 04:00 66 05/04/17 04:00 97.4 66 18 148/65 (92) 94 05/04/17 03:00 62 05/04/17 02:00 64 05/04/17 01:00 66 05/04/17 00:00 97.7 70 18 160/60 (93) 95 05/04/17 00:00 71 05/03/17 23:00 64 05/03/17 22:00 62 05/03/17 21:00 68 05/03/17 20:00 97.5 69 18 148/55 (86) 98 05/03/17 20:00 69 05/03/17 18:14 73 05/03/17 17:32 71 05/03/17 16:21 74 05/03/17 15:38 96 21 05/03/17 15:14 97.9 66 16 155/62 (93) 96 05/03/17 15:00 67 05/03/17 14:00 68 I/O 05/03/17 05/03/17 05/03/17 05/04/17 05/04/17 05/04/17 07:00 15:00 23:00 07:00 15:00 23:00 Intake Total 480 ml 720 ml 480 ml Output Total 1500 ml 1400 ml 1550 ml Balance -1020 ml -680 ml -1070 ml Intake Oral 480 ml 720 ml 480 ml Output Urine Total 1500 ml 1400 ml 1550 ml # Bowel Movements 0 0 Physical Exam GENERAL: In NAD SKIN: Warm and dry. HEAD: Normocephalic. EYES: No scleral icterus. No injection or drainage. NECK: Supple, trachea midline. No JVD or lymphadenopathy. CARDIOVASCULAR: Regular rate and rhythm without murmurs, gallops, or rubs. RESPIRATORY: Breath sounds equal bilaterally. No accessory muscle use. GASTROINTESTINAL: Abdomen soft, non-tender, nondistended. MUSCULOSKELETAL: No cyanosis, 1+ edema. Laboratory Laboratory Tests Test 05/04/17 13:05 Assessment and Plan Problem List: (1) Acute hypoxemic respiratory failure ICD Codes: J96.01 - Acute respiratory failure with hypoxia Status: Resolved (2) CHF exacerbation ICD Codes: I50.9 - Heart failure, unspecified Status: Acute (3) COPD exacerbation ICD Codes: J44.1 - Obstructive chronic bronchitis with exacerbation Status: Resolved (4) Community acquired pneumonia ICD Codes: J18.9 - Pneumonia, unspecified organism Status: Acute (5) MILI (acute kidney injury) ICD Codes: N17.9 - Acute kidney injury Status: Acute (6) Anemia ICD Codes: D64.9 - Anemia Status: Chronic (7) HTN (hypertension) ICD Codes: I10 - Hypertension Status: Chronic (8) DM (diabetes mellitus screen) ICD Codes: Z13.1 - Screening for diabetes mellitus Status: Chronic Assessment and Plan Some improvement. Recommend to continue therapy for CHF including diuresis. Echo with low nl LV syst fx, c/w diastolic dysfx. Also continue tx for COPD exacerbation. Increase activity, PT. Anticipate discharge home soon. Problem Qualifiers (1) CHF exacerbation: Qualified Codes: I50.9 - Heart failure, unspecified (2) Community acquired pneumonia: Qualified Codes: J18.9 - Pneumonia, unspecified organism (3) Anemia: Qualified Codes: D64.9 - Anemia, unspecified (4) HTN (hypertension): Qualified Codes: I10 - Essential (primary) hypertension Yulissa Fitzgerald MD May 04, 2017 13:57
[2017-05-04 14:04] LABS: ALBUMIN 2.7 GM/DL (3.4-5.0); BICARBONATE 26.4 MEQ/L (21.0-32.0); CREATININE 2.32 MG/DL (0.50-1.00); PHOSPHORUS 3.1 MG/DL (2.5-4.9)
[2017-05-05] VITALS (25 sets, daily range): BP systolic 136–184; BP diastolic 60–80; PULSE 60–75; RESP 17–22; TEMP 97.6–98.1; O2SAT 95–98
[2017-05-05] MEDS: oxyCODONE/ACETAMINOPHEN 10 MG/325 MG TAB PO PRN ×6 (00:56→23:18)
[2017-05-05 01:05] LABS: SODIUM,RANDOM URINE 49 MEQ/L
[2017-05-05 01:22] LABS: OSMOLALITY,URINE 246 MOSM/KG (300-1300)
[2017-05-05] MEDS: hydrALAZINE HCL 20 MG/ML VIAL IV PUSH PRN (03:55)
[2017-05-05 04:50] LABS: AUTOMATED NEUTROPHIL # 9.7 TH/MM3 (1.8-7.7); BASOPHIL % 0.2 % (0.0-2.0); EOSINOPHIL % 0.1 % (0.0-4.0); HEMATOCRIT 22.4 % (35.0-46.0); HEMOGLOBIN 7.5 GM/DL (11.6-15.3); LYMPH % 4.3 % (9.0-44.0); LYMPHOCYTE # 0.5 TH/MM3 (1.0-4.8); MEAN CELL VOLUME 92.8 FL (80.0-100.0); MEAN CORPUSCULAR HEMOGLOBIN 31.1 PG (27.0-34.0); MEAN CORPUSCULAR HGB CONC 33.5 % (32.0-36.0); MEAN PLATELET VOLUME 10.3 FL (7.0-11.0); MONO % 5.9 % (0.0-8.0); MONOCYTE # 0.6 TH/MM3 (0-0.9); NEUT % 89.5 % (16.0-70.0); PLATELET COUNT 185 TH/MM3 (150-450); RED BLOOD COUNT 2.41 MIL/MM3 (4.00-5.30); RED CELL DISTRIBUTION WIDTH 15.2 % (11.6-17.2); WHITE BLOOD COUNT 10.8 TH/MM3 (4.0-11.0)
[2017-05-05] MEDS: cloNIDine HCL 0.2 MG TAB PO SCH ×3 (05:00→20:52)
[2017-05-05 05:15] LABS: ALBUMIN 2.5 GM/DL (3.4-5.0); BICARBONATE 25.9 MEQ/L (21.0-32.0); CALCIUM 7.9 MG/DL (8.5-10.1); CREATININE 2.19 MG/DL (0.50-1.00); PHOSPHORUS 3.2 MG/DL (2.5-4.9)
[2017-05-05] MEDS: GABAPENTIN 400 MG CAP PO SCH ×2 (09:00→20:46)
--- NOTE | 2017-05-05 09:00 | HHI.NPPN ---
Subjective General Problems: Anemia, Edema, Heart Disease Renal Failure: Chronic, Acute, Stage III Interval History patient continues to complain of shortness of breath on minimal exertion. Lower extremity edema persists. Hyponatremia persists as well. Review of Systems General Constitutional: Fatigue Respiratory Lungs: SOB Cardiovascular Cardiac: Palpitations, Edema Objective Data Data Vital Signs Date Time Temp Pulse Resp B/P (MAP) Pulse Ox O2 Delivery O2 Flow Rate FiO2 05/05/17 07:11 Room Air 05/05/17 06:00 71 05/05/17 05:00 65 05/05/17 05:00 136/67 (90) 05/05/17 04:00 66 05/05/17 04:00 98.0 66 22 184/80 (114) 95 05/05/17 04:00 Room Air 05/05/17 03:00 70 05/05/17 02:00 68 05/05/17 01:00 65 05/05/17 00:00 97.9 63 20 150/64 (92) 96 05/05/17 00:00 Room Air 05/05/17 00:00 63 05/04/17 23:00 64 05/04/17 22:00 66 05/04/17 21:00 70 05/04/17 20:00 97.2 65 22 141/60 (87) 95 05/04/17 20:00 65 05/04/17 20:00 Room Air 05/04/17 16:44 98.0 74 18 144/78 (100) 96 05/04/17 16:42 74 05/04/17 15:00 70 05/04/17 14:00 70 05/04/17 13:09 16 05/04/17 13:00 78 05/04/17 11:30 97.2 78 18 140/70 (93) 05/04/17 11:02 84 05/04/17 10:32 82 05/04/17 09:44 98.0 78 20 144/78 (100) 05/04/17 09:44 76 -: 05/05/17 0435 05/05/17 043 Physical Exam General Appearance: Well Developed, No Acute Distress, Comfortable, Malnourished Throat Throat Exam: Oral Mucosa [place] & Moist Neck Neck Exam: Neck Supple Pulmonary Resp Exam: Breath Sounds Equal, No Distress, Crackles, Decreased Bases Cardiology CV Exam: Regular, Normal Sinus Rhythm, Good Perfusion Gastrointestinal/Abdomen GI Exam: Soft, Non-Tender, Bowel Sounds Present Musculoskeletal MS Exam: Normal Gait, Normal Tone Integumentary Skin Exam: Warm, Dry Extremeties Extremities Exam: Pedal Pulses Palpable, Moderate Edema, Pitting Edema, Dependent Edema Neurologic Neuro Exam: Alert, Awake, Oriented, Speech Clear, Moving All Extremities Psychiatric Psych Exam: Appropriate Responses Assessment/Plan Discussed Condition With: Patient Assessment Summary: MILI/Acute Renal Failure, Anemia of CKD, Fluid/Volume Overload, Proteinuria, CHF, Hypertension, Diabetes Mellitus, CKD Stage III Problem List: (1) MILI (acute kidney injury) ICD Codes: N17.9 - Acute kidney injury Status: Acute Plan: She has underlying CKD 3, baseline GFR 30, creatinine 1.61 Suspected underlying diabetic nephropathy as she does have proteinuria. SPEP in 2014 showed hyper gamma globulinemia with no abnormal bands. MILI may be due to CHF exacerbation and increased renal vein pressure. Renal function is stable, however fluid overload persists. Non oliguric, currently on Lasix. Increase to 40 mg BID IV due to increased edema. Patient appears to have nephrotic proteinuria. I will repeat serologies, but most likely she has diabetic nephropathy. (2) Hyponatremia ICD Codes: E87.1 - Hypo-osmolality and hyponatremia Plan: Continue Lasix. Avoid NaCl tabs given hx of CHF. Restart Tolvaptan. (3) CHF exacerbation ICD Codes: I50.9 - Heart failure, unspecified Status: Acute Plan: Echo this month shows: LVH Apical hypokinesis Left ventricular function is low normal, EF 50-55% (diastolic dysfunction) follow I/O, fluid status, weight Restriction of Sodium in her diet. Start Spironolactone carefully to achieve additional diuresis. Carefully monitor potassium. (4) Anemia ICD Codes: D64.9 - Anemia Status: Chronic Plan: She has iron deficiency. Received Venofer. On oral ferrous sulfate. May have anemia of chronic disease. Given Epogen Transfuse if necessary. (5) Acute hypoxemic respiratory failure ICD Codes: J96.01 - Acute respiratory failure with hypoxia Status: Resolved Plan: Being treated for CAP On Zithromax, prednisone; Rocephin stopped Refusing BiPap, on oxygen via nasal canula Recent saturation 98% oh 2L NC Former smoker, cessation discussed (6) Community acquired pneumonia ICD Codes: J18.9 - Pneumonia, unspecified organism Status: Acute Plan: See above Continue supportive care On nebulizers, inhalers, oxygen . Problem Qualifiers (1) CHF exacerbation: Qualified Codes: I50.9 - Heart failure, unspecified (2) Anemia: Qualified Codes: D64.9 - Anemia, unspecified (3) Community acquired pneumonia: Qualified Codes: J18.9 - Pneumonia, unspecified organism Abebe Patten MD May 05, 2017 08:59
[2017-05-05] MEDS: POLYETHYLENE GLYCOL 17 GM PKG PO SCH (09:02)
[2017-05-05] MEDS: FERROUS SULFATE 325 MG (65 MG ELEMENTAL IRON) TAB PO SCH (09:04)
[2017-05-05] MEDS: hydrALAZINE HCL 50 MG TAB PO SCH ×2 (09:05→20:43)
[2017-05-05] MEDS: predniSONE 10 MG TAB PO SCH (09:05)
[2017-05-05] MEDS: guaiFENesin E.R. 600 MG TAB PO SCH ×2 (09:05→20:43)
[2017-05-05] MEDS: AZITHROMYCIN 250 MG TAB PO SCH (09:05)
[2017-05-05] MEDS: DOCUSATE SODIUM 50 MG/SENNA 8.6 MG TAB PO SCH (09:05)
[2017-05-05] MEDS: DOXAZOSIN MESYLATE 2 MG TAB PO SCH (09:06)
[2017-05-05] MEDS: FLUoxetine HCL 20 MG CAP PO SCH (09:06)
[2017-05-05] MEDS: PANTOPRAZOLE SOD 40 MG DELAYED RELEASE TAB PO SCH ×2 (09:07→20:43)
[2017-05-05] MEDS: INSULIN ASPART SUPPLEMENTAL SCALE SQ SCH ×4 (09:09→20:50)
[2017-05-05] MEDS: SODIUM CHLORIDE 0.9% FLUSH 10 ML FLUSH IV FLUSH SCH ×2 (09:10→20:45)
[2017-05-05] MEDS: BUDESONIDE-FORMOTEROL 160/4.5 MCG INHALER INH SCH ×2 (09:10→20:46)
[2017-05-05] MEDS: FUROSEMIDE 40 MG/4 ML VIAL IV PUSH SCH ×2 (09:11→20:45)
[2017-05-05] MEDS: SPIRONOLACTONE 25 MG TAB PO SCH (09:15)
[2017-05-05] MEDS: TOLVAPTAN 15 MG TAB PO SCH (09:46)
[2017-05-05 12:57] LABS: COMPLEMENT C3 70 MG/DL (90-180); COMPLEMENT C4 16 MG/DL (10-40)
[2017-05-05] MEDS: predniSONE 50 MG TAB PO SCH (15:46)
--- NOTE | 2017-05-05 16:34 | HHI.PR ---
Subjective Remarks 76F admitted on 04/23/17 for respiratory failure due to CHF Exacerbation with PNA and COPD and ARF. She is up in the chair today with her SCD hose running. She says she feels she is beginning to regain some strength, though she is not yet at her baseline. Objective Vitals Vital Signs Date Time Temp Pulse Resp B/P (MAP) Pulse Ox O2 Delivery O2 Flow Rate FiO2 05/05/17 15:45 17 05/05/17 12:00 98.0 69 17 158/69 (98) 98 05/05/17 08:20 97.6 70 18 137/70 (92) 95 05/05/17 07:11 Room Air 05/05/17 07:00 69 05/05/17 06:00 71 05/05/17 05:00 65 05/05/17 05:00 136/67 (90) 05/05/17 04:00 66 05/05/17 04:00 98.0 66 22 184/80 (114) 95 05/05/17 04:00 Room Air 05/05/17 03:00 70 05/05/17 02:00 68 05/05/17 01:00 65 05/05/17 00:00 97.9 63 20 150/64 (92) 96 05/05/17 00:00 Room Air 05/05/17 00:00 63 05/04/17 23:00 64 05/04/17 22:00 66 05/04/17 21:00 70 05/04/17 20:00 97.2 65 22 141/60 (87) 95 05/04/17 20:00 65 05/04/17 20:00 Room Air 05/04/17 16:44 98.0 74 18 144/78 (100) 96 05/04/17 16:42 74 I/O 05/04/17 05/04/17 05/04/17 05/05/17 05/05/17 05/05/17 07:00 15:00 23:00 07:00 15:00 23:00 Intake Total 480 ml 0 ml 480 ml Output Total 1550 ml 1300 ml Balance -1070 ml 0 ml -820 ml Intake Oral 480 ml 480 ml IV Total 0 ml Output Urine Total 1550 ml 1300 ml # Bowel Movements 0 Result Diagram: 05/05/1743405/05/17434 Objective Remarks GENERAL: Decompensated patient, weakened SKIN: Warm and dry. HEAD: Normocephalic. EYES: No scleral icterus. No injection or drainage. NECK: Supple, trachea midline. No JVD or lymphadenopathy. CARDIOVASCULAR: Regular rate and rhythm without murmurs, gallops, or rubs. RESPIRATORY: Breath sounds equal bilaterally, LLL crackles. No accessory muscle use. GASTROINTESTINAL: Abdomen soft, non-tender, nondistended. MUSCULOSKELETAL: No cyanosis, or edema. BACK: Nontender without obvious deformity. No CVA tenderness. EXTREMITIES: no edema A/P Problem List: (1) Acute hypoxemic respiratory failure ICD Code: J96.01 - Acute respiratory failure with hypoxia Status: Resolved (2) CHF exacerbation ICD Code: I50.9 - Heart failure, unspecified Status: Acute (3) Community acquired pneumonia ICD Code: J18.9 - Pneumonia, unspecified organism Status: Acute (4) COPD exacerbation ICD Code: J44.1 - Obstructive chronic bronchitis with exacerbation Status: Resolved (5) MILI (acute kidney injury) ICD Code: N17.9 - Acute kidney injury Status: Acute (6) Anemia ICD Code: D64.9 - Anemia Status: Chronic (7) Elevated troponin ICD Code: R74.8 - Abnormal levels of other serum enzymes Status: Acute (8) HTN (hypertension) ICD Code: I10 - Hypertension Status: Chronic (9) DM (diabetes mellitus screen) ICD Code: Z13.1 - Screening for diabetes mellitus Status: Chronic (10) Epistaxis ICD Code: R04.0 - Epistaxis Status: Resolved (11) Headache ICD Code: R51 - Headache Status: Resolved (12) Pleural effusion, left ICD Code: J90 - Pleural effusion, not elsewhere classified Status: Acute Assessment and Plan Pneumonia with COPD Exacerbation Still some baseline wheezing with resolving crackles in left lower lobe Bump up steroids from 10mg daily to 50mg daily and reevaluate CHF Exacerbation Diuresis seems complete, main dyspnea may have more to do with COPD and resolving PNA Continue maintenance Lasix. Acute Renal Insufficiency Improving slowly, following trend Anemia Stable around 7.5, consider transfusion Type 2 Diabetes Fair control, watch for steroid effect Hypertension Pattern of sporadic increases Watch trend further DVT Prophylaxis Held for marked anemia Continue SCD hose Problem Qualifiers (1) CHF exacerbation: Qualified Codes: I50.9 - Heart failure, unspecified (2) Community acquired pneumonia: Qualified Codes: J18.9 - Pneumonia, unspecified organism (3) Anemia: Qualified Codes: D64.9 - Anemia, unspecified (4) HTN (hypertension): Qualified Codes: I10 - Essential (primary) hypertension (5) Headache: Qualified Codes: R51 - Headache Amrit Harper MD May 05, 2017 16:34
[2017-05-06] VITALS (29 sets, daily range): BP systolic 143–159; BP diastolic 63–74; PULSE 60–81; RESP 16–20; TEMP 98.1–98.6; O2SAT 94–98
[2017-05-06] MEDS: oxyCODONE/ACETAMINOPHEN 10 MG/325 MG TAB PO PRN ×5 (03:20→22:05)
[2017-05-06] MEDS: cloNIDine HCL 0.2 MG TAB PO SCH ×3 (05:39→22:05)
[2017-05-06 07:08] LABS: ALBUMIN 2.5 GM/DL (3.4-5.0); CALCIUM 8.3 MG/DL (8.5-10.1); CREATININE 2.38 MG/DL (0.50-1.00)
[2017-05-06 07:11] LABS: DIRECT BILIRUBIN ADULT 0.1 MG/DL (0.0-0.2); INDIRECT BILIRUBIN 0.2 MG/DL (0.0-0.8); PHOSPHORUS 3.7 MG/DL (2.5-4.9); TOTAL BILIRUBIN ADULT 0.3 MG/DL (0.2-1.0); TOTAL PROTEIN 5.8 GM/DL (6.4-8.2)
[2017-05-06] MEDS: DOCUSATE SODIUM 50 MG/SENNA 8.6 MG TAB PO SCH (09:00)
[2017-05-06] MEDS: POLYETHYLENE GLYCOL 17 GM PKG PO SCH (09:00)
[2017-05-06] MEDS: INSULIN ASPART SUPPLEMENTAL SCALE SQ SCH ×4 (09:15→22:33)
--- NOTE | 2017-05-06 09:24 | HHI.NPPN ---
Subjective General Problems: Anemia, Edema, Heart Disease Renal Failure: Chronic, Acute, Stage III Interval History patient's renal function is about the same. She reports that her urine output improved, and edema also improved after the changes that were made yesterday in her diuretic regimen. Review of Systems General Constitutional: Fatigue Respiratory Lungs: SOB Cardiovascular Cardiac: Palpitations, Edema Objective Data Data Vital Signs Date Time Temp Pulse Resp B/P (MAP) Pulse Ox O2 Delivery O2 Flow Rate FiO2 05/06/17 09:15 18 05/06/17 07:33 98.6 65 18 148/67 (94) 94 05/06/17 07:32 Room Air 05/06/17 06:00 62 05/06/17 05:00 60 05/06/17 04:00 Room Air 05/06/17 04:00 65 05/06/17 04:00 98.4 65 18 159/74 (102) 98 05/06/17 03:00 69 05/06/17 02:00 71 05/06/17 01:00 69 05/06/17 00:00 98.3 66 20 151/66 (94) 96 05/06/17 00:00 66 05/05/17 23:00 73 05/05/17 22:00 70 05/05/17 21:00 75 05/05/17 20:00 67 05/05/17 20:00 98.0 67 20 158/68 (98) 95 05/05/17 20:00 Room Air 05/05/17 18:00 75 05/05/17 17:00 64 05/05/17 16:19 98.1 63 18 141/60 (87) 97 05/05/17 16:00 60 05/05/17 15:00 69 05/05/17 14:00 66 05/05/17 13:00 62 05/05/17 12:00 68 05/05/17 12:00 98.0 69 17 158/69 (98) 98 05/05/17 11:00 64 05/05/17 10:00 70 -: 05/05/17 0435 05/06/17 0603 Physical Exam General Appearance: Well Developed, No Acute Distress, Comfortable, Malnourished Throat Throat Exam: Oral Mucosa [place] & Moist Neck Neck Exam: Neck Supple Pulmonary Resp Exam: Breath Sounds Equal, No Distress, Crackles, Decreased Bases Cardiology CV Exam: Regular, Normal Sinus Rhythm, Good Perfusion Gastrointestinal/Abdomen GI Exam: Soft, Non-Tender, Bowel Sounds Present Musculoskeletal MS Exam: Normal Gait, Normal Tone Integumentary Skin Exam: Warm, Dry Extremeties Extremities Exam: Pedal Pulses Palpable, Moderate Edema, Pitting Edema, Dependent Edema Neurologic Neuro Exam: Alert, Awake, Oriented, Speech Clear, Moving All Extremities Psychiatric Psych Exam: Appropriate Responses Assessment/Plan Discussed Condition With: Patient Assessment Summary: MILI/Acute Renal Failure, Anemia of CKD, Fluid/Volume Overload, Proteinuria, CHF, Hypertension, Diabetes Mellitus, CKD Stage III Problem List: (1) MILI (acute kidney injury) ICD Codes: N17.9 - Acute kidney injury Status: Acute Plan: She has underlying CKD 3, baseline GFR 30, creatinine 1.61 Suspected underlying diabetic nephropathy as she does have proteinuria. SPEP in 2015 showed hyper gamma globulinemia with no abnormal bands. MILI may be due to CHF exacerbation and increased renal vein pressure. Renal function is stable, however fluid overload persists. Non oliguric, currently on Lasix, Spironolactone and Tolvaptan. Patient appears to have nephrotic proteinuria. I have ordered serologies, but most likely we are dealing with diabetic nephropathy. (2) Hyponatremia ICD Codes: E87.1 - Hypo-osmolality and hyponatremia Plan: Continue Lasix. Avoid NaCl tabs given hx of CHF. Restarted Tolvaptan. (3) CHF exacerbation ICD Codes: I50.9 - Heart failure, unspecified Status: Acute Plan: Echo this month shows: LVH Apical hypokinesis Left ventricular function is low normal, EF 50-55% (diastolic dysfunction) follow I/O, fluid status, weight Restriction of Sodium in her diet. Started Spironolactone carefully to achieve additional diuresis. Carefully monitor potassium. (4) Anemia ICD Codes: D64.9 - Anemia Status: Chronic Plan: She has iron deficiency. Received Venofer. On oral ferrous sulfate. May have anemia of chronic disease. Given Epogen Transfuse if necessary. (5) Acute hypoxemic respiratory failure ICD Codes: J96.01 - Acute respiratory failure with hypoxia Status: Resolved Plan: Being treated for CAP On Zithromax, prednisone; Rocephin stopped Refusing BiPap, on oxygen via nasal canula Recent saturation 98% oh 2L NC Former smoker, cessation discussed (6) Community acquired pneumonia ICD Codes: J18.9 - Pneumonia, unspecified organism Status: Acute Plan: See above Continue supportive care On nebulizers, inhalers, oxygen . Problem Qualifiers (1) CHF exacerbation: Qualified Codes: I50.9 - Heart failure, unspecified (2) Anemia: Qualified Codes: D64.9 - Anemia, unspecified (3) Community acquired pneumonia: Qualified Codes: J18.9 - Pneumonia, unspecified organism Abebe Patten MD May 06, 2017 09:24
[2017-05-06] MEDS: DOXAZOSIN MESYLATE 2 MG TAB PO SCH (09:52)
[2017-05-06] MEDS: FUROSEMIDE 40 MG/4 ML VIAL IV PUSH SCH ×2 (09:52→22:03)
[2017-05-06] MEDS: AZITHROMYCIN 250 MG TAB PO SCH (09:52)
[2017-05-06] MEDS: FERROUS SULFATE 325 MG (65 MG ELEMENTAL IRON) TAB PO SCH (09:52)
[2017-05-06] MEDS: GABAPENTIN 400 MG CAP PO SCH ×2 (09:53→22:05)
[2017-05-06] MEDS: SPIRONOLACTONE 25 MG TAB PO SCH (09:53)
[2017-05-06] MEDS: guaiFENesin E.R. 600 MG TAB PO SCH ×2 (09:53→22:04)
[2017-05-06] MEDS: hydrALAZINE HCL 50 MG TAB PO SCH ×2 (09:53→22:04)
[2017-05-06] MEDS: PANTOPRAZOLE SOD 40 MG DELAYED RELEASE TAB PO SCH ×2 (09:54→22:04)
[2017-05-06] MEDS: TOLVAPTAN 15 MG TAB PO SCH (09:54)
[2017-05-06] MEDS: FLUoxetine HCL 20 MG CAP PO SCH (09:55)
[2017-05-06] MEDS: predniSONE 50 MG TAB PO SCH (09:55)
[2017-05-06] MEDS: SODIUM CHLORIDE 0.9% FLUSH 10 ML FLUSH IV FLUSH SCH ×2 (09:56→22:04)
[2017-05-06] MEDS: BUDESONIDE-FORMOTEROL 160/4.5 MCG INHALER INH SCH ×2 (09:56→21:00)
--- NOTE | 2017-05-06 15:45 | HHI.PR ---
Subjective Remarks Pt is sitting up again in her chair today with SCD hose on. She is in good spirits and complains of hearing difficulty, she has had cerumen impaction in the past. Objective Vitals Vital Signs Date Time Temp Pulse Resp B/P (MAP) Pulse Ox O2 Delivery O2 Flow Rate FiO2 05/06/17 15:27 98.1 81 18 143/71 (95) 95 05/06/17 13:07 18 05/06/17 12:00 68 05/06/17 11:54 98.2 73 18 149/70 (96) 96 05/06/17 11:00 66 05/06/17 10:00 66 05/06/17 09:00 62 05/06/17 08:00 66 05/06/17 07:33 98.6 65 18 148/67 (94) 94 05/06/17 07:32 Room Air 05/06/17 07:00 61 05/06/17 06:00 62 05/06/17 05:00 60 05/06/17 04:00 Room Air 05/06/17 04:00 65 05/06/17 04:00 98.4 65 18 159/74 (102) 98 05/06/17 03:00 69 05/06/17 02:00 71 05/06/17 01:00 69 05/06/17 00:00 98.3 66 20 151/66 (94) 96 05/06/17 00:00 66 05/05/17 23:00 73 05/05/17 22:00 70 05/05/17 21:00 75 05/05/17 20:00 67 05/05/17 20:00 98.0 67 20 158/68 (98) 95 05/05/17 20:00 Room Air 05/05/17 18:00 75 05/05/17 17:00 64 05/05/17 16:19 98.1 63 18 141/60 (87) 97 05/05/17 16:00 60 I/O 05/05/17 05/05/17 05/05/17 05/06/17 05/06/17 05/06/17 07:00 15:00 23:00 07:00 15:00 23:00 Intake Total 480 ml 600 ml 720 ml Output Total 1300 ml 800 ml 1100 ml Balance -820 ml -200 ml -380 ml Intake Oral 480 ml 600 ml 720 ml Output Urine Total 1300 ml 800 ml 1100 ml # Voids 3 # Bowel Movements 0 1 Result Diagram: 05/05/17 0435 05/06/17 0603 Objective Remarks GENERAL: Decompensated patient, weakened ENT: Bilateral cerumen impaction SKIN: Warm and dry. HEAD: Normocephalic. EYES: No scleral icterus. No injection or drainage. NECK: Supple, trachea midline. No JVD or lymphadenopathy. CARDIOVASCULAR: Regular rate and rhythm without murmurs, gallops, or rubs. RESPIRATORY: Breath sounds equal bilaterally, LLL crackles. No accessory muscle use. GASTROINTESTINAL: Abdomen soft, non-tender, nondistended. MUSCULOSKELETAL: No cyanosis, or edema. BACK: Nontender without obvious deformity. No CVA tenderness. EXTREMITIES: no edema A/P Problem List: (1) Acute hypoxemic respiratory failure ICD Code: J96.01 - Acute respiratory failure with hypoxia Status: Resolved (2) CHF exacerbation ICD Code: I50.9 - Heart failure, unspecified Status: Acute (3) Community acquired pneumonia ICD Code: J18.9 - Pneumonia, unspecified organism Status: Acute (4) COPD exacerbation ICD Code: J44.1 - Obstructive chronic bronchitis with exacerbation Status: Resolved (5) MILI (acute kidney injury) ICD Code: N17.9 - Acute kidney injury Status: Acute (6) Anemia ICD Code: D64.9 - Anemia Status: Chronic (7) Elevated troponin ICD Code: R74.8 - Abnormal levels of other serum enzymes Status: Acute (8) HTN (hypertension) ICD Code: I10 - Hypertension Status: Chronic (9) DM (diabetes mellitus screen) ICD Code: Z13.1 - Screening for diabetes mellitus Status: Chronic (10) Epistaxis ICD Code: R04.0 - Epistaxis Status: Resolved (11) Headache ICD Code: R51 - Headache Status: Resolved (12) Pleural effusion, left ICD Code: J90 - Pleural effusion, not elsewhere classified Status: Acute Assessment and Plan Pneumonia with COPD Exacerbation Wheezing has improved following increase in steroid dose. She feels better today, more energy, less cough. CHF Exacerbation COPD and resolving PNA Continue maintenance Lasix. Cerumen Impaction De[place] drops Acute Renal Insufficiency Improving slowly, following trend Anemia Stable around 7.5, consider transfusion if symptomatic Type 2 Diabetes Fair control, watch for steroid effect Hypertension Pattern of sporadic increases Watch trend further DVT Prophylaxis Held for marked anemia Continue SCD hose Problem Qualifiers (1) CHF exacerbation: Qualified Codes: I50.9 - Heart failure, unspecified (2) Community acquired pneumonia: Qualified Codes: J18.9 - Pneumonia, unspecified organism (3) Anemia: Qualified Codes: D64.9 - Anemia, unspecified (4) HTN (hypertension): Qualified Codes: I10 - Essential (primary) hypertension (5) Headache: Qualified Codes: R51 - Headache Amrit Harper MD May 06, 2017 15:45
[2017-05-06] MEDS: CARBAMIDE PEROXIDE 6.5% OTIC SOLN 15 ML BTL EACH EAR SCH (21:00)
[2017-05-07] VITALS (22 sets, daily range): BP systolic 134–176; BP diastolic 49–70; PULSE 73–95; RESP 18–20; TEMP 98–98.2; O2SAT 92–98
[2017-05-07] MEDS: oxyCODONE/ACETAMINOPHEN 10 MG/325 MG TAB PO PRN ×6 (01:49→22:01)
[2017-05-07] MEDS: RESP: ALBUTEROL 2.5 MG/IPRATROPIUM 0.5 MG NEB (PRN) NEB ×2 (04:50→16:34)
[2017-05-07] MEDS: cloNIDine HCL 0.2 MG TAB PO SCH ×3 (05:24→22:01)
[2017-05-07] MEDS: INSULIN ASPART SUPPLEMENTAL SCALE SQ SCH ×4 (08:00→20:37)
[2017-05-07] MEDS: FERROUS SULFATE 325 MG (65 MG ELEMENTAL IRON) TAB PO SCH (08:40)
[2017-05-07] MEDS: FLUoxetine HCL 20 MG CAP PO SCH (08:40)
[2017-05-07] MEDS: guaiFENesin E.R. 600 MG TAB PO SCH ×2 (08:40→20:31)
[2017-05-07] MEDS: SPIRONOLACTONE 25 MG TAB PO SCH (08:40)
[2017-05-07] MEDS: AZITHROMYCIN 250 MG TAB PO SCH (08:40)
[2017-05-07] MEDS: FUROSEMIDE 40 MG/4 ML VIAL IV PUSH SCH ×2 (08:40→20:32)
[2017-05-07] MEDS: PANTOPRAZOLE SOD 40 MG DELAYED RELEASE TAB PO SCH ×2 (08:40→20:30)
[2017-05-07] MEDS: GABAPENTIN 400 MG CAP PO SCH ×2 (08:41→20:31)
[2017-05-07] MEDS: hydrALAZINE HCL 50 MG TAB PO SCH ×2 (08:41→20:31)
[2017-05-07] MEDS: SODIUM CHLORIDE 0.9% FLUSH 10 ML FLUSH IV FLUSH SCH ×2 (08:41→20:33)
[2017-05-07] MEDS: BUDESONIDE-FORMOTEROL 160/4.5 MCG INHALER INH SCH ×2 (08:41→20:33)
[2017-05-07] MEDS: predniSONE 50 MG TAB PO SCH (08:41)
[2017-05-07] MEDS: DOCUSATE SODIUM 50 MG/SENNA 8.6 MG TAB PO SCH (08:41)
[2017-05-07] MEDS: DOXAZOSIN MESYLATE 2 MG TAB PO SCH (08:41)
[2017-05-07] MEDS: CARBAMIDE PEROXIDE 6.5% OTIC SOLN 15 ML BTL EACH EAR SCH ×2 (08:42→22:01)
[2017-05-07] MEDS: POLYETHYLENE GLYCOL 17 GM PKG PO SCH (08:42)
[2017-05-07] MEDS: TOLVAPTAN 15 MG TAB PO SCH (09:00)
--- NOTE | 2017-05-07 10:59 | HHI.NPPN ---
Subjective General Problems: Anemia, Edema, Heart Disease Renal Failure: Chronic, Acute, Stage III Interval History Renal function is worse with diuresis. Notes were reviewed. Review of Systems General Constitutional: Fatigue Respiratory Lungs: SOB Cardiovascular Cardiac: Palpitations, Edema Objective Data Data 05/07/17 05/08/17 19:00 07:00 Intake Total 680 ml Output Total 920 ml Balance -240 ml Intake Oral 680 ml Output Urine Total 920 ml Vital Signs Date Time Temp Pulse Resp B/P (MAP) Pulse Ox O2 Delivery O2 Flow Rate FiO2 05/07/17 08:15 92 Room Air 05/07/17 08:15 98.0 82 18 134/56 (82) 92 05/07/17 04:54 96 05/07/17 04:15 98.2 78 18 149/70 (96) 96 05/07/17 04:00 78 05/07/17 03:00 73 05/07/17 02:00 78 05/07/17 01:00 74 05/07/17 00:00 74 05/06/17 23:30 98.4 71 16 151/71 (97) 95 05/06/17 23:00 73 05/06/17 22:00 80 05/06/17 21:00 74 05/06/17 20:30 98.4 79 16 158/63 (94) 95 05/06/17 20:00 76 05/06/17 20:00 Room Air 05/06/17 19:00 73 05/06/17 18:24 17 05/06/17 18:00 74 05/06/17 17:00 72 05/06/17 16:00 66 05/06/17 15:27 98.1 81 18 143/71 (95) 95 05/06/17 15:00 66 05/06/17 14:00 74 05/06/17 13:00 68 05/06/17 12:00 68 05/06/17 11:54 98.2 73 18 149/70 (96) 96 05/06/17 11:00 66 -: 05/05/17 0435 05/06/17 0603 Physical Exam General Appearance: Well Developed, No Acute Distress, Comfortable, Malnourished Throat Throat Exam: Oral Mucosa [place] & Moist Neck Neck Exam: Neck Supple Pulmonary Resp Exam: Breath Sounds Equal, No Distress, Crackles, Decreased Bases Cardiology CV Exam: Regular, Normal Sinus Rhythm, Good Perfusion Gastrointestinal/Abdomen GI Exam: Soft, Non-Tender, Bowel Sounds Present Musculoskeletal MS Exam: Normal Gait, Normal Tone Integumentary Skin Exam: Warm, Dry Extremeties Extremities Exam: Pedal Pulses Palpable, Moderate Edema, Pitting Edema, Dependent Edema Neurologic Neuro Exam: Alert, Awake, Oriented, Speech Clear, Moving All Extremities Psychiatric Psych Exam: Appropriate Responses Assessment/Plan Discussed Condition With: Patient Assessment Summary: MILI/Acute Renal Failure, Anemia of CKD, Fluid/Volume Overload, Proteinuria, CHF, Hypertension, Diabetes Mellitus, CKD Stage III Problem List: (1) MILI (acute kidney injury) ICD Codes: N17.9 - Acute kidney injury Status: Acute Plan: She has underlying CKD 3, baseline GFR 30, creatinine 1.61 Suspected underlying diabetic nephropathy as she does have proteinuria. SPEP in 2015 showed hyper gamma globulinemia with no abnormal bands. MILI may be due to CHF exacerbation and increased renal vein pressure. Renal function is stable, however fluid overload persists. Non oliguric, currently on Lasix, Spironolactone and Tolvaptan. Patient appears to have nephrotic proteinuria. I have ordered serologies, but most likely we are dealing with diabetic nephropathy. Serologies are pending. (2) Hyponatremia ICD Codes: E87.1 - Hypo-osmolality and hyponatremia Plan: Continue Lasix. Avoid NaCl tabs given hx of CHF. Restarted Tolvaptan. Stable. (3) CHF exacerbation ICD Codes: I50.9 - Heart failure, unspecified Status: Acute Plan: Echo this month shows: LVH Apical hypokinesis Left ventricular function is low normal, EF 50-55% (diastolic dysfunction) follow I/O, fluid status, weight Restriction of Sodium in her diet. Started Spironolactone carefully to achieve additional diuresis. Carefully monitor potassium. (4) Anemia ICD Codes: D64.9 - Anemia Status: Chronic Plan: She has iron deficiency. Received Venofer. On oral ferrous sulfate. May have anemia of chronic disease. Given Epogen Transfuse if necessary. (5) Acute hypoxemic respiratory failure ICD Codes: J96.01 - Acute respiratory failure with hypoxia Status: Resolved Plan: Being treated for CAP On Zithromax, prednisone; Rocephin stopped Refusing BiPap, on oxygen via nasal canula Recent saturation 98% oh 2L NC Former smoker, cessation discussed (6) Community acquired pneumonia ICD Codes: J18.9 - Pneumonia, unspecified organism Status: Acute Plan: See above Continue supportive care On nebulizers, inhalers, oxygen . Problem Qualifiers (1) CHF exacerbation: Qualified Codes: I50.9 - Heart failure, unspecified (2) Anemia: Qualified Codes: D64.9 - Anemia, unspecified (3) Community acquired pneumonia: Qualified Codes: J18.9 - Pneumonia, unspecified organism Abebe Patten MD May 07, 2017 10:59
[2017-05-07] MEDS ORDERED: FUROSEMIDE 40 MG/4 ML VIAL IV PUSH ONE (15:45)
[2017-05-08] VITALS (23 sets, daily range): BP systolic 135–176; BP diastolic 58–75; PULSE 72–93; RESP 18–22; TEMP 98–98.6; O2SAT 92–97
[2017-05-08] MEDS: oxyCODONE/ACETAMINOPHEN 10 MG/325 MG TAB PO PRN ×5 (04:10→23:13)
[2017-05-08] MEDS: cloNIDine HCL 0.2 MG TAB PO SCH ×3 (05:19→20:58)
[2017-05-08 07:02] LABS: HEMATOCRIT 22.4 % (35.0-46.0); HEMOGLOBIN 7.6 GM/DL (11.6-15.3); MEAN CELL VOLUME 93.3 FL (80.0-100.0); MEAN CORPUSCULAR HEMOGLOBIN 31.6 PG (27.0-34.0); MEAN CORPUSCULAR HGB CONC 33.9 % (32.0-36.0); MEAN PLATELET VOLUME 9.9 FL (7.0-11.0); PLATELET COUNT 228 TH/MM3 (150-450); RED CELL DISTRIBUTION WIDTH 15.5 % (11.6-17.2); WHITE BLOOD COUNT 23.1 TH/MM3 (4.0-11.0)
[2017-05-08] MEDS: INSULIN ASPART SUPPLEMENTAL SCALE SQ SCH ×4 (08:00→21:14)
[2017-05-08] MEDS: GABAPENTIN 400 MG CAP PO SCH ×2 (08:12→20:58)
[2017-05-08] MEDS: guaiFENesin E.R. 600 MG TAB PO SCH ×2 (08:12→20:58)
[2017-05-08] MEDS: predniSONE 50 MG TAB PO SCH (08:12)
[2017-05-08] MEDS: hydrALAZINE HCL 50 MG TAB PO SCH ×2 (08:12→21:00)
[2017-05-08] MEDS: TOLVAPTAN 15 MG TAB PO SCH (08:13)
[2017-05-08] MEDS: AZITHROMYCIN 250 MG TAB PO SCH (08:13)
[2017-05-08] MEDS: FERROUS SULFATE 325 MG (65 MG ELEMENTAL IRON) TAB PO SCH (08:13)
[2017-05-08] MEDS: DOCUSATE SODIUM 50 MG/SENNA 8.6 MG TAB PO SCH (08:13)
[2017-05-08] MEDS: DOXAZOSIN MESYLATE 2 MG TAB PO SCH (08:13)
[2017-05-08] MEDS: FLUoxetine HCL 20 MG CAP PO SCH (08:13)
[2017-05-08] MEDS: PANTOPRAZOLE SOD 40 MG DELAYED RELEASE TAB PO SCH ×2 (08:13→20:58)
[2017-05-08] MEDS: POLYETHYLENE GLYCOL 17 GM PKG PO SCH (08:13)
[2017-05-08] MEDS: SPIRONOLACTONE 25 MG TAB PO SCH (08:13)
[2017-05-08] MEDS: SODIUM CHLORIDE 0.9% FLUSH 10 ML FLUSH IV FLUSH SCH ×2 (08:14→20:59)
[2017-05-08] MEDS: FUROSEMIDE 40 MG/4 ML VIAL IV PUSH SCH ×2 (08:14→20:59)
[2017-05-08] MEDS: CARBAMIDE PEROXIDE 6.5% OTIC SOLN 15 ML BTL EACH EAR SCH ×2 (08:15→20:59)
[2017-05-08] MEDS: BUDESONIDE-FORMOTEROL 160/4.5 MCG INHALER INH SCH ×2 (08:15→20:59)
[2017-05-08 09:05] LABS: AUTOMATED NEUTROPHIL # 22.9 TH/MM3 (1.8-7.7); BASOPHIL % 0.1 % (0.0-2.0); EOSINOPHIL % 0.2 % (0.0-4.0); HEMATOCRIT 24.4 % (35.0-46.0); HEMOGLOBIN 8.1 GM/DL (11.6-15.3); LYMPH % 4.1 % (9.0-44.0); LYMPHOCYTE # 1.1 TH/MM3 (1.0-4.8); MEAN CELL VOLUME 94.8 FL (80.0-100.0); MEAN CORPUSCULAR HEMOGLOBIN 31.4 PG (27.0-34.0); MEAN CORPUSCULAR HGB CONC 33.1 % (32.0-36.0); MEAN PLATELET VOLUME 9.7 FL (7.0-11.0); MONO % 6.1 % (0.0-8.0); MONOCYTE # 1.6 TH/MM3 (0-0.9); NEUT % 89.5 % (16.0-70.0); PLATELET COUNT 238 TH/MM3 (150-450); RED BLOOD COUNT 2.57 MIL/MM3 (4.00-5.30); RED CELL DISTRIBUTION WIDTH 15.8 % (11.6-17.2); WHITE BLOOD COUNT 25.5 TH/MM3 (4.0-11.0)
[2017-05-08 09:36] LABS: BICARBONATE 26.4 MEQ/L (21.0-32.0); CALCIUM 8.3 MG/DL (8.5-10.1); CREATININE 2.56 MG/DL (0.50-1.00)
[2017-05-08] MEDS ORDERED: FUROSEMIDE 40 MG/4 ML VIAL IV PUSH ONE (10:00)
--- NOTE | 2017-05-08 10:56 | HHI.NPPN ---
Subjective General Problems: Anemia, Edema, Heart Disease Renal Failure: Chronic, Acute, Stage III Interval History Sitting up in a chair. Edema persists. She is reporting shortness of breath. Renal function is worse. (Camila Cline) Review of Systems General Constitutional: Fatigue (Camila Cline) Respiratory Lungs: SOB (Camila lCine) Cardiovascular Cardiac: Palpitations, Edema (Camila Cline) Objective Data Data Vital Signs Date Time Temp Pulse Resp B/P (MAP) Pulse Ox O2 Delivery O2 Flow Rate FiO2 05/08/17 07:01 72 05/08/17 04:00 98.2 91 20 176/75 (108) 96 05/08/17 04:00 91 05/08/17 00:00 72 05/08/17 00:00 Nasal Cannula 2.00 05/08/17 00:00 98.0 75 20 151/73 (99) 93 05/07/17 20:00 98.2 95 20 176/65 (102) 98 05/07/17 20:00 98 Room Air 05/07/17 20:00 83 05/07/17 18:00 80 05/07/17 17:00 74 05/07/17 16:01 76 05/07/17 15:15 98.1 85 18 135/50 (78) 93 05/07/17 15:00 79 05/07/17 14:00 82 05/07/17 13:01 80 05/07/17 12:00 82 05/07/17 11:15 98.1 83 18 146/49 (81) 94 05/07/17 11:00 80 (Camila Cline) -: 05/08/17 0844 05/08/17 0844 Imaging Last Impressions Head CT 04/25/17 0000 Signed Impressions: Service Date/Time: Tuesday, April 25, 2017 22:28 - CONCLUSION: 1. Negative noncontrast CT brain. Leo Gonzales MD Chest X-Ray 04/25/17 0000 Signed Impressions: Service Date/Time: Tuesday, April 25, 2017 21:41 - CONCLUSION: Cardiomegaly with increased interstitial markings and mild bilateral effusions likely related to CHF. This appears worse when compared to the prior exam. Rasta Vieira MD Renal Ultrasound 04/24/17 0000 Signed Impressions: Service Date/Time: Monday, April 24, 2017 23:08 - CONCLUSION: 1. Echogenic kidneys likely secondary to medical renal disease. 2. Minimal ascites. 3. Left pleural effusion. Rasta Vieira MD (Camila Cline) Physical Exam General Appearance: Well Developed, No Acute Distress, Comfortable, Anxious, Malnourished (Camila Cline [employer]) Throat Throat Exam: Oral Mucosa [place] & Moist (Camila Cline [employer]) Neck Neck Exam: Neck Supple (Camila Cline [employer]) Pulmonary Resp Exam: Breath Sounds Equal, No Distress, Crackles, Sputum, Decreased Bases (Camila Cline. [employer]) Cardiology CV Exam: Regular, Normal Sinus Rhythm, Good Perfusion (Camila Cline [place] [employer]) Gastrointestinal/Abdomen GI Exam: Soft, Non-Tender, Bowel Sounds Present (Camila ClineP) Musculoskeletal MS Exam: Normal Gait, Normal Tone (Camila Cline [employer]) Integumentary Skin Exam: Warm, Dry Skin Remarks scattered lower extremity abrasions (Camila Cline [employer]) Extremeties Extremities Exam: Pedal Pulses Palpable, Moderate Edema, Pitting Edema, Dependent Edema (Camila Cline B. [employer]) Neurologic Neuro Exam: Alert, Awake, Oriented, Speech Clear, Moving All Extremities (Camila Cline [employer]) Psychiatric Psych Exam: Appropriate Responses (Camila Cline) Assessment/Plan Discussed Condition With: Patient Assessment Summary: MILI/Acute Renal Failure, Anemia of CKD, Fluid/Volume Overload, Proteinuria, CHF, Hypertension, Diabetes Mellitus, CKD Stage III Problem List: (1) MILI (acute kidney injury) ICD Codes: N17.9 - Acute kidney injury Status: Acute Plan: She has underlying CKD 3, baseline GFR 30, creatinine 1.61 Suspected underlying diabetic nephropathy as she does have proteinuria. SPEP in 2015 showed hyper gamma globulinemia with no abnormal bands. Repeat serologies have been ordered. MILI may be due to CHF exacerbation and increased renal vein pressure. Renal function is worse; in addition fluid overload persists. Non oliguric, currently on Lasix, Spironolactone and Tolvaptan. She may require dialysis in the next day if symptoms persist and her renal function declines. D/W patient. Repeat labs in AM. Avoid nephrotoxic agents. (2) Hyponatremia ICD Codes: E87.1 - Hypo-osmolality and hyponatremia Plan: Continue Lasix. Avoid NaCl tabs given hx of CHF. Restarted Tolvaptan. Stable. (3) CHF exacerbation ICD Codes: I50.9 - Heart failure, unspecified Status: Acute Plan: Echo this month shows: LVH Apical hypokinesis Left ventricular function is low normal, EF 50-55% (diastolic dysfunction) follow I/O, fluid status, weight Restriction of Sodium in her diet. Started Spironolactone carefully to achieve additional diuresis. Carefully monitor potassium. She may require dialysis for fluid removal. (4) Anemia ICD Codes: D64.9 - Anemia Status: Chronic Plan: She has iron deficiency. Received Venofer. On oral ferrous sulfate. May have anemia of chronic disease. Given Epogen Transfuse if necessary. (5) Acute hypoxemic respiratory failure ICD Codes: J96.01 - Acute respiratory failure with hypoxia Status: Resolved Plan: Being treated for CAP On Zithromax, prednisone; Rocephin stopped Refusing BiPap, on oxygen via nasal canula Recent saturation 98% oh 2L NC Former smoker, cessation discussed (6) Community acquired pneumonia ICD Codes: J18.9 - Pneumonia, unspecified organism Status: Acute Plan: See above Continue supportive care On nebulizers, inhalers, oxygen . WBC increasing. (Camila Cline) Plan patient was seen and examined. Renal function is worsening. Hepatitis C positivity is noted. 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 Obtain Cryoglobulin and RF. C3 is low but no C4. Patient may need dialysis. (Abebe Patten MD) Problem Qualifiers (1) CHF exacerbation: Qualified Codes: I50.9 - Heart failure, unspecified (2) Anemia: Qualified Codes: D64.9 - Anemia, unspecified (3) Community acquired pneumonia: Qualified Codes: J18.9 - Pneumonia, unspecified organism Camila Cline May 08, 2017 10:56 Abebe Patten MD May 08, 2017 20:56
--- NOTE | 2017-05-08 12:01 | RADRPT ---
EXAM DATE/TIME: 05/08/2017 10:24 [facility] COMPARISON: CHEST PA & LAT, April 25, 2017, 21:41. INDICATIONS : Dyspnea. MEDICAL HISTORY : Congestive heart failure. Diabetes mellitus type II. Hypertension. [place] SURGICAL HISTORY : Fusion, cervical. Fusion, lumbar. Appendectomy. CABG Cholecystectomy ENCOUNTER: Subsequent ACUITY: 2 weeks PAIN SCORE: 0/10 LOCATION: Bilateral chest FINDINGS: The cardiac silhouette is normal in transverse diameter. Median sternotomy wires are present. There a re findings of congestive heart failure with interstitial and alveolar opacity bilaterally. This is n ew when compared with the prior exam. A small left sided effusion is present. CONCLUSION: Cardiomegaly and findings of congestive heart failure. Konstantin Rojas MD on May 08, 2017 at 11:58 Board Certified Radiologist. This report was verified electronically.
[2017-05-08] MEDS: RESP: ALBUTEROL 2.5 MG/IPRATROPIUM 0.5 MG NEB (PRN) NEB (12:26)
[2017-05-08] MEDS ORDERED: methylPREDNISolone SOD SUCC 125 MG/2 ML VIAL IM SCH (13:00)
[2017-05-08 14:24] LABS: HEPATITIS B SURFACE ANTIGEN NEGATIVE (NEGATIVE); HEPATITIS C AB IgG REACTIVE (NEGATIVE)
[2017-05-08] MEDS: RESP: ALBUTEROL 2.5 MG/IPRATROPIUM 0.5 MG NEB (SCH) NEB ×2 (16:16→19:48)
--- NOTE | 2017-05-08 18:56 | HHI.PR ---
Subjective Remarks Worsening dyspnea today, lungs sound wet, breathing is labored, oxygen dependant. She was off oxygen and breathing easy yesterday. Objective Vitals Vital Signs Date Time Temp Pulse Resp B/P (MAP) Pulse Ox O2 Delivery O2 Flow Rate FiO2 05/08/17 18:01 84 05/08/17 17:01 88 05/08/17 16:17 97 Nasal Cannula 3.00 05/08/17 16:00 76 05/08/17 15:15 97 Nasal Cannula 3.00 05/08/17 15:15 98.6 78 18 135/59 (84) 97 05/08/17 15:00 84 05/08/17 14:00 78 05/08/17 13:00 80 05/08/17 12:27 95 Nasal Cannula 5.00 05/08/17 12:01 98.5 78 22 156/70 (98) 92 05/08/17 12:00 76 05/08/17 11:00 75 05/08/17 10:00 78 05/08/17 09:00 84 05/08/17 08:15 98.4 75 22 143/58 (86) 96 05/08/17 08:15 96 Nasal Cannula 05/08/17 08:00 72 05/08/17 07:01 72 05/08/17 04:00 98.2 91 20 176/75 (108) 96 05/08/17 04:00 91 05/08/17 00:00 72 05/08/17 00:00 Nasal Cannula 2.00 05/08/17 00:00 98.0 75 20 151/73 (99) 93 05/07/17 20:00 98.2 95 20 176/65 (102) 98 05/07/17 20:00 98 Room Air 05/07/17 20:00 83 I/O 05/07/17 05/07/17 05/07/17 05/08/17 05/08/17 05/08/17 07:00 15:00 23:00 07:00 15:00 23:00 Intake Total 680 ml 870 ml 1000 ml 1340 ml Output Total 920 ml 1100 ml 1300 ml 1650 ml Balance -240 ml -230 ml -300 ml -310 ml Intake Oral 680 ml 870 ml 1000 ml 1340 ml Output Urine Total 920 ml 1100 ml 1300 ml 1650 ml # Voids 5 5 # Bowel Movements 0 2 1 Result Diagram: 05/08/1744 05/08/1744 Objective Remarks GENERAL: Decompensated patient, weakened, worsened SOB today ENT: Bilateral cerumen impaction SKIN: Warm and dry. HEAD: Normocephalic. EYES: No scleral icterus. No injection or drainage. NECK: Supple, trachea midline. No JVD or lymphadenopathy. CARDIOVASCULAR: Regular rate and rhythm without murmurs, gallops, or rubs. RESPIRATORY: Rales and coarse breath sounds throughout. No accessory muscle use. GASTROINTESTINAL: Abdomen soft, non-tender, nondistended. MUSCULOSKELETAL: No cyanosis, or edema. BACK: Nontender without obvious deformity. No CVA tenderness. EXTREMITIES: no edema A/P Problem List: (1) Acute hypoxemic respiratory failure ICD Code: J96.01 - Acute respiratory failure with hypoxia Status: Resolved (2) CHF exacerbation ICD Code: I50.9 - Heart failure, unspecified Status: Acute (3) Community acquired pneumonia ICD Code: J18.9 - Pneumonia, unspecified organism Status: Acute (4) COPD exacerbation ICD Code: J44.1 - Obstructive chronic bronchitis with exacerbation Status: Resolved (5) MILI (acute kidney injury) ICD Code: N17.9 - Acute kidney injury Status: Acute (6) Anemia ICD Code: D64.9 - Anemia Status: Chronic (7) Elevated troponin ICD Code: R74.8 - Abnormal levels of other serum enzymes Status: Acute (8) HTN (hypertension) ICD Code: I10 - Hypertension Status: Chronic (9) DM (diabetes mellitus screen) ICD Code: Z13.1 - Screening for diabetes mellitus Status: Chronic (10) Epistaxis ICD Code: R04.0 - Epistaxis Status: Resolved (11) Headache ICD Code: R51 - Headache Status: Resolved (12) Pleural effusion, left ICD Code: J90 - Pleural effusion, not elsewhere classified Status: Acute Assessment and Plan Pneumonia with COPD Exacerbation Marked worsening today Solu-medrol, scheduled nebs, extra dose of lasix Will check a D-Dimer CHF Exacerbation COPD and resolving PNA Continue maintenance Lasix. Cerumen Impaction Debrox drops Acute Renal Insufficiency Improving slowly, following trend Anemia Stable around 7.5, consider transfusion if symptomatic Type 2 Diabetes Fair control, watch for steroid effect Hypertension Pattern of sporadic increases Watch trend further DVT Prophylaxis Held for marked anemia Continue SCD hose Problem Qualifiers (1) CHF exacerbation: Qualified Codes: I50.9 - Heart failure, unspecified (2) Community acquired pneumonia: Qualified Codes: J18.9 - Pneumonia, unspecified organism (3) Anemia: Qualified Codes: D64.9 - Anemia, unspecified (4) HTN (hypertension): Qualified Codes: I10 - Essential (primary) hypertension (5) Headache: Qualified Codes: R51 - Headache Amrit Harper MD May 08, 2017 18:56
[2017-05-08 21:02] LABS: AUTOMATED NEUTROPHIL # 26.2 TH/MM3 (1.8-7.7); BASOPHIL # 0.1 TH/MM3 (0-0.2); BASOPHIL % 0.2 % (0.0-2.0); HEMATOCRIT 23.8 % (35.0-46.0); HEMOGLOBIN 7.9 GM/DL (11.6-15.3); LYMPH % 0.5 % (9.0-44.0); LYMPHOCYTE # 0.1 TH/MM3 (1.0-4.8); MEAN CELL VOLUME 93.5 FL (80.0-100.0); MEAN CORPUSCULAR HEMOGLOBIN 30.9 PG (27.0-34.0); MEAN CORPUSCULAR HGB CONC 33.1 % (32.0-36.0); MONO % 1.4 % (0.0-8.0); MONOCYTE # 0.4 TH/MM3 (0-0.9); NEUT % 97.9 % (16.0-70.0); PLATELET COUNT 230 TH/MM3 (150-450); RED BLOOD COUNT 2.55 MIL/MM3 (4.00-5.30); RED CELL DISTRIBUTION WIDTH 15.6 % (11.6-17.2); WHITE BLOOD COUNT 26.8 TH/MM3 (4.0-11.0)
[2017-05-08 21:26] LABS: BICARBONATE 28.2 MEQ/L (21.0-32.0); CALCIUM 8.3 MG/DL (8.5-10.1); CREATININE 2.78 MG/DL (0.50-1.00)
[2017-05-08 22:28] LABS: ALB/GLOB RATIO (SPE) 1.26 (1.39-2.23)
[2017-05-08 23:11] LABS: RHEUMATOID FACTOR SCREEN POSITIVE (NEGATIVE)
[2017-05-09] VITALS (23 sets, daily range): BP systolic 132–166; BP diastolic 60–83; PULSE 77–106; RESP 18; TEMP 97–98.8; O2SAT 93–100
[2017-05-09] MEDS: cloNIDine HCL 0.2 MG TAB PO SCH ×3 (04:52→20:49)
[2017-05-09] MEDS: oxyCODONE/ACETAMINOPHEN 10 MG/325 MG TAB PO PRN ×5 (04:53→22:03)
[2017-05-09 07:39] LABS: ALBUMIN 2.3 GM/DL (3.4-5.0); BICARBONATE 28.8 MEQ/L (21.0-32.0); CALCIUM 8.6 MG/DL (8.5-10.1); CREATININE 2.62 MG/DL (0.50-1.00); PHOSPHORUS 3.3 MG/DL (2.5-4.9)
[2017-05-09] MEDS: RESP: ALBUTEROL 2.5 MG/IPRATROPIUM 0.5 MG NEB (SCH) NEB ×4 (08:45→19:41)
[2017-05-09] MEDS: TOLVAPTAN 15 MG TAB PO SCH (09:00)
[2017-05-09] MEDS: POLYETHYLENE GLYCOL 17 GM PKG PO SCH (09:00)
[2017-05-09] MEDS ORDERED: ONDANSETRON HCL 4 MG/2 ML VIAL IV PUSH PRN (09:30)
[2017-05-09] MEDS: GABAPENTIN 400 MG CAP PO SCH ×2 (10:00→20:50)
[2017-05-09] MEDS: SODIUM CHLORIDE 0.9% FLUSH 10 ML FLUSH IV FLUSH SCH ×2 (10:35→20:51)
[2017-05-09] MEDS: FUROSEMIDE 40 MG/4 ML VIAL IV PUSH SCH ×2 (10:35→20:51)
[2017-05-09] MEDS: SPIRONOLACTONE 25 MG TAB PO SCH (10:36)
[2017-05-09] MEDS: DOCUSATE SODIUM 50 MG/SENNA 8.6 MG TAB PO SCH (10:36)
[2017-05-09] MEDS: guaiFENesin E.R. 600 MG TAB PO SCH ×2 (10:36→20:50)
[2017-05-09] MEDS: AZITHROMYCIN 250 MG TAB PO SCH (10:36)
[2017-05-09] MEDS: FLUoxetine HCL 20 MG CAP PO SCH (10:37)
[2017-05-09] MEDS: DOXAZOSIN MESYLATE 2 MG TAB PO SCH (10:37)
[2017-05-09] MEDS: PANTOPRAZOLE SOD 40 MG DELAYED RELEASE TAB PO SCH ×2 (10:38→20:49)
[2017-05-09] MEDS: hydrALAZINE HCL 50 MG TAB PO SCH ×2 (10:38→20:49)
[2017-05-09] MEDS: FERROUS SULFATE 325 MG (65 MG ELEMENTAL IRON) TAB PO SCH (10:38)
[2017-05-09] MEDS: predniSONE 50 MG TAB PO SCH (10:38)
[2017-05-09] MEDS: INSULIN ASPART SUPPLEMENTAL SCALE SQ SCH ×3 (12:00→20:51)
--- NOTE | 2017-05-09 12:34 | RADRPT ---
EXAM DATE/TIME: 05/09/2017 11:08 [facility] COMPARISON: No previous studies available for comparison. INDICATIONS : Dyspnea. DOSE: 8.7 mCi Tc99m MAA IV 1.2 mCi Tc99m DTPA aerosol MEDICAL HISTORY : Congestive hearrt failure. Chronic obstructive pulmonary disease. Myocardial infarction. SURGICAL HISTORY : Cholecystectomy. CABG Hysterectomy. ENCOUNTER: Initial ACUITY: 2 days PAIN SCALE: 0/10 LOCATION: chest TECHNIQUE: Following five minutes of tidal breathing of DTPA aerosol, planar images of the lungs were performed in eight projections. The patient was then injected with MAA, and eight-view perfusion scan was perf ormed. FINDINGS: Chest x-rays reveal bilateral lung consolidation, right greater than left. There is decreased ventila tion in the area of lung consolidation. Overall perfusion abnormalities are slightly less than ventil atory abnormalities but there are patchy areas of decreased perfusion in both lungs.. Study is indete rminate for pulmonary embolus. CONCLUSION: 1. Indeterminate for pulmonary embolus. Don Vega MD on May 09, 2017 at 12:30 Board Certified Radiologist. This report was verified electronically.
--- NOTE | 2017-05-09 12:54 | RADRPT ---
EXAM DATE/TIME: 05/09/2017 12:05 [facility] COMPARISON: No previous studies available for comparison. INDICATIONS : Bilateral leg swelling. MEDICAL HISTORY : Congestive heart failure. Myocardial infarction. Hypercholesterolemia. Numbness, feet. COPD. HTN. Spu lea production. Dyspnea. Ovarian cysts. Arthritis. Osteoporosis. Diabetes. Anxiety. DVT. Anticoagula nt therapy, Coumadin. SURGICAL HISTORY : CABGCholecystectomy. Appendectomy.Multiple breast lymph nodes removal. Hysterectomy. Bilateral knee a nd hip replacements. ENCOUNTER: Initial ACUITY: 2 day PAIN SCORE: 6/10 LOCATION: Bilateral leg. TECHNIQUE: Venous ultrasound of the left and right leg was performed from the inguinal ligament to the proximal calf. Real-time, color Doppler and spectral tracing, compression and augmentation techniques were us ed. FINDINGS: RIGHT LEG: There is normal compressibility of the deep venous system from the inguinal region to the proximal ca lf. No echogenic clot is seen in the lumen of the common femoral, femoral, popliteal, and posterior tibial veins. There is a normal response of the venous system to proximal and distal augmentation an d respiration. LEFT LEG: There is normal compressibility of the deep venous system from the inguinal region to the proximal ca lf. Occlusive DVT is noted within the left posterior tibial veins. No echogenic clot is seen in the l umen of the common femoral, femoral, and popliteal veins. There is a normal response of the venous s ystem to proximal and distal augmentation and respiration. CONCLUSION: 1. Occlusive deep venous thrombosis within the left posterior tibial veins. 2. No deep venous thrombosis within the right lower extremity. Cameron Ashby MD on May 09, 2017 at 12:50 Board Certified Radiologist. This report was verified electronically.
--- NOTE | 2017-05-09 13:21 | HHI.NPPN ---
Subjective General Problems: Anemia, Edema, Heart Disease Renal Failure: Chronic, Acute, Stage III Interval History Still short of breath with edema. + DVT left leg. Renal function is worse. (Camila Cline) Review of Systems General Constitutional: Fatigue (Camila Cline) Respiratory Lungs: SOB (Camila Cline) Cardiovascular Cardiac: Palpitations, Edema (Camila Cline) Objective Data Data Vital Signs Date Time Temp Pulse Resp B/P (MAP) Pulse Ox O2 Delivery O2 Flow Rate FiO2 05/09/17 08:46 96 Nasal Cannula 3.00 05/09/17 08:00 77 05/09/17 08:00 94 Nasal Cannula 3.00 05/09/17 08:00 98.8 77 18 150/60 (90) 94 05/09/17 04:00 93 05/09/17 03:00 79 05/09/17 00:13 22 05/09/17 00:00 95 05/08/17 23:00 98.2 79 20 157/71 (99) 95 05/08/17 20:00 85 05/08/17 19:49 95 Nasal Cannula 3.00 05/08/17 19:00 96 Nasal Cannula 3.00 05/08/17 19:00 98.4 93 20 144/58 (86) 96 05/08/17 18:01 84 05/08/17 17:01 88 05/08/17 16:17 97 Nasal Cannula 3.00 05/08/17 16:00 76 05/08/17 15:15 97 Nasal Cannula 3.00 05/08/17 15:15 98.6 78 18 135/59 (84) 97 05/08/17 15:00 84 05/08/17 14:00 78 (Camila Cline) -: 05/08/17203405/09/17 0607 Imaging Last Impressions Lung Scan-VQ Nuclear Medicine 05/09/17 0000 Signed Impressions: Service Date/Time: Tuesday, May 09, 2017 11:08 - CONCLUSION: 1. Indeterminate for pulmonary embolus. Don Vega MD Lower Extremity Ultrasound 05/09/17 0000 Signed Impressions: Service Date/Time: Tuesday, May 09, 2017 12:05 - CONCLUSION: 1. Occlusive deep venous thrombosis within the left posterior tibial veins. 2. No deep venous thrombosis within the right lower extremity. Cameron Ashby MD Chest X-Ray 05/08/17 0000 Signed Impressions: Service Date/Time: Monday, May 08, 2017 10:24 - CONCLUSION: Cardiomegaly and findings of congestive heart failure. Konstantin Rojas MD Head CT 04/25/17 0000 Signed Impressions: Service Date/Time: Tuesday, April 25, 2017 22:28 - CONCLUSION: 1. Negative noncontrast CT brain. Leo Gonzales MD Renal Ultrasound 04/24/17 0000 Signed Impressions: Service Date/Time: Monday, April 24, 2017 23:08 - CONCLUSION: 1. Echogenic kidneys likely secondary to medical renal disease. 2. Minimal ascites. 3. Left pleural effusion. Rasta Vieira MD (Camila Cline) Physical Exam General Appearance: Well Developed, No Acute Distress, Comfortable, Anxious, Malnourished (Camila Cline) Throat Throat Exam: Oral Mucosa [place] & Moist (Camila Cline) Neck Neck Exam: Neck Supple (Camila Cilne) Pulmonary Resp Exam: Breath Sounds Equal, No Distress, Crackles, Sputum, Decreased Bases (Camila ClineP) Cardiology CV Exam: Regular, Normal Sinus Rhythm, Good Perfusion (Camila Cline) Gastrointestinal/Abdomen GI Exam: Soft, Non-Tender, Bowel Sounds Present (Camila Cline) Musculoskeletal MS Exam: Normal Gait, Normal Tone ([place] Cline [place] [facility]) Integumentary Skin Exam: Warm, Dry Skin Remarks scattered lower extremity abrasions (Camila Cline) Extremeties Extremities Exam: Pedal Pulses Palpable, Moderate Edema, Pitting Edema, Dependent Edema (Camila ClineP) Neurologic Neuro Exam: Alert, Awake, Oriented, Speech Clear, Moving All Extremities (Camila ClineP) Psychiatric Psych Exam: Appropriate Responses (Camila Cline) Assessment/Plan Discussed Condition With: Patient Assessment Summary: MILI/Acute Renal Failure, Anemia of CKD, Fluid/Volume Overload, Proteinuria, CHF, Hypertension, Diabetes Mellitus, CKD Stage III Electrolyte Assessment: Hyponatremia Problem List: (1) MILI (acute kidney injury) ICD Codes: N17.9 - Acute kidney injury Status: Acute Plan: She has underlying CKD 3, baseline GFR 30, creatinine 1.61 Suspected underlying diabetic nephropathy as she does have proteinuria. SPEP in 2015 showed hyper gamma globulinemia with no abnormal bands. Repeat serologies have been ordered. She is Hep C positive. Cryoglobulin ordered,. MILI may be due to CHF exacerbation and increased renal vein pressure. Renal function is slightly better, although BUN is high. Reduce steroid dosage, she is on oral prednisone; IM solumedrol was stopped. Fluid overload persists. Non oliguric, currently on Lasix, Spironolactone and Tolvaptan. She may require dialysis in the next day if symptoms persist and her renal function declines. D/W patient. Repeat labs in AM. Avoid nephrotoxic agents. Minimize non essential medications. (2) Hyponatremia ICD Codes: E87.1 - Hypo-osmolality and hyponatremia Plan: Continue Lasix. Avoid NaCl tabs given hx of CHF. Restarted Tolvaptan. Stable. (3) CHF exacerbation ICD Codes: I50.9 - Heart failure, unspecified Status: Acute Plan: Echo this month shows: -LVH -Apical hypokinesis -Left ventricular function is low normal, EF 50-55% (diastolic dysfunction) follow I/O, fluid status, weight Restriction of Sodium in her diet. On Spironolactone. Carefully monitor potassium. She may require dialysis for fluid removal. (4) Anemia ICD Codes: D64.9 - Anemia Status: Chronic Plan: She has iron deficiency. Received Venofer. On oral ferrous sulfate. May have anemia of chronic disease. Given Epogen Transfuse if necessary. (5) Acute hypoxemic respiratory failure ICD Codes: J96.01 - Acute respiratory failure with hypoxia Status: Resolved Plan: Being treated for CAP On Zithromax and prednisone Refusing BiPap, on oxygen via nasal canula Recent saturation 98% oh 2L NC Former smoker, cessation discussed (6) Community acquired pneumonia ICD Codes: J18.9 - Pneumonia, unspecified organism Status: Acute Plan: See above Continue supportive care On nebulizers, inhalers, oxygen . WBC increasing. (Camila ClineP) Problem List: (1) MILI (acute kidney injury) ICD Codes: N17.9 - Acute kidney injury Status: Acute Plan: She has underlying CKD 3, baseline GFR 30, creatinine 1.61 Suspected underlying diabetic nephropathy as she does have proteinuria. SPEP in 2015 showed hyper gamma globulinemia with no abnormal bands. Repeat serologies have been ordered. She is Hep C positive. Cryoglobulin ordered,. MILI may be due to CHF exacerbation and increased renal vein pressure. Renal function is slightly better, although BUN is high. Reduce steroid dosage, she is on oral prednisone; IM solumedrol was stopped. Fluid overload persists. Non oliguric, currently on Lasix, Spironolactone and Tolvaptan. She may require dialysis in the next day if symptoms persist and her renal function declines. D/W patient. Repeat labs in AM. Avoid nephrotoxic agents. Minimize non essential medications. (2) Hyponatremia ICD Codes: E87.1 - Hypo-osmolality and hyponatremia Plan: Continue Lasix. Avoid NaCl tabs given hx of CHF. Restarted Tolvaptan. Stable. (3) CHF exacerbation ICD Codes: I50.9 - Heart failure, unspecified Status: Acute Plan: Echo this month shows: -LVH -Apical hypokinesis -Left ventricular function is low normal, EF 50-55% (diastolic dysfunction) follow I/O, fluid status, weight Restriction of Sodium in her diet. On Spironolactone. Carefully monitor potassium. She may require dialysis for fluid removal. (4) Anemia ICD Codes: D64.9 - Anemia Status: Chronic Plan: She has iron deficiency. Received Venofer. On oral ferrous sulfate. May have anemia of chronic disease. Given Epogen Transfuse if necessary. (5) Acute hypoxemic respiratory failure ICD Codes: J96.01 - Acute respiratory failure with hypoxia Status: Resolved Plan: Being treated for CAP On Zithromax and prednisone Refusing BiPap, on oxygen via nasal canula Recent saturation 98% oh 2L NC Former smoker, cessation discussed (6) Community acquired pneumonia ICD Codes: J18.9 - Pneumonia, unspecified organism Status: Acute Plan: See above Continue supportive care On nebulizers, inhalers, oxygen . WBC increasing. Plan patient was seen and examined. Feels better, but has left lower extremity DVT. Some of the swelling could be due to DVT. If renal function worsens, may consider scaling back diuretics, but it is a difficult situation. Prognosis is guarded. (Abebe Patten MD) Problem Qualifiers (1) CHF exacerbation: Qualified Codes: I50.9 - Heart failure, unspecified (2) Anemia: Qualified Codes: D64.9 - Anemia, unspecified (3) Community acquired pneumonia: Qualified Codes: J18.9 - Pneumonia, unspecified organism Camila Cline [facility] May 09, 2017 13:21 Abebe Patten MD May 09, 2017 18:03
[2017-05-09 16:43] LABS: ANA SCREEN NEG (NEG)
--- NOTE | 2017-05-09 18:17 | HHI.PR ---
Subjective Remarks Pt has improved breathing today, much less effort, but still depending on oxygen to maintain her saturations in mid-90's Objective Vitals Vital Signs Date Time Temp Pulse Resp B/P (MAP) Pulse Ox O2 Delivery O2 Flow Rate FiO2 05/09/17 15:45 97.9 79 18 155/70 (98) 97 05/09/17 11:45 98.0 91 18 154/71 (98) 94 05/09/17 08:46 96 Nasal Cannula 3.00 05/09/17 08:00 77 05/09/17 08:00 94 Nasal Cannula 3.00 05/09/17 08:00 98.8 77 18 150/60 (90) 94 05/09/17 04:00 93 05/09/17 03:00 79 05/09/17 00:13 22 05/09/17 00:00 95 05/08/17 23:00 98.2 79 20 157/71 (99) 95 05/08/17 20:00 85 05/08/17 19:49 95 Nasal Cannula 3.00 05/08/17 19:00 96 Nasal Cannula 3.00 05/08/17 19:00 98.4 93 20 144/58 (86) 96 I/O 05/08/17 05/08/17 05/08/17 05/09/17 05/09/17 05/09/17 07:00 15:00 23:00 07:00 15:00 23:00 Intake Total 1000 ml 1340 ml 650 ml Output Total 1300 ml 1650 ml 1150 ml Balance -300 ml -310 ml -500 ml Intake Oral 1000 ml 1340 ml 650 ml Output Urine Total 1300 ml 1650 ml 1150 ml # Voids 5 # Bowel Movements 2 1 0 Result Diagram: 05/08/17203405/09/17 0607 Objective Remarks GENERAL: Decompensated patient, weakened, SOB improved ENT: Bilateral cerumen impaction SKIN: Warm and dry. HEAD: Normocephalic. EYES: No scleral icterus. No injection or drainage. NECK: Supple, trachea midline. No JVD or lymphadenopathy. CARDIOVASCULAR: Regular rate and rhythm without murmurs, gallops, or rubs. RESPIRATORY: scattered rales, improved overall compared to yesterday. No accessory muscle use. GASTROINTESTINAL: Abdomen soft, non-tender, nondistended. MUSCULOSKELETAL: No cyanosis, or edema. BACK: Nontender without obvious deformity. No CVA tenderness. EXTREMITIES: 2+ edema both ankles (chronic) A/P Problem List: (1) Acute hypoxemic respiratory failure ICD Code: J96.01 - Acute respiratory failure with hypoxia Status: Resolved (2) CHF exacerbation ICD Code: I50.9 - Heart failure, unspecified Status: Acute (3) Community acquired pneumonia ICD Code: J18.9 - Pneumonia, unspecified organism Status: Acute (4) COPD exacerbation ICD Code: J44.1 - Obstructive chronic bronchitis with exacerbation Status: Resolved (5) MILI (acute kidney injury) ICD Code: N17.9 - Acute kidney injury Status: Acute (6) Anemia ICD Code: D64.9 - Anemia Status: Chronic (7) Elevated troponin ICD Code: R74.8 - Abnormal levels of other serum enzymes Status: Acute (8) HTN (hypertension) ICD Code: I10 - Hypertension Status: Chronic (9) DM (diabetes mellitus screen) ICD Code: Z13.1 - Screening for diabetes mellitus Status: Chronic (10) Epistaxis ICD Code: R04.0 - Epistaxis Status: Resolved (11) Headache ICD Code: R51 - Headache Status: Resolved (12) Pleural effusion, left ICD Code: J90 - Pleural effusion, not elsewhere classified Status: Acute Assessment and Plan Pneumonia with COPD Exacerbation Marked worsening today Solu-medrol, scheduled nebs, extra dose of lasix Will check a D-Dimer DVT with Suspect Pulmonary Embolism D-Dimer elevated, US LE's showed left DVT, VQ Scan indeterminate Given rapid onset of respiratory difficulty, high suspicion for PE in context of known DVT She has a history of DVT, so it is unclear if her current DVT is old or new Started on therapeutic Lovenox @ 1mg/kg Q12 CHF Exacerbation COPD and resolving PNA Continue maintenance Lasix. Cerumen Impaction Debrox drops Acute Renal Insufficiency Improving slowly, following trend Anemia Stable around 7.5, consider transfusion if symptomatic Type 2 Diabetes Fair control, watch for steroid effect Hypertension Pattern of sporadic increases Watch trend further DVT Prophylaxis Treatment dose of Lovenox for DVT Problem Qualifiers (1) CHF exacerbation: Qualified Codes: I50.9 - Heart failure, unspecified (2) Community acquired pneumonia: Qualified Codes: J18.9 - Pneumonia, unspecified organism (3) Anemia: Qualified Codes: D64.9 - Anemia, unspecified (4) HTN (hypertension): Qualified Codes: I10 - Essential (primary) hypertension (5) Headache: Qualified Codes: R51 - Headache Amrit Harper MD May 09, 2017 6:17 pm
[2017-05-09] MEDS: ENOXAPARIN SODIUM 60 MG/0.6 ML SYRINGE SQ SCH (18:22)
[2017-05-09] MEDS: BUDESONIDE-FORMOTEROL 160/4.5 MCG INHALER INH SCH (20:52)
[2017-05-09] MEDS: CARBAMIDE PEROXIDE 6.5% OTIC SOLN 15 ML BTL EACH EAR SCH (22:04)
[2017-05-10] VITALS (18 sets, daily range): BP systolic 135–175; BP diastolic 57–73; PULSE 69–84; RESP 18–20; TEMP 97–98.7; O2SAT 92–98
[2017-05-10] MEDS: oxyCODONE/ACETAMINOPHEN 10 MG/325 MG TAB PO PRN ×4 (02:02→21:03)
[2017-05-10] MEDS: cloNIDine HCL 0.2 MG TAB PO SCH ×3 (06:01→21:04)
[2017-05-10] MEDS: POLYETHYLENE GLYCOL 17 GM PKG PO SCH (09:00)
[2017-05-10] MEDS: guaiFENesin E.R. 600 MG TAB PO SCH ×2 (09:51→21:04)
[2017-05-10] MEDS: DOCUSATE SODIUM 50 MG/SENNA 8.6 MG TAB PO SCH (09:51)
[2017-05-10] MEDS: FUROSEMIDE 40 MG/4 ML VIAL IV PUSH SCH (09:52)
[2017-05-10] MEDS: hydrALAZINE HCL 50 MG TAB PO SCH ×2 (09:52→21:04)
[2017-05-10] MEDS: GABAPENTIN 400 MG CAP PO SCH ×2 (09:52→21:04)
[2017-05-10] MEDS: PANTOPRAZOLE SOD 40 MG DELAYED RELEASE TAB PO SCH ×2 (09:52→21:04)
[2017-05-10] MEDS: predniSONE 50 MG TAB PO SCH (09:52)
[2017-05-10] MEDS: AZITHROMYCIN 250 MG TAB PO SCH (09:52)
[2017-05-10] MEDS: FERROUS SULFATE 325 MG (65 MG ELEMENTAL IRON) TAB PO SCH (09:53)
[2017-05-10] MEDS: DOXAZOSIN MESYLATE 2 MG TAB PO SCH (09:53)
[2017-05-10] MEDS: SPIRONOLACTONE 25 MG TAB PO SCH (09:53)
[2017-05-10] MEDS: TOLVAPTAN 15 MG TAB PO SCH (09:54)
[2017-05-10] MEDS: FLUoxetine HCL 20 MG CAP PO SCH (09:54)
[2017-05-10] MEDS: BUDESONIDE-FORMOTEROL 160/4.5 MCG INHALER INH SCH ×2 (09:55→21:00)
[2017-05-10] MEDS: SODIUM CHLORIDE 0.9% FLUSH 10 ML FLUSH IV FLUSH SCH ×2 (09:55→21:15)
[2017-05-10] MEDS: CARBAMIDE PEROXIDE 6.5% OTIC SOLN 15 ML BTL EACH EAR SCH ×2 (09:55→21:07)
[2017-05-10] MEDS: RESP: ALBUTEROL 2.5 MG/IPRATROPIUM 0.5 MG NEB (SCH) NEB ×4 (10:14→21:12)
--- NOTE | 2017-05-10 11:08 | HHI.NPPN ---
Subjective General Problems: Anemia, Edema, Heart Disease Renal Failure: Chronic, Acute, Stage III Interval History She looks better today. Labs from today are pending. (Camila Cline) Review of Systems General Constitutional: Fatigue (Camila Cline) Respiratory Lungs: SOB (Camila Cline) Cardiovascular Cardiac: Palpitations, Edema (Camila Cline) Objective Data Data Vital Signs Date Time Temp Pulse Resp B/P (MAP) Pulse Ox O2 Delivery O2 Flow Rate FiO2 05/10/17 10:16 94 Nasal Cannula 3.00 05/10/17 07:40 93 Nasal Cannula 3.00 05/10/17 07:40 71 05/10/17 07:40 98.7 71 18 157/72 (100) 93 05/10/17 06:25 69 05/10/17 05:11 74 05/10/17 04:00 74 05/10/17 03:00 Nasal Cannula 2.00 05/10/17 03:00 74 05/10/17 03:00 97.8 75 138/58 (84) 92 05/10/17 02:00 78 05/10/17 01:00 84 05/10/17 00:00 74 05/09/17 23:56 Nasal Cannula 2.00 05/09/17 23:00 97.4 79 132/83 (99) 93 05/09/17 23:00 92 05/09/17 22:00 84 05/09/17 21:00 90 05/09/17 20:00 94 05/09/17 19:43 96 Nasal Cannula 3.00 05/09/17 19:00 78 05/09/17 19:00 97.0 82 166/72 (103) 100 05/09/17 19:00 Nasal Cannula 2.00 05/09/17 18:00 82 05/09/17 17:00 82 05/09/17 16:00 78 05/09/17 15:45 97.9 79 18 155/70 (98) 97 05/09/17 15:00 86 05/09/17 14:00 106 05/09/17 13:00 98 05/09/17 12:00 89 05/09/17 11:45 98.0 91 18 154/71 (98) 94 (Camila Cline) -: 05/08/17203405/09/17 0607 Imaging Last 72 hours Impressions Lung Scan-VQ Nuclear Medicine 05/09/17 0000 Signed Impressions: Service Date/Time: Tuesday, May 09, 2017 11:08 - CONCLUSION: 1. Indeterminate for pulmonary embolus. Don Vega MD Lower Extremity Ultrasound 05/09/17 0000 Signed Impressions: Service Date/Time: Tuesday, May 09, 2017 12:05 - CONCLUSION: 1. Occlusive deep venous thrombosis within the left posterior tibial veins. 2. No deep venous thrombosis within the right lower extremity. Cameron Ashby MD Chest X-Ray 05/08/17 0000 Signed Impressions: Service Date/Time: Monday, May 08, 2017 10:24 - CONCLUSION: Cardiomegaly and findings of congestive heart failure. Konstantin Rojas MD (Camila Cline) Physical Exam General Appearance: Well Developed, No Acute Distress, Comfortable, Anxious, Malnourished (Camila Cline) Throat Throat Exam: Oral Mucosa [place] & Moist (Camila Cline) Neck Neck Exam: Neck Supple (Camila Cline) Pulmonary Resp Exam: Breath Sounds Equal, No Distress, Crackles, Sputum, Decreased Bases (Camila Cline) Cardiology CV Exam: Regular, Normal Sinus Rhythm, Good Perfusion (Camila Cline) Gastrointestinal/Abdomen GI Exam: Soft, Non-Tender, Bowel Sounds Present (Camila Cline) Musculoskeletal MS Exam: Normal Gait, Normal Tone (Camila Cline) Integumentary Skin Exam: Warm, Dry Skin Remarks scattered lower extremity abrasions (Camila Cline) Extremeties Extremities Exam: Pedal Pulses Palpable, Moderate Edema, Pitting Edema, Dependent Edema (Camila Cline) Neurologic Neuro Exam: Alert, Awake, Oriented, Speech Clear, Moving All Extremities (Camila Cline) Psychiatric Psych Exam: Appropriate Responses (Camila Cline) VTE Prophylaxis Meds: Lovenox (Camila Cline) Assessment/Plan Discussed Condition With: Patient Assessment Summary: MILI/Acute Renal Failure, Anemia of CKD, Fluid/Volume Overload, Proteinuria, CHF, Hypertension, Diabetes Mellitus, CKD Stage III Electrolyte Assessment: Hyponatremia Problem List: (1) MILI (acute kidney injury) ICD Codes: N17.9 - Acute kidney injury Status: Acute Plan: She has underlying CKD 3, baseline GFR 30, creatinine 1.61 Suspected underlying diabetic nephropathy as she does have proteinuria. SPEP in 2015 showed hyper gamma globulinemia with no abnormal bands. Repeat also negative. Other serologies have been ordered. She is Hep C positive. Cryoglobulin pending. MILI may be due to CHF exacerbation and increased renal vein pressure. Today's labs are pending. Reduce or stop all non essential medications. Fluid overload persists. Non oliguric, currently on Lasix, Spironolactone and Tolvaptan. She may require dialysis in the next day if symptoms persist and her renal function declines. D/W patient. Repeat labs in AM. Avoid nephrotoxic agents. (2) Hyponatremia ICD Codes: E87.1 - Hypo-osmolality and hyponatremia Plan: Continue Lasix. Avoid NaCl tabs given hx of CHF. Restarted Tolvaptan. Stable. (3) CHF exacerbation ICD Codes: I50.9 - Heart failure, unspecified Status: Acute Plan: Echo this month shows: -LVH -Apical hypokinesis -Left ventricular function is low normal, EF 50-55% (diastolic dysfunction) follow I/O, fluid status, weight Restriction of Sodium in her diet. On Spironolactone. Carefully monitor potassium. She may require dialysis for fluid removal. (4) Anemia ICD Codes: D64.9 - Anemia Status: Chronic Plan: She has iron deficiency. Received Venofer. On oral ferrous sulfate. May have anemia of chronic disease. Given Epogen Transfuse if necessary. (5) Acute hypoxemic respiratory failure ICD Codes: J96.01 - Acute respiratory failure with hypoxia Status: Resolved Plan: Being treated for CAP On Zithromax and prednisone Refusing BiPap, on oxygen via nasal canula Recent saturation 98% oh 2L [place] Former smoker, cessation discussed (6) Community acquired pneumonia ICD Codes: J18.9 - Pneumonia, unspecified organism Status: Acute Plan: See above Continue supportive care On nebulizers, inhalers, oxygen . WBC increasing. (7) DVT (deep venous thrombosis) ICD Codes: I82.409 - Acute embolism and thrombosis of unspecified deep veins of unspecified lower extremity Plan: On Lovenox, consider changing to Eliquis. (Camila Cline) Problem List: (1) MILI (acute kidney injury) ICD Codes: N17.9 - Acute kidney injury Status: Acute Plan: She has underlying CKD 3, baseline GFR 30, creatinine 1.61 Suspected underlying diabetic nephropathy as she does have proteinuria. SPEP in 2015 showed hyper gamma globulinemia with no abnormal bands. Repeat also negative. Other serologies have been ordered. She is Hep C positive. Cryoglobulin pending. MILI may be due to CHF exacerbation and increased renal vein pressure. Today's labs are pending. Reduce or stop all non essential medications. Fluid overload persists. Non oliguric, currently on Lasix, Spironolactone and Tolvaptan. She may require dialysis in the next day if symptoms persist and her renal function declines. D/W patient. Repeat labs in AM. Avoid nephrotoxic agents. (2) Hyponatremia ICD Codes: E87.1 - Hypo-osmolality and hyponatremia Plan: Continue Lasix. Avoid NaCl tabs given hx of CHF. Restarted Tolvaptan. Stable. (3) CHF exacerbation ICD Codes: I50.9 - Heart failure, unspecified Status: Acute Plan: Echo this month shows: -LVH -Apical hypokinesis -Left ventricular function is low normal, EF 50-55% (diastolic dysfunction) follow I/O, fluid status, weight Restriction of Sodium in her diet. On Spironolactone. Carefully monitor potassium. She may require dialysis for fluid removal. (4) Anemia ICD Codes: D64.9 - Anemia Status: Chronic Plan: She has iron deficiency. Received Venofer. On oral ferrous sulfate. May have anemia of chronic disease. Given Epogen Transfuse if necessary. (5) Acute hypoxemic respiratory failure ICD Codes: J96.01 - Acute respiratory failure with hypoxia Status: Resolved Plan: Being treated for CAP On Zithromax and prednisone Refusing BiPap, on oxygen via nasal canula Recent saturation 98% oh 2L [place] Former smoker, cessation discussed (6) Community acquired pneumonia ICD Codes: J18.9 - Pneumonia, unspecified organism Status: Acute Plan: See above Continue supportive care On nebulizers, inhalers, oxygen . WBC increasing. (7) DVT (deep venous thrombosis) ICD Codes: I82.409 - Acute embolism and thrombosis of unspecified deep veins of unspecified lower extremity Plan: On Lovenox, consider changing to Eliquis. Plan patient was seen and examined. Her condition is about the same. Renal function same as before. Avoid nephrotoxic agents. Continue diuresis. (Abebe Patten MD) Problem Qualifiers (1) CHF exacerbation: Qualified Codes: I50.9 - Heart failure, unspecified (2) Anemia: Qualified Codes: D64.9 - Anemia, unspecified (3) Community acquired pneumonia: Qualified Codes: J18.9 - Pneumonia, unspecified organism Camila Cline May 10, 2017 11:08 Abebe Patten MD May 10, 2017 15:04
[2017-05-10 11:11] LABS: ALBUMIN 2.4 GM/DL (3.4-5.0); BICARBONATE 27.2 MEQ/L (21.0-32.0); CALCIUM 8.5 MG/DL (8.5-10.1); CREATININE 2.67 MG/DL (0.50-1.00); PHOSPHORUS 3.6 MG/DL (2.5-4.9)
[2017-05-10] MEDS: INSULIN ASPART SUPPLEMENTAL SCALE SQ SCH ×3 (12:00→21:14)
--- NOTE | 2017-05-10 12:06 | HHI.PR ---
Subjective Remarks Pt states she feels a little bit better. No CP. Somewhat nauseous but no vomiting. not bad enough for meds. states when moving around her SOB is worst. currently just sitting her breathing not worsened. Objective Vitals Vital Signs Date Time Temp Pulse Resp B/P (MAP) Pulse Ox O2 Delivery O2 Flow Rate FiO2 05/10/17 11:31 97.9 81 18 135/57 (83) 93 05/10/17 11:31 Nasal Cannula 2.00 05/10/17 10:16 94 Nasal Cannula 3.00 05/10/17 07:40 93 Nasal Cannula 3.00 05/10/17 07:40 71 05/10/17 07:40 98.7 71 18 157/72 (100) 93 05/10/17 06:25 69 05/10/17 05:11 74 05/10/17 04:00 74 05/10/17 03:00 Nasal Cannula 2.00 05/10/17 03:00 74 05/10/17 03:00 97.8 75 138/58 (84) 92 05/10/17 02:00 78 05/10/17 01:00 84 05/10/17 00:00 74 05/09/17 23:56 Nasal Cannula 2.00 05/09/17 23:00 97.4 79 132/83 (99) 93 05/09/17 23:00 92 05/09/17 22:00 84 05/09/17 21:00 90 05/09/17 20:00 94 05/09/17 19:43 96 Nasal Cannula 3.00 05/09/17 19:00 78 05/09/17 19:00 97.0 82 166/72 (103) 100 05/09/17 19:00 Nasal Cannula 2.00 05/09/17 18:00 82 05/09/17 17:00 82 05/09/17 16:00 78 05/09/17 15:45 97.9 79 18 155/70 (98) 97 05/09/17 15:00 86 05/09/17 14:00 106 05/09/17 13:00 98 05/09/17 12:00 89 I/O 05/09/17 05/09/17 05/09/17 05/10/17 05/10/17 05/10/17 07:00 15:00 23:00 07:00 15:00 23:00 Intake Total 650 ml 720 ml 480 ml Output Total 1150 ml 750 ml 1000 ml Balance -500 ml -30 ml -520 ml Intake Oral 650 ml 720 ml 480 ml Output Urine Total 1150 ml 750 ml 1000 ml # Bowel Movements 0 0 Result Diagram: 05/08/17203405/10/17 1033 Imaging Last Impressions Lung Scan-VQ Nuclear Medicine 05/09/17 0000 Signed Impressions: Service Date/Time: Tuesday, May 09, 2017 11:08 - CONCLUSION: 1. Indeterminate for pulmonary embolus. Don Vega MD Lower Extremity Ultrasound 05/09/17 0000 Signed Impressions: Service Date/Time: Tuesday, May 09, 2017 12:05 - CONCLUSION: 1. Occlusive deep venous thrombosis within the left posterior tibial veins. 2. No deep venous thrombosis within the right lower extremity. Cameron Ashby MD Chest X-Ray 05/08/17 0000 Signed Impressions: Service Date/Time: Monday, May 08, 2017 10:24 - CONCLUSION: Cardiomegaly and findings of congestive heart failure. Konstantin Rojas MD Head CT 04/25/17 0000 Signed Impressions: Service Date/Time: Tuesday, April 25, 2017 22:28 - CONCLUSION: 1. Negative noncontrast CT brain. Leo Gonzales MD Renal Ultrasound 04/24/17 0000 Signed Impressions: Service Date/Time: Monday, April 24, 2017 23:08 - CONCLUSION: 1. Echogenic kidneys likely secondary to medical renal disease. 2. Minimal ascites. 3. Left pleural effusion. Rasta Vieira MD Objective Remarks GENERAL: elderly female, frail, looks tired. SKIN: Warm and dry. HEAD: Normocephalic. EYES: EOMI NECK: trachea midline CARDIOVASCULAR: Regular rate and rhythm without obvious murmurs, distant heart sounds RESPIRATORY: scattered rales, NC in place, no accessory muscles. decreased breath sounds. GASTROINTESTINAL: Abdomen soft, non-tender, nondistended. MUSCULOSKELETAL: 2+ edema both ankles (chronic) A/P Problem List: (1) Acute hypoxemic respiratory failure ICD Code: J96.01 - Acute respiratory failure with hypoxia Status: Resolved (2) CHF exacerbation ICD Code: I50.9 - Heart failure, unspecified Status: Acute (3) Community acquired pneumonia ICD Code: J18.9 - Pneumonia, unspecified organism Status: Acute (4) COPD exacerbation ICD Code: J44.1 - Obstructive chronic bronchitis with exacerbation Status: Resolved (5) MILI (acute kidney injury) ICD Code: N17.9 - Acute kidney injury Status: Acute (6) Anemia ICD Code: D64.9 - Anemia Status: Chronic (7) Elevated troponin ICD Code: R74.8 - Abnormal levels of other serum enzymes Status: Acute (8) HTN (hypertension) ICD Code: I10 - Hypertension Status: Chronic (9) DM (diabetes mellitus screen) ICD Code: Z13.1 - Screening for diabetes mellitus Status: Chronic (10) Epistaxis ICD Code: R04.0 - Epistaxis Status: Resolved (11) Headache ICD Code: R51 - Headache Status: Resolved (12) Pleural effusion, left ICD Code: J90 - Pleural effusion, not elsewhere classified Status: Acute Assessment and Plan Pneumonia with COPD Exacerbation vs pulm edema from fluid overload Pt has more trouble breathing w ambulation. s/p Solu-medrol, on scheduled nebs, on prednisone. Currently on IV lasix 40mg BID. Pt's weight compared to admission is 10 kg over. No improvement. Pt has lower extremity edema. Cr 2.67. I did discuss the case w Dr. Palma, fiberglasser , and he is agreeable to have pt transfer under his care. Pt does need aggressive diuresis and could benefit from being put on a lasix gtt vs the need for HD. D-Dimer pos. Found to have a DVT of her left leg. Leukocytosis noted on 05/08/16. could be from the steroids. Recheck in the morning. Currently on azithromycin. She has already received 10 doses. will d/c for now and monitor clinically. Pt has been afebrile, vitals have been stable thus far. repeat blood cx and monitor. DVT with Suspect Pulmonary Embolism D-Dimer elevated, US LE's showed left DVT, VQ Scan indeterminate Given rapid onset of respiratory difficulty, high suspicion for PE in context of known DVT She has a history of DVT, so it is unclear if her current DVT is old or new on therapeutic Lovenox @ 1mg/kg Q24hr due to her kidney function, adjusted by pharmacy. She most likely would need to be started on coumadin but will defer this to fiberglasser. CHF Exacerbation COPD and PNA Continue maintenance Lasix. Cerumen Impaction Debrox drops Acute Renal Insufficiency Improving slowly, following trend Anemia Stable around 7.5, consider transfusion if symptomatic Type 2 Diabetes Fair control, watch for steroid effect Hypertension Pattern of sporadic increases Watch trend further DVT Prophylaxis Treatment dose of Lovenox for DVT Discharge Planning transfer to CVICU under care of Dr. Palma. Problem Qualifiers (1) CHF exacerbation: Qualified Codes: I50.9 - Heart failure, unspecified (2) Community acquired pneumonia: Qualified Codes: J18.9 - Pneumonia, unspecified organism (3) Anemia: Qualified Codes: D64.9 - Anemia, unspecified (4) HTN (hypertension): Qualified Codes: I10 - Essential (primary) hypertension (5) Headache: Qualified Codes: R51 - Headache Randi Quiles MD May 10, 2017 12:06
--- NOTE | 2017-05-10 14:39 | PD.CONS ---
[facility] Service Critical Care Medicine Consult Requested By Dr. Quiles Reason for Consult management of volume overload with associated organ injury Primary Care Physician Unknown History of Present Illness This is a 76-year-old female with a history of congestive heart failure with preserved EF, smoking, COPD who presented to the emergency department on 04/23 with worsening shortness of breath, BNP greater than 4000, bilateral pulmonary infiltrates and was diagnosed at that time with CHF exacerbation. She was initially started on Lasix. At that time she did have an acute kidney injury on top of chronic renal insufficiency stage III. Nephrology was consulted and felt this was due to increased renal vein pressure. Despite attempts at diuresis, she is had a positive fluid balance during her hospital stay, and she persists with significant dyspnea. She was initially on Zosyn and azithromycin to empirically cover for possible COPD exacerbation. Zosyn was stopped on hospital day 7, but azithromycin continues through today empirically. She is remained afebrile throughout her hospital stay. A few days ago, she was started on prednisone for possible COPD exacerbation component to her shortness of breath. After starting on systemic steroids, her white count which was normal on admission, began to rise. She still remains afebrile. Yesterday, bilateral lower extremity Dopplers were positive for a left posterior tibial deep vein thrombosis. VQ scan at that time was indeterminate for PE in the setting of significant bilateral consolidations which likely decreases sensitivity of VQ scan for embolism. Due to the patient's persistent dyspnea and positive fluid balance for hospital stay despite attempts at diuresis, and due to the fact that her kidney injury continues to worsen, I was contacted by the hospitalist service for possible transfer to the intensive care unit for a more aggressive diuretic regimen. I evaluated the patient on arrival to the CVICU. The patient does complain of significant dyspnea, particularly with even light movement out of bed to chair. She states that she just wants to feel better. She denies chest pain, nausea, vomiting, fever, chills, or any other symptoms other than her shortness of breath. Review of Systems Constitutional: COMPLAINS OF: Weight gain, DENIES: Fatigue, Fever, Chills Respiratory: COMPLAINS OF: Shortness of breath, DENIES: Apneas, Cough, Wheezing , Hemoptysis, Sputum production Cardiovascular: COMPLAINS OF: Dyspnea on Exertion, PND, Lower Extremity Edema, Orthopnea, DENIES: Chest pain, Palpitations, Syncope, Claudication Gastrointestinal: DENIES: Abdominal pain, Black stools, Bloody stools, Constipation, Diarrhea, Nausea, Vomiting Neurologic: DENIES: Headache, Localized weakness Psychiatric: DENIES: Confusion Past Family Social History Allergies: Coded Allergies: aspirin (Unverified Allergy, Severe, HIVES, 04/23/17) HIVES diatrizoate meglumine (Unverified Allergy, Severe, HIVES, 04/23/17) diazepam (Unverified Allergy, Severe, 04/23/17) HIVES gadobenic acid (Unverified Allergy, Severe, HIVES, 04/23/17) gadodiamide (Unverified Allergy, Severe, HIVES, 04/23/17) gadoteridol (Unverified Allergy, Severe, HIVES, 04/23/17) iodixanol (Unverified Allergy, Severe, HIVES, 04/23/17) iohexol (Unverified Allergy, Severe, HIVES, 04/23/17) ketorolac (Unverified Allergy, Severe, RASH, 04/23/17) ibuprofen (Unverified Allergy, Intermediate, Itching, 04/23/17) FROM [facility]. FD and C no.5 (tartrazine) (Unverified Allergy, Unknown, 04/23/17) FROM [facility] meperidine (Unverified Allergy, Unknown, 04/23/17) FROM [facility]. Past Medical History COPD. Diabetes mellitus. Hypertension. Congestive heart failure with preserved EF. History of cervical cancer. Past Surgical History CABG in 2003. Bilateral knee replacement. Bilateral hip replacement. Left humeral fracture ORIF. Right ankle surgery. Umbilical hernia repair. The lateral breast cystectomy. Total abdominal hysterectomy with BSO Cholecystectomy. Appendectomy. Cervical fusion. Reported Medications Neurontin (Gabapentin) 400 Mg Cap 400 Mg PO BID Prozac (Fluoxetine HCl) 40 Mg Cap 40 Mg PO DAILY Coumadin (Warfarin) 1 Mg Tab 0.5 Mg PO HS Percocet (Oxycodone-Acetaminophen) 10-325 mg Tab 1 Tab PO TID PRN Clonidine (Clonidine HCl) 0.1 Mg Tab 0.1 Mg PO BID Active Ordered Medications see MAR Family History son from brain cancer. Social History 1ppd smoker, denies etoh or doa. Physical Exam Vital Signs Vital Signs Date Time Temp Pulse Resp B/P (MAP) Pulse Ox O2 Delivery O2 Flow Rate FiO2 05/10/17 13:58 98 Nasal Cannula 3.00 05/10/17 13:25 81 05/10/17 11:31 97.9 81 18 135/57 (83) 93 05/10/17 11:31 Nasal Cannula 2.00 05/10/17 10:16 94 Nasal Cannula 3.00 05/10/17 07:40 93 Nasal Cannula 3.00 05/10/17 07:40 71 05/10/17 07:40 98.7 71 18 157/72 (100) 93 05/10/17 06:25 69 05/10/17 05:11 74 05/10/17 04:00 74 05/10/17 03:00 Nasal Cannula 2.00 05/10/17 03:00 74 05/10/17 03:00 97.8 75 138/58 (84) 92 05/10/17 02:00 78 05/10/17 01:00 84 05/10/17 00:00 74 05/09/17 23:56 Nasal Cannula 2.00 05/09/17 23:00 97.4 79 132/83 (99) 93 05/09/17 23:00 92 05/09/17 22:00 84 05/09/17 21:00 90 05/09/17 20:00 94 05/09/17 19:43 96 Nasal Cannula 3.00 05/09/17 19:00 78 05/09/17 19:00 97.0 82 166/72 (103) 100 05/09/17 19:00 Nasal Cannula 2.00 05/09/17 18:00 82 05/09/17 17:00 82 05/09/17 16:00 78 05/09/17 15:45 97.9 79 18 155/70 (98) 97 05/09/17 15:00 86 Physical Exam GENERAL: Elderly female, sitting in chair, slightly dyspneic HEENT: Normocephalic. Atraumatic. Pupils equal, round, reactive, conjugate. Mucous membranes are moist NECK: Trachea is midline. + JVD. CHEST: Slightly tachypneic. Slightly dyspneic. On 4 L oxygen by nasal cannula. Bilateral coarse rales in all lung [place] CARDIOVASCULAR: Normal rate, regular rhythm. Sinus by telemetry ABDOMEN: Soft, nontender, nondistended. No guarding. MUSCULOSKELETAL: Pulses 2+. 3+ peripheral edema NEUROLOGICAL: RASS 0. Follows commands. No focal deficits. Laboratory Laboratory Tests Test 05/10/17 10:33 Blood Urea Nitrogen 101 Creatinine 2.67 Random Glucose 183 Albumin 2.4 Calcium Level 8.5 Phosphorus Level 3.6 Sodium Level 127 Potassium Level 3.7 Chloride Level 90 Carbon Dioxide Level 27.2 Anion Gap 10 Estimat Glomerular Filtration Rate 17 Date/Time Source Procedure Growth Status 05/10/17 13:30 Blood Peripheral Aerobic Blood Culture Pending Received 05/10/17 13:30 Blood Peripheral Anaerobic Blood Culture Pending Received Result Diagram: 05/08/17203405/10/17 1033 Imaging Last Impressions Lung Scan-VQ Nuclear Medicine 05/09/17 0000 Signed Impressions: Service Date/Time: Tuesday, May 09, 2017 11:08 - CONCLUSION: 1. Indeterminate for pulmonary embolus. Don Vega MD Lower Extremity Ultrasound 05/09/17 0000 Signed Impressions: Service Date/Time: Tuesday, May 09, 2017 12:05 - CONCLUSION: 1. Occlusive deep venous thrombosis within the left posterior tibial veins. 2. No deep venous thrombosis within the right lower extremity. Cameron Ashby MD Chest X-Ray 05/08/17 0000 Signed Impressions: Service Date/Time: Monday, May 08, 2017 10:24 - CONCLUSION: Cardiomegaly and findings of congestive heart failure. Konstantin Rojas MD Head CT 04/25/17 0000 Signed Impressions: Service Date/Time: Tuesday, April 25, 2017 22:28 - CONCLUSION: 1. Negative noncontrast CT brain. Leo Gonzales MD Renal Ultrasound 04/24/17 0000 Signed Impressions: Service Date/Time: Monday, April 24, 2017 23:08 - CONCLUSION: 1. Echogenic kidneys likely secondary to medical renal disease. 2. Minimal ascites. 3. Left pleural effusion. Rasta Vieira MD Assessment and Plan Assessment and Plan Assessment: This is a 76-year-old female with a history of congestive heart failure with preserved EF who presented on 04/23 with dyspnea and an elevated BNP greater than 4000 and chest x-ray suggestive of bilateral pulmonary edema. This patient most likely has CHF exacerbation, diastolic type, secondary to volume overload. The patient has never been febrile during her entire hospital stay, and up until the time she was started on systemic steroids, she did not have a leukocytosis. I think is reasonable this point to stop her empiric antibiotics that she's been on since admission. I also think that it is reasonable to taper her steroids. She does have a smoking history, however her acute clinical change that brought her to the hospital did not come with an associated change in sputum production or consistency, and this is much less likely to be a COPD exacerbation. While the patient does appear to have a newly diagnosed DVT, and certainly pulmonary emboli could account for some degree of hypoxemia, her chest x-ray still shows evidence of bilateral pulmonary infiltrates suggestive of pulmonary edema, and I think that all clinical signs point to CHF exacerbation as the cause for her persistent dyspnea. In addition, the patient is increased in weight from dry weight, but additionally is increase in weight from admission weight, suggestive that we still do not have control of her CHF exacerbation. I think is reasonable to anticoagulate for her DVT, but do not think that PE is high on the likelihood of reasons why she is persistently dyspneic. I do think that her acute kidney injury which is clearly worsening is likely secondary to congestive renopathy and secondary to elevated renal vein pressure and decreased perfusion pressure. However, at this point, with elevated creatinine that is been ongoing for the last 1-2 weeks, we could be dealing with a significant component of ATN secondary to a subacute decrease in renal perfusion pressure. Despite all this , the patient needs aggressive diuresis and is likely 25 pounds or more volume overloaded from dry weight. We will initiate aggressive forced diuresis in the setting of acute kidney injury presumed combination ATN and elevated renal vein pressure. We'll start with Bumex infusion, Diamox, Diuril. I think it is prudent to hold her spironolactone given her elevated creatinine. If she does not respond forced diuresis, I think it is reasonable at this point to consider renal replacement therapy as we clearly need to get control of her volume overload, as she remains symptomatic throughout the last 2 weeks. She is highly complex and off pathway. Agree with transition to the ICU for close monitoring. If we are unable to effectively diurese her, she may benefit from right heart catheterization with Gautier-Ramana catheter to more closely monitor filling pressures. Active problems: CHF exacerbation, diastolic type Acute intravascular volume overload Pulmonary edema Acute hypoxemia Deep vein thrombosis Acute kidney injury superimposed on stage III chronic kidney disease Acute protein calorie malnutrition- moderate Hypervolemic hyponatremia Plan: Hold spironolactone Bumex drip 1 mg per hour with 4 mg bolus Diamox 500 mg IV every 8 hours Diuril 500mg iv x [address]. Place Vazquez for accurate every hour I's and O's Every 6 hours BMPs and magnesium Aggressive electrolyte replacement Wean oxygen as tolerated for goal SPO2 greater than 90% Nebs Aggressive pulmonary toilet Continue heart healthy diet with a 1 L fluid restriction Likely as we diurese her, her sodium may rise and at that point we will want to start holding her Tolvaptan. continue for now. Daily monitoring of electrolytes and creatinine May require renal replacement therapy if she does not diuresis appropriately. PT consult Admit to ICU close for closer monitoring Kwabena Palma MD May 10, 2017 14:39
[2017-05-10] MEDS ORDERED: CHLOROTHIAZIDE SOD 500 MG VIAL IV ONE (15:00)
[2017-05-10] MEDS: ALBUMIN 25% INJ 100 ML IV SCH ×2 (15:15→22:16)
[2017-05-10] MEDS: BUMETANIDE 25 MG/100 ML CONTINOUS DRIP IV SCH (15:16)
[2017-05-10] MEDS: ENOXAPARIN SODIUM 60 MG/0.6 ML SYRINGE SQ SCH (17:10)
[2017-05-10 17:25] LABS: BICARBONATE 28.4 MEQ/L (21.0-32.0); CALCIUM 8.5 MG/DL (8.5-10.1); CREATININE 2.64 MG/DL (0.50-1.00); MAGNESIUM 1.8 MG/DL (1.5-2.5)
[2017-05-10] MEDS ORDERED: MAGNESIUM SULFATE INJ 2 GM in SODIUM CHLORIDE 0.9% INJ 100 ML IV PRN ×4 (18:00)
[2017-05-10] MEDS ORDERED: CALCIUM CHLORIDE INJ 1 GM in SODIUM CHLORIDE 0.9% INJ 100 ML IV PRN (18:00)
[2017-05-10] MEDS ORDERED: POTASSIUM CHLORIDE 20 MEQ CONTROLLED RELEASE TAB PO PRN ×2 (18:00)
[2017-05-10] MEDS ORDERED: POTASSIUM CHLORIDE INJ 20 MEQ in SODIUM CHLORIDE 0.9% INJ 100 ML IV ONE (20:00)
[2017-05-10] MEDS ORDERED: POTASSIUM CHLOR 20 MEQ PREMIX 100 ML IV PRN (20:00)
[2017-05-10] MEDS: MAGNESIUM SULFATE 1 GM PREMIX 100 ML IV SCH ×2 (22:18→23:39)
[2017-05-10 22:58] LABS: BICARBONATE 27.1 MEQ/L (21.0-32.0); CALCIUM 8.7 MG/DL (8.5-10.1); CREATININE 2.75 MG/DL (0.50-1.00); MAGNESIUM 1.8 MG/DL (1.5-2.5)
[2017-05-11] VITALS (15 sets, daily range): BP systolic 150–166; BP diastolic 66–74; PULSE 16–86; RESP 16–20; TEMP 98–98.5; O2SAT 89–98
[2017-05-11 03:24] LABS: BICARBONATE 28.7 MEQ/L (21.0-32.0); CALCIUM 8.5 MG/DL (8.5-10.1); CREATININE 2.68 MG/DL (0.50-1.00); MAGNESIUM 2.5 MG/DL (1.5-2.5)
[2017-05-11 05:45] LABS: HEMATOCRIT 22.8 % (35.0-46.0); HEMOGLOBIN 7.5 GM/DL (11.6-15.3); MEAN CELL VOLUME 93.7 FL (80.0-100.0); MEAN CORPUSCULAR HEMOGLOBIN 30.8 PG (27.0-34.0); MEAN CORPUSCULAR HGB CONC 32.8 % (32.0-36.0); MEAN PLATELET VOLUME 9.9 FL (7.0-11.0); PLATELET COUNT 204 TH/MM3 (150-450); RED BLOOD COUNT 2.44 MIL/MM3 (4.00-5.30); RED CELL DISTRIBUTION WIDTH 15.3 % (11.6-17.2); WHITE BLOOD COUNT 20.7 TH/MM3 (4.0-11.0)
[2017-05-11] MEDS: cloNIDine HCL 0.2 MG TAB PO SCH ×3 (06:01→22:43)
[2017-05-11] MEDS: ALBUMIN 25% INJ 100 ML IV SCH ×3 (06:01→21:22)
[2017-05-11] MEDS: oxyCODONE/ACETAMINOPHEN 10 MG/325 MG TAB PO PRN ×3 (06:10→21:50)
--- NOTE | 2017-05-11 06:17 | RADRPT ---
EXAM DATE/TIME: 05/11/2017 05:36 [facility] COMPARISON: CHEST SINGLE AP, April 23, 2017, 5:10. CHEST PA & LAT, May 08, 2017, 10:24. INDICATIONS : Shortness of breath. MEDICAL HISTORY : Congestive heart failure. Diabetes mellitus type II. Hypertension. UT. SURGICAL HISTORY : Fusion, cervical. Fusion, lumbar. Appendectomy. CABG. Cholecystectomy. ENCOUNTER: Subsequent ACUITY: 3 days PAIN SCORE: Non-responsive. LOCATION: chest FINDINGS: PA and lateral views of the chest. Slight increase in bilateral right greater than left pulmonary opa city. Cardiac silhouette enlarged but unchanged. Median sternotomy wires noted. No evidence of pleura l effusion or pneumothorax. CONCLUSION: Increase in prominent right greater than left pulmonary parenchymal opacity indicating asymmetric pul monary edema versus infection. Bladimir Rodríguez MD on May 11, 2017 at 6:14 Board Certified Radiologist. This report was verified electronically.
[2017-05-11] MEDS: BUMETANIDE 25 MG/100 ML CONTINOUS DRIP IV SCH (06:25)
[2017-05-11] MEDS: RESP: ALBUTEROL 2.5 MG/IPRATROPIUM 0.5 MG NEB (SCH) NEB ×4 (07:25→20:49)
[2017-05-11] MEDS: INSULIN ASPART SUPPLEMENTAL SCALE SQ SCH ×4 (08:00→21:21)
[2017-05-11 08:40] LABS: BICARBONATE 28.8 MEQ/L (21.0-32.0); CALCIUM 8.7 MG/DL (8.5-10.1); CREATININE 2.77 MG/DL (0.50-1.00); MAGNESIUM 2.4 MG/DL (1.5-2.5)
[2017-05-11] MEDS: TOLVAPTAN 15 MG TAB PO SCH (09:00)
[2017-05-11] MEDS: POLYETHYLENE GLYCOL 17 GM PKG PO SCH (09:00)
[2017-05-11] MEDS: SODIUM CHLORIDE 0.9% FLUSH 10 ML FLUSH IV FLUSH SCH ×2 (09:00→21:20)
[2017-05-11] MEDS: DOCUSATE SODIUM 50 MG/SENNA 8.6 MG TAB PO SCH (09:14)
[2017-05-11] MEDS: predniSONE 10 MG TAB PO SCH (09:14)
[2017-05-11] MEDS: GABAPENTIN 400 MG CAP PO SCH ×2 (09:14→21:20)
[2017-05-11] MEDS: PANTOPRAZOLE SOD 40 MG DELAYED RELEASE TAB PO SCH ×2 (09:15→21:20)
[2017-05-11] MEDS: DOXAZOSIN MESYLATE 2 MG TAB PO SCH (09:15)
[2017-05-11] MEDS: guaiFENesin E.R. 600 MG TAB PO SCH ×2 (09:15→21:20)
[2017-05-11] MEDS: FLUoxetine HCL 20 MG CAP PO SCH (09:15)
[2017-05-11] MEDS: FERROUS SULFATE 325 MG (65 MG ELEMENTAL IRON) TAB PO SCH (09:15)
[2017-05-11] MEDS: CARBAMIDE PEROXIDE 6.5% OTIC SOLN 15 ML BTL EACH EAR SCH ×3 (09:16→21:21)
[2017-05-11] MEDS: BUDESONIDE-FORMOTEROL 160/4.5 MCG INHALER INH SCH ×3 (09:16→21:21)
[2017-05-11] MEDS: TIOTROPIUM BROMIDE 18 MCG INH INH SCH (09:16)
[2017-05-11] MEDS: POTASSIUM CHLOR 20 MEQ PREMIX 100 ML IV PRN ×2 (09:37→14:31)
--- NOTE | 2017-05-11 09:47 | HHI.CCPN ---
Subjective Remarks/Hospital Course This is a 76-year-old female with a history of congestive heart failure with preserved EF, smoking, COPD who presented to the emergency department on 04/23 with worsening shortness of breath, BNP greater than 4000, bilateral pulmonary infiltrates and was diagnosed at that time with CHF exacerbation. She was initially started on Lasix. At that time she did have an acute kidney injury on top of chronic renal insufficiency stage III. Nephrology was consulted and felt this was due to increased renal vein pressure. Despite attempts at diuresis, she is had a positive fluid balance during her hospital stay, and she persists with significant dyspnea. She was initially on Zosyn and azithromycin to empirically cover for possible COPD exacerbation. Zosyn was stopped on hospital day 7, but azithromycin continues through today empirically. She is remained afebrile throughout her hospital stay. A few days ago, she was started on prednisone for possible COPD exacerbation component to her shortness of breath. After starting on systemic steroids, her white count which was normal on admission, began to rise. She still remains afebrile. Yesterday, bilateral lower extremity Dopplers were positive for a left posterior tibial deep vein thrombosis. VQ scan at that time was indeterminate for PE in the setting of significant bilateral consolidations which likely decreases sensitivity of VQ scan for embolism. Due to the patient's persistent dyspnea and positive fluid balance for hospital stay despite attempts at diuresis, and due to the fact that her kidney injury continues to worsen, I was contacted by the hospitalist service for possible transfer to the intensive care unit for a more aggressive diuretic regimen. I evaluated the patient on arrival to the CVICU. The patient does complain of significant dyspnea, particularly with even light movement out of bed to chair. She states that she just wants to feel better. She denies chest pain, nausea, vomiting, fever, chills, or any other symptoms other than her shortness of breath. SUBJ 05/11/17: Sitting up in chair subjectively feels improved. Urine output 3.5 L in the last 16 hours since Bumex infusion was started. Creatinine remains relatively stable at 2.77. Chest x-ray on my review shows slight improvement in the left-sided pulmonary edema, similar appearance on right side. 2-D echo had shown 50-55% ejection fraction mild to moderate MR, Moderate MS (by gradient of 7). Also evidence of pulmonary hypertension PASP 70 mm Hg. Patient needs improved BP control due to diastolic CHF. Increase clonidine to 0.3 mg q8 , Cardura to 4 mg and Hydralazine to 50 q8. HR adequately controlled. Also evaluate with CT chest after adequate diuresis for emphysema and lung consolidation/effusion Objective Vital Signs Date Time Temp Pulse Resp B/P (MAP) Pulse Ox O2 Delivery O2 Flow Rate FiO2 05/11/17 08:00 77 05/11/17 07:27 89 Nasal Cannula 4.00 05/11/17 07:12 20 05/11/17 07:00 98.0 154/69 (97) Intake and Output 05/11/17 05/11/17 05/12/17 08:00 16:00 00:00 Intake Total 826 ml Output Total 3400 ml Balance -2574 ml Result Diagram: 05/11/17 0414 05/11/17 0800 Imaging Last Impressions Lung Scan-VQ Nuclear Medicine 05/09/17 0000 Signed Impressions: Service Date/Time: Tuesday, May 09, 2017 11:08 - CONCLUSION: 1. Indeterminate for pulmonary embolus. Don Vega MD Lower Extremity Ultrasound 05/09/17 0000 Signed Impressions: Service Date/Time: Tuesday, May 09, 2017 12:05 - CONCLUSION: 1. Occlusive deep venous thrombosis within the left posterior tibial veins. 2. No deep venous thrombosis within the right lower extremity. Cameron Ashby MD Chest X-Ray 05/08/17 0000 Signed Impressions: Service Date/Time: Monday, May 08, 2017 10:24 - CONCLUSION: Cardiomegaly and findings of congestive heart failure. Konstantin Rojas MD Head CT 04/25/17 0000 Signed Impressions: Service Date/Time: Tuesday, April 25, 2017 22:28 - CONCLUSION: 1. Negative noncontrast CT brain. Leo Gonzales MD Renal Ultrasound 04/24/17 0000 Signed Impressions: Service Date/Time: Monday, April 24, 2017 23:08 - CONCLUSION: 1. Echogenic kidneys likely secondary to medical renal disease. 2. Minimal ascites. 3. Left pleural effusion. Rasta Vieira MD Objective Remarks GENERAL: Elderly female, sitting in chair, slightly dyspneic, oxygen saturation 97% on 6 L nasal cannula HEENT: Normocephalic. Atraumatic. Pupils equal, round, reactive, conjugate. Mucous membranes are moist NECK: Trachea is midline. + JVD. CHEST: Slightly tachypneic. On 6 L oxygen by nasal cannula. Bilateral coarse rales in all lung [place]. Few expiratory wheezes CARDIOVASCULAR: Normal rate, regular rhythm. Sinus by telemetry ABDOMEN: Soft, nontender, nondistended. No guarding. MUSCULOSKELETAL: Pulses 2+. 3+ peripheral edema NEUROLOGICAL: AO x3. Follows commands. No focal deficits. A/P Assessment and Plan Assessment: This is a 76-year-old female with a history of congestive heart failure with preserved EF who presented on 04/23 with dyspnea and an elevated BNP greater than 4000 and chest x-ray suggestive of bilateral pulmonary edema. This patient most likely has CHF exacerbation, diastolic type, secondary to volume overload. The patient has never been febrile during her entire hospital stay, and up until the time she was started on systemic steroids, she did not have a leukocytosis. I think is reasonable this point to stop her empiric antibiotics that she's been on since admission. I also think that it is reasonable to taper her steroids. She does have a smoking history, however her acute clinical change that brought her to the hospital did not come with an associated change in sputum production or consistency, and this is much less likely to be a COPD exacerbation. While the patient does appear to have a newly diagnosed DVT, and certainly pulmonary emboli could account for some degree of hypoxemia, her chest x-ray still shows evidence of bilateral pulmonary infiltrates suggestive of pulmonary edema, and I think that all clinical signs point to CHF exacerbation as the cause for her persistent dyspnea. In addition, the patient is increased in weight from dry weight, but additionally is increase in weight from admission weight, suggestive that we still do not have control of her CHF exacerbation. I think is reasonable to anticoagulate for her DVT, but do not think that PE is high on the likelihood of reasons why she is persistently dyspneic. I do think that her acute kidney injury which is clearly worsening is likely secondary to congestive renopathy and secondary to elevated renal vein pressure and decreased perfusion pressure. However, at this point, with elevated creatinine that is been ongoing for the last 1-2 weeks, we could be dealing with a significant component of ATN secondary to a subacute decrease in renal perfusion pressure. Despite all this , the patient needs aggressive diuresis and is likely 25 pounds or more volume overloaded from dry weight. We will initiate aggressive forced diuresis in the setting of acute kidney injury presumed combination ATN and elevated renal vein pressure. We'll start with Bumex infusion, Diamox, Diuril. I think it is prudent to hold her spironolactone given her elevated creatinine. If she does not respond forced diuresis, I think it is reasonable at this point to consider renal replacement therapy as we clearly need to get control of her volume overload, as she remains symptomatic throughout the last 2 weeks. She is highly complex and off pathway. Agree with transition to the ICU for close monitoring. If we are unable to effectively diurese her, she may benefit from right heart catheterization with [place] catheter to more closely monitor filling pressures. Active problems: CHF exacerbation, diastolic type Acute intravascular volume overload Pulmonary edema Acute on chronic hypoxemia Deep vein thrombosis Acute kidney injury superimposed on stage III chronic kidney disease Acute protein calorie malnutrition- moderate Hypervolemic hyponatremia Moderate mitral stenosis by gradient Plan: Bumex drip 1 mg per hour with 4 mg bolus, started 05/10/17, now achieving negative balance Diamox 500 mg IV every 8 hours Diuril 500mg iv x 1. Hold spironolactone Vazquez for accurate every hour I's and O's Every 6 hours BMPs and magnesium Aggressive electrolyte replacement Goal SPO2 greater than 88-90% Nebs, EzPAP, Acapella Continue Symbicort, Add Spiriva Aggressive pulmonary toilet Increase clonidine to 0.3 mg q8, Cardura to 4 mg and Hydralazine to 50 q8. HR adequately controlled. Need tight BP control due to diastolic heart failure. Target <140/[address] chest after adequate diuresis for emphysema and lung consolidation/effusion Continue heart healthy diet with a 1 L fluid restriction Likely as we diurese her, her sodium may rise and at that point we will want to start holding her Tolvaptan. continue for now. Daily monitoring of electrolytes and creatinine May require renal replacement therapy if she does not diuresis appropriately. PT consult Continue ICU close for closer monitoring Level 3 D/W Dr. Xavier who is covering for Gabriela Sanchez MD May 11, 2017 09:47
--- NOTE | 2017-05-11 12:42 | HHI.NPPN ---
Subjective General Problems: Anemia, Edema, Heart Disease Renal Failure: Chronic, Acute, Stage III Interval History She was moved to CVICU. Started on Bumex gtt. Diuresing well. Sitting up in a chair, breathing less labored. (Camila Cline) Review of Systems General Constitutional: Fatigue (Camila Cilne) Respiratory Lungs: SOB (Camila Cline) Cardiovascular Cardiac: Palpitations, Edema (Camila Cline) Objective Data Data Vital Signs Date Time Temp Pulse Resp B/P (MAP) Pulse Ox O2 Delivery O2 Flow Rate FiO2 05/11/17 12:00 86 05/11/17 11:20 16 05/11/17 11:00 95 Nasal Cannula 5.00 05/11/17 11:00 98.2 74 16 154/69 (97) 95 05/11/17 08:00 77 05/11/17 07:27 89 Nasal Cannula 4.00 05/11/17 07:00 93 Nasal Cannula 4.00 05/11/17 07:00 98.0 16 17 154/69 (97) 93 05/11/17 04:00 81 05/11/17 03:26 98.4 73 20 166/73 (104) 98 05/11/17 03:23 98 Nasal Cannula 6.00 Humidified 05/11/17 01:00 94 Nasal Cannula 6.00 Humidified 05/11/17 00:00 72 05/10/17 23:00 97.0 73 20 162/72 (102) 94 05/10/17 23:00 94 Nasal Cannula 5.00 Humidified 05/10/17 23:00 73 05/10/17 22:00 97 Nasal Cannula 5.00 Humidified 05/10/17 21:40 93 Nasal Cannula 5.00 05/10/17 21:13 Nasal Cannula 4.00 05/10/17 20:00 97 Nasal Cannula 4.00 05/10/17 20:00 98.5 72 20 175/73 (107) 93 05/10/17 18:53 74 05/10/17 16:10 74 05/10/17 15:17 97.9 77 18 150/66 (94) 94 05/10/17 15:16 94 Nasal Cannula 2.00 05/10/17 13:58 98 Nasal Cannula 3.00 05/10/17 13:25 81 (Camila Cline) -: 05/11/17 0414 05/11/17 0800 Microbiology 05/10/17 Aerobic Blood Culture - Preliminary, Resulted NO GROWTH IN 1 DAY 05/10/17 Anaerobic Blood Culture - Preliminary, Resulted NO GROWTH IN 1 DAY 05/10/17 Aerobic Blood Culture - Preliminary, Resulted NO GROWTH IN 1 DAY 05/10/17 Anaerobic Blood Culture - Preliminary, Resulted NO GROWTH IN 1 DAY Imaging Last 72 hours Impressions Chest X-Ray 05/11/17 0600 Signed Impressions: Service Date/Time: Thursday, May 11, 2017 05:36 - CONCLUSION: Increase in prominent right greater than left pulmonary parenchymal opacity indicating asymmetric pulmonary edema versus infection. Bladimir Rodríguez MD Lung Scan-V Nuclear Medicine 05/09/17 0000 Signed Impressions: Service Date/Time: Tuesday, May 09, 2017 11:08 - CONCLUSION: 1. Indeterminate for pulmonary embolus. Don Vega MD Lower Extremity Ultrasound 05/09/17 0000 Signed Impressions: Service Date/Time: Tuesday, May 09, 2017 12:05 - CONCLUSION: 1. Occlusive deep venous thrombosis within the left posterior tibial veins. 2. No deep venous thrombosis within the right lower extremity. Cameron Ashby MD Tubes & Lines: Vazquez Tubes & Lines Comment bumex (Camila Cline) Physical Exam General Appearance: Well Developed, No Acute Distress, Comfortable, Anxious, Malnourished (Camila Cline) Throat Throat Exam: Oral Mucosa [place] & Moist (Camila Cline) Neck Neck Exam: Neck Supple (Camila Cline) Pulmonary Resp Exam: Breath Sounds Equal, No Distress, Crackles, Sputum, Decreased Bases (Camila Cline) Cardiology CV Exam: Regular, Normal Sinus Rhythm, Good Perfusion (Camila Cline) Gastrointestinal/Abdomen GI Exam: Soft, Non-Tender, Bowel Sounds Present (Camila Cline) Musculoskeletal MS Exam: Normal Gait, Normal Tone (Camila Cline) Integumentary Skin Exam: Warm, Dry Skin Remarks scattered lower extremity abrasions (Camila Cline) Extremeties Extremities Exam: Pedal Pulses Palpable, Moderate Edema, Pitting Edema, Dependent Edema (Camila Cline) Neurologic Neuro Exam: Alert, Awake, Oriented, Speech Clear, Moving All Extremities (Camila Cline) Psychiatric Psych Exam: Appropriate Responses (aCmila Cline) Assessment/Plan Discussed Condition With: Patient Assessment Summary: MILI/Acute Renal Failure, Anemia of CKD, Fluid/Volume Overload, Proteinuria, CHF, Hypertension, Diabetes Mellitus, CKD Stage III Electrolyte Assessment: Hyponatremia Problem List: (1) MILI (acute kidney injury) ICD Codes: N17.9 - Acute kidney injury Status: Acute Plan: She has underlying CKD 3, baseline GFR 30, creatinine 1.61 Suspected underlying diabetic nephropathy as she does have proteinuria. Repeat SPEP is negative. C3 is low. She is Hep C positive. Cryoglobulin pending. MILI may be due to CHF exacerbation and increased renal vein pressure. Started on Bumex gtt at 2 mg/hr. Also given Diuril. Spironolactone was stopped. Fluid overload persists. Non oliguric, continue to monitor. K was replaced. Creatinine is slightly higher, high BUN may be due to steroids. She may require dialysis for fluid removal over the weekend. if symptoms persist and her renal function declines. D/W patient. Repeat labs in AM. Avoid nephrotoxic agents. (2) Hyponatremia ICD Codes: E87.1 - Hypo-osmolality and hyponatremia Plan: Improving. Avoid NaCl tabs given hx of CHF. On Tolvaptan and bumex. (3) CHF exacerbation ICD Codes: I50.9 - Heart failure, unspecified Status: Acute Plan: Echo this month shows: -LVH -Apical hypokinesis -Left ventricular function is low normal, EF 50-55% (diastolic dysfunction) follow I/O, fluid status, weight Restriction of Sodium in her diet. On diuretics. Carefully monitor potassium. She may require dialysis for fluid removal. (4) Anemia ICD Codes: D64.9 - Anemia Status: Chronic Plan: She has iron deficiency. Received Venofer. On oral ferrous sulfate. May have anemia of chronic disease. Given Epogen Transfuse if necessary. (5) Acute hypoxemic respiratory failure ICD Codes: J96.01 - Acute respiratory failure with hypoxia Status: Resolved Plan: Being treated for CAP On Zithromax and prednisone Refusing BiPap, on oxygen via nasal canula Recent saturation 98% oh 2L NC Former smoker, cessation discussed (6) Community acquired pneumonia ICD Codes: J18.9 - Pneumonia, unspecified organism Status: Acute Plan: See above Continue supportive care On nebulizers, inhalers, oxygen . WBC increasing. (7) DVT (deep venous thrombosis) ICD Codes: I82.409 - Acute embolism and thrombosis of unspecified deep veins of unspecified lower extremity Plan: On Lovenox, consider changing to Eliquis. Plan patient was seen and examined. Her condition is about the same. Renal function same as before. Avoid nephrotoxic agents. Continue diuresis. (Camila Cline) Plan patient was seen and examined. Events noted. Continue Bumex drip. She has good diuresis. No immediate need for dialysis. (Abebe Patten MD) Problem Qualifiers (1) CHF exacerbation: Qualified Codes: I50.9 - Heart failure, unspecified (2) Anemia: Qualified Codes: D64.9 - Anemia, unspecified (3) Community acquired pneumonia: Qualified Codes: J18.9 - Pneumonia, unspecified organism Camila Cline May 11, 2017 12:42 Abebe Patten MD May 11, 2017 15:24
[2017-05-11] MEDS: hydrALAZINE HCL 50 MG TAB PO SCH ×2 (12:51→21:20)
--- NOTE | 2017-05-11 14:46 | PD.CARD.PN ---
Subjective Subjective Remarks The patient is lethargic but arousable with physical stimulation. She is up in the, hemodynamically stable. (Laverne De Los Santos) Objective Medications Current Medications Medications (Trade) Dose Ordered Sig/Rosemarie Route Start Time Stop Time Status Last Admin (Nitrostat Sl) 0.4 mg Q5M PRN SL 04/23/17 05:15 (Symbicort 160-4.5 Mcg Inh) 2 puff Q12HR INH 04/23/17 09:00 05/11/17 09:16 (Mucinex Er) 600 mg BID PO 04/23/17 09:00 05/11/17 09:15 (NS Flush) 2 ml UNSCH PRN IV FLUSH 04/23/17 06:30 (NS Flush) 2 ml BID IV FLUSH 04/23/17 09:00 05/11/17 09:00 (Zofran Inj) 4 mg Q6H PRN IVP 04/23/17 06:30 (Tylenol) 650 mg Q6H PRN PO 04/23/17 06:30 (Milk Of Magnesia Liq) 30 ml Q12H PRN PO 04/23/17 06:30 04/29/17 20:53 (Senokot) 17.2 mg Q12H PRN PO 04/23/17 06:30 04/25/17 21:22 (Dulcolax Supp) 10 mg DAILY PRN RECTAL 04/23/17 06:30 (Lactulose Liq) 30 ml DAILY PRN PO 04/23/17 06:30 05/05/17 09:03 (Neurontin) 400 mg BID PO 04/23/17 21:00 05/11/17 09:14 (PROzac) 40 mg DAILY PO 04/24/17 09:00 05/11/17 09:15 (Trandate Inj) 10 mg Q6H PRN IV PUSH 04/23/17 20:45 04/25/17 15:48 (D50w (Vial) Inj) 50 ml UNSCH PRN IV PUSH 04/24/17 15:00 (Glucagon Inj) 1 mg UNSCH PRN OTHER 04/24/17 15:00 (NovoLOG SUPPLEMENTAL SCALE) 1 ACHS SLIDING SCALE SQ 04/24/17 17:00 05/10/17 21:14 (Apresoline Inj) 10 mg Q4HR PRN IV PUSH 04/25/17 16:15 05/05/17 03:55 (Protonix) 40 mg Q12HR PO 04/25/17 21:00 05/11/17 09:15 (Cepacol Extra Uli (Sugar Free)) 1 lozenge Q2HR PRN BUCCAL 04/27/17 23:00 (Nathaly-Colace) 2 tab DAILY PO 05/02/17 09:00 05/11/17 09:14 (Miralax) 17 gm DAILY PO 05/03/17 09:00 05/11/17 09:00 (Ferrous Sulfate) 325 mg DAILY PO 05/04/17 11:00 05/11/17 09:15 (Samsca) 15 mg DAILY PO 05/05/17 10:00 05/11/17 09:00 (Aldactone) 25 mg DAILY PO 05/05/17 09:00 Future Hold 05/10/17 09:53 (Debrox 6.5% Otic) 5 drop Q12HR EACH EAR 05/06/17 21:00 05/11/17 09:16 (Zofran Inj) 4 mg Q6HR PRN IV PUSH 05/09/17 09:30 (Percocet 10-325 Mg) 1 tab Q4H PRN PO 05/09/17 13:15 05/11/17 10:10 (Lovenox Inj) 60 mg Q24H SQ 05/09/17 17:00 05/10/17 17:10 Non-Formulary Medication 1 ea/ Syringe / Bag 100 ml @ 4 mls/hr Q24H IV 05/10/17 15:00 05/11/17 06:25 (Diamox Inj) 500 mg Q8H IV PUSH 05/10/17 15:00 05/11/17 14:32 Albumin Human 100 ml @ 12.5 mls/hr Q8H IV 05/10/17 15:00 05/11/17 06:01 (Deltasone) 40 mg Taper DAILY PO 05/11/17 09:00 05/16/17 08:59 05/11/17 09:14 Potassium Chloride 100 ml @ 50 mls/hr UNSCH PRN IV 05/10/17 20:00 Potassium Chloride 100 ml @ 50 mls/hr UNSCH PRN IV 05/10/17 18:00 (KCl) 20 meq UNSCH PRN PO 05/10/17 18:00 (KCl) 40 meq UNSCH PRN PO 05/10/17 18:00 Magnesium Sulfate 2 gm/Sodium Chloride 104 ml @ 100 mls/hr UNSCH PRN IV 05/10/17 18:00 Magnesium Sulfate 2 gm/Sodium Chloride 104 ml @ 50 mls/hr UNSCH PRN IV 05/10/17 18:00 Calcium Chloride 1 gm/Sodium Chloride 110 ml @ 100 mls/hr UNSCH PRN IV 05/10/17 18:00 (Duoneb Neb) 1 ampule Q4HR NEB NEB 05/11/17 08:00 05/11/17 11:10 (Catapres) 0.3 mg Q8HR PO 05/11/17 14:00 05/11/17 12:51 (Cardura) 4 mg DAILY PO 05/11/17 09:00 05/11/17 09:15 (Apresoline) 50 mg Q8HR PO 05/11/17 14:00 05/11/17 12:51 (Spiriva Inh) 18 mcg DAILY INH 05/11/17 09:00 05/11/17 09:16 Vital Signs / I&O Vital Signs Date Time Temp Pulse Resp B/P (MAP) Pulse Ox O2 Delivery O2 Flow Rate FiO2 05/11/17 12:00 86 05/11/17 11:20 16 05/11/17 11:00 95 Nasal Cannula 5.00 05/11/17 11:00 98.2 74 16 154/69 (97) 95 05/11/17 08:00 77 05/11/17 07:27 89 Nasal Cannula 4.00 05/11/17 07:00 93 Nasal Cannula 4.00 05/11/17 07:00 98.0 16 17 154/69 (97) 93 05/11/17 04:00 81 05/11/17 03:26 98.4 73 20 166/73 (104) 98 05/11/17 03:23 98 Nasal Cannula 6.00 Humidified 05/11/17 01:00 94 Nasal Cannula 6.00 Humidified 05/11/17 00:00 72 05/10/17 23:00 97.0 73 20 162/72 (102) 94 05/10/17 23:00 94 Nasal Cannula 5.00 Humidified 05/10/17 23:00 73 05/10/17 22:00 97 Nasal Cannula 5.00 Humidified 05/10/17 21:40 93 Nasal Cannula 5.00 05/10/17 21:13 Nasal Cannula 4.00 05/10/17 20:00 97 Nasal Cannula 4.00 05/10/17 20:00 98.5 72 20 175/73 (107) 93 05/10/17 18:53 74 05/10/17 16:10 74 05/10/17 15:17 97.9 77 18 150/66 (94) 94 05/10/17 15:16 94 Nasal Cannula 2.00 I/O 05/10/17 05/10/17 05/10/17 05/11/17 05/11/17 05/11/17 07:00 15:00 23:00 07:00 15:00 23:00 Intake Total 480 ml 500 ml 926 ml Output Total 1000 ml 900 ml 3400 ml Balance -520 ml -400 ml -2474 ml Intake Oral 480 ml 500 ml 460 ml IV Total 466 ml Output Urine Total 1000 ml 900 ml 3400 ml # Bowel Movements 0 0 Physical Exam GENERAL: Elderly female in ICU, NAD SKIN: Warm and dry. HEAD: Normocephalic. EYES: No scleral icterus. No injection or drainage. NECK: Supple, trachea midline. 4 cm JVD CARDIOVASCULAR: Regular rate and rhythm RESPIRATORY: nasal cannula, rales, rhonchi, wheezing GASTROINTESTINAL: Abdomen soft, non-tender, nondistended. MUSCULOSKELETAL: No cyanosis, or edema. BACK: Nontender without obvious deformity. Laboratory Laboratory Tests Test 05/10/17 16:10 05/10/17 21:55 05/11/17 02:39 05/11/17 04:14 Blood Urea Nitrogen 102 MG/DL 106 MG/DL 107 MG/DL Creatinine 2.64 MG/DL 2.75 MG/DL 2.68 MG/DL Random Glucose 99 MG/DL 171 MG/DL 141 MG/DL Calcium Level 8.5 MG/DL 8.7 MG/DL 8.5 MG/DL Magnesium Level 1.8 MG/DL 1.8 MG/DL 2.5 MG/DL Sodium Level 128 MEQ/L 126 MEQ/L 128 MEQ/L Potassium Level 3.9 MEQ/L 3.6 MEQ/L 3.6 MEQ/L Chloride Level 89 MEQ/L 88 MEQ/L 89 MEQ/L Carbon Dioxide Level 28.4 MEQ/L 27.1 MEQ/L 28.7 MEQ/L Anion Gap 11 MEQ/L 11 MEQ/L 10 MEQ/L Estimat Glomerular Filtration Rate 18 ML/MIN 17 ML/MIN 17 ML/MIN White Blood Count 20.7 TH/MM3 Red Blood Count 2.44 MIL/MM3 Hemoglobin 7.5 GM/DL Hematocrit 22.8 % Mean Corpuscular Volume 93.7 FL Mean Corpuscular Hemoglobin 30.8 PG Mean Corpuscular Hemoglobin Concent 32.8 % Red Cell Distribution Width 15.3 % Platelet Count 204 TH/MM3 Mean Platelet Volume 9.9 FL B-Type Natriuretic Peptide 2691 PG/ML Test 05/11/17 08:00 Blood Urea Nitrogen 104 MG/DL Creatinine 2.77 MG/DL Random Glucose 98 MG/DL Calcium Level 8.7 MG/DL Magnesium Level 2.4 MG/DL Sodium Level 130 MEQ/L Potassium Level 3.3 MEQ/L Chloride Level 89 MEQ/L Carbon Dioxide Level 28.8 MEQ/L Anion Gap 12 MEQ/L Estimat Glomerular Filtration Rate 17 ML/MIN Imaging Last 24 hours Impressions Chest X-Ray 05/11/17 0600 Signed Impressions: Service Date/Time: Thursday, May 11, 2017 05:36 - CONCLUSION: Increase in prominent right greater than left pulmonary parenchymal opacity indicating asymmetric pulmonary edema versus infection. Bladimir Rodríguez MD (Laverne De Los Santos) Assessment and Plan Problem List: (1) Acute hypoxemic respiratory failure ICD Codes: J96.01 - Acute respiratory failure with hypoxia Status: Resolved (2) CHF exacerbation ICD Codes: I50.9 - Heart failure, unspecified Status: Acute (3) COPD exacerbation ICD Codes: J44.1 - Obstructive chronic bronchitis with exacerbation Status: Resolved (4) Community acquired pneumonia ICD Codes: J18.9 - Pneumonia, unspecified organism Status: Acute (5) MILI (acute kidney injury) ICD Codes: N17.9 - Acute kidney injury Status: Acute (6) Anemia ICD Codes: D64.9 - Anemia Status: Chronic (7) HTN (hypertension) ICD Codes: I10 - Hypertension Status: Chronic (8) DM (diabetes mellitus screen) ICD Codes: Z13.1 - Screening for diabetes mellitus Status: Chronic (9) Mitral stenosis ICD Codes: I05.0 - Rheumatic mitral stenosis Permanent Comment: Mild to moderate Very ill patient with very poor looking cxray. Agree with renal replacement if needed. Dr Miranda will see over weekend and Dr Fitzgerald next week Last Edited By: Regino Xavier MD, FACC, Frcp on May 11, 2017 18:27 Assessment and Plan Continue Bumex and Samsca with close monitoring of renal function and electrolytes Dr Miranda will follow up this weekend and Dr Fitzgerald will see the patient on Sunday Discussed with ICU MD The patient was seen and evaluated by Dr Xavier who completed face to face encounter and physical exam and participated in evaluation and management. (Laverne De Los Santos) Problem List: (1) Acute hypoxemic respiratory failure ICD Codes: J96.01 - Acute respiratory failure with hypoxia Status: Resolved (2) CHF exacerbation ICD Codes: I50.9 - Heart failure, unspecified Status: Acute (3) COPD exacerbation ICD Codes: J44.1 - Obstructive chronic bronchitis with exacerbation Status: Resolved (4) Community acquired pneumonia ICD Codes: J18.9 - Pneumonia, unspecified organism Status: Acute (5) MILI (acute kidney injury) ICD Codes: N17.9 - Acute kidney injury Status: Acute (6) Anemia ICD Codes: D64.9 - Anemia Status: Chronic (7) HTN (hypertension) ICD Codes: I10 - Hypertension Status: Chronic (8) DM (diabetes mellitus screen) ICD Codes: Z13.1 - Screening for diabetes mellitus Status: Chronic (9) Mitral stenosis ICD Codes: I05.0 - Rheumatic mitral stenosis Permanent Comment: Mild to moderate Very ill patient with very poor looking cxray. Agree with renal replacement if needed. Dr Miranda will see over weekend and Dr Fitzgerald next week Last Edited By: Regino Xavier MD, FACC, Frcp on May 11, 2017 18:27 (Regino Xavier MD) Problem Qualifiers (1) CHF exacerbation: Qualified Codes: I50.9 - Heart failure, unspecified (2) Community acquired pneumonia: Qualified Codes: J18.9 - Pneumonia, unspecified organism (3) Anemia: Qualified Codes: D64.9 - Anemia, unspecified (4) HTN (hypertension): Qualified Codes: I10 - Essential (primary) hypertension (5) Mitral stenosis: Qualified Codes: I05.0 - Rheumatic mitral stenosis Laverne De Los Santos May 11, 2017 14:46 Regino Xavier MD May 11, 2017 18:27
[2017-05-11 15:12] LABS: BICARBONATE 29.6 MEQ/L (21.0-32.0); CALCIUM 8.8 MG/DL (8.5-10.1); CREATININE 2.82 MG/DL (0.50-1.00); MAGNESIUM 2.4 MG/DL (1.5-2.5)
[2017-05-11] MEDS: ENOXAPARIN SODIUM 60 MG/0.6 ML SYRINGE SQ SCH (17:00)
[2017-05-11 21:13] LABS: BICARBONATE 28.2 MEQ/L (21.0-32.0); CALCIUM 8.7 MG/DL (8.5-10.1); CREATININE 2.95 MG/DL (0.50-1.00); MAGNESIUM 2.4 MG/DL (1.5-2.5)
[2017-05-12] VITALS (9 sets, daily range): BP systolic 146–171; BP diastolic 57–86; PULSE 70–84; RESP 14–22; TEMP 97.4–98.4; O2SAT 88–95
[2017-05-12] MEDS: RESP: ALBUTEROL 2.5 MG/IPRATROPIUM 0.5 MG NEB (SCH) NEB ×7 (00:30→23:33)
[2017-05-12 02:16] LABS: AUTOMATED NEUTROPHIL # 14.9 TH/MM3 (1.8-7.7); BASOPHIL % 0.1 % (0.0-2.0); HEMATOCRIT 22.4 % (35.0-46.0); HEMOGLOBIN 7.4 GM/DL (11.6-15.3); LYMPH % 0.7 % (9.0-44.0); LYMPHOCYTE # 0.1 TH/MM3 (1.0-4.8); MEAN CELL VOLUME 93.6 FL (80.0-100.0); MEAN CORPUSCULAR HGB CONC 33.1 % (32.0-36.0); MEAN PLATELET VOLUME 8.7 FL (7.0-11.0); MONO % 3.3 % (0.0-8.0); MONOCYTE # 0.5 TH/MM3 (0-0.9); NEUT % 95.9 % (16.0-70.0); PLATELET COUNT 186 TH/MM3 (150-450); RED BLOOD COUNT 2.39 MIL/MM3 (4.00-5.30); RED CELL DISTRIBUTION WIDTH 15.3 % (11.6-17.2); WHITE BLOOD COUNT 15.5 TH/MM3 (4.0-11.0)
[2017-05-12 03:11] LABS: BICARBONATE 31.5 MEQ/L (21.0-32.0); CALCIUM 8.7 MG/DL (8.5-10.1); CREATININE 2.96 MG/DL (0.50-1.00); MAGNESIUM 2.4 MG/DL (1.5-2.5)
[2017-05-12] MEDS: BUMETANIDE 25 MG/100 ML CONTINOUS DRIP IV SCH (04:09)
[2017-05-12] MEDS: POTASSIUM CHLOR 20 MEQ PREMIX 100 ML IV PRN (04:11)
--- NOTE | 2017-05-12 04:30 | RADRPT ---
EXAM DATE/TIME: 05/12/2017 03:37 [facility] COMPARISON: CHEST SINGLE AP, May 11, 2017, 5:36. INDICATIONS : Shortness of breath, possible pulmonary disease. MEDICAL HISTORY : Congestive heart failure. Diabetes mellitus type II. Hypertension. HI SURGICAL HISTORY : Appendectomy. CABG. Cholecystectomy. Cervical and lumbar fusions ENCOUNTER: Subsequent ACUITY: 4 - 6 days PAIN SCORE: Non-responsive. LOCATION: Bilateral chest FINDINGS: Single AP view of the chest. Median sternotomy wires. Bilateral pulmonary parenchymal opacity right g reater than left unchanged. Cardiac silhouette enlargement unchanged. No evidence of pleural effusion or pneumothorax. CONCLUSION: No significant interval change with persistent right greater than left pulmonary pare nchymal opacity. Bladimir Rodríguez MD on May 12, 2017 at 4:27 Board Certified Radiologist. This report was verified electronically.
[2017-05-12] MEDS: hydrALAZINE HCL 50 MG TAB PO SCH ×3 (06:05→23:54)
[2017-05-12] MEDS: ALBUMIN 25% INJ 100 ML IV SCH ×3 (06:05→23:54)
[2017-05-12] MEDS: oxyCODONE/ACETAMINOPHEN 10 MG/325 MG TAB PO PRN ×2 (06:05→18:32)
[2017-05-12] MEDS: cloNIDine HCL 0.2 MG TAB PO SCH ×3 (06:05→23:54)
[2017-05-12] MEDS ORDERED: cloNIDine HCL 0.3 MG TAB PO ONE (07:45)
--- NOTE | 2017-05-12 07:59 | HHI.CCPN ---
Subjective Remarks/Hospital Course This is a 76-year-old female with a history of congestive heart failure with preserved EF, smoking, COPD who presented to the emergency department on 04/23 with worsening shortness of breath, BNP greater than 4000, bilateral pulmonary infiltrates and was diagnosed at that time with CHF exacerbation. She was initially started on Lasix. At that time she did have an acute kidney injury on top of chronic renal insufficiency stage III. Nephrology was consulted and felt this was due to increased renal vein pressure. Despite attempts at diuresis, she is had a positive fluid balance during her hospital stay, and she persists with significant dyspnea. She was initially on Zosyn and azithromycin to empirically cover for possible COPD exacerbation. Zosyn was stopped on hospital day 7, but azithromycin continues through today empirically. She is remained afebrile throughout her hospital stay. A few days ago, she was started on prednisone for possible COPD exacerbation component to her shortness of breath. After starting on systemic steroids, her white count which was normal on admission, began to rise. She still remains afebrile. Yesterday, bilateral lower extremity Dopplers were positive for a left posterior tibial deep vein thrombosis. VQ scan at that time was indeterminate for PE in the setting of significant bilateral consolidations which likely decreases sensitivity of VQ scan for embolism. Due to the patient's persistent dyspnea and positive fluid balance for hospital stay despite attempts at diuresis, and due to the fact that her kidney injury continues to worsen, I was contacted by the hospitalist service for possible transfer to the intensive care unit for a more aggressive diuretic regimen. I evaluated the patient on arrival to the CVICU. The patient does complain of significant dyspnea, particularly with even light movement out of bed to chair. She states that she just wants to feel better. She denies chest pain, nausea, vomiting, fever, chills, or any other symptoms other than her shortness of breath. SUBJ 05/11/17: Sitting up in chair subjectively feels improved. Urine output 3.5 L in the last 16 hours since Bumex infusion was started. Creatinine remains relatively stable at 2.77. Chest x-ray on my review shows slight improvement in the left-sided pulmonary edema, similar appearance on right side. 2-D echo had shown 50-55% ejection fraction mild to moderate MR, Moderate MS (by gradient of 7). Also evidence of pulmonary hypertension PASP 70 mm Hg. Patient needs improved BP control due to diastolic CHF. Increase clonidine to 0.3 mg q8 , Cardura to 4 mg and Hydralazine to 50 q8. HR adequately controlled. Also evaluate with CT chest after adequate diuresis for emphysema and lung consolidation/effusion 05/12/17: UO remains excellent, 5L in 24 hours on Bumex gtt. BUN/Creat steadily increasing 115/2.96. May need HD> Pedal edema improved, CXR still showing pulmonary edema. CT chest to evaluate for infiltrate/effusion and also evaluate emphysema. Repeat limited Echo with Doppler next week to re valuate MS/MR. MS/ MR likely contributing to heart failure Objective Vital Signs Date Time Temp Pulse Resp B/P (MAP) Pulse Ox O2 Delivery O2 Flow Rate FiO2 05/12/17 03:37 71 05/12/17 03:35 98.1 16 160/71 (100) 95 05/12/17 03:35 Nasal Cannula 3.00 Intake and Output 05/12/17 05/12/17 05/13/17 08:00 16:00 00:00 Intake Total 672 ml Output Total 2150 ml Balance -1478 ml Result Diagram: 05/12/17 0210 05/12/17 0210 Imaging Last Impressions Lung Scan-VQ Nuclear Medicine 05/09/17 0000 Signed Impressions: Service Date/Time: Tuesday, May 09, 2017 11:08 - CONCLUSION: 1. Indeterminate for pulmonary embolus. Don Vega MD Lower Extremity Ultrasound 05/09/17 0000 Signed Impressions: Service Date/Time: Tuesday, May 09, 2017 12:05 - CONCLUSION: 1. Occlusive deep venous thrombosis within the left posterior tibial veins. 2. No deep venous thrombosis within the right lower extremity. Cameron Ashby MD Chest X-Ray 05/08/17 0000 Signed Impressions: Service Date/Time: Monday, May 08, 2017 10:24 - CONCLUSION: Cardiomegaly and findings of congestive heart failure. Konstantin Rojas MD Head CT 04/25/17 0000 Signed Impressions: Service Date/Time: Tuesday, April 25, 2017 22:28 - CONCLUSION: 1. Negative noncontrast CT brain. Leo Gonzales MD Renal Ultrasound 04/24/17 0000 Signed Impressions: Service Date/Time: Monday, April 24, 2017 23:08 - CONCLUSION: 1. Echogenic kidneys likely secondary to medical renal disease. 2. Minimal ascites. 3. Left pleural effusion. Rasta Vieira MD Objective Remarks GENERAL: Elderly female, sitting in chair, slightly dyspneic, oxygen saturation 94% on 3 L nasal cannula HEENT: Normocephalic. Atraumatic. Pupils equal, round, reactive, conjugate. NECK: Trachea is midline. + JVD. CHEST: Slightly tachypneic. On 6 L oxygen by nasal cannula. Bilateral coarse rales in all lung [place]. Few expiratory wheezes CARDIOVASCULAR: Normal rate, regular rhythm. Sinus by telemetry. Unable to appreciate any mitral murmurs due to coarse breath sounds ABDOMEN: Soft, nontender, nondistended. No guarding. MUSCULOSKELETAL: Pulses 2+. Peripheral edema resolved NEUROLOGICAL: AO x3. Follows commands. No focal deficits. Slightly lethargic at times A/P Assessment and Plan Assessment: This is a 76-year-old female with a history of congestive heart failure with preserved EF who presented on 04/23 with dyspnea and an elevated BNP greater than 4000 and chest x-ray suggestive of bilateral pulmonary edema. This patient most likely has CHF exacerbation, diastolic type, secondary to volume overload. The patient has never been febrile during her entire hospital stay, and up until the time she was started on systemic steroids, she did not have a leukocytosis. I think is reasonable this point to stop her empiric antibiotics that she's been on since admission. I also think that it is reasonable to taper her steroids. She does have a smoking history, however her acute clinical change that brought her to the hospital did not come with an associated change in sputum production or consistency, and this is much less likely to be a COPD exacerbation. While the patient does appear to have a newly diagnosed DVT, and certainly pulmonary emboli could account for some degree of hypoxemia, her chest x-ray still shows evidence of bilateral pulmonary infiltrates suggestive of pulmonary edema, and I think that all clinical signs point to CHF exacerbation as the cause for her persistent dyspnea. In addition, the patient is increased in weight from dry weight, but additionally is increase in weight from admission weight, suggestive that we still do not have control of her CHF exacerbation. I think is reasonable to anticoagulate for her DVT, but do not think that PE is high on the likelihood of reasons why she is persistently dyspneic. I do think that her acute kidney injury which is clearly worsening is likely secondary to congestive renopathy and secondary to elevated renal vein pressure and decreased perfusion pressure. However, at this point, with elevated creatinine that is been ongoing for the last 1-2 weeks, we could be dealing with a significant component of ATN secondary to a subacute decrease in renal perfusion pressure. Despite all this , the patient needs aggressive diuresis and is likely 25 pounds or more volume overloaded from dry weight. We will initiate aggressive forced diuresis in the setting of acute kidney injury presumed combination ATN and elevated renal vein pressure. We'll start with Bumex infusion, Diamox, Diuril. I think it is prudent to hold her spironolactone given her elevated creatinine. If she does not respond forced diuresis, I think it is reasonable at this point to consider renal replacement therapy as we clearly need to get control of her volume overload, as she remains symptomatic throughout the last 2 weeks. She is highly complex and off pathway. Agree with transition to the ICU for close monitoring. If we are unable to effectively diurese her, she may benefit from right heart catheterization with [place] catheter to more closely monitor filling pressures. Active problems: CHF exacerbation, diastolic type Pulmonary edema Acute on chronic hypoxemia Acute intravascular volume overload Deep vein thrombosis Acute kidney injury superimposed on stage III chronic kidney disease Acute protein calorie malnutrition- moderate Hypervolemic hyponatremia Moderate mitral stenosis by gradient/Mild MR Plan: Bumex drip 1 mg per hour with 4 mg bolus, started 05/10/17, now achieving negative balance Diamox 500 mg IV every 8 hours s/p Diuril 500mg iv x 1. Holding spironolactone Vazquez for accurate every hour I's and O's Every 6 hours BMPs and magnesium. Aggressive electrolyte replacement If BUN/cr continues trend up, will need HD CT chest to evaluate infiltrate, effusion, emphysema Consider right and left cardiac catheterization. Unclear whether MS/MR, ischemia , contributing to biventricular failure Echo showed mildly reduced LV/RV systolic function, LV apical hypokinesis Goal SPO2 greater than 88-90% Nebs, EzPAP, Acapella, Continue Symbicort, Add Spiriva Aggressive pulmonary toilet Increase clonidine to 0.6 mg q8, Continue Cardura to 4 mg and Hydralazine to 50 q8. HR adequately controlled. Need tight BP control due to diastolic heart failure. Target <140/90 Continue heart healthy diet with a 1 L fluid restriction Likely as we diurese her, her sodium may rise and at that point we will want to start holding her Tolvaptan. continue for now. WBC slowly trending down Daily monitoring of electrolytes and creatinine May require renal replacement therapy if she does not diuresis appropriately. Lovenox for DVT PT daily Continue ICU close for closer monitoring Level 3 05/11/15: D/W Dr. Xavier who is covering for Gabriela Sanchez MD May 12, 2017 07:59
[2017-05-12] MEDS: INSULIN ASPART SUPPLEMENTAL SCALE SQ SCH ×4 (08:00→21:00)
[2017-05-12] MEDS: CARBAMIDE PEROXIDE 6.5% OTIC SOLN 15 ML BTL EACH EAR SCH ×2 (08:33→20:00)
[2017-05-12] MEDS: SODIUM CHLORIDE 0.9% FLUSH 10 ML FLUSH IV FLUSH SCH ×2 (08:34→21:00)
[2017-05-12] MEDS: BUDESONIDE-FORMOTEROL 160/4.5 MCG INHALER INH SCH ×2 (08:34→20:00)
[2017-05-12] MEDS: PANTOPRAZOLE SOD 40 MG DELAYED RELEASE TAB PO SCH ×2 (08:35→20:00)
[2017-05-12] MEDS: FERROUS SULFATE 325 MG (65 MG ELEMENTAL IRON) TAB PO SCH (08:35)
[2017-05-12] MEDS: DOCUSATE SODIUM 50 MG/SENNA 8.6 MG TAB PO SCH (08:35)
[2017-05-12] MEDS: DOXAZOSIN MESYLATE 2 MG TAB PO SCH (08:35)
[2017-05-12] MEDS: guaiFENesin E.R. 600 MG TAB PO SCH ×2 (08:36→23:53)
[2017-05-12] MEDS: FLUoxetine HCL 20 MG CAP PO SCH (08:36)
[2017-05-12] MEDS: GABAPENTIN 400 MG CAP PO SCH ×2 (08:36→20:00)
[2017-05-12] MEDS: predniSONE 10 MG TAB PO SCH (08:36)
[2017-05-12] MEDS: POLYETHYLENE GLYCOL 17 GM PKG PO SCH (08:37)
[2017-05-12] MEDS: TOLVAPTAN 15 MG TAB PO SCH (08:37)
[2017-05-12] MEDS: TIOTROPIUM BROMIDE 18 MCG INH INH SCH (08:39)
--- NOTE | 2017-05-12 10:47 | RADRPT ---
EXAM DATE/TIME: 05/12/2017 10:32 [facility] COMPARISON: CT BRAIN W/O CONTRAST, April 25, 2017, 22:28. INDICATIONS : Altered mental status. RADIATION DOSE: 47.56 CTDIvol (mGy) ; Patient motion MEDICAL HISTORY : Chronic obstructive pulmonary disease. Congestive heart failure. Myocardial infarction. SURGICAL HISTORY : Hysterectomy. ENCOUNTER: Initial ACUITY: 1 day PAIN SCALE: 0/10 LOCATION: Bilateral head TECHNIQUE: Multiple contiguous axial images were obtained of the head. Using automated exposure control and adj ustment of the mA and/or kV according to patient size, radiation dose was kept as low as reasonably a chievable to obtain optimal diagnostic quality images. DICOM format image data is available electro nically for review and comparison. FINDINGS: CEREBRUM: The ventricles are normal for age. No evidence of midline shift, mass lesion, hemorrhage or acute in farction. No extra-axial fluid collections are seen. POSTERIOR FOSSA: The cerebellum and brainstem are intact. The 4th ventricle is midline. The cerebellopontine angle i s unremarkable. EXTRACRANIAL: The visualized portion of the orbits is intact. SKULL: The calvaria is intact. No evidence of skull fracture. CONCLUSION: No acute disease. Cameron Ashby MD on May 12, 2017 at 10:44 Board Certified Radiologist. This report was verified electronically.
--- NOTE | 2017-05-12 11:09 | RADRPT ---
EXAM DATE/TIME: 05/12/2017 10:36 [facility] COMPARISON: No previous studies available for comparison. INDICATIONS : Abnormal chest x-ray. RADIATION DOSE: 8.87 CTDIvol (mGy) MEDICAL HISTORY : Chronic obstructive pulmonary disease. Congestive heart failure. Myocardial infarction. SURGICAL HISTORY : CABG Hysterectomy. ENCOUNTER: Initial ACUITY: 1 day PAIN SCALE: 0/10 LOCATION: Bilateral chest TECHNIQUE: Volumetric scanning of the chest was performed. Using automated exposure control and adjustment of t he mA and/or kV according to patient size, radiation dose was kept as low as reasonably achievable to obtain optimal diagnostic quality images. DICOM format image data is available electronically for r eview and comparison. Follow-up recommendations for detected pulmonary nodules are based at a minimum on nodule size and pa tient risk factors according to Fleischner Society Guidelines. FINDINGS: The heart is markedly enlarged. Coronary artery calcifications are noted. Diffuse infiltrates are not ed bilaterally suggestive of severe pulmonary edema and/or pneumonia. Clinical correlation is recomme nded. No pulmonary nodule or mass is noted. No mediastinal, hilar or axillary lymphadenopathy is note d. Small bilateral pleural effusions are noted. Degenerative changes and scoliosis of the thoracic sp ine are noted. Median sternotomy wires are noted status post cardiac surgery. CONCLUSION: 1. Diffuse infiltrates bilaterally suggestive of severe pulmonary edema and/or pneumonia. Clinical co rrelation is recommended. 2. Small bilateral pleural effusions. 3. Markedly enlarged heart with coronary artery calcifications. Cameron Ashby MD on May 12, 2017 at 11:04 Board Certified Radiologist. This report was verified electronically.
--- NOTE | 2017-05-12 12:34 | HHI.NPPN ---
Subjective General Problems: Anemia, Edema, Heart Disease Renal Failure: Chronic, Acute, Stage III Review of Systems General Constitutional: Fatigue Respiratory Lungs: SOB Cardiovascular Cardiac: Palpitations, Edema Objective Data Data Vital Signs Date Time Temp Pulse Resp B/P (MAP) Pulse Ox O2 Delivery O2 Flow Rate FiO2 05/12/17 11:00 97.4 71 14 146/60 (88) 94 05/12/17 11:00 93 Nasal Cannula 2.00 05/12/17 11:00 70 05/12/17 07:05 16 05/12/17 07:00 72 05/12/17 07:00 95 Nasal Cannula 2.00 05/12/17 07:00 97.8 77 16 157/72 (100) 95 05/12/17 03:37 71 05/12/17 03:35 98.1 71 16 160/71 (100) 95 05/12/17 03:35 95 Nasal Cannula 3.00 05/11/17 23:10 98.0 76 18 155/67 (96) 96 05/11/17 23:10 96 Nasal Cannula 4.00 05/11/17 23:00 77 05/11/17 20:49 95 Nasal Cannula 4.00 05/11/17 19:30 98.1 80 16 150/74 (99) 92 05/11/17 19:30 92 Nasal Cannula 4.00 05/11/17 19:00 84 05/11/17 16:00 84 05/11/17 15:00 98.5 81 16 153/66 (95) 94 05/11/17 15:00 94 Nasal Cannula 3.00 -: 05/12/17 0210 05/12/17 0210 Tubes & Lines: Vazquez Tubes & Lines Comment bumex Physical Exam General Appearance: Well Developed, No Acute Distress, Comfortable, Anxious, Malnourished Throat Throat Exam: Oral Mucosa [place] & Moist Neck Neck Exam: Neck Supple Pulmonary Resp Exam: Breath Sounds Equal, No Distress, Crackles, Sputum, Decreased Bases Cardiology CV Exam: Regular, Normal Sinus Rhythm, Good Perfusion Gastrointestinal/Abdomen GI Exam: Soft, Non-Tender, Bowel Sounds Present Musculoskeletal MS Exam: Normal Gait, Normal Tone Integumentary Skin Exam: Warm, Dry Extremeties Extremities Exam: Pedal Pulses Palpable, Moderate Edema, Pitting Edema, Dependent Edema Neurologic Neuro Exam: Alert, Awake, Oriented, Speech Clear, Moving All Extremities Psychiatric Psych Exam: Appropriate Responses Assessment/Plan Discussed Condition With: Patient Assessment Summary: MILI/Acute Renal Failure, Anemia of CKD, Fluid/Volume Overload, Proteinuria, CHF, Hypertension, Diabetes Mellitus, CKD Stage III Electrolyte Assessment: Hyponatremia Problem List: (1) MILI (acute kidney injury) ICD Codes: N17.9 - Acute kidney injury Status: Acute Plan: She has underlying CKD 3, baseline GFR 30, creatinine 1.61 Suspected underlying diabetic nephropathy as she does have proteinuria. Repeat SPEP is negative. C3 is low. She is Hep C positive. Cryoglobulin pending. MILI may be due to CHF exacerbation and increased renal vein pressure. Started on Bumex gtt at 2 mg/hr. Also given Diuril. Spironolactone was stopped. Fluid overload persists. on Diamox/Bumex gtt Non oliguric, continue to monitor. K was replaced. Creatinine is slightly higher, high BUN may be due to steroids. uop, 4.9 L D/W patient. Repeat labs in AM. Avoid nephrotoxic agents. (2) Hyponatremia ICD Codes: E87.1 - Hypo-osmolality and hyponatremia Plan: Improving. Avoid NaCl tabs given hx of CHF. On Tolvaptan and bumex. (3) CHF exacerbation ICD Codes: I50.9 - Heart failure, unspecified Status: Acute Plan: Echo this month shows: -LVH -Apical hypokinesis -Left ventricular function is low normal, EF 50-55% (diastolic dysfunction) follow I/O, fluid status, weight Restriction of Sodium in her diet. On diuretics. Carefully monitor potassium. She may require dialysis for fluid removal. (4) Anemia ICD Codes: D64.9 - Anemia Status: Chronic Plan: She has iron deficiency. Received Venofer. On oral ferrous sulfate. May have anemia of chronic disease. Given Epogen Transfuse if necessary. (5) Acute hypoxemic respiratory failure ICD Codes: J96.01 - Acute respiratory failure with hypoxia Status: Resolved Plan: Being treated for CAP On Zithromax and prednisone Refusing BiPap, on oxygen via nasal canula Recent saturation 98% oh 2L NC Former smoker, cessation discussed (6) Community acquired pneumonia ICD Codes: J18.9 - Pneumonia, unspecified organism Status: Acute Plan: See above Continue supportive care On nebulizers, inhalers, oxygen . WBC increasing. (7) DVT (deep venous thrombosis) ICD Codes: I82.409 - Acute embolism and thrombosis of unspecified deep veins of unspecified lower extremity Plan: On Lovenox, consider changing to Eliquis. Problem Qualifiers (1) CHF exacerbation: Qualified Codes: I50.9 - Heart failure, unspecified (2) Anemia: Qualified Codes: D64.9 - Anemia, unspecified (3) Community acquired pneumonia: Qualified Codes: J18.9 - Pneumonia, unspecified organism Ricardo Pittman MD May 12, 2017 12:34
[2017-05-12 12:53] LABS: BICARBONATE 28.2 MEQ/L (21.0-32.0); CREATININE 2.89 MG/DL (0.50-1.00); MAGNESIUM 2.4 MG/DL (1.5-2.5)
[2017-05-12] MEDS: ENOXAPARIN SODIUM 60 MG/0.6 ML SYRINGE SQ SCH (17:27)
[2017-05-12 19:27] LABS: CALCIUM 8.9 MG/DL (8.5-10.1); CREATININE 3.03 MG/DL (0.50-1.00); MAGNESIUM 2.3 MG/DL (1.5-2.5)
[2017-05-13] VITALS (9 sets, daily range): BP systolic 135–179; BP diastolic 56–76; PULSE 67–102; RESP 22–26; TEMP 98.4–101.9; O2SAT 89–98
[2017-05-13 02:00] LABS: BICARBONATE 28.1 MEQ/L (21.0-32.0); CALCIUM 8.7 MG/DL (8.5-10.1); CREATININE 3.06 MG/DL (0.50-1.00); MAGNESIUM 2.3 MG/DL (1.5-2.5)
[2017-05-13] MEDS: RESP: ALBUTEROL 2.5 MG/IPRATROPIUM 0.5 MG NEB (SCH) NEB ×6 (04:26→22:55)
[2017-05-13] MEDS: cloNIDine HCL 0.2 MG TAB PO SCH ×3 (06:20→21:55)
[2017-05-13] MEDS: ALBUMIN 25% INJ 100 ML IV SCH ×2 (06:21→15:00)
[2017-05-13] MEDS: hydrALAZINE HCL 50 MG TAB PO SCH ×3 (06:21→21:54)
[2017-05-13] MEDS: BUMETANIDE 25 MG/100 ML CONTINOUS DRIP IV SCH (07:44)
[2017-05-13] MEDS: INSULIN ASPART SUPPLEMENTAL SCALE SQ SCH ×4 (08:00→21:00)
[2017-05-13 08:48] LABS: HEMOGLOBIN 7.3 GM/DL (11.6-15.3); MEAN CELL VOLUME 94.3 FL (80.0-100.0); MEAN CORPUSCULAR HEMOGLOBIN 31.3 PG (27.0-34.0); MEAN CORPUSCULAR HGB CONC 33.2 % (32.0-36.0); MEAN PLATELET VOLUME 10.1 FL (7.0-11.0); PLATELET COUNT 168 TH/MM3 (150-450); RED BLOOD COUNT 2.34 MIL/MM3 (4.00-5.30); RED CELL DISTRIBUTION WIDTH 15.4 % (11.6-17.2); WHITE BLOOD COUNT 16.7 TH/MM3 (4.0-11.0)
[2017-05-13] MEDS: FERROUS SULFATE 325 MG (65 MG ELEMENTAL IRON) TAB PO SCH (09:00)
[2017-05-13] MEDS: PANTOPRAZOLE SOD 40 MG DELAYED RELEASE TAB PO SCH ×2 (09:00→21:00)
[2017-05-13] MEDS: POLYETHYLENE GLYCOL 17 GM PKG PO SCH (09:00)
[2017-05-13] MEDS: amLODIPine BESYLATE 5 MG TAB PO SCH (09:00)
[2017-05-13] MEDS: GABAPENTIN 400 MG CAP PO SCH ×2 (09:00→21:00)
[2017-05-13 09:03] LABS: BICARBONATE 26.2 MEQ/L (21.0-32.0); CALCIUM 8.9 MG/DL (8.5-10.1); CREATININE 3.29 MG/DL (0.50-1.00); MAGNESIUM 2.2 MG/DL (1.5-2.5)
[2017-05-13] MEDS: CARBAMIDE PEROXIDE 6.5% OTIC SOLN 15 ML BTL EACH EAR SCH ×2 (09:40→21:53)
[2017-05-13] MEDS: TIOTROPIUM BROMIDE 18 MCG INH INH SCH (09:41)
[2017-05-13] MEDS: BUDESONIDE-FORMOTEROL 160/4.5 MCG INHALER INH SCH ×2 (09:41→21:00)
[2017-05-13] MEDS: POTASSIUM CHLOR 20 MEQ PREMIX 100 ML IV PRN (09:42)
[2017-05-13] MEDS: predniSONE 10 MG TAB PO SCH (09:42)
[2017-05-13] MEDS: CARVEDILOL 6.25 MG TAB PO SCH ×2 (09:43→21:00)
[2017-05-13] MEDS: FLUoxetine HCL 20 MG CAP PO SCH (09:43)
[2017-05-13] MEDS: DOCUSATE SODIUM 50 MG/SENNA 8.6 MG TAB PO SCH (09:43)
[2017-05-13] MEDS: DOXAZOSIN MESYLATE 2 MG TAB PO SCH (09:43)
[2017-05-13] MEDS: guaiFENesin E.R. 600 MG TAB PO SCH ×2 (09:43→21:00)
[2017-05-13] MEDS: SODIUM CHLORIDE 0.9% FLUSH 10 ML FLUSH IV FLUSH SCH ×2 (09:44→21:00)
[2017-05-13] MEDS ORDERED: SODIUM CHLOR 0.9% 250 ML INJ 250 ML IV ONE (10:00)
--- NOTE | 2017-05-13 12:52 | HHI.NPPN ---
Subjective General Problems: Anemia, Edema, Heart Disease Renal Failure: Chronic, Acute, Stage III Additional Remarks pt is obtunded Review of Systems General Constitutional: Fatigue Respiratory Lungs: SOB Cardiovascular Cardiac: Palpitations, Edema Objective Data Data Vital Signs Date Time Temp Pulse Resp B/P (MAP) Pulse Ox O2 Delivery O2 Flow Rate FiO2 05/13/17 10:14 22 05/13/17 07:00 90 Nasal Cannula 3.00 05/13/17 07:00 96 05/13/17 07:00 101.9 102 26 152/56 (88) 90 05/13/17 03:00 84 05/13/17 03:00 100.4 84 24 159/76 (103) 94 05/13/17 03:00 94 Nasal Cannula 3.00 05/12/17 23:00 91 Nasal Cannula 2.00 05/12/17 23:00 84 05/12/17 23:00 98.2 84 22 171/73 (105) 91 05/12/17 19:29 95 Nasal Cannula 3.00 05/12/17 19:00 97.9 84 18 158/86 (110) 94 05/12/17 19:00 94 Nasal Cannula 2.00 05/12/17 19:00 84 05/12/17 15:00 82 05/12/17 15:00 98.4 81 14 147/57 (87) 91 05/12/17 15:00 91 Nasal Cannula 2.00 05/12/17 13:08 88 Nasal Cannula 2.00 -: 05/13/17 0800 05/13/17 0800 Microbiology 05/12/17 Legionella Antigen - Final, Complete PRESUMPTIVE NEGATIVE FOR LEGIONELLA P... 05/12/17 Streptococcus pneumoniae Antigen (M - Final, Complete PRESUMPTIVE NEGATIVE FOR STREPTOCOCCU... Tubes & Lines: Vazquez Tubes & Lines Comment bumex Physical Exam General Appearance: Well Developed, No Acute Distress, Comfortable, Anxious, Malnourished Throat Throat Exam: Oral Mucosa [place] & Moist Neck Neck Exam: Neck Supple Pulmonary Resp Exam: Breath Sounds Equal, No Distress, Crackles, Sputum, Decreased Bases Cardiology CV Exam: Regular, Normal Sinus Rhythm, Good Perfusion Gastrointestinal/Abdomen GI Exam: Soft, Non-Tender, Bowel Sounds Present Musculoskeletal MS Exam: Normal Gait, Normal Tone Integumentary Skin Exam: Warm, Dry Extremeties Extremities Exam: Pedal Pulses Palpable, Moderate Edema, Pitting Edema, Dependent Edema Neurologic Neuro Exam: Alert, Awake, Oriented, Speech Clear, Moving All Extremities Psychiatric Psych Exam: Appropriate Responses Assessment/Plan Discussed Condition With: Patient Assessment Summary: MILI/Acute Renal Failure, Anemia of CKD, Fluid/Volume Overload, Proteinuria, CHF, Hypertension, Diabetes Mellitus, CKD Stage III Electrolyte Assessment: Hyponatremia Problem List: (1) MILI (acute kidney injury) ICD Codes: N17.9 - Acute kidney injury Status: Acute Plan: She has underlying CKD 3, baseline GFR 30, creatinine 1.61 Suspected underlying diabetic nephropathy as she does have proteinuria. Repeat SPEP is negative. C3 is low. She is Hep C positive. Cryoglobulin pending. MILI may be due to CHF exacerbation and increased renal vein pressure. Fluid overload persists. on Diamox/Bumex gtt in AMS D/W Dr. Palma placing vascath and swan in anticipation of dialysis will do IHD and get fluids off, may stop bumex once on dialysis 1714 pm seen at dialysis UF 3.[address] Patten to follow (2) Hyponatremia ICD Codes: E87.1 - Hypo-osmolality and hyponatremia Plan: Improving. Avoid NaCl tabs given hx of CHF. On Tolvaptan and bumex. (3) CHF exacerbation ICD Codes: I50.9 - Heart failure, unspecified Status: Acute Plan: Echo this month shows: -LVH -Apical hypokinesis -Left ventricular function is low normal, EF 50-55% (diastolic dysfunction) follow I/O, fluid status, weight Restriction of Sodium in her diet. On diuretics. Carefully monitor potassium. She may require dialysis for fluid removal. (4) Anemia ICD Codes: D64.9 - Anemia Status: Chronic Plan: She has iron deficiency. Received Venofer. On oral ferrous sulfate. May have anemia of chronic disease. Given Epogen Transfuse if necessary. (5) Acute hypoxemic respiratory failure ICD Codes: J96.01 - Acute respiratory failure with hypoxia Status: Resolved Plan: Being treated for CAP On Zithromax and prednisone Refusing BiPap, on oxygen via nasal canula Recent saturation 98% oh 2L NC Former smoker, cessation discussed (6) Community acquired pneumonia ICD Codes: J18.9 - Pneumonia, unspecified organism Status: Acute Plan: See above Continue supportive care On nebulizers, inhalers, oxygen . WBC increasing. (7) DVT (deep venous thrombosis) ICD Codes: I82.409 - Acute embolism and thrombosis of unspecified deep veins of unspecified lower extremity Plan: On Lovenox, consider changing to Eliquis. Problem Qualifiers (1) CHF exacerbation: Qualified Codes: I50.9 - Heart failure, unspecified (2) Anemia: Qualified Codes: D64.9 - Anemia, unspecified (3) Community acquired pneumonia: Qualified Codes: J18.9 - Pneumonia, unspecified organism Ricardo Pittman MD May 13, 2017 12:52
[2017-05-13 14:07] LABS: BICARBONATE 26.8 MEQ/L (21.0-32.0); CALCIUM 8.6 MG/DL (8.5-10.1); CREATININE 3.39 MG/DL (0.50-1.00); MAGNESIUM 2.3 MG/DL (1.5-2.5)
--- NOTE | 2017-05-13 15:23 | RADRPT ---
EXAM DATE/TIME: 05/13/2017 14:42 [facility] COMPARISON: CHEST SINGLE AP, May 12, 2017, 3:37. INDICATIONS : Post central line placement. MEDICAL HISTORY : Chronic obstructive pulmonary disease. Congestive heart failure. Myocardial infarction. SURGICAL HISTORY : Hysterectomy. CABG. ENCOUNTER: Initial ACUITY: 1 day PAIN SCORE: Non-responsive. LOCATION: Bilateral chest FINDINGS: The cardiac silhouette is normal in transverse diameter. Median sternotomy wires are present. There i s prominence of the aortic knob is with calcification characteristic of atherosclerotic vascular dise ase. There are findings of congestive heart failure with interstitial and alveolar opacity bilaterall y. A Vas-Cath is in place via left internal jugular approach with its tip in the superior vena cava. CONCLUSION: 1. Uncomplicated line placement. No evidence of pneumothorax. 2. Cardiomegaly and findings of congestive heart failure. There has been no significant change when c ompared to the prior exam. Konstantin Rojas MD on May 13, 2017 at 15:19 Board Certified Radiologist. This report was verified electronically.
[2017-05-13] MEDS ORDERED: diphenhydrAMINE HCL 25 MG CAP PO PRN (15:45)
[2017-05-13] MEDS ORDERED: ACETAMINOPHEN 325 MG TAB PO PRN (15:45)
[2017-05-13] MEDS ORDERED: SODIUM CHLOR 0.9% 1000 ML INJ 1,000 ML IV PRN (15:45)
[2017-05-13] MEDS ORDERED: MANNITOL 12.5 GM/50 ML VIAL IV PRN (15:45)
[2017-05-13] MEDS ORDERED: SODIUM CHLOR 0.9% 1000 ML INJ 1,000 ML OTHER PRN ×2 (15:45)
[2017-05-13] MEDS ORDERED: ALBUMIN 25% INJ 100 ML IV PRN (15:45)
[2017-05-13] MEDS ORDERED: HEPARIN SODIUM - IV 10,000 UNITS/10 ML VIAL IV FLUSH PRN (15:45)
[2017-05-13] MEDS ORDERED: ONDANSETRON HCL 4 MG/2 ML VIAL IV PUSH PRN (15:45)
[2017-05-13] MEDS ORDERED: SODIUM CHLORIDE 0.9% FLUSH 10 ML FLUSH IV FLUSH PRN (15:45)
[2017-05-13] MEDS ORDERED: NITROGLYCERIN 0.4 MG SL 25 TABS/BTL SL PRN (15:45)
[2017-05-13] MEDS ORDERED: cloNIDine HCL 0.1 MG TAB PO PRN (15:45)
[2017-05-13] MEDS ORDERED: GELATIN 12 MM/7 MM FOAM TOP PRN (15:45)
[2017-05-13] MEDS: HEPARIN SODIUM - IV 10,000 UNITS/10 ML VIAL PRN (16:48)
[2017-05-13] MEDS: GENTAMICIN SULFATE (DIALYSIS USE ONLY) 20 MG/2 ML VIAL OTHER PRN (16:49)
[2017-05-13] MEDS: EPOETIN ALFA 10,000 UNITS/ML VIAL IV PUSH PRN (16:49)
[2017-05-13] MEDS: ENOXAPARIN SODIUM 60 MG/0.6 ML SYRINGE SQ SCH (17:00)
[2017-05-13] MEDS: hydrALAZINE HCL 20 MG/ML VIAL IV PUSH PRN (18:23)
[2017-05-13] MEDS ORDERED: LABETALOL HCL 20 MG/4 ML VIAL IV PRN (19:00)
--- NOTE | 2017-05-13 21:38 | HHI.CCPN ---
Subjective Remarks/Hospital Course This is a 76-year-old female with a history of congestive heart failure with preserved EF, smoking, COPD who presented to the emergency department on 04/23 with worsening shortness of breath, BNP greater than 4000, bilateral pulmonary infiltrates and was diagnosed at that time with CHF exacerbation. She was initially started on Lasix. At that time she did have an acute kidney injury on top of chronic renal insufficiency stage III. Nephrology was consulted and felt this was due to increased renal vein pressure. Despite attempts at diuresis, she is had a positive fluid balance during her hospital stay, and she persists with significant dyspnea. She was initially on Zosyn and azithromycin to empirically cover for possible COPD exacerbation. Zosyn was stopped on hospital day 7, but azithromycin continues through today empirically. She is remained afebrile throughout her hospital stay. A few days ago, she was started on prednisone for possible COPD exacerbation component to her shortness of breath. After starting on systemic steroids, her white count which was normal on admission, began to rise. She still remains afebrile. Yesterday, bilateral lower extremity Dopplers were positive for a left posterior tibial deep vein thrombosis. VQ scan at that time was indeterminate for PE in the setting of significant bilateral consolidations which likely decreases sensitivity of VQ scan for embolism. Due to the patient's persistent dyspnea and positive fluid balance for hospital stay despite attempts at diuresis, and due to the fact that her kidney injury continues to worsen, I was contacted by the hospitalist service for possible transfer to the intensive care unit for a more aggressive diuretic regimen. I evaluated the patient on arrival to the CVICU. The patient does complain of significant dyspnea, particularly with even light movement out of bed to chair. She states that she just wants to feel better. She denies chest pain, nausea, vomiting, fever, chills, or any other symptoms other than her shortness of breath. SUBJ 05/11/17: Sitting up in chair subjectively feels improved. Urine output 3.5 L in the last 16 hours since Bumex infusion was started. Creatinine remains relatively stable at 2.77. Chest x-ray on my review shows slight improvement in the left-sided pulmonary edema, similar appearance on right side. 2-D echo had shown 50-55% ejection fraction mild to moderate MR, Moderate MS (by gradient of 7). Also evidence of pulmonary hypertension PASP 70 mm Hg. Patient needs improved BP control due to diastolic CHF. Increase clonidine to 0.3 mg q8 , Cardura to 4 mg and Hydralazine to 50 q8. HR adequately controlled. Also evaluate with CT chest after adequate diuresis for emphysema and lung consolidation/effusion 05/12/17: UO remains excellent, 5L in 24 hours on Bumex gtt. BUN/Creat steadily increasing 115/2.96. May need HD> Pedal edema improved, CXR still showing pulmonary edema. CT chest to evaluate for infiltrate/effusion and also evaluate emphysema. Repeat limited Echo with Doppler next week to re valuate MS/MR. MS/ MR likely contributing to heart failure 05/13: Delayed note entry: seen and evaluted around 0700 AM. UOP is excellent, but BUN continues to rise. today, clinically patient declining and much more encephalopathic. still protecting airway, but now RASS -2/-3. requiring some more aggressive pulmonary toilet. Discussed with Dr. Pittman, and at this point needs HD for not only ongoing fluid removal, but for uremic encephalopathy which is worsening daily. continues to be afebrile. Additionally, with IHD, will need invasive central pressure monitoring to guide fluid removal and ensure we identify dry weight and optimal hemodynamics. In an ideal world, would combine LHC and RHC to eval mitral gradients and accurate LVEDP. for now will start with bedside RHC. Objective Vital Signs Date Time Temp Pulse Resp B/P (MAP) Pulse Ox O2 Delivery O2 Flow Rate FiO2 05/13/17 19:19 93 Nasal Cannula 3.50 05/13/17 19:00 98.5 93 25 135/62 (86) Intake and Output 05/13/17 05/13/17 05/14/17 08:00 16:00 00:00 Intake Total 249.3 ml 262.3 ml 1150 ml Output Total 1200 ml 5125 ml Balance -950.7 ml 262.3 ml -3975 ml Result Diagram: 05/13/17 0800 05/13/17 1254 Other Results Microbiology Date/Time Source Procedure Growth Status 05/12/17 13:45 Urine Catheterized Urine Legionella Antigen - Final PRESUMPTIVE NEGATIVE FOR LEGIONELLA P... Complete 05/12/17 13:45 Urine Catheterized Urine Streptococcus pneumoniae Antigen (M - Final PRESUMPTIVE NEGATIVE FOR STREPTOCOCCU... Complete Imaging Last Impressions Lung Scan-VQ Nuclear Medicine 05/09/17 0000 Signed Impressions: Service Date/Time: Tuesday, May 09, 2017 11:08 - CONCLUSION: 1. Indeterminate for pulmonary embolus. Don Vega MD Lower Extremity Ultrasound 05/09/17 0000 Signed Impressions: Service Date/Time: Tuesday, May 09, 2017 12:05 - CONCLUSION: 1. Occlusive deep venous thrombosis within the left posterior tibial veins. 2. No deep venous thrombosis within the right lower extremity. Cameron Ashby MD Chest X-Ray 05/08/17 0000 Signed Impressions: Service Date/Time: Monday, May 08, 2017 10:24 - CONCLUSION: Cardiomegaly and findings of congestive heart failure. Konstantin Rojas MD Head CT 04/25/17 0000 Signed Impressions: Service Date/Time: Tuesday, April 25, 2017 22:28 - CONCLUSION: 1. Negative noncontrast CT brain. Leo Gonzales MD Renal Ultrasound 04/24/17 0000 Signed Impressions: Service Date/Time: Monday, April 24, 2017 23:08 - CONCLUSION: 1. Echogenic kidneys likely secondary to medical renal disease. 2. Minimal ascites. 3. Left pleural effusion. Rasta Vieira MD Objective Remarks GENERAL: Elderly female, lying in bed, encephalopathic. remains on nc o2. HEENT: Normocephalic. Atraumatic. Pupils equal, round, reactive, conjugate. NECK: Trachea is midline. + JVD. CHEST: Slightly tachypneic. On 3 L oxygen by nasal cannula. Bilateral coarse rales in all lung [place]. CARDIOVASCULAR: Normal rate, regular rhythm. Sinus by telemetry. ABDOMEN: Soft, nontender, nondistended. No guarding. MUSCULOSKELETAL: Pulses 2+. Peripheral edema resolved NEUROLOGICAL: not oriented. RASS -2/-3. protects airway with +gag and weak cough. withdraws to pain. awakens to painful stimuli. will answer brief questions. much more lethargic than prior exam. A/P Assessment and Plan Assessment: This is a 76-year-old female with a history of congestive heart failure with preserved EF with Diastolic CHF exacerbation and Acute kidney injury superimposed on chronic renal insufficiency. Clinically continues to worsen. Acute kidney injury now causing Uremic Encephalopathy which has worsened to the point that we must now pursue renal replacement therapy. overall may require intubation for her worsening mental status. Will also need to guide renal replacement therapy by cardiac filling pressures. will place right heart cath. may need left heart cath for accurate LVEDP in the near future. will also order AM echo to re-eval mitral gradients to ensure worsening mitral stenosis is not the cause of her worsening CHF. Overall clinically worse and critically ill this morning requiring urgent/emergent renal replacement therapy for uremic encephalopathy. Active problems: CHF exacerbation, diastolic type Pulmonary edema Acute on chronic hypoxemia Acute intravascular volume overload Deep vein thrombosis Acute kidney injury superimposed on stage III chronic kidney disease Acute uremic encephalopathy Acute protein calorie malnutrition- moderate Hypervolemic hyponatremia Moderate mitral stenosis by gradient/Mild MR Plan: place dialysis catheter d/c bumex, diuril, diamox hold po meds given acute encephalopathy continue gonzalez. will need daily IHD for volume removal. likely still 10 - 15 L overloaded over dry weight. place PA catheter for central pressure guided IHD and volume removal in the setting of severe MILI and CHF. Consider right and left cardiac catheterization. Unclear whether MS/MR, ischemia , contributing to biventricular failure Echo showed mildly reduced LV/RV systolic function, LV apical hypokinesis repeat echo 05/14 to re-eval mitral gradients. Goal SPO2 greater than 88-90% Nebs, EzPAP, Acapella, Continue Symbicort, Add Spiriva Aggressive pulmonary toilet Clonidine to 0.6 mg q8, Continue Cardura to 4 mg and Hydralazine to 50 q8. HR adequately controlled. Need tight BP control due to diastolic heart failure. Target <140/90 1L fluid restriction. currently NPO given encephalopathy. will need formal swallow eval prior to restarting PO diet. Hold Tolvaptan as her sodium continues to uptrend. WBC slowly trending down Daily monitoring of electrolytes and creatinine Lovenox for DVT PT daily Critically ill today with acute uremic encephalopathy requiring acute renal replacement therapy. This patient remains critically ill with one or more organ systems which are or may become a threat to life. I have spent in excess of 66 minutes discontinuously in the care and management of this patient. This time is exclusive of procedures, and includes, but is not limited to, evaluation of the patient, review of the medical record, discussions with family, consultants, nursing staff, or respiratory therapy, and documentation in the medical record. Kwabena Palma MD May 13, 2017 21:38
--- NOTE | 2017-05-13 21:40 | PD.PROCEDR ---
Procedure Note Procedure Central Line Procedure Note Left IJ 14 [place] 20 cm dialysis catheter Diagnosis: Acute kidney injury Indications: Acute kidney injury with acute and worsening uremic encephalopathy requiring urgent renal replacement therapy Consent: Written consent was obtained from the medical decision maker Anesthesia: 1% lidocaine locally Description of the Procedure: The patient was placed in the supine, mild- Trendelenburg position. The area was prepped and draped sterilely. A 19g needle was inserted under negative pressure aspiration and dark venous blood was obtained. A guidewire was inserted easily without resistance. A small incision was made using a #11 blade. Using a modified Seldinger technique, the serial dilator and 14 [place], 20 cm catheter were advanced over the guidewire without resistance. All ports were aspirated and flushed, and had brisk blood return. The line was secured at the skin using 2-0 nylon interrupted sutures. A Biopatch and Transparent sterile dressing were applied. There were no immediate complications noted. There was minimal EBL. The patient tolerated the procedure well. Ultrasound Guidance: Ultrasound guidance was used to identify the internal jugular vein. The vascular anatomy was normal. The vessel was cannulated under direct, real-time ultrasound visualization. After placement of the guidewire, confirmation of the guidewire in the lumen of the vessel was made using ultrasound visualization, before dilation of the tract. A Chest x-ray has been ordered. I personally performed the procedure. Kwabena Palma MD May 13, 2017 21:40
--- NOTE | 2017-05-13 21:41 | PD.PROCEDR ---
Procedure Note Procedure Central Line Procedure Note Right IJ 8.5 [place] 10 cm introducer sheath Diagnosis: CHF exacerbation Indications: Need for central pressure monitoring and active diuresis Consent: Written consent was obtained from the medical decision maker Anesthesia: 1% lidocaine locally Description of the Procedure: The patient was placed in the supine, mild- Trendelenburg position. The area was prepped and draped sterilely. A 19g needle was inserted under negative pressure aspiration and dark venous blood was obtained. A guidewire was inserted easily without resistance. A small incision was made using a #11 blade. Using a modified Seldinger technique, the dilator and 8.5 [place], 10 cm catheter were advanced over the guidewire without resistance. All ports were aspirated and flushed, and had brisk blood return. The line was secured at the skin using 2-0 silk interrupted sutures. A Biopatch and Transparent sterile dressing were applied. There were no immediate complications noted. There was minimal EBL. The patient tolerated the procedure well. Ultrasound Guidance: Ultrasound guidance was used to identify the right internal jugular vein. The vascular anatomy of the right anterior neck was normal. The vessel was cannulated under direct, real-time ultrasound visualization. After placement of the guidewire, confirmation of the guidewire in the lumen of the vessel was made using ultrasound visualization, before dilation of the tract. A Chest x-ray has been ordered. I personally performed the procedure. Kwabena Palma MD May 13, 2017 21:41
--- NOTE | 2017-05-13 21:45 | PD.PROCEDR ---
Procedure Note Procedure Pulmonary Artery Catheter Procedure Note Diagnosis: Diastolic CHF exacerbation Indications: Patient with worsening diastolic CHF exacerbation, pulmonary edema , and worsening acute kidney injury requiring renal replacement therapy. Central pressure monitoring is needed to optimize volume status in the setting of multiple organ dysfunction Consent: Written consent was obtained from the medical decision maker Anesthesia: lidocaine locally Description of the Procedure: The patient was placed in the supine, mild-Reverse -Trendelenburg position. The area was prepped and draped sterilely. A 6 Fr pulmonary artery catheter was flushed, and all ports were checked, including PA , CVP, infusion port. The balloon was tested and inflated and deflated easily. Through an existing introducer sheath, the catheter was inserted to a depth of 20 cm and the balloon was inflated without resistance. The PA catheter was advanced under continuous waveform hemodynamic monitoring and appropriate RA, RV , PA, and PCWP waveforms were achieved. The balloon was deflated. The line was secured to the introducer sheath using a sterile cover. There were no immediate complications noted. There was minimal EBL. The patient tolerated the procedure well. PA catheter secured at: 47 cm. Hemodynamic Data: HR: 68 Art: 179/68 (114) RAP: 7 mmHg RV: 51/7 mmHg PAP: 51/9 (34) mmHg PCWP: 20 mmHg achieved at 49 cm Thermodilution Cardiac Output: 5.9 L/min Cardiac Index: 3.8 SV: 87mL SVR: 1451 dyn*s/cm^5 PVR: 2.3 Black units A Chest x-ray has been ordered. I personally performed the procedure. Kwabena Palma MD May 13, 2017 21:45
[2017-05-13] MEDS: hydrALAZINE HCL 20 MG/ML VIAL IV PRN (22:19)
[2017-05-14] VITALS (11 sets, daily range): BP systolic 125–152; BP diastolic 52–66; PULSE 62–72; RESP 16–23; TEMP 97.7–99.2; O2SAT 93–97
[2017-05-14] MEDS: RESP: ALBUTEROL 2.5 MG/IPRATROPIUM 0.5 MG NEB (SCH) NEB ×5 (04:00→20:07)
--- NOTE | 2017-05-14 04:13 | RADRPT ---
EXAM DATE/TIME: 05/14/2017 03:35 [facility] COMPARISON: CHEST SINGLE AP, May 13, 2017, 14:42. INDICATIONS : Shortness of breath, possible pulmonary disease. MEDICAL HISTORY : Chronic obstructive pulmonary disease. Congestive heart failure. Myocardial infarction. SURGICAL HISTORY : Hysterectomy. CABG. ENCOUNTER: Subsequent ACUITY: 1 week PAIN SCORE: 0/10 LOCATION: Bilateral chest FINDINGS: The cardiac silhouette is normal in transverse diameter. Median sternotomy wires are present. There i s prominence of the central pulmonary vasculature with indistinct vascular margins compatible with va scular congestion but no evidence of overt failure. No pleural effusions are identified. CONCLUSION: 1. Cardiomegaly and findings of vascular congestion without overt failure. The findings are improved when compared with the prior exam. Konstantin Rojas MD on May 14, 2017 at 4:12 Board Certified Radiologist. This report was verified electronically.
[2017-05-14 05:32] LABS: HEMATOCRIT 27.4 % (35.0-46.0); HEMOGLOBIN 8.8 GM/DL (11.6-15.3); MEAN CELL VOLUME 92.9 FL (80.0-100.0); MEAN CORPUSCULAR HEMOGLOBIN 29.8 PG (27.0-34.0); MEAN CORPUSCULAR HGB CONC 32.1 % (32.0-36.0); MEAN PLATELET VOLUME 9.4 FL (7.0-11.0); PLATELET COUNT 151 TH/MM3 (150-450); RED BLOOD COUNT 2.95 MIL/MM3 (4.00-5.30); RED CELL DISTRIBUTION WIDTH 16.3 % (11.6-17.2); WHITE BLOOD COUNT 17.1 TH/MM3 (4.0-11.0)
[2017-05-14 05:51] LABS: BICARBONATE 28.1 MEQ/L (21.0-32.0); CREATININE 2.14 MG/DL (0.50-1.00)
[2017-05-14] MEDS: cloNIDine HCL 0.2 MG TAB PO SCH ×3 (06:00→21:40)
[2017-05-14] MEDS: hydrALAZINE HCL 50 MG TAB PO SCH ×3 (06:00→21:39)
--- NOTE | 2017-05-14 06:55 | HHI.CCPN ---
Subjective Remarks/Hospital Course This is a 76-year-old female with a history of congestive heart failure with preserved EF, smoking, COPD who presented to the emergency department on 04/23 with worsening shortness of breath, BNP greater than 4000, bilateral pulmonary infiltrates and was diagnosed at that time with CHF exacerbation. She was initially started on Lasix. At that time she did have an acute kidney injury on top of chronic renal insufficiency stage III. Nephrology was consulted and felt this was due to increased renal vein pressure. Despite attempts at diuresis, she is had a positive fluid balance during her hospital stay, and she persists with significant dyspnea. She was initially on Zosyn and azithromycin to empirically cover for possible COPD exacerbation. Zosyn was stopped on hospital day 7, but azithromycin continues through today empirically. She is remained afebrile throughout her hospital stay. A few days ago, she was started on prednisone for possible COPD exacerbation component to her shortness of breath. After starting on systemic steroids, her white count which was normal on admission, began to rise. She still remains afebrile. Yesterday, bilateral lower extremity Dopplers were positive for a left posterior tibial deep vein thrombosis. VQ scan at that time was indeterminate for PE in the setting of significant bilateral consolidations which likely decreases sensitivity of VQ scan for embolism. Due to the patient's persistent dyspnea and positive fluid balance for hospital stay despite attempts at diuresis, and due to the fact that her kidney injury continues to worsen, I was contacted by the hospitalist service for possible transfer to the intensive care unit for a more aggressive diuretic regimen. I evaluated the patient on arrival to the CVICU. The patient does complain of significant dyspnea, particularly with even light movement out of bed to chair. She states that she just wants to feel better. She denies chest pain, nausea, vomiting, fever, chills, or any other symptoms other than her shortness of breath. 05/11. 2-D echo had shown 50-55% ejection fraction mild to moderate MR, Moderate MS (by gradient of 7). Also evidence of pulmonary hypertension PASP 70 mm Hg. Patient needs improved BP control due to diastolic CHF. Increase clonidine to 0.3 mg q8, Cardura to 4 mg and Hydralazine to 50 q8. HR adequately controlled. Also evaluate with CT chest after adequate diuresis for emphysema and lung consolidation/effusion 05/12/17: UO remains excellent, 5L in 24 hours on Bumex gtt. BUN/Creat steadily increasing 115/2.96. May need HD> Pedal edema improved, CXR still showing pulmonary edema. CT chest to evaluate for infiltrate/effusion and also evaluate emphysema. Repeat limited Echo with Doppler next week to re valuate MS/MR. MS/ MR likely contributing to heart failure 05/13: Delayed note entry: seen and evaluted around 0700 AM. UOP is excellent, but BUN continues to rise. today, clinically patient declining and much more encephalopathic. still protecting airway, but now RASS -2/-3. requiring some more aggressive pulmonary toilet. Discussed with Dr. Pittman, and at this point needs HD for not only ongoing fluid removal, but for uremic encephalopathy which is worsening daily. continues to be afebrile. Additionally, with IHD, will need invasive central pressure monitoring to guide fluid removal and ensure we identify dry weight and optimal hemodynamics. In an ideal world, would combine LHC and RHC to eval mitral gradients and accurate LVEDP. for now will start with bedside RHC. Subjective 05/14: More awake and alert today. Less encephalopathic. Recognizes Her son yrn sitting at bedside. -3800 cc with initial intermittent hemodialysis yesterday. No bowel movement. Objective Vital Signs Date Time Temp Pulse Resp B/P (MAP) Pulse Ox O2 Delivery O2 Flow Rate FiO2 05/14/17 03:00 62 152/65 (94) 05/14/17 03:00 93 Nasal Cannula 3.00 05/14/17 03:00 99.2 22 Intake and Output 05/14/17 05/14/17 05/15/17 08:00 16:00 00:00 Intake Total 0 ml Output Total 450 ml Balance -450 ml Result Diagram: 05/14/17 0505 05/14/17 0505 Other Results Microbiology Date/Time Source Procedure Growth Status 05/10/17 13:30 Blood Peripheral Aerobic Blood Culture - Preliminary NO GROWTH IN 3 DAYS Resulted 05/10/17 13:30 Blood Peripheral Anaerobic Blood Culture - Preliminary NO GROWTH IN 3 DAYS Resulted 05/12/17 13:45 Urine Catheterized Urine Legionella Antigen - Final PRESUMPTIVE NEGATIVE FOR LEGIONELLA P... Complete 05/12/17 13:45 Urine Catheterized Urine Streptococcus pneumoniae Antigen (M - Final PRESUMPTIVE NEGATIVE FOR STREPTOCOCCU... Complete Imaging Last Impressions Chest X-Ray 05/14/17 0500 Signed Impressions: Service Date/Time: Sunday, May 14, 2017 03:35 - CONCLUSION: 1. Cardiomegaly and findings of vascular congestion without overt failure. The findings are improved when compared with the prior exam. Konstantin Rojas MD Head CT 05/12/17 0000 Signed Impressions: Service Date/Time: Friday, May 12, 2017 10:32 - CONCLUSION: No acute disease. Cameron Ashby MD Chest CT 05/12/17 0000 Signed Impressions: Service Date/Time: Friday, May 12, 2017 10:36 - CONCLUSION: 1. Diffuse infiltrates bilaterally suggestive of severe pulmonary edema and/or pneumonia. Clinical correlation is recommended. 2. Small bilateral pleural effusions. 3. Markedly enlarged heart with coronary artery calcifications. Cameron Ashby MD Lung Scan-V Nuclear Medicine 05/09/17 0000 Signed Impressions: Service Date/Time: Tuesday, May 09, 2017 11:08 - CONCLUSION: 1. Indeterminate for pulmonary embolus. Don Vega MD Lower Extremity Ultrasound 05/09/17 0000 Signed Impressions: Service Date/Time: Tuesday, May 09, 2017 12:05 - CONCLUSION: 1. Occlusive deep venous thrombosis within the left posterior tibial veins. 2. No deep venous thrombosis within the right lower extremity. Cameron Ashby MD Renal Ultrasound 04/24/17 0000 Signed Impressions: Service Date/Time: Monday, April 24, 2017 23:08 - CONCLUSION: 1. Echogenic kidneys likely secondary to medical renal disease. 2. Minimal ascites. 3. Left pleural effusion. Rasta Vieira MD Objective Remarks GENERAL: 76-year-old female, resting in bed in no acute distress HEENT: Normocephalic. Atraumatic. Pupils equal, round, reactive, conjugate. NECK: Trachea is midline. + JVD. CHEST: On 3 L oxygen by nasal cannula. Few crackles appreciated in the bilateral lower lobes. CARDIOVASCULAR: RRR. S1 and S2. No S4. Without murmur ABDOMEN: Soft, nontender, slightly protuberant. Complaining of some abdominal pain. Last bowel movement 05/10 MUSCULOSKELETAL: Pulses 2+. No peripheral edema. NEUROLOGICAL: Oriented to person, place and time. Moves all 4 extremities to command. Strength is equal and symmetric. Normal sensation. A/P Assessment and Plan Neuro/Psych: Acute toxic metabolic encephalopathy - likely uremic Peripheral neuropathy Currently on oxycodone /acetaminophen 10/325 mg every 4 hours when necessary pain 4-10. Oxycodone/acetaminophen 10/25 one tablet 3 times a day at home Will decrease gabapentin 200 mg twice a day. Check gabapentin level Continue fluoxetine 40 mg by mouth daily for depression CT brain 2 this admission revealed no acute intracranial findings CV: CHF exacerbation, diastolic type Moderate mitral stenosis by gradient/Mild MR Hypertension Echocardiogram 50-55% EF. Mild LVH. Moderate MS/MR. Moderate left pleural effusion. 05/13 - placed PA catheter for central pressure guided IHD and volume removal in the setting of severe MILI and CHF. 05/14 - [facility] catheter. Heart rate 75. Arterial line pressure 151/65 (96) CVP 5. Cardiac output 7.1 L/minute. Cardiac index 4.4. Pulmonary arterial Pressure 58/15. Pulmonary capillary wedge pressure 20 mmHg achieved at 51 cm Currently on clonidine 0.6 mg 3 times a day, amlodipine 5 mg daily - 10 milligrams daily, hydralazine 50 mg every 8 hours - 100 milligrams every 8, carvedilol 6.25 mg twice a day and doxazosin 4 mg daily Currently on acetazolamide 500 mg every [address] Fitzgerald - cardiology following Consider right and left cardiac catheterization. Unclear whether MS/MR, ischemia , contributing to biventricular failure repeat echo 05/14 to reevaluate mitral gradients. Resp: Acute respiratory insufficiency Pulmonary edema - resolving Acute on chronic hypoxemia Currently nasal cannula 3 L to maintain saturations greater than equal to 90% Incentive spirometry while awake Albuterol/ipratropium aerosols every 4 hours with albuterol aerosols every 2 hours. Dyspnea Budesonide/formoterol 160/4.5 2 puffs twice a day A cappella/EZPap every 4 hours GI: Acute protein calorie malnutrition- moderate Schatzki ring Erosive gastritis Duodenitis Hypertension Constipation Hepatitis C positive - genotype and viral load pending Currently nothing by mouth pending speech evaluation. Likely will pass today Continue pantoprazole 40 mg by mouth twice a day Docusate sodium/senna 2 tabs in a.m., polyethylene glycol 17 g twice a day, lactulose 30 cc twice a day. 1 dose of methylnaltrexone today. Follow-up KUB : Vazquez catheter for accurate I's and O's in a critically ill patient Endo: Sliding-scale insulin with Novulog with Accu-Cheks before meals/at bedtime/low regimen Renal: Acute kidney injury superimposed on stage IIIa chronic kidney disease with proteinuria Renal ultrasound - medical renal disease. No hydronephrosis. Proteinuria noted on UA. IHD . Dr. Pittman. -3800 cc 05/13 Heme: Occlusive left posterior tibialis thrombosis History of warfarin use - 0.5 mg daily Leukocytosis Normocytic anemia Currently on enoxaparin 60 mg subcutaneous daily. Continue ferrous sulfate 325 mg twice daily Cryoglobulin workup pending. The setting of hepatitis C ID: Currently no indication for antibiotics FEN: Hypopotassemia Replace electrolytes as clinically indicated. 20 mEq by mouth 1 now. MSK: RA factor positive Currently prednisone taper 10 mg daily stop date 02/13/18 PT evaluate and treat Access - Right IJ [facility] catheter day #2 - Left IJ [facility] catheter. #2 Prophylaxis - GI - pantoprazole - DVT - SCD/enoxaparin Level II follow-up Amlicar Mills MD May 14, 2017 06:55
[2017-05-14] MEDS: INSULIN ASPART SUPPLEMENTAL SCALE SQ SCH ×4 (08:00→21:00)
[2017-05-14] MEDS: BUDESONIDE-FORMOTEROL 160/4.5 MCG INHALER INH SCH ×2 (08:51→20:31)
[2017-05-14] MEDS: CARBAMIDE PEROXIDE 6.5% OTIC SOLN 15 ML BTL EACH EAR SCH ×2 (08:51→21:39)
[2017-05-14] MEDS: SODIUM CHLORIDE 0.9% FLUSH 10 ML FLUSH IV FLUSH SCH ×2 (08:52→20:32)
[2017-05-14] MEDS: TIOTROPIUM BROMIDE 18 MCG INH INH SCH (08:54)
[2017-05-14] MEDS: POLYETHYLENE GLYCOL 17 GM PKG PO SCH ×2 (09:00→20:33)
[2017-05-14] MEDS ORDERED: RESP: ALBUTEROL 2.5 MG/3 ML NEB (PRN) NEB (09:00)
[2017-05-14] MEDS: guaiFENesin E.R. 600 MG TAB PO SCH ×2 (09:22→20:32)
[2017-05-14] MEDS: LACTULOSE SYRUP 20 GM/30 ML CUP PO SCH ×2 (09:22→20:31)
[2017-05-14] MEDS: DOCUSATE SODIUM 50 MG/SENNA 8.6 MG TAB PO SCH (09:23)
[2017-05-14] MEDS: PANTOPRAZOLE SOD 40 MG DELAYED RELEASE TAB PO SCH ×2 (09:23→20:32)
[2017-05-14] MEDS: predniSONE 10 MG TAB PO SCH (09:23)
[2017-05-14] MEDS: FLUoxetine HCL 20 MG CAP PO SCH (09:23)
[2017-05-14] MEDS: FERROUS SULFATE 325 MG (65 MG ELEMENTAL IRON) TAB PO SCH (09:23)
[2017-05-14] MEDS: amLODIPine BESYLATE 5 MG TAB PO SCH (09:23)
[2017-05-14] MEDS: CARVEDILOL 6.25 MG TAB PO SCH ×2 (09:23→20:32)
[2017-05-14] MEDS: DOXAZOSIN MESYLATE 2 MG TAB PO SCH (09:23)
[2017-05-14 09:36] LABS: ALBUMIN 4.2 GM/DL (3.4-5.0)
[2017-05-14 09:40] LABS: DIRECT BILIRUBIN ADULT 0.3 MG/DL (0.0-0.2); INDIRECT BILIRUBIN 0.5 MG/DL (0.0-0.8); TOTAL BILIRUBIN ADULT 0.8 MG/DL (0.2-1.0)
--- NOTE | 2017-05-14 09:52 | RADRPT ---
EXAM DATE/TIME: 05/14/2017 08:13 [facility] COMPARISON: CT LUMBAR SPINE W/O CONTRAST, August 14, 2014, 10:29. INDICATIONS : Possible obstruction. Last bowel movement seven days ago. MEDICAL HISTORY : Chronic obstructive pulmonary disease. Congestive heart failure. Myocardial infarction. SURGICAL HISTORY : Hysterectomy. CABG. ENCOUNTER: Initial ACUITY: 1 week PAIN SCORE: 5/10 LOCATION: Abdomen. FINDINGS: There are multiple loops of air-filled small bowel throughout the abdomen with subtle prominence in t he left upper quadrant. A no significant pneumatosis or free air. Surgical clips are seen in the righ t upper quadrant. The fixation hardware is noted in the lower lumbar spine along with single screw in the right sacrum. There also bilateral hip arthroplasties. Degenerative spondylosis of the lower lum bar spine. CONCLUSION: 1. Multiple loops of air-filled small bowel with subtle prominence of the bowel loops in the left upp er quadrant. The findings likely reflect mild adynamic ileus. Developing small bowel obstruction is i n the differential but felt to be less likely. Nii Zeng MD on May 14, 2017 at 9:46 Board Certified Radiologist. This report was verified electronically.
[2017-05-14] MEDS ORDERED: METHYLNALTREXONE BROMIDE 12 MG/0.6 ML VIAL SQ ONE (10:00)
[2017-05-14] MEDS: GABAPENTIN 100 MG CAP PO SCH ×2 (10:14→20:33)
[2017-05-14] MEDS ORDERED: POTASSIUM CHLORIDE 20 MEQ CONTROLLED RELEASE TAB PO ONE (10:15)
[2017-05-14 11:15] LABS: HEPATITIS A AB IGM NEGATIVE (NEGATIVE); HEPATITIS B CORE AB IGM NEGATIVE (NEGATIVE); HEPATITIS B SURFACE ANTIGEN NEGATIVE (NEGATIVE); HEPATITIS C AB IgG REACTIVE (NEGATIVE)
--- NOTE | 2017-05-14 11:29 | HHI.NPPN ---
Subjective General Problems: Anemia, Edema, Heart Disease Renal Failure: Chronic, Acute, Stage III Interval History Sitting up in a chair. Still somewhat lethargic. 3.8 L fluid removal with HD yesterday. Son at bedside. HD again today. (Camila Cline) Review of Systems General Constitutional: Fatigue (Camila Cline) Respiratory Lungs: SOB (Camila Cline) Cardiovascular Cardiac: Palpitations, Edema (Camila Cline) Objective Data Data Vital Signs Date Time Temp Pulse Resp B/P (MAP) Pulse Ox O2 Delivery O2 Flow Rate FiO2 05/14/17 11:05 98.4 66 20 145/57 (86) 93 05/14/17 11:04 72 05/14/17 11:03 93 Nasal Cannula 3.00 05/14/17 07:42 97 Nasal Cannula 3.00 05/14/17 07:42 72 05/14/17 07:41 98.4 71 22 149/66 (93) 97 05/14/17 07:25 93 Nasal Cannula 3.00 05/14/17 03:00 62 152/65 (94) 05/14/17 03:00 93 Nasal Cannula 3.00 05/14/17 03:00 99.2 62 22 152/65 (94) 93 05/14/17 03:00 62 05/13/17 23:00 74 157/60 (92) 05/13/17 23:00 98.4 93 22 157/60 (92) 94 05/13/17 23:00 94 Nasal Cannula 3.00 05/13/17 23:00 74 05/13/17 19:19 93 Nasal Cannula 3.50 05/13/17 19:00 98.5 93 25 135/62 (86) 93 05/13/17 19:00 69 135/62 (86) 05/13/17 19:00 93 Nasal Cannula 3.00 05/13/17 19:00 69 05/13/17 17:27 98.7 74 24 151/60 89 05/13/17 15:45 68 179/68 (105) 05/13/17 15:00 98.7 80 22 166/64 (98) 98 05/13/17 15:00 67 05/13/17 15:00 96 Nasal Cannula 3.00 (Camila Cline) -: 05/14/17 0505 05/14/17 0505 Imaging Last 72 hours Impressions Chest X-Ray 05/14/17 0500 Signed Impressions: Service Date/Time: Sunday, May 14, 2017 03:35 - CONCLUSION: 1. Cardiomegaly and findings of vascular congestion without overt failure. The findings are improved when compared with the prior exam. Konstantin Rojas MD Abdomen X-Ray 05/14/17 0000 Signed Impressions: Service Date/Time: Sunday, May 14, 2017 08:13 - CONCLUSION: 1. Multiple loops of air-filled small bowel with subtle prominence of the bowel loops in the left upper quadrant. The findings likely reflect mild adynamic ileus. Developing small bowel obstruction is in the differential but felt to be less likely. Nii Zeng MD Chest X-Ray 05/13/17 0000 Signed Impressions: Service Date/Time: Saturday, May 13, 2017 14:42 - CONCLUSION: 1. Uncomplicated line placement. No evidence of pneumothorax. 2. Cardiomegaly and findings of congestive heart failure. There has been no significant change when compared to the prior exam. Konstantin Rojas MD Chest X-Ray 05/12/17 0600 Signed Impressions: Service Date/Time: Friday, May 12, 2017 03:37 - CONCLUSION: No significant interval change with persistent right greater than left pulmonary parenchymal opacity. Bladimir Rodríguez MD Head CT 05/12/17 0000 Signed Impressions: Service Date/Time: Friday, May 12, 2017 10:32 - CONCLUSION: No acute disease. Cameron Ashby MD Chest CT 05/12/17 0000 Signed Impressions: Service Date/Time: Friday, May 12, 2017 10:36 - CONCLUSION: 1. Diffuse infiltrates bilaterally suggestive of severe pulmonary edema and/or pneumonia. Clinical correlation is recommended. 2. Small bilateral pleural effusions. 3. Markedly enlarged heart with coronary artery calcifications. Cameron Ashby MD Tubes & Lines: Vas-Cath, Gonzalez Tubes & Lines Comment Gustavo Boles (Camila Cline) Physical Exam General Appearance: Well Developed, No Acute Distress, Comfortable, Anxious, Malnourished (Camila Cline) Throat Throat Exam: Oral Mucosa [place] & Moist (Camila ClineP) Neck Neck Exam: Neck Supple (Camila ClineP) Pulmonary Resp Exam: Breath Sounds Equal, No Distress, Crackles, Sputum, Decreased Bases (Camila Cline. PROGRAM MANUFACTURING LEADER) Cardiology CV Exam: Regular, Normal Sinus Rhythm, Good Perfusion (Camila Cline PROGRAM MANUFACTURING LEADER) Gastrointestinal/Abdomen GI Exam: Soft, Non-Tender, Bowel Sounds Present (Camila Cline PROGRAM MANUFACTURING LEADER) Musculoskeletal MS Exam: Normal Gait, Normal Tone (Camila Cline PROGRAM MANUFACTURING LEADER) Integumentary Skin Exam: Warm, Dry Skin Remarks scattered lower extremity abrasions (Camila Cline) Extremeties Extremities Exam: No Edema, Pedal Pulses Palpable (Camila Cline PROGRAM MANUFACTURING LEADER) Neurologic Neuro Exam: Alert, Awake, Oriented, Speech Clear, Moving All Extremities (Camila Cline) Psychiatric Psych Exam: Appropriate Responses (Camila Cline) Assessment/Plan Discussed Condition With: Patient, Son Assessment Summary: MILI/Acute Renal Failure, Anemia of CKD, Fluid/Volume Overload, Proteinuria, CHF, Hypertension, Diabetes Mellitus, CKD Stage III Electrolyte Assessment: Hyponatremia Problem List: (1) MILI (acute kidney injury) ICD Codes: N17.9 - Acute kidney injury Status: Acute Plan: She has underlying CKD 3, baseline GFR 30, creatinine 1.61 Suspected underlying diabetic nephropathy as she does have proteinuria. Repeat SPEP is negative. C3 is low. She is Hep C positive. Cryoglobulin pending. MILI may be due to CHF exacerbation and increased renal vein pressure. She has subtherapeutic response to diuretic therapy, HD started 05/13 (3.8L); HD again today and MWF as needed Obtain daily labs Off bumex gtt Follow urine output, has gnozalez is non oliguric Avoid nephrotoxic agents It remains to be seen if long-term HD is required. (2) Hyponatremia ICD Codes: E87.1 - Hypo-osmolality and hyponatremia Plan: Improved,continue to monitor. Avoid NaCl tabs given hx of CHF. Tolvaptan is on hold (3) CHF exacerbation ICD Codes: I50.9 - Heart failure, unspecified Status: Acute Plan: Echo this month shows: -LVH -Apical hypokinesis -Left ventricular function is low normal, EF 50-55% (diastolic dysfunction) follow I/O, fluid status, weight Restriction of Sodium in her diet. Fluid removal as tolerated (4) Anemia ICD Codes: D64.9 - Anemia Status: Chronic Plan: She has iron deficiency. Received Venofer. On oral ferrous sulfate. Epogen with dialysis Transfuse if necessary. (5) Acute hypoxemic respiratory failure ICD Codes: J96.01 - Acute respiratory failure with hypoxia Status: Resolved Plan: Being treated for CAP On Zithromax and prednisone Refusing BiPap, on oxygen via nasal canula Recent saturation 98% oh 2L NC Former smoker, cessation discussed (6) Community acquired pneumonia ICD Codes: J18.9 - Pneumonia, unspecified organism Status: Acute Plan: See above Continue supportive care On nebulizers, inhalers, oxygen . WBC increasing. (7) DVT (deep venous thrombosis) ICD Codes: I82.409 - Acute embolism and thrombosis of unspecified deep veins of unspecified lower extremity Plan: On Lovenox, consider changing to Eliquis. (Camila Cline) Plan patient was seen and examined. Initiated on dialysis yesterday. Fluid overload appears to have improved. Dialysis again today. It is unclear if she is going to need terminal operations supervisor dialysis. Discussed with patient and her son at the bedside. (Abebe Patten MD) Problem Qualifiers (1) CHF exacerbation: Qualified Codes: I50.9 - Heart failure, unspecified (2) Anemia: Qualified Codes: D64.9 - Anemia, unspecified (3) Community acquired pneumonia: Qualified Codes: J18.9 - Pneumonia, unspecified organism Camila Cline May 14, 2017 11:29 Abebe Patten MD May 14, 2017 17:37
--- NOTE | 2017-05-14 12:00 | PD.CONS ---
Consult Service Palliative Care Consult Requested By Dr. Mills Primary Care Physician Unknown Reason for Consultation a. To assist with evaluation and management of symptoms including:dyspnea b. To assist medical decision maker(s) with: better understanding of current medical conditions; weighing benefits/burdens of medical treatment options; making medical treatment decisions. HPI History of Present Illness 76-year-old with past medical history significant for CHF and COPD that was brought into the hospital on 04/23/2017. Prior to hospitalization patient had shortness of breath for 2 days with associated cough, productive of sputum. Patient has chest tightness. In the ER patient was placed on BiPAP. Labs: * Sodium is 138, potassium 3.9, chloride is 105, bicarbonate is 23.4, BUNs 37, creatinine is 2.19. BNP is 4056 troponin I 0.06 * WBC 7.8, hemoglobin is 9.3, hematocrit is 27.5, platelets 260 * PT is 10.8, INR is 1.1, PTT is 24.1 * Imaging shows bibasilar areas of consolidation. Patient started on's steroids and Lasix. Patient started on IV antibiotics, Pt admitted for CHF exacerbation, COPD exacerbation, pneumonia, acute kidney injury. 04/24- renal ultrasound was ordered due to acute renal injury. Renal Ultrasound shows echogenic kidneys likely secondary to medical renal disease. There is a left pleural effusion. 2-D echo shows an EF of 50-55%. There is mild concentric left ventricle hypertrophy. [id number] mitral valve regurgitation. Trace tricuspid valve regurgitation. Sided pleural effusion noted. Cardiology was consulted and recommends continue diuresis for CHF exacerbation. 04/25/2017- patient changed to oral prednisone. Creatinine was trending up. Patient was complaining of a headache and CT of the head was ordered. Head CT is negative. - remains on hospice services. Patient anemia continues to worsen and GI was consulted.04/27 status post EGD for/colonoscopy which showed Schatzki ring found in the lower third of the esophagus. Erythematous gastritis, duodenal inflammation, hiatal hernia. Await biopsy results, continue PPI, colonoscopy as an outpatient. Patient also had episodes of epistaxis 04/28- creatinine continues to trend up, nephrology has been consulted. Cardiology, GI continues to follow 04/11-05/06 cardiology, nephrology, GI continues to follow patient. Patient continues to be in the hospital for CHF/COPD exacerbation. Being monitored for renal insufficiency. 05/07 to 05/10 patient maintained in the hospital, still have trouble with breathing on exertion and ambulation. There is no improvement in patient's lower extremity. Patient also found to have a DVT on her left leg. VQ scan was indeterminate for PE On 05/10/2016 given worsening fluid overload/edema, persistent dyspnea patient's care was transferred to intensivists. 05/11 to 05/13 - intensivists feels patient has diastolic heart failure. Creatinine was monitored and Bumex given.. BUN/creatinine has steadily been increasing. Pedal Edema is improved. Internet Sales Representative mentioned that patient may need hemodialysis. Chest x-ray still shows pulmonary edema. On 05/13/2016 patient's BUN and creatinine continue to rise.'s much more encephalopathic but still protecting airway. Internet Sales Representative discussed with nephrology and patient at this point needs hemodialysis not only for ongoing fluid removal but for uremic encephalopathy. Intensivists also mention consideration about right and left cardiac catheterization. Repeat echo was ordered. 05/14/2016 jig boring machine operator for metal noted patient more alert and more awake. Patient had 3.8 L with initial hemodialysis done. In summary patient has a history of diastolic heart failure, they came in for respiratory distress. Patient's medical complication complicated by DVT, CHF, pneumonia, renal failure, inability to remain good fluid balance. Later on in the hospitalization patient has encephalopathy likely from uremia and worsening kidney function. Patient had require dialysis. Palliative care was consulted to review goals of care. On my visit patient is overall lethargic. No family at bedside. Called pt's daughter, left voicemail, awating call back. Function/Cognitive Trajectory could not elicit from patient. Review of Systems ROS Limitations: Clinical Condition Past Family Social History Coded Allergies: aspirin (Unverified Allergy, Severe, HIVES, 04/23/17) HIVES diatrizoate meglumine (Unverified Allergy, Severe, HIVES, 04/23/17) diazepam (Unverified Allergy, Severe, 04/23/17) HIVES gadobenic acid (Unverified Allergy, Severe, HIVES, 04/23/17) gadodiamide (Unverified Allergy, Severe, HIVES, 04/23/17) gadoteridol (Unverified Allergy, Severe, HIVES, 04/23/17) iodixanol (Unverified Allergy, Severe, HIVES, 04/23/17) iohexol (Unverified Allergy, Severe, HIVES, 04/23/17) ketorolac (Unverified Allergy, Severe, RASH, 04/23/17) ibuprofen (Unverified Allergy, Intermediate, Itching, 04/23/17) FROM [facility]. FD and C no.5 (tartrazine) (Unverified Allergy, Unknown, 04/23/17) FROM [facility] meperidine (Unverified Allergy, Unknown, 04/23/17) [facility] Past Medical History 1. COPD. 2. Diabetes mellitus. 3. Hypertension. 4. Congestive heart failure. 5. History of cervical cancer. Coumadin therapy Cardiovascular disease Past Surgical History 1. CABG in 2003. 2. Bilateral knee replacement. 3. Bilateral hip replacement. 4. Left humeral fracture ORIF. 5. Right ankle surgery. 6. Umbilical hernia repair. 8. The lateral breast cystectomy. 9. Total abdominal hysterectomy with bilateral septic nephrectomy. 10. Cholecystectomy. 11. Appendectomy. 12. Cervical fusion. Reported Medications Neurontin (Gabapentin) 400 Mg Cap 400 Mg PO BID Prozac (Fluoxetine HCl) 40 Mg Cap 40 Mg PO DAILY Coumadin (Warfarin) 1 Mg Tab 0.5 Mg PO HS Percocet (Oxycodone-Acetaminophen) 10-325 mg Tab 1 Tab PO TID PRN Clonidine (Clonidine HCl) 0.1 Mg Tab 0.1 Mg PO BID Current Medications Medications (Trade) Dose Ordered Sig/Rosemarie Route Start Time Stop Time Status Last Admin (Nitrostat Sl) 0.4 mg Q5M PRN SL 04/23/17 05:15 (Symbicort 160-4.5 Mcg Inh) 2 puff Q12HR INH 04/23/17 09:00 05/14/17 08:51 (Mucinex Er) 600 mg BID PO 04/23/17 09:00 05/14/17 09:22 (NS Flush) 2 ml UNSCH PRN IV FLUSH 04/23/17 06:30 (NS Flush) 2 ml BID IV FLUSH 04/23/17 09:00 05/14/17 08:52 (Tylenol) 650 mg Q6H PRN PO 04/23/17 06:30 05/13/17 07:55 (Senokot) 17.2 mg Q12H PRN PO 04/23/17 06:30 04/25/17 21:22 (Dulcolax Supp) 10 mg DAILY PRN RECTAL 04/23/17 06:30 (Lactulose Liq) 30 ml DAILY PRN PO 04/23/17 06:30 05/05/17 09:03 (PROzac) 40 mg DAILY PO 04/24/17 09:00 05/14/17 09:23 (D50w (Vial) Inj) 50 ml UNSCH PRN IV PUSH 04/24/17 15:00 (Glucagon Inj) 1 mg UNSCH PRN OTHER 04/24/17 15:00 (NovoLOG SUPPLEMENTAL SCALE) 1 ACHS SLIDING SCALE SQ 04/24/17 17:00 05/13/17 21:00 (Apresoline Inj) 10 mg Q4HR PRN IV PUSH 04/25/17 16:15 05/13/17 18:23 (Protonix) 40 mg Q12HR PO 04/25/17 21:00 05/14/17 09:23 (Cepacol Extra Uli (Sugar Free)) 1 lozenge Q2HR PRN BUCCAL 04/27/17 23:00 (Nathaly-Colace) 2 tab DAILY PO 05/02/17 09:00 05/14/17 09:23 (Ferrous Sulfate) 325 mg DAILY PO 05/04/17 11:00 05/14/17 09:23 (Samsca) 15 mg DAILY PO 05/05/17 10:00 Future Hold 05/12/17 08:37 (Aldactone) 25 mg DAILY PO 05/05/17 09:00 Future Hold 05/10/17 09:53 (Debrox 6.5% Otic) 5 drop Q12HR EACH EAR 05/06/17 21:00 05/16/17 20:59 05/14/17 08:51 (Zofran Inj) 4 mg Q6HR PRN IV PUSH 05/09/17 09:30 (Percocet 10-325 Mg) 1 tab Q4H PRN PO 05/09/17 13:15 05/12/17 18:32 (Lovenox Inj) 60 mg Q24H SQ 05/09/17 17:00 05/12/17 17:27 (Diamox Inj) 500 mg Q8H IV PUSH 05/10/17 15:00 05/14/17 06:41 (Deltasone) 10 mg Taper DAILY PO 05/11/17 09:00 05/16/17 08:59 05/14/17 09:23 Potassium Chloride 100 ml @ 50 mls/hr UNSCH PRN IV 05/10/17 18:00 05/13/17 09:42 (KCl) 40 meq UNSCH PRN PO 05/10/17 18:00 Magnesium Sulfate 2 gm/Sodium Chloride 104 ml @ 100 mls/hr UNSCH PRN IV 05/10/17 18:00 Magnesium Sulfate 2 gm/Sodium Chloride 104 ml @ 50 mls/hr UNSCH PRN IV 05/10/17 18:00 Calcium Chloride 1 gm/Sodium Chloride 110 ml @ 100 mls/hr UNSCH PRN IV 05/10/17 18:00 (Cardura) 4 mg DAILY PO 05/11/17 09:00 05/14/17 09:23 (Catapres) 0.6 mg Q8HR PO 05/12/17 14:00 05/13/17 06:20 (Coreg) 6.25 mg Q12HR PO 05/13/17 09:00 05/14/17 09:23 Sodium Chloride 1,000 ml @ 0 mls/hr Q0M PRN OTHER 05/13/17 15:45 05/13/17 16:47 (Heparin Inj) 8,000 units UNSCH PRN IV FLUSH 05/13/17 15:45 Sodium Chloride 1,000 ml @ 200 mls/hr Q5H PRN IV 05/13/17 15:45 Sodium Chloride 1,000 ml @ 0 mls/hr Q0M PRN OTHER 05/13/17 15:45 (Mannitol Inj) 12.5 gm UNSCH PRN IV 05/13/17 15:45 05/13/17 16:46 (NS Flush) 5 ml UNSCH PRN IV FLUSH 05/13/17 15:45 05/13/17 16:47 (Heparin Inj) UNSCH PRN .XX 05/13/17 15:45 05/13/17 16:48 (Gentamicin (Dialysis) Inj) 20 mg UNSCH PRN OTHER 05/13/17 15:45 05/13/17 16:49 (Zofran Inj) 4 mg UNSCH PRN IV PUSH 05/13/17 15:45 (Tylenol) 650 mg UNSCH PRN PO 05/13/17 15:45 (Benadryl) 25 mg UNSCH PRN PO 05/13/17 15:45 (Nitrostat Sl) 0.4 mg UNSCH PRN SL 05/13/17 15:45 (Catapres) 0.1 mg UNSCH PRN PO 05/13/17 15:45 (Epogen Inj) 10,000 units UNSCH PRN IV PUSH 05/13/17 15:45 05/13/17 16:49 (Gelfoam 12 Mm/7 Mm Top) 1 foam UNSCH PRN TOP 05/13/17 15:45 (Apresoline Inj) 10 mg Q4H PRN IV 05/13/17 19:00 05/13/17 22:19 (Trandate Inj) 10 mg UNSCH PRN IV 05/13/17 19:00 (Miralax) 17 gm BID PO 05/14/17 09:00 (Lactulose Liq) 30 ml BID PO 05/14/17 09:00 05/14/17 09:22 (Duoneb Neb) 1 ampule Q4HR NEB NEB 05/14/17 12:00 05/14/17 11:20 (Albuterol Neb) 2.5 mg Q2HR NEB PRN NEB 05/14/17 09:00 (Neurontin) 200 mg BID PO 05/14/17 10:00 05/14/17 10:14 (Norvasc) 10 mg DAILY PO 05/15/17 09:00 (Apresoline) 100 mg Q8HR PO 05/14/17 14:00 Family History Patient states her son from brain cancer. Patient is single and lives alone Substance Use Tobacco: 1ppd Alcohol:no Prescription med abuse:no Illicits:no Psychosocial History Retired Spiritual/Cultural Factors Christian Living Will: Copy in medical record (mar 2014) Physical Exam Vital Signs Date Time Temp Pulse Resp B/P (MAP) Pulse Ox O2 Delivery O2 Flow Rate FiO2 05/14/17 11:05 98.4 66 20 145/57 (86) 93 05/14/17 11:04 72 05/14/17 11:03 93 Nasal Cannula 3.00 05/14/17 07:42 97 Nasal Cannula 3.00 05/14/17 07:42 72 05/14/17 07:41 98.4 71 22 149/66 (93) 97 05/14/17 07:25 93 Nasal Cannula 3.00 05/14/17 03:00 62 152/65 (94) 05/14/17 03:00 93 Nasal Cannula 3.00 05/14/17 03:00 99.2 62 22 152/65 (94) 93 05/14/17 03:00 62 05/13/17 23:00 74 157/60 (92) 05/13/17 23:00 98.4 93 22 157/60 (92) 94 05/13/17 23:00 94 Nasal Cannula 3.00 05/13/17 23:00 74 05/13/17 19:19 93 Nasal Cannula 3.50 05/13/17 19:00 98.5 93 25 135/62 (86) 93 05/13/17 19:00 69 135/62 (86) 05/13/17 19:00 93 Nasal Cannula 3.00 05/13/17 19:00 69 05/13/17 17:27 98.7 74 24 151/60 89 05/13/17 15:45 68 179/68 (105) 05/13/17 15:00 98.7 80 22 166/64 (98) 98 05/13/17 15:00 67 05/13/17 15:00 96 Nasal Cannula 3.00 Exam CONSTITUTIONAL/GENERAL: This is a thin frail patient. Sleeping, woke up briefly , but closed eyes. TUBES/LINES/DRAINS: central line, piv, gonzalez. SKIN: No jaundice, rashes, or lesions. Ecchymoses on upper extremities. No wounds seen anteriorly. Skin temperature appropriate. Not diaphoretic. HEAD: Atraumatic. Normocephalic. EYES: Pupils equal and round and reactive. Extraocular motions intact. ENT: Nose without bleeding or purulent drainage. Throat without visible erythema, exudates, masses, or lesions. NECK: Trachea midline. Supple, nontender. No palpable thyroid enlargement or nodularity. CARDIOVASCULAR: Regular rate and rhythm without murmurs, gallops, or rubs. No JVD. Peripheral pulses symmetric. RESPIRATORY/CHEST: Symmetric, unlabored respirations. Clear to auscultation. Breath sounds equal bilaterally. No wheezes, rales, or rhonchi. GASTROINTESTINAL: Abdomen soft, non-tender, nondistended. No hepato-splenomegaly , or palpable masses. No guarding. Bowel sounds present. GENITOURINARY: Without palpable bladder distension. Gonzalez catheter in place. MUSCULOSKELETAL: Extremities without clubbing, cyanosis, or edema. No joint tenderness or effusion noted. No calf tenderness. No mottling or clubbing. LYMPHATICS: No palpable cervical or supraclavicular adenopathy. NEUROLOGICAL: Lethargic. Moves all extremities. PSYCHIATRIC: sleepy. Diagnostic Tests Laboratory Laboratory Tests Test 05/11/17 13:50 05/11/17 20:22 05/12/17 02:10 05/12/17 11:18 Blood Urea Nitrogen 109 MG/DL (7-18) 112 MG/DL (7-18) 115 MG/DL (7-18) Creatinine 2.82 MG/DL (0.50-1.00) 2.95 MG/DL (0.50-1.00) 2.96 MG/DL (0.50-1.00) Random Glucose 141 MG/DL (74-106) 228 MG/DL (74-106) 123 MG/DL (74-106) Calcium Level 8.8 MG/DL (8.5-10.1) 8.7 MG/DL (8.5-10.1) 8.7 MG/DL (8.5-10.1) Magnesium Level 2.4 MG/DL (1.5-2.5) 2.4 MG/DL (1.5-2.5) 2.4 MG/DL (1.5-2.5) Sodium Level 131 MEQ/L (136-145) 129 MEQ/L (136-145) 133 MEQ/L (136-145) Potassium Level 3.6 MEQ/L (3.5-5.1) 3.7 MEQ/L (3.5-5.1) 3.5 MEQ/L (3.5-5.1) Chloride Level 90 MEQ/L (98-107) 90 MEQ/L (98-107) 91 MEQ/L (98-107) Carbon Dioxide Level 29.6 MEQ/L (21.0-32.0) 28.2 MEQ/L (21.0-32.0) 31.5 MEQ/L (21.0-32.0) Anion Gap 11 MEQ/L (5-15) 11 MEQ/L (5-15) 11 MEQ/L (5-15) Estimat Glomerular Filtration Rate 16 ML/MIN (>89) 16 ML/MIN (>89) 15 ML/MIN (>89) White Blood Count 15.5 TH/MM3 (4.0-11.0) Red Blood Count 2.39 MIL/MM3 (4.00-5.30) Hemoglobin 7.4 GM/DL (11.6-15.3) Hematocrit 22.4 % (35.0-46.0) Mean Corpuscular Volume 93.6 FL (80.0-100.0) Mean Corpuscular Hemoglobin 31.0 PG (27.0-34.0) Mean Corpuscular Hemoglobin Concent 33.1 % (32.0-36.0) Red Cell Distribution Width 15.3 % (11.6-17.2) Platelet Count 186 TH/MM3 (150-450) Mean Platelet Volume 8.7 FL (7.0-11.0) Neutrophils (%) (Auto) 95.9 % (16.0-70.0) Lymphocytes (%) (Auto) 0.7 % (9.0-44.0) Monocytes (%) (Auto) 3.3 % (0.0-8.0) Eosinophils (%) (Auto) 0.0 % (0.0-4.0) Basophils (%) (Auto) 0.1 % (0.0-2.0) Neutrophils # (Auto) 14.9 TH/MM3 (1.8-7.7) Lymphocytes # (Auto) 0.1 TH/MM3 (1.0-4.8) Monocytes # (Auto) 0.5 TH/MM3 (0-0.9) Eosinophils # (Auto) 0.0 TH/MM3 (0-0.4) Basophils # (Auto) 0.0 TH/MM3 (0-0.2) CBC Comment DIFF FINAL Differential Comment Blood Gas Puncture Site LT RADIAL Blood Gas Patient Temperature 98.6 Blood Gas HCO3 30 mmol/L (22-26) Blood Gas Base Excess 5.1 mmol/L (-2-2) Blood Gas Oxygen Saturation 89 % (90-100) Arterial Blood pH 7.38 (7.380-7.420) Arterial Blood Partial Pressure CO2 51 mmHg (38-42) Arterial Blood Partial Pressure O2 65 mmHg (61-120) Arterial Blood Oxygen Content 8.8 Vol % (12.0-20.0) Arterial Blood Carboxyhemoglobin 1.7 % (0-4) Arterial Blood Methemoglobin 1.7 % (0-2) Blood Gas Hemoglobin 7.0 G/DL (12.0-16.0) Oxygen Delivery Device NASAL CANNULA Blood Gas Liter Flow 2 L/M Test 05/12/17 11:35 05/12/17 18:38 05/13/17 01:19 05/13/17 08:00 Blood Urea Nitrogen 114 MG/DL (7-18) 122 MG/DL (7-18) 126 MG/DL (7-18) 124 MG/DL (7-18) Creatinine 2.89 MG/DL (0.50-1.00) 3.03 MG/DL (0.50-1.00) 3.06 MG/DL (0.50-1.00) 3.29 MG/DL (0.50-1.00) Random Glucose 74 MG/DL (74-106) 148 MG/DL (74-106) 134 MG/DL (74-106) 103 MG/DL (74-106) Calcium Level 9.0 MG/DL (8.5-10.1) 8.9 MG/DL (8.5-10.1) 8.7 MG/DL (8.5-10.1) 8.9 MG/DL (8.5-10.1) Magnesium Level 2.4 MG/DL (1.5-2.5) 2.3 MG/DL (1.5-2.5) 2.3 MG/DL (1.5-2.5) 2.2 MG/DL (1.5-2.5) Sodium Level 133 MEQ/L (136-145) 134 MEQ/L (136-145) 137 MEQ/L (136-145) 136 MEQ/L (136-145) Potassium Level 3.7 MEQ/L (3.5-5.1) 3.9 MEQ/L (3.5-5.1) 3.8 MEQ/L (3.5-5.1) 3.6 MEQ/L (3.5-5.1) Chloride Level 93 MEQ/L (98-107) 94 MEQ/L (98-107) 96 MEQ/L (98-107) 95 MEQ/L (98-107) Carbon Dioxide Level 28.2 MEQ/L (21.0-32.0) 28.0 MEQ/L (21.0-32.0) 28.1 MEQ/L (21.0-32.0) 26.2 MEQ/L (21.0-32.0) Anion Gap 12 MEQ/L (5-15) 12 MEQ/L (5-15) 13 MEQ/L (5-15) 15 MEQ/L (5-15) Estimat Glomerular Filtration Rate 16 ML/MIN (>89) 15 ML/MIN (>89) 15 ML/MIN (>89) 14 ML/MIN (>89) White Blood Count 16.7 TH/MM3 (4.0-11.0) Red Blood Count 2.34 MIL/MM3 (4.00-5.30) Hemoglobin 7.3 GM/DL (11.6-15.3) Hematocrit 22.0 % (35.0-46.0) Mean Corpuscular Volume 94.3 FL (80.0-100.0) Mean Corpuscular Hemoglobin 31.3 PG (27.0-34.0) Mean Corpuscular Hemoglobin Concent 33.2 % (32.0-36.0) Red Cell Distribution Width 15.4 % (11.6-17.2) Platelet Count 168 TH/MM3 (150-450) Mean Platelet Volume 10.1 FL (7.0-11.0) Test 05/13/17 12:54 05/14/17 05:05 05/14/17 08:42 Blood Urea Nitrogen 128 MG/DL (7-18) 76 MG/DL (7-18) Creatinine 3.39 MG/DL (0.50-1.00) 2.14 MG/DL (0.50-1.00) Random Glucose 142 MG/DL (74-106) 96 MG/DL (74-106) Calcium Level 8.6 MG/DL (8.5-10.1) 9.0 MG/DL (8.5-10.1) Magnesium Level 2.3 MG/DL (1.5-2.5) 2.0 MG/DL (1.5-2.5) Sodium Level 135 MEQ/L (136-145) 139 MEQ/L (136-145) Potassium Level 3.6 MEQ/L (3.5-5.1) 3.1 MEQ/L (3.5-5.1) Chloride Level 95 MEQ/L (98-107) 98 MEQ/L (98-107) Carbon Dioxide Level 26.8 MEQ/L (21.0-32.0) 28.1 MEQ/L (21.0-32.0) Anion Gap 13 MEQ/L (5-15) 13 MEQ/L (5-15) Estimat Glomerular Filtration Rate 13 ML/MIN (>89) 23 ML/MIN (>89) White Blood Count 17.1 TH/MM3 (4.0-11.0) Red Blood Count 2.95 MIL/MM3 (4.00-5.30) Hemoglobin 8.8 GM/DL (11.6-15.3) Hematocrit 27.4 % (35.0-46.0) Mean Corpuscular Volume 92.9 FL (80.0-100.0) Mean Corpuscular Hemoglobin 29.8 PG (27.0-34.0) Mean Corpuscular Hemoglobin Concent 32.1 % (32.0-36.0) Red Cell Distribution Width 16.3 % (11.6-17.2) Platelet Count 151 TH/MM3 (150-450) Mean Platelet Volume 9.4 FL (7.0-11.0) Phosphorus Level 4.0 MG/DL (2.5-4.9) Blood Smear Pathologist Review Activated Partial Thromboplast Time 40.1 SEC (24.3-30.1) Fibrinogen 424 mg/dL (227-377) Lactic Acid Level 0.8 mmol/L (0.4-2.0) Total Bilirubin 0.8 MG/DL (0.2-1.0) Direct Bilirubin 0.3 MG/DL (0.0-0.2) Indirect Bilirubin 0.5 MG/DL (0.0-0.8) Aspartate Amino Transf (AST/SGOT) 18 U/L (15-37) Alanine Aminotransferase (ALT/SGPT) 12 U/L (10-53) Alkaline Phosphatase 62 U/L (45-117) Ammonia 31 MCMOL/L (11-32) Total Protein 7.0 GM/DL (6.4-8.2) Albumin 4.2 GM/DL (3.4-5.0) Amylase Level 57 U/L (25-115) Lipase 132 U/L (73-393) Result Diagram: 05/14/17 0505 05/14/17 0505 Microbiology Microbiology Date/Time Source Procedure Growth Status 05/12/17 13:45 Urine Catheterized Urine Legionella Antigen - Final PRESUMPTIVE NEGATIVE FOR LEGIONELLA P... Complete 05/12/17 13:45 Urine Catheterized Urine Streptococcus pneumoniae Antigen (M - Final PRESUMPTIVE NEGATIVE FOR STREPTOCOCCU... Complete Imaging Last Impressions Chest X-Ray 05/14/17 0500 Signed Impressions: Service Date/Time: Sunday, May 14, 2017 03:35 - CONCLUSION: 1. Cardiomegaly and findings of vascular congestion without overt failure. The findings are improved when compared with the prior exam. Konstantin Rojas MD Abdomen X-Ray 05/14/17 0000 Signed Impressions: Service Date/Time: Sunday, May 14, 2017 08:13 - CONCLUSION: 1. Multiple loops of air-filled small bowel with subtle prominence of the bowel loops in the left upper quadrant. The findings likely reflect mild adynamic ileus. Developing small bowel obstruction is in the differential but felt to be less likely. Nii Zneg MD Head CT 05/12/17 0000 Signed Impressions: Service Date/Time: Friday, May 12, 2017 10:32 - CONCLUSION: No acute disease. Cameron Ashby MD Chest CT 05/12/17 0000 Signed Impressions: Service Date/Time: Friday, May 12, 2017 10:36 - CONCLUSION: 1. Diffuse infiltrates bilaterally suggestive of severe pulmonary edema and/or pneumonia. Clinical correlation is recommended. 2. Small bilateral pleural effusions. 3. Markedly enlarged heart with coronary artery calcifications. Cameron Ashby MD Lung Scan- Nuclear Medicine 05/09/17 0000 Signed Impressions: Service Date/Time: Tuesday, May 09, 2017 11:08 - CONCLUSION: 1. Indeterminate for pulmonary embolus. Don Vega MD Lower Extremity Ultrasound 05/09/17 0000 Signed Impressions: Service Date/Time: Tuesday, May 09, 2017 12:05 - CONCLUSION: 1. Occlusive deep venous thrombosis within the left posterior tibial veins. 2. No deep venous thrombosis within the right lower extremity. Cameron Ashby MD Renal Ultrasound 04/24/17 0000 Signed Impressions: Service Date/Time: Monday, April 24, 2017 23:08 - CONCLUSION: 1. Echogenic kidneys likely secondary to medical renal disease. 2. Minimal ascites. 3. Left pleural effusion. Rasta Vieira MD Patient/Family Conference Family Conference Time (mins): 20 (daughter is at work) Family Conference Location: Telephone Issues Discussed: * Palliative care role, purpose, approach * Additional medical, psychosocial, and spiritual history * Patients general health, functional status, and cognitive changes in the months leading up to the current hospitalization * Patient/family understanding of the current medical problems * Patient/family understanding of prognosis * Patients goals of care as best understood from advance directives and/or conversations and/or values * Current medical treatment options and benefits/burdens of those options * Likely scenarios comparing ongoing aggressive care with a transition to comfort measures only * Questions answered to the best of my ability * Palliative care contact information provided Assessment and Plan Disease Oriented Problem List: (1) CHF exacerbation (2) DVT (deep venous thrombosis) (3) Mitral stenosis (4) Hepatitis C (5) Valvular heart disease (6) Acute on chronic kidney failure Comment: required dialysis (7) CAD (coronary artery disease) Symptom Scale: Pertinent Non-Medical Issues Psychosocial: Spiritual: Legal: Ethical issues impacting care: Important Contacts Marlee Tiwari [phone] daughter Son Prognosis In summary patient has a history of diastolic heart failure, they came in for respiratory distress. Patient's medical complication complicated by DVT, CHF, pneumonia, renal failure, inability to remain good fluid balance. Later on in the hospitalization patient has encephalopathy likely from uremia and worsening kidney function. Patient had require dialysis. Pt's condition has not improved for the past 3 weeks. Code Status: Alternative Code Plan == code status- could not elicit from patient, daughter stated she will discussed with family tonight. For now until family can discussed. Alternate Code No intubation, but okay with BIPAP,acls,cpr shock. == Decision maker. it would be pt's children, currently we have contact info for daughter Marlee Tiwari. We also know there is a son. == Goals of care: Spoke with pt's daughter over the phone. She was at work. She stated she will discuss goals of care with pt's brother bharat. I reviewed hospitalization and prognosis with pt's daughter, and introduce hospice. I do beleive pt's prognosis is less than 6 months. She stated she will discuss with brother bharat. I will print of living will also and go over it with family. I suspect that they would not want further aggressive care, but currently sister and brother wants to talk it over. For now goals are still aggressive. == dyspnea- secondary to chf, renal failure. defer to jig boring machine operator for metal. == palliative care will follow to review goc, and manage symptoms as clinical condition evolves. Thank you for the opportunity to participate in the care of Ms. Silvestre. Attestation To help prompt me to consider important information that might be impacting today's encounter and assessment, information from prior notes written by myself or my colleagues may have been "brought forward" into today's note. My signature on this note, however, is an attestation that I personally performed the exam, history, and/or decision-making noted today, and, unless otherwise indicated, the interactions with patient, family, and staff as well as the review of records all occurred today. I also attest that the listed assessment and stated plan reflect my best clinical judgment today based on the combination of historical information, prior notes, and today's exam/ interactions. When time spent is documented, it refers only to time spent today by the signer, or if indicated, combined time spent today by collaborating physician/nurse practitioner. David Banuelos MD May 14, 2017 12:00
[2017-05-14] MEDS ORDERED: ALBUMIN 25% INJ 100 ML IV ONE (14:30)
[2017-05-14 15:53] LABS: CRYOGLOBULIN QUALITATIVE POSITIVE (NEGATIVE)
[2017-05-14] MEDS ORDERED: ALBUMIN 25% INJ 100 ML IV SCH (16:00)
--- NOTE | 2017-05-14 16:05 | PD.CARD.PN ---
Subjective Subjective Remarks Lethargic, poorly responsive, in dialysis Objective Medications Current Medications Medications (Trade) Dose Ordered Sig/Rosemarie Route Start Time Stop Time Status Last Admin (Nitrostat Sl) 0.4 mg Q5M PRN SL 04/23/17 05:15 (Symbicort 160-4.5 Mcg Inh) 2 puff Q12HR INH 04/23/17 09:00 05/14/17 08:51 (Mucinex Er) 600 mg BID PO 04/23/17 09:00 05/14/17 09:22 (NS Flush) 2 ml UNSCH PRN IV FLUSH 04/23/17 06:30 (NS Flush) 2 ml BID IV FLUSH 04/23/17 09:00 05/14/17 08:52 (Tylenol) 650 mg Q6H PRN PO 04/23/17 06:30 05/13/17 07:55 (Senokot) 17.2 mg Q12H PRN PO 04/23/17 06:30 04/25/17 21:22 (Dulcolax Supp) 10 mg DAILY PRN RECTAL 04/23/17 06:30 (Lactulose Liq) 30 ml DAILY PRN PO 04/23/17 06:30 05/05/17 09:03 (PROzac) 40 mg DAILY PO 04/24/17 09:00 05/14/17 09:23 (D50w (Vial) Inj) 50 ml UNSCH PRN IV PUSH 04/24/17 15:00 (Glucagon Inj) 1 mg UNSCH PRN OTHER 04/24/17 15:00 (NovoLOG SUPPLEMENTAL SCALE) 1 ACHS SLIDING SCALE SQ 04/24/17 17:00 05/14/17 12:00 (Apresoline Inj) 10 mg Q4HR PRN IV PUSH 04/25/17 16:15 05/13/17 18:23 (Protonix) 40 mg Q12HR PO 04/25/17 21:00 05/14/17 09:23 (Cepacol Extra Uli (Sugar Free)) 1 lozenge Q2HR PRN BUCCAL 04/27/17 23:00 (Nathaly-Colace) 2 tab DAILY PO 05/02/17 09:00 05/14/17 09:23 (Ferrous Sulfate) 325 mg DAILY PO 05/04/17 11:00 05/14/17 09:23 (Samsca) 15 mg DAILY PO 05/05/17 10:00 Future Hold 05/12/17 08:37 (Aldactone) 25 mg DAILY PO 05/05/17 09:00 Future Hold 05/10/17 09:53 (Debrox 6.5% Otic) 5 drop Q12HR EACH EAR 05/06/17 21:00 05/16/17 20:59 05/14/17 08:51 (Zofran Inj) 4 mg Q6HR PRN IV PUSH 05/09/17 09:30 (Percocet 10-325 Mg) 1 tab Q4H PRN PO 05/09/17 13:15 05/12/17 18:32 (Lovenox Inj) 60 mg Q24H SQ 05/09/17 17:00 05/12/17 17:27 (Diamox Inj) 500 mg Q8H IV PUSH 05/10/17 15:00 05/14/17 06:41 (Deltasone) 10 mg Taper DAILY PO 05/11/17 09:00 05/16/17 08:59 05/14/17 09:23 Potassium Chloride 100 ml @ 50 mls/hr UNSCH PRN IV 05/10/17 18:00 05/13/17 09:42 (KCl) 40 meq UNSCH PRN PO 05/10/17 18:00 Magnesium Sulfate 2 gm/Sodium Chloride 104 ml @ 100 mls/hr UNSCH PRN IV 05/10/17 18:00 Magnesium Sulfate 2 gm/Sodium Chloride 104 ml @ 50 mls/hr UNSCH PRN IV 05/10/17 18:00 Calcium Chloride 1 gm/Sodium Chloride 110 ml @ 100 mls/hr UNSCH PRN IV 05/10/17 18:00 (Cardura) 4 mg DAILY PO 05/11/17 09:00 05/14/17 09:23 (Catapres) 0.6 mg Q8HR PO 05/12/17 14:00 05/13/17 06:20 (Coreg) 6.25 mg Q12HR PO 05/13/17 09:00 05/14/17 09:23 Sodium Chloride 1,000 ml @ 0 mls/hr Q0M PRN OTHER 05/13/17 15:45 05/13/17 16:47 (Heparin Inj) 8,000 units UNSCH PRN IV FLUSH 05/13/17 15:45 Sodium Chloride 1,000 ml @ 200 mls/hr Q5H PRN IV 05/13/17 15:45 Sodium Chloride 1,000 ml @ 0 mls/hr Q0M PRN OTHER 05/13/17 15:45 (Mannitol Inj) 12.5 gm UNSCH PRN IV 05/13/17 15:45 05/13/17 16:46 (NS Flush) 5 ml UNSCH PRN IV FLUSH 05/13/17 15:45 05/13/17 16:47 (Heparin Inj) UNSCH PRN .XX 05/13/17 15:45 05/13/17 16:48 (Gentamicin (Dialysis) Inj) 20 mg UNSCH PRN OTHER 05/13/17 15:45 05/13/17 16:49 (Zofran Inj) 4 mg UNSCH PRN IV PUSH 05/13/17 15:45 (Tylenol) 650 mg UNSCH PRN PO 05/13/17 15:45 (Benadryl) 25 mg UNSCH PRN PO 05/13/17 15:45 (Nitrostat Sl) 0.4 mg UNSCH PRN SL 05/13/17 15:45 (Catapres) 0.1 mg UNSCH PRN PO 05/13/17 15:45 (Epogen Inj) 10,000 units UNSCH PRN IV PUSH 05/13/17 15:45 05/13/17 16:49 (Gelfoam 12 Mm/7 Mm Top) 1 foam UNSCH PRN TOP 05/13/17 15:45 (Apresoline Inj) 10 mg Q4H PRN IV 05/13/17 19:00 05/13/17 22:19 (Trandate Inj) 10 mg UNSCH PRN IV 05/13/17 19:00 (Miralax) 17 gm BID PO 05/14/17 09:00 (Lactulose Liq) 30 ml BID PO 05/14/17 09:00 05/14/17 09:22 (Duoneb Neb) 1 ampule Q4HR NEB NEB 05/14/17 12:00 05/14/17 14:48 (Albuterol Neb) 2.5 mg Q2HR NEB PRN NEB 05/14/17 09:00 (Neurontin) 200 mg BID PO 05/14/17 10:00 05/14/17 10:14 (Norvasc) 10 mg DAILY PO 05/15/17 09:00 (Apresoline) 100 mg Q8HR PO 05/14/17 14:00 Albumin Human 100 ml @ 60 mls/hr WITH DIALYSIS IV 05/14/17 16:00 05/15/17 17:39 Vital Signs / I&O Vital Signs Date Time Temp Pulse Resp B/P (MAP) Pulse Ox O2 Delivery O2 Flow Rate FiO2 05/14/17 15:11 97.7 63 23 125/52 (76) 95 05/14/17 15:10 95 Nasal Cannula 3.00 05/14/17 15:10 63 05/14/17 11:05 98.4 66 20 145/57 (86) 93 05/14/17 11:04 72 05/14/17 11:03 93 Nasal Cannula 3.00 05/14/17 07:42 97 Nasal Cannula 3.00 05/14/17 07:42 72 05/14/17 07:41 98.4 71 22 149/66 (93) 97 05/14/17 07:25 93 Nasal Cannula 3.00 05/14/17 03:00 62 152/65 (94) 05/14/17 03:00 93 Nasal Cannula 3.00 05/14/17 03:00 99.2 62 22 152/65 (94) 93 05/14/17 03:00 62 05/13/17 23:00 74 157/60 (92) 05/13/17 23:00 98.4 93 22 157/60 (92) 94 05/13/17 23:00 94 Nasal Cannula 3.00 05/13/17 23:00 74 05/13/17 19:19 93 Nasal Cannula 3.50 05/13/17 19:00 98.5 93 25 135/62 (86) 93 05/13/17 19:00 69 135/62 (86) 05/13/17 19:00 93 Nasal Cannula 3.00 05/13/17 19:00 69 05/13/17 17:27 98.7 74 24 151/60 89 I/O 05/13/17 05/13/17 05/13/17 05/14/17 05/14/17 05/14/17 07:00 15:00 23:00 07:00 15:00 23:00 Intake Total 249.3 ml 100 ml 1312.3 ml 0 ml Output Total 1200 ml 5125 ml 450 ml Balance -950.7 ml 100 ml -3812.7 ml -450 ml Intake Oral 50 ml 50 ml 0 ml IV Total 199.3 ml 100 ml 262.3 ml Packed Cells 750 ml Blood Product IV Normal Saline Flush 250 ml Output Urine Total 1200 ml 1325 ml 450 ml Hemodialysis 3800 ml # Bowel Movements 0 0 0 Physical Exam GENERAL: In dialysis, lethargic SKIN: Warm and dry. HEAD: Normocephalic. EYES: No scleral icterus. No injection or drainage. NECK: Supple, trachea midline. No JVD or lymphadenopathy. CARDIOVASCULAR: Regular rate and rhythm without murmurs, gallops, or rubs. RESPIRATORY: Breath sounds equal bilaterally. No accessory muscle use. GASTROINTESTINAL: Abdomen soft, non-tender, nondistended. MUSCULOSKELETAL: No cyanosis, mild edema. Laboratory Laboratory Tests Test 05/14/17 05:05 05/14/17 08:42 05/14/17 13:55 White Blood Count 17.1 TH/MM3 Red Blood Count 2.95 MIL/MM3 Hemoglobin 8.8 GM/DL Hematocrit 27.4 % Mean Corpuscular Volume 92.9 FL Mean Corpuscular Hemoglobin 29.8 PG Mean Corpuscular Hemoglobin Concent 32.1 % Red Cell Distribution Width 16.3 % Platelet Count 151 TH/MM3 Mean Platelet Volume 9.4 FL Blood Urea Nitrogen 76 MG/DL Creatinine 2.14 MG/DL Random Glucose 96 MG/DL Calcium Level 9.0 MG/DL Phosphorus Level 4.0 MG/DL Magnesium Level 2.0 MG/DL Sodium Level 139 MEQ/L Potassium Level 3.1 MEQ/L Chloride Level 98 MEQ/L Carbon Dioxide Level 28.1 MEQ/L Anion Gap 13 MEQ/L Estimat Glomerular Filtration Rate 23 ML/MIN Hepatitis A IgM Antibody NEGATIVE Hepatitis B Surface Antigen NEGATIVE Hepatitis B Core IgM Antibody NEGATIVE Hepatitis C Antibody REACTIVE Blood Smear Pathologist Review Activated Partial Thromboplast Time 40.1 SEC Fibrinogen 424 mg/dL Lactic Acid Level 0.8 mmol/L Total Bilirubin 0.8 MG/DL Direct Bilirubin 0.3 MG/DL Indirect Bilirubin 0.5 MG/DL Aspartate Amino Transf (AST/SGOT) 18 U/L Alanine Aminotransferase (ALT/SGPT) 12 U/L Alkaline Phosphatase 62 U/L Ammonia 31 MCMOL/L Total Protein 7.0 GM/DL Albumin 4.2 GM/DL Amylase Level 57 U/L Lipase 132 U/L Imaging Last 24 hours Impressions Chest X-Ray 05/14/17 0500 Signed Impressions: Service Date/Time: Sunday, May 14, 2017 03:35 - CONCLUSION: 1. Cardiomegaly and findings of vascular congestion without overt failure. The findings are improved when compared with the prior exam. Konstantin Rojas MD Abdomen X-Ray 05/14/17 0000 Signed Impressions: Service Date/Time: Sunday, May 14, 2017 08:13 - CONCLUSION: 1. Multiple loops of air-filled small bowel with subtle prominence of the bowel loops in the left upper quadrant. The findings likely reflect mild adynamic ileus. Developing small bowel obstruction is in the differential but felt to be less likely. Nii Zeng MD Assessment and Plan Problem List: (1) Acute hypoxemic respiratory failure ICD Codes: J96.01 - Acute respiratory failure with hypoxia Status: Resolved (2) CHF exacerbation ICD Codes: I50.9 - Heart failure, unspecified Status: Acute (3) COPD exacerbation ICD Codes: J44.1 - Obstructive chronic bronchitis with exacerbation Status: Resolved (4) Community acquired pneumonia ICD Codes: J18.9 - Pneumonia, unspecified organism Status: Acute (5) MILI (acute kidney injury) ICD Codes: N17.9 - Acute kidney injury Status: Acute (6) Anemia ICD Codes: D64.9 - Anemia Status: Chronic (7) HTN (hypertension) ICD Codes: I10 - Hypertension Status: Chronic (8) DM (diabetes mellitus screen) ICD Codes: Z13.1 - Screening for diabetes mellitus Status: Chronic (9) Mitral stenosis ICD Codes: I05.0 - Rheumatic mitral stenosis Permanent Comment: Mild to moderate Very ill patient with very poor looking cxray. Agree with renal replacement if needed. Dr Miranda will see over weekend and Dr Fitzgerald next week Last Edited By: Regino Xavier MD, FACC, Frcp on May 11, 2017 18:27 Assessment and Plan Continue ICU care. Continue dialysis. Continue tx for CHF. Overall poor prognosis given pt's comorbidities. Agree with palliative care. Problem Qualifiers (1) CHF exacerbation: Qualified Codes: I50.9 - Heart failure, unspecified (2) Community acquired pneumonia: Qualified Codes: J18.9 - Pneumonia, unspecified organism (3) Anemia: Qualified Codes: D64.9 - Anemia, unspecified (4) HTN (hypertension): Qualified Codes: I10 - Essential (primary) hypertension (5) Mitral stenosis: Qualified Codes: I05.0 - Rheumatic mitral stenosis Yulissa Fitzgerald MD May 14, 2017 16:05
[2017-05-14] MEDS: EPOETIN ALFA 10,000 UNITS/ML VIAL IV PUSH PRN (16:23)
[2017-05-14] MEDS: GENTAMICIN SULFATE (DIALYSIS USE ONLY) 20 MG/2 ML VIAL OTHER PRN (16:23)
[2017-05-14] MEDS: HEPARIN SODIUM - IV 10,000 UNITS/10 ML VIAL PRN (16:24)
[2017-05-14] MEDS: ENOXAPARIN SODIUM 60 MG/0.6 ML SYRINGE SQ SCH (17:09)
[2017-05-15] VITALS (14 sets, daily range): BP systolic 145–157; BP diastolic 59–68; PULSE 62–70; RESP 16–20; TEMP 98.2–99.3; O2SAT 95–97
[2017-05-15] MEDS: hydrALAZINE HCL 20 MG/ML VIAL IV PRN (01:07)
[2017-05-15] MEDS: RESP: ALBUTEROL 2.5 MG/IPRATROPIUM 0.5 MG NEB (SCH) NEB ×6 (01:22→20:00)
[2017-05-15 02:17] LABS: HEMATOCRIT 27.1 % (35.0-46.0); HEMOGLOBIN 8.9 GM/DL (11.6-15.3); MEAN CELL VOLUME 92.7 FL (80.0-100.0); MEAN CORPUSCULAR HEMOGLOBIN 30.5 PG (27.0-34.0); MEAN CORPUSCULAR HGB CONC 32.9 % (32.0-36.0); MEAN PLATELET VOLUME 9.5 FL (7.0-11.0); PLATELET COUNT 145 TH/MM3 (150-450); RED BLOOD COUNT 2.92 MIL/MM3 (4.00-5.30); RED CELL DISTRIBUTION WIDTH 15.9 % (11.6-17.2); WHITE BLOOD COUNT 18.5 TH/MM3 (4.0-11.0)
[2017-05-15 02:37] LABS: BICARBONATE 31.1 MEQ/L (21.0-32.0); CALCIUM 8.7 MG/DL (8.5-10.1); CREATININE 1.4 MG/DL (0.50-1.00); MAGNESIUM 2.1 MG/DL (1.5-2.5); PHOSPHORUS 2.4 MG/DL (2.5-4.9)
[2017-05-15] MEDS: POTASSIUM CHLOR 20 MEQ PREMIX 100 ML IV PRN (03:36)
[2017-05-15] MEDS: cloNIDine HCL 0.2 MG TAB PO SCH ×3 (05:28→20:58)
[2017-05-15] MEDS: hydrALAZINE HCL 50 MG TAB PO SCH ×3 (05:30→21:04)
[2017-05-15] MEDS: POTASSIUM CHLOR 20 MEQ PREMIX 100 ML IV SCH ×3 (07:00→10:54)
[2017-05-15] MEDS: INSULIN ASPART SUPPLEMENTAL SCALE SQ SCH ×4 (08:10→21:00)
[2017-05-15] MEDS: CARBAMIDE PEROXIDE 6.5% OTIC SOLN 15 ML BTL EACH EAR SCH ×2 (08:32→21:00)
[2017-05-15] MEDS: BUDESONIDE-FORMOTEROL 160/4.5 MCG INHALER INH SCH ×2 (08:32→20:59)
[2017-05-15] MEDS: FLUoxetine HCL 20 MG CAP PO SCH (08:33)
[2017-05-15] MEDS: CARVEDILOL 6.25 MG TAB PO SCH (08:33)
[2017-05-15] MEDS: PANTOPRAZOLE SOD 40 MG DELAYED RELEASE TAB PO SCH ×2 (08:33→20:57)
[2017-05-15] MEDS: guaiFENesin E.R. 600 MG TAB PO SCH ×2 (08:33→20:57)
[2017-05-15] MEDS: DOXAZOSIN MESYLATE 2 MG TAB PO SCH (08:33)
[2017-05-15] MEDS: GABAPENTIN 100 MG CAP PO SCH ×2 (08:33→20:57)
[2017-05-15] MEDS: predniSONE 10 MG TAB PO SCH (08:34)
[2017-05-15] MEDS: amLODIPine BESYLATE 5 MG TAB PO SCH (08:34)
[2017-05-15] MEDS: FERROUS SULFATE 325 MG (65 MG ELEMENTAL IRON) TAB PO SCH (08:34)
[2017-05-15] MEDS: SODIUM CHLORIDE 0.9% FLUSH 10 ML FLUSH IV FLUSH SCH ×2 (08:34→21:07)
[2017-05-15] MEDS: LACTULOSE SYRUP 20 GM/30 ML CUP PO SCH (08:35)
[2017-05-15] MEDS: POLYETHYLENE GLYCOL 17 GM PKG PO SCH ×2 (08:35→21:00)
[2017-05-15] MEDS: DOCUSATE SODIUM 50 MG/SENNA 8.6 MG TAB PO SCH (08:35)
--- NOTE | 2017-05-15 09:21 | HHI.CCPN ---
Subjective Remarks/Hospital Course This is a 76-year-old female with a history of congestive heart failure with preserved EF, smoking, COPD who presented to the emergency department on 04/23 with worsening shortness of breath, BNP greater than 4000, bilateral pulmonary infiltrates and was diagnosed at that time with CHF exacerbation. She was initially started on Lasix. At that time she did have an acute kidney injury on top of chronic renal insufficiency stage III. Nephrology was consulted and felt this was due to increased renal vein pressure. Despite attempts at diuresis, she is had a positive fluid balance during her hospital stay, and she persists with significant dyspnea. She was initially on Zosyn and azithromycin to empirically cover for possible COPD exacerbation. Zosyn was stopped on hospital day 7, but azithromycin continues through today empirically. She is remained afebrile throughout her hospital stay. A few days ago, she was started on prednisone for possible COPD exacerbation component to her shortness of breath. After starting on systemic steroids, her white count which was normal on admission, began to rise. She still remains afebrile. Yesterday, bilateral lower extremity Dopplers were positive for a left posterior tibial deep vein thrombosis. VQ scan at that time was indeterminate for PE in the setting of significant bilateral consolidations which likely decreases sensitivity of VQ scan for embolism. Due to the patient's persistent dyspnea and positive fluid balance for hospital stay despite attempts at diuresis, and due to the fact that her kidney injury continues to worsen, I was contacted by the hospitalist service for possible transfer to the intensive care unit for a more aggressive diuretic regimen. I evaluated the patient on arrival to the CVICU. The patient does complain of significant dyspnea, particularly with even light movement out of bed to chair. She states that she just wants to feel better. She denies chest pain, nausea, vomiting, fever, chills, or any other symptoms other than her shortness of breath. 05/11. 2-D echo had shown 50-55% ejection fraction mild to moderate MR, Moderate MS (by gradient of 7). Also evidence of pulmonary hypertension PASP 70 mm Hg. Patient needs improved BP control due to diastolic CHF. Increase clonidine to 0.3 mg q8, Cardura to 4 mg and Hydralazine to 50 q8. HR adequately controlled. Also evaluate with CT chest after adequate diuresis for emphysema and lung consolidation/effusion 05/12/17: UO remains excellent, 5L in 24 hours on Bumex gtt. BUN/Creat steadily increasing 115/2.96. May need HD> Pedal edema improved, CXR still showing pulmonary edema. CT chest to evaluate for infiltrate/effusion and also evaluate emphysema. Repeat limited Echo with Doppler next week to re valuate MS/MR. MS/ MR likely contributing to heart failure 05/13: Delayed note entry: seen and evaluted around 0700 AM. UOP is excellent, but BUN continues to rise. today, clinically patient declining and much more encephalopathic. still protecting airway, but now RASS -2/-3. requiring some more aggressive pulmonary toilet. Discussed with Dr. Pittman, and at this point needs HD for not only ongoing fluid removal, but for uremic encephalopathy which is worsening daily. continues to be afebrile. Additionally, with IHD, will need invasive central pressure monitoring to guide fluid removal and ensure we identify dry weight and optimal hemodynamics. In an ideal world, would combine LHC and RHC to eval mitral gradients and accurate LVEDP. for now will start with bedside RHC. 05/14: More awake and alert today. Less encephalopathic. Recognizes Her son yrn sitting at bedside. -3800 cc with initial intermittent hemodialysis yesterday. No bowel movement. Subjective 05/15: Currently on 2 L nasal cannula. More awake and alert and interactive. - 2 L with hemodialysis yesterday. Objective Vital Signs Date Time Temp Pulse Resp B/P (MAP) Pulse Ox O2 Delivery O2 Flow Rate FiO2 05/15/17 08:05 97 Nasal Cannula 2.00 05/15/17 07:47 65 05/15/17 07:46 98.5 20 157/68 (97) Intake and Output 05/15/17 05/15/17 05/16/17 08:00 16:00 00:00 Intake Total 680 ml 100 ml Output Total 260 ml Balance 420 ml 100 ml Result Diagram: 05/15/17 0200 05/15/17 0200 Other Results Microbiology Date/Time Source Procedure Growth Status 05/12/17 13:45 Urine Catheterized Urine Legionella Antigen - Final PRESUMPTIVE NEGATIVE FOR LEGIONELLA P... Complete 05/12/17 13:45 Urine Catheterized Urine Streptococcus pneumoniae Antigen (M - Final PRESUMPTIVE NEGATIVE FOR STREPTOCOCCU... Complete Imaging Last Impressions Chest X-Ray 05/14/17 0500 Signed Impressions: Service Date/Time: Sunday, May 14, 2017 03:35 - CONCLUSION: 1. Cardiomegaly and findings of vascular congestion without overt failure. The findings are improved when compared with the prior exam. Konstantin Rojas MD Head CT 05/12/17 0000 Signed Impressions: Service Date/Time: Friday, May 12, 2017 10:32 - CONCLUSION: No acute disease. Cameron Ashby MD Chest CT 05/12/17 0000 Signed Impressions: Service Date/Time: Friday, May 12, 2017 10:36 - CONCLUSION: 1. Diffuse infiltrates bilaterally suggestive of severe pulmonary edema and/or pneumonia. Clinical correlation is recommended. 2. Small bilateral pleural effusions. 3. Markedly enlarged heart with coronary artery calcifications. Cameron Ashby MD Lung Scan-V Nuclear Medicine 05/09/17 0000 Signed Impressions: Service Date/Time: Tuesday, May 09, 2017 11:08 - CONCLUSION: 1. Indeterminate for pulmonary embolus. Don Vega MD Lower Extremity Ultrasound 05/09/17 0000 Signed Impressions: Service Date/Time: Tuesday, May 09, 2017 12:05 - CONCLUSION: 1. Occlusive deep venous thrombosis within the left posterior tibial veins. 2. No deep venous thrombosis within the right lower extremity. Cameron Ashby MD Renal Ultrasound 04/24/17 0000 Signed Impressions: Service Date/Time: Monday, April 24, 2017 23:08 - CONCLUSION: 1. Echogenic kidneys likely secondary to medical renal disease. 2. Minimal ascites. 3. Left pleural effusion. Rasta Vieira MD Objective Remarks GENERAL: 76-year-old female, resting in bed in no acute distress HEENT: Normocephalic. Atraumatic. Pupils equal, round, reactive, conjugate. NECK: Trachea is midline. + JVD. CHEST: On 3 L oxygen by nasal cannula. Few crackles appreciated in the bilateral lower lobes. CARDIOVASCULAR: RRR. S1 and S2. No S4. Without murmur ABDOMEN: Soft, nontender, slightly protuberant. Complaining of some abdominal pain. Last bowel movement / MUSCULOSKELETAL: Pulses 2+. No peripheral edema. NEUROLOGICAL: Oriented to person, place and time. Moves all 4 extremities to command. Strength is equal and symmetric. Normal sensation. A/P Assessment and Plan Neuro/Psych: Acute toxic metabolic encephalopathy - likely uremic Peripheral neuropathy Currently on oxycodone /acetaminophen 10/325 mg every 4 hours when necessary pain 4-10. Oxycodone/acetaminophen 10/25 one tablet 3 times a day at home Will decrease gabapentin 200 mg twice a day. Check gabapentin level Continue fluoxetine 40 mg by mouth daily for depression CT brain 2 this admission revealed no acute intracranial findings CV: CHF exacerbation, diastolic type Moderate mitral stenosis by gradient/Mild MR Hypertension Echocardiogram 50-55% EF. Mild LVH. Moderate MS/MR. Moderate left pleural effusion. 05/13 - placed PA catheter for central pressure guided IHD and volume removal in the setting of severe MILI and CHF. 05/14 - [place]-Ramana catheter. Heart rate 75. Arterial line pressure 151/65 (96) CVP 5. Cardiac output 7.1 L/minute. Cardiac index 4.4. Pulmonary arterial Pressure 58/15. Pulmonary capillary wedge pressure 20 mmHg achieved at 51 cm Currently on clonidine 0.6 mg 3 times a day, amlodipine 10 mg daily, hydralazine 100 mg every 8 hours, carvedilol 12.5 mg twice a day and doxazosin 4 mg daily Currently on acetazolamide 500 mg every [address] Fitzgerald - cardiology following Consider right and left cardiac catheterization. Unclear whether MS/MR, ischemia , contributing to biventricular failure repeat echo 05/14 to reevaluate mitral gradients pending Resp: Acute respiratory insufficiency Pulmonary edema - resolving Acute on chronic hypoxemia Currently nasal cannula 2 L to maintain saturations greater than equal to 90% Incentive spirometry while awake Albuterol/ipratropium aerosols every 4 hours with albuterol aerosols every 2 hours. Dyspnea Budesonide/formoterol 160/4.5 2 puffs twice a day A cappella/EZPap every 4 hours GI: Acute protein calorie malnutrition- moderate Schatzki ring Erosive gastritis Duodenitis Hypertension Constipation Hepatitis C positive - genotype and viral load pending Currently nothing by mouth pending speech evaluation. Likely will pass today Continue pantoprazole 40 mg by mouth twice a day Docusate sodium/senna 2 tabs in a.m., polyethylene glycol 17 g twice a day. : Vazquez catheter for accurate I's and O's in a critically ill patient on diuretics Endo: Sliding-scale insulin with Novulog with Accu-Cheks before meals/at bedtime/low regimen Renal: Acute kidney injury superimposed on stage IIIa chronic kidney disease with proteinuria Renal ultrasound - medical renal disease. No hydronephrosis. Proteinuria noted on UA. IHD . Dr. Pittman. -2000 cc 05/14 Heme: Occlusive left posterior tibialis thrombosis History of warfarin use - 0.5 mg daily Leukocytosis Normocytic anemia Thrombocytopenia Currently on enoxaparin 60 mg subcutaneous daily. Continue ferrous sulfate 325 mg twice daily Cryoglobulin workup positive. Confirmatory screen sent. 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 ID: Currently no indication for antibiotics FEN: Hypopotassemia Replace electrolytes as clinically indicated. 30 mmol IV 1 now MSK: RA factor positive Currently prednisone taper 10 mg daily continue with screening cryoglobulins positive PT evaluate and treat Access - Right IJ [place]-Ramana catheter day #3 - discontinue 05/15 - Left IJ hemodialysis catheter. #3 Prophylaxis - GI - pantoprazole - DVT - SCD/enoxaparin Level III follow-up Discussed with Dr. Patten. Discussed with isabel Caceres discussed all questions answered. Amilcar Mills MD May 15, 2017 09:21
[2017-05-15] MEDS ORDERED: POTASSIUM CHLORIDE 20 MEQ PWD PACKET PO ONE (09:30)
[2017-05-15] MEDS ORDERED: POTASSIUM PHOSPHATE INJ 15 MMOL in SODIUM CHLORIDE 0.9% INJ 150 ML IV ONE (09:30)
--- NOTE | 2017-05-15 11:02 | HHI.NPPN ---
Subjective General Problems: Anemia, Edema, Heart Disease Renal Failure: Chronic, Acute, Stage III Interval History She is sleepy, difficult to arouse. Son at bedside. States they are leaning towards palliative care. (Camila Cline) Review of Systems General Constitutional: Fatigue (Camila Cline) Respiratory Lungs: SOB (Camila Cline) Cardiovascular Cardiac: Palpitations, Edema (Caimla Cline) Objective Data Data 05/15/17 05/16/17 18:59 06:59 Intake Total 200 ml Balance 200 ml IV Total 200 ml Vital Signs Date Time Temp Pulse Resp B/P (MAP) Pulse Ox O2 Delivery O2 Flow Rate FiO2 05/15/17 08:05 97 Nasal Cannula 2.00 05/15/17 07:48 96 Nasal Cannula 3.00 Humidified 05/15/17 07:47 65 05/15/17 07:46 98.5 65 20 157/68 (97) 96 05/15/17 03:26 70 05/15/17 03:00 95 Nasal Cannula 3.00 Humidified 05/15/17 03:00 98.2 63 16 150/59 (89) 95 05/15/17 03:00 63 150/59 (89) 05/14/17 23:00 69 05/14/17 23:00 98.0 69 16 147/64 (91) 97 05/14/17 23:00 97 Nasal Cannula 3.00 05/14/17 23:00 69 147/64 (91) 05/14/17 20:07 97 Nasal Cannula 3.00 05/14/17 19:00 65 151/60 (90) 05/14/17 19:00 98.0 65 17 151/60 (90) 94 05/14/17 19:00 94 Nasal Cannula 3.00 Humidified 05/14/17 19:00 65 05/14/17 15:11 97.7 63 23 125/52 (76) 95 05/14/17 15:10 95 Nasal Cannula 3.00 05/14/17 15:10 63 05/14/17 11:05 98.4 66 20 145/57 (86) 93 05/14/17 11:04 72 05/14/17 11:03 93 Nasal Cannula 3.00 (Camila Cline) -: 05/15/17 0200 05/15/17 0200 Imaging Last 72 hours Impressions Chest X-Ray 05/14/17 0500 Signed Impressions: Service Date/Time: Sunday, May 14, 2017 03:35 - CONCLUSION: 1. Cardiomegaly and findings of vascular congestion without overt failure. The findings are improved when compared with the prior exam. Konstantin Rojas MD Abdomen X-Ray 05/14/17 0000 Signed Impressions: Service Date/Time: Sunday, May 14, 2017 08:13 - CONCLUSION: 1. Multiple loops of air-filled small bowel with subtle prominence of the bowel loops in the left upper quadrant. The findings likely reflect mild adynamic ileus. Developing small bowel obstruction is in the differential but felt to be less likely. Nii Zeng MD Chest X-Ray 05/13/17 0000 Signed Impressions: Service Date/Time: Saturday, May 13, 2017 14:42 - CONCLUSION: 1. Uncomplicated line placement. No evidence of pneumothorax. 2. Cardiomegaly and findings of congestive heart failure. There has been no significant change when compared to the prior exam. Konstantin Rojas MD Tubes & Lines: Vas-Cath, Gonzalez (Camila Cline) Physical Exam General Appearance: Well Developed, No Acute Distress, Comfortable, Sleeping, Malnourished (Camila Cline) Throat Throat Exam: Oral Mucosa Delano & Moist (Camila Cline) Neck Neck Exam: Neck Supple (Camila Cline) Pulmonary Resp Exam: Breath Sounds Equal, No Distress, Crackles, Sputum, Decreased Bases (Camila Cline) Cardiology CV Exam: Regular, Normal Sinus Rhythm, Good Perfusion (Camila Cline) Gastrointestinal/Abdomen GI Exam: Soft, Non-Tender, Bowel Sounds Present (Camila Cline) Musculoskeletal MS Exam: Normal Gait, Normal Tone (Camila Cline) Integumentary Skin Exam: Warm, Dry Skin Remarks scattered lower extremity abrasions (Camila Cline) Extremeties Extremities Exam: No Edema, Pedal Pulses Palpable (Camila Cline) Neurologic Neuro Exam: Moving All Extremities, Obtunded (Camila Cline) Psychiatric Psych Exam: Appropriate Responses (Camila Cline) VTE Prophylaxis Meds: Lovenox (Camila Cline) Assessment/Plan Discussed Condition With: Patient, Son Assessment Summary: MILI/Acute Renal Failure, Anemia of CKD, Fluid/Volume Overload, Proteinuria, CHF, Hypertension, Diabetes Mellitus, CKD Stage III Electrolyte Assessment: Hyponatremia Problem List: (1) MILI (acute kidney injury) ICD Codes: N17.9 - Acute kidney injury Status: Acute Plan: She has underlying CKD 3, baseline GFR 30, creatinine 1.61 Suspected underlying diabetic nephropathy as she does have proteinuria. Repeat SPEP is negative. C3 is low. She is Hep C positive. Cryoglobulin pending. MILI may be due to CHF exacerbation and increased renal vein pressure. 5.8 L fluid removal with HD Sunday and Sunday; we will do HD on MWF if needed ( tomorrow) Son is unsure if he wishes to continue dialysis; will follow up with him prior to treatment tomorrow. HD again today and MWF as needed Obtain daily labs Potassium replacement ordered Follow urine output, has gonzalez is non oliguric Avoid nephrotoxic agents It remains to be seen if [facility] HD is required. (2) Hyponatremia ICD Codes: E87.1 - Hypo-osmolality and hyponatremia Plan: Improved,continue to monitor. Avoid NaCl tabs given hx of CHF. Tolvaptan is on hold (3) CHF exacerbation ICD Codes: I50.9 - Heart failure, unspecified Status: Acute Plan: Echo this month shows: -LVH -Apical hypokinesis -Left ventricular function is low normal, EF 50-55% (diastolic dysfunction) follow I/O, fluid status, weight Restriction of Sodium in her diet. Fluid removal as tolerated (4) Anemia ICD Codes: D64.9 - Anemia Status: Chronic Plan: She has iron deficiency. Received Venofer. On oral ferrous sulfate. Epogen with dialysis Transfuse if necessary. (5) Acute hypoxemic respiratory failure ICD Codes: J96.01 - Acute respiratory failure with hypoxia Status: Resolved Plan: Being treated for CAP On Zithromax and prednisone Refusing BiPap, on oxygen via nasal canula Recent saturation 98% oh 2L NC Former smoker, cessation discussed (6) Community acquired pneumonia ICD Codes: J18.9 - Pneumonia, unspecified organism Status: Acute Plan: See above Continue supportive care On nebulizers, inhalers, oxygen . WBC increasing. (7) DVT (deep venous thrombosis) ICD Codes: I82.409 - Acute embolism and thrombosis of unspecified deep veins of unspecified lower extremity Plan: On Lovenox (Camila Clnie) Plan patient was seen and examined. Positive cryoglobulin and positive rheumatoid factor are noted. Cryoglobulinemic GN? Does have significant proteinuria. Family is considering palliative care. If they want aggressive measures continued, she will need a renal biopsy. Prognosis is guarded to poor. Discussed with Dr. Mills. (Abebe Patten MD) Problem Qualifiers (1) CHF exacerbation: Qualified Codes: I50.9 - Heart failure, unspecified (2) Anemia: Qualified Codes: D64.9 - Anemia, unspecified (3) Community acquired pneumonia: Qualified Codes: J18.9 - Pneumonia, unspecified organism Camila Cline May 15, 2017 11:02 Abebe Patten MD May 15, 2017 12:30
[2017-05-15] MEDS: traMADol HCL 50 MG TAB PO PRN (13:05)
--- NOTE | 2017-05-15 14:10 | HHI.HCPN ---
Reason for visit a. To assist with evaluation and management of symptoms including:dyspnea, pain b. To assist medical decision maker(s) with: better understanding of current medical conditions; weighing benefits/burdens of medical treatment options; making medical treatment decisions. Subjective/Interval History Pt is more alert, complains of pain. Pain is generalized. Discuss with patient, pt's son, Pt's daughter (Health Care surrogate discussed over the phone). ==Pt designate Marlee Tanner as Health Care surrogate. She was able to sign but was weak. She subsequently said, her son or daughter can sign DNR for her. == Pt endorse a DNR, This was witnessed by Nurse Quinn, and pt's son. Community DNR signed. == She endorse care center for management of pain, and dyspnea, but only in [facility]. == Family wants Ultram to be given first for pain or dyspnea, before giving opiates or benzos for as rescue medicine. == Pt understand the her fraility and predicament, and wishes for no further dialysis. Decline life support or any artificial nutrition. == Amenable to meet with Hospice. Family/friend interactions see hpi Advance Directives Living Will: Copy in medical record (mar 2014) Health Care Surrogate: Copy in medical record (completed 05/15/2017) Objective Vital Signs Date Time Temp Pulse Resp B/P (MAP) Pulse Ox O2 Delivery O2 Flow Rate FiO2 05/15/17 11:02 96 Nasal Cannula 2.00 Humidified 05/15/17 11:02 66 05/15/17 11:01 98.5 66 20 150/66 (94) 96 05/15/17 08:05 97 Nasal Cannula 2.00 05/15/17 07:48 96 Nasal Cannula 3.00 Humidified 05/15/17 07:47 65 05/15/17 07:46 98.5 65 20 157/68 (97) 96 05/15/17 03:26 70 05/15/17 03:00 95 Nasal Cannula 3.00 Humidified 05/15/17 03:00 98.2 63 16 150/59 (89) 95 05/15/17 03:00 63 150/59 (89) 05/14/17 23:00 69 05/14/17 23:00 98.0 69 16 147/64 (91) 97 1/8/18 23:00 97 Nasal Cannula 3.00 05/14/17 23:00 69 147/64 (91) 05/14/17 20:07 97 Nasal Cannula 3.00 05/14/17 19:00 65 151/60 (90) 05/14/17 19:00 98.0 65 17 151/60 (90) 94 05/14/17 19:00 94 Nasal Cannula 3.00 Humidified 05/14/17 19:00 65 05/14/17 15:11 97.7 63 23 125/52 (76) 95 05/14/17 15:10 95 Nasal Cannula 3.00 05/14/17 15:10 63 Intake & Output 05/15/17 05/15/17 06:59 18:59 Intake Total 580 ml 300 ml Output Total 260 ml Balance 320 ml 300 ml Intake Oral 480 ml IV Total 100 ml 300 ml Output Urine Total 260 ml # Bowel Movements 0 Physical Exam CONSTITUTIONAL/GENERAL: This is a thin frail patient. Awake and interactive. TUBES/LINES/DRAINS: central line, piv, gonzalez. SKIN: No jaundice, rashes, or lesions. Ecchymoses on upper extremities. No wounds seen anteriorly. Skin temperature appropriate. Not diaphoretic. HEAD: Atraumatic. Normocephalic. EYES: Pupils equal and round and reactive. Extraocular motions intact. ENT: Nose without bleeding or purulent drainage. Throat without visible erythema, exudates, masses, or lesions. NECK: Trachea midline. Supple, nontender. No palpable thyroid enlargement or nodularity. CARDIOVASCULAR: Regular rate and rhythm without murmurs, gallops, or rubs. No JVD. Peripheral pulses symmetric. RESPIRATORY/CHEST: Symmetric, decrease breath sound bilaterally. GASTROINTESTINAL: Abdomen soft, non-tender, nondistended. No hepato-splenomegaly , or palpable masses. No guarding. Bowel sounds present. GENITOURINARY: Without palpable bladder distension. Gonzalez catheter in place. MUSCULOSKELETAL: Extremities without clubbing, cyanosis, or edema. LYMPHATICS: No palpable cervical or supraclavicular adenopathy. NEUROLOGICAL: Follow commands, much more interactive PSYCHIATRIC: sleepy. Diagnostic Tests Laboratory Laboratory Tests Test 05/12/17 18:38 05/13/17 01:19 05/13/17 08:00 05/13/17 12:54 Blood Urea Nitrogen 122 MG/DL (7-18) 126 MG/DL (7-18) 124 MG/DL (7-18) 128 MG/DL (7-18) Creatinine 3.03 MG/DL (0.50-1.00) 3.06 MG/DL (0.50-1.00) 3.29 MG/DL (0.50-1.00) 3.39 MG/DL (0.50-1.00) Random Glucose 148 MG/DL (74-106) 134 MG/DL (74-106) 103 MG/DL (74-106) 142 MG/DL (74-106) Calcium Level 8.9 MG/DL (8.5-10.1) 8.7 MG/DL (8.5-10.1) 8.9 MG/DL (8.5-10.1) 8.6 MG/DL (8.5-10.1) Magnesium Level 2.3 MG/DL (1.5-2.5) 2.3 MG/DL (1.5-2.5) 2.2 MG/DL (1.5-2.5) 2.3 MG/DL (1.5-2.5) Sodium Level 134 MEQ/L (136-145) 137 MEQ/L (136-145) 136 MEQ/L (136-145) 135 MEQ/L (136-145) Potassium Level 3.9 MEQ/L (3.5-5.1) 3.8 MEQ/L (3.5-5.1) 3.6 MEQ/L (3.5-5.1) 3.6 MEQ/L (3.5-5.1) Chloride Level 94 MEQ/L (98-107) 96 MEQ/L (98-107) 95 MEQ/L (98-107) 95 MEQ/L (98-107) Carbon Dioxide Level 28.0 MEQ/L (21.0-32.0) 28.1 MEQ/L (21.0-32.0) 26.2 MEQ/L (21.0-32.0) 26.8 MEQ/L (21.0-32.0) Anion Gap 12 MEQ/L (5-15) 13 MEQ/L (5-15) 15 MEQ/L (5-15) 13 MEQ/L (5-15) Estimat Glomerular Filtration Rate 15 ML/MIN (>89) 15 ML/MIN (>89) 14 ML/MIN (>89) 13 ML/MIN (>89) White Blood Count 16.7 TH/MM3 (4.0-11.0) Red Blood Count 2.34 MIL/MM3 (4.00-5.30) Hemoglobin 7.3 GM/DL (11.6-15.3) Hematocrit 22.0 % (35.0-46.0) Mean Corpuscular Volume 94.3 FL (80.0-100.0) Mean Corpuscular Hemoglobin 31.3 PG (27.0-34.0) Mean Corpuscular Hemoglobin Concent 33.2 % (32.0-36.0) Red Cell Distribution Width 15.4 % (11.6-17.2) Platelet Count 168 TH/MM3 (150-450) Mean Platelet Volume 10.1 FL (7.0-11.0) Test 05/14/17 05:05 05/14/17 08:42 05/14/17 13:55 05/15/17 02:00 White Blood Count 17.1 TH/MM3 (4.0-11.0) 18.5 TH/MM3 (4.0-11.0) Red Blood Count 2.95 MIL/MM3 (4.00-5.30) 2.92 MIL/MM3 (4.00-5.30) Hemoglobin 8.8 GM/DL (11.6-15.3) 8.9 GM/DL (11.6-15.3) Hematocrit 27.4 % (35.0-46.0) 27.1 % (35.0-46.0) Mean Corpuscular Volume 92.9 FL (80.0-100.0) 92.7 FL (80.0-100.0) Mean Corpuscular Hemoglobin 29.8 PG (27.0-34.0) 30.5 PG (27.0-34.0) Mean Corpuscular Hemoglobin Concent 32.1 % (32.0-36.0) 32.9 % (32.0-36.0) Red Cell Distribution Width 16.3 % (11.6-17.2) 15.9 % (11.6-17.2) Platelet Count 151 TH/MM3 (150-450) 145 TH/MM3 (150-450) Mean Platelet Volume 9.4 FL (7.0-11.0) 9.5 FL (7.0-11.0) Blood Urea Nitrogen 76 MG/DL (7-18) 43 MG/DL (7-18) Creatinine 2.14 MG/DL (0.50-1.00) 1.40 MG/DL (0.50-1.00) Random Glucose 96 MG/DL (74-106) 101 MG/DL (74-106) Calcium Level 9.0 MG/DL (8.5-10.1) 8.7 MG/DL (8.5-10.1) Phosphorus Level 4.0 MG/DL (2.5-4.9) 2.4 MG/DL (2.5-4.9) Magnesium Level 2.0 MG/DL (1.5-2.5) 2.1 MG/DL (1.5-2.5) Sodium Level 139 MEQ/L (136-145) 141 MEQ/L (136-145) Potassium Level 3.1 MEQ/L (3.5-5.1) 3.0 MEQ/L (3.5-5.1) Chloride Level 98 MEQ/L (98-107) 101 MEQ/L (98-107) Carbon Dioxide Level 28.1 MEQ/L (21.0-32.0) 31.1 MEQ/L (21.0-32.0) Anion Gap 13 MEQ/L (5-15) 9 MEQ/L (5-15) Estimat Glomerular Filtration Rate 23 ML/MIN (>89) 37 ML/MIN (>89) Hepatitis A IgM Antibody NEGATIVE (NEGATIVE) Hepatitis B Surface Antigen NEGATIVE (NEGATIVE) Hepatitis B Core IgM Antibody NEGATIVE (NEGATIVE) Hepatitis C Antibody REACTIVE (NEGATIVE) Blood Smear Pathologist Review Activated Partial Thromboplast Time 40.1 SEC (24.3-30.1) Fibrinogen 424 mg/dL (227-377) Lactic Acid Level 0.8 mmol/L (0.4-2.0) Total Bilirubin 0.8 MG/DL (0.2-1.0) Direct Bilirubin 0.3 MG/DL (0.0-0.2) Indirect Bilirubin 0.5 MG/DL (0.0-0.8) Aspartate Amino Transf (AST/SGOT) 18 U/L (15-37) Alanine Aminotransferase (ALT/SGPT) 12 U/L (10-53) Alkaline Phosphatase 62 U/L (45-117) Ammonia 31 MCMOL/L (11-32) Total Protein 7.0 GM/DL (6.4-8.2) Albumin 4.2 GM/DL (3.4-5.0) Amylase Level 57 U/L (25-115) Lipase 132 U/L (73-393) Test 05/15/17 10:43 Result Diagram: 05/15/17 0200 05/15/17 0200 Imaging Last Impressions Chest X-Ray 05/14/17 0500 Signed Impressions: Service Date/Time: Sunday, May 14, 2017 03:35 - CONCLUSION: 1. Cardiomegaly and findings of vascular congestion without overt failure. The findings are improved when compared with the prior exam. Konstantin Rojas MD Abdomen X-Ray 05/14/17 0000 Signed Impressions: Service Date/Time: Sunday, May 14, 2017 08:13 - CONCLUSION: 1. Multiple loops of air-filled small bowel with subtle prominence of the bowel loops in the left upper quadrant. The findings likely reflect mild adynamic ileus. Developing small bowel obstruction is in the differential but felt to be less likely. Nii Zeng MD Head CT 05/12/17 0000 Signed Impressions: Service Date/Time: Friday, May 12, 2017 10:32 - CONCLUSION: No acute disease. Cameron Ashby MD Chest CT 05/12/17 0000 Signed Impressions: Service Date/Time: Friday, May 12, 2017 10:36 - CONCLUSION: 1. Diffuse infiltrates bilaterally suggestive of severe pulmonary edema and/or pneumonia. Clinical correlation is recommended. 2. Small bilateral pleural effusions. 3. Markedly enlarged heart with coronary artery calcifications. Cameron Ashby MD Lung Scan- Nuclear Medicine 05/09/17 0000 Signed Impressions: Service Date/Time: Tuesday, May 09, 2017 11:08 - CONCLUSION: 1. Indeterminate for pulmonary embolus. Don Vega MD Lower Extremity Ultrasound 05/09/17 0000 Signed Impressions: Service Date/Time: Tuesday, May 09, 2017 12:05 - CONCLUSION: 1. Occlusive deep venous thrombosis within the left posterior tibial veins. 2. No deep venous thrombosis within the right lower extremity. Cameron Ashby MD Renal Ultrasound 04/24/17 0000 Signed Impressions: Service Date/Time: Monday, April 24, 2017 23:08 - CONCLUSION: 1. Echogenic kidneys likely secondary to medical renal disease. 2. Minimal ascites. 3. Left pleural effusion. Rasta Vieira MD Assessment and Plan Disease Oriented Problem List: (1) CHF exacerbation (2) Pleural effusion, left (3) Acute on chronic kidney failure (4) Hepatitis C (5) Community acquired pneumonia (6) Valvular heart disease (7) DVT (deep venous thrombosis) (8) Mitral stenosis Symptom Scale: Pertinent Non-Medical Issues Psychosocial: Son Morris Silvestre, daughter Marlee Yunglynmarylin (Health Care Surrogate) Spiritual: Legal: Marlee Tiwari is health care surrogate. Ethical issues impacting care:none. Important Contacts Deshaun Tiwarith [phone] daughter Son Prognosis In summary patient has a history of diastolic heart failure, they came in for respiratory distress. Patient's medical complication complicated by DVT, CHF, pneumonia, renal failure, inability to remain good fluid balance. Later on in the hospitalization patient has encephalopathy likely from uremia and worsening kidney function. Patient had require dialysis. Pt's condition has not improved for the past 3 weeks. Code Status: No Code Plan == code status- verbally, witnessed by son, RN. No Code DNR. due to fraility and weakness, ask son to sign community DNR == Decision maker- Health Care surrogate is Marlee Lott. Pt did verbally give permission son and daughter to complete paperwork, due to weakness. == Pt today is more clear, knows the year, the president, the state. She has capacity to designate health care surrogate, and review goals of care. All goals of care was reviewed in presence of family (pt's son Morris Silvestre) . Pt's RN Kai also witnessed. Goals of care was also discussed ( Marlee Tanner) who is supportive of pt 's decision with hospice, DNR status , comfort measures. == Goals of care: Pt is more alert, complains of pain. Pain is generalized. Discuss with patient, pt's son, Pt's daughter (Health Care surrogate discussed over the phone). ==Pt designate Marlee Tanner as Health Care surrogate. She was able to sign but was weak. She subsequently said, her son or daughter can sign DNR for her. == Pt endorse a DNR, This was witnessed by Nurse Kai, and pt's son. Community DNR signed. == She endorse care center for management of pain, and dyspnea, but only in [facility]. == Family wants Ultram to be given first for pain or dyspnea, before giving opiates or benzos for as rescue medicine. == Pt understand the her fraility and predicament, and wishes for no further dialysis. Decline life support or any artificial nutrition. == Amenable to meet with Hospice, consult will be placed. == dyspnea- secondary to chf, renal failure. Ultram, steroids prn availble. == pain- general debility and decline. PRN ultram. == palliative care will follow to review goc, and manage symptoms as clinical condition evolves. d/w attending physician. Attestation To help prompt me to consider important information that might be impacting today's encounter and assessment, information from prior notes written by myself or my colleagues may have been "brought forward" into today's note. My signature on this note, however, is an attestation that I personally performed the exam, history, and/or decision-making noted today, and, unless otherwise indicated, the interactions with patient, family, and staff as well as the review of records all occurred today. I also attest that the listed assessment and stated plan reflect my best clinical judgment today based on the combination of historical information, prior notes, and today's exam/ interactions. When time spent is documented, it refers only to time spent today by the signer, or if indicated, combined time spent today by collaborating physician/nurse practitioner. David Banuelos MD May 15, 2017 14:10
--- NOTE | 2017-05-15 15:57 | PD.CARD.PN ---
Subjective Subjective Remarks No CP or SOB Objective Medications Current Medications Medications (Trade) Dose Ordered Sig/Rosemarie Route Start Time Stop Time Status Last Admin (Nitrostat Sl) 0.4 mg Q5M PRN SL 04/23/17 05:15 (Symbicort 160-4.5 Mcg Inh) 2 puff Q12HR INH 04/23/17 09:00 05/15/17 08:32 (Mucinex Er) 600 mg BID PO 04/23/17 09:00 05/15/17 08:33 (NS Flush) 2 ml UNSCH PRN IV FLUSH 04/23/17 06:30 (NS Flush) 2 ml BID IV FLUSH 04/23/17 09:00 05/15/17 08:34 (Tylenol) 650 mg Q6H PRN PO 04/23/17 06:30 05/13/17 07:55 (Senokot) 17.2 mg Q12H PRN PO 04/23/17 06:30 04/25/17 21:22 (Dulcolax Supp) 10 mg DAILY PRN RECTAL 04/23/17 06:30 (PROzac) 40 mg DAILY PO 04/24/17 09:00 05/15/17 08:33 (D50w (Vial) Inj) 50 ml UNSCH PRN IV PUSH 04/24/17 15:00 (Glucagon Inj) 1 mg UNSCH PRN OTHER 04/24/17 15:00 (NovoLOG SUPPLEMENTAL SCALE) 1 ACHS SLIDING SCALE SQ 04/24/17 17:00 05/15/17 08:10 (Protonix) 40 mg Q12HR PO 04/25/17 21:00 05/15/17 08:33 (Cepacol Extra Uli (Sugar Free)) 1 lozenge Q2HR PRN BUCCAL 04/27/17 23:00 05/14/17 17:02 (Nathaly-Colace) 2 tab DAILY PO 05/02/17 09:00 05/14/17 09:23 (Ferrous Sulfate) 325 mg DAILY PO 05/04/17 11:00 05/14/17 09:23 (Samsca) 15 mg DAILY PO 05/05/17 10:00 Future Hold 05/12/17 08:37 (Aldactone) 25 mg DAILY PO 05/05/17 09:00 Future Hold 05/10/17 09:53 (Debrox 6.5% Otic) 5 drop Q12HR EACH EAR 05/06/17 21:00 05/16/17 20:59 05/15/17 08:32 (Zofran Inj) 4 mg Q6HR PRN IV PUSH 05/09/17 09:30 (Percocet 10-325 Mg) 1 tab Q4H PRN PO 05/09/17 13:15 05/12/17 18:32 (Lovenox Inj) 60 mg Q24H SQ 05/09/17 17:00 05/14/17 17:09 (Deltasone) 5 mg Taper DAILY PO 05/11/17 09:00 05/16/17 08:59 05/15/17 08:34 (KCl) 40 meq UNSCH PRN PO 05/10/17 18:00 Magnesium Sulfate 2 gm/Sodium Chloride 104 ml @ 100 mls/hr UNSCH PRN IV 05/10/17 18:00 Magnesium Sulfate 2 gm/Sodium Chloride 104 ml @ 50 mls/hr UNSCH PRN IV 05/10/17 18:00 Calcium Chloride 1 gm/Sodium Chloride 110 ml @ 100 mls/hr UNSCH PRN IV 05/10/17 18:00 (Cardura) 4 mg DAILY PO 05/11/17 09:00 05/15/17 08:33 (Catapres) 0.6 mg Q8HR PO 05/12/17 14:00 05/15/17 14:04 Sodium Chloride 1,000 ml @ 0 mls/hr Q0M PRN OTHER 05/13/17 15:45 05/13/17 16:47 (Heparin Inj) 8,000 units UNSCH PRN IV FLUSH 05/13/17 15:45 Sodium Chloride 1,000 ml @ 200 mls/hr Q5H PRN IV 05/13/17 15:45 Sodium Chloride 1,000 ml @ 0 mls/hr Q0M PRN OTHER 05/13/17 15:45 (Mannitol Inj) 12.5 gm UNSCH PRN IV 05/13/17 15:45 05/13/17 16:46 (NS Flush) 5 ml UNSCH PRN IV FLUSH 05/13/17 15:45 05/13/17 16:47 (Heparin Inj) UNSCH PRN .XX 05/13/17 15:45 05/14/17 16:24 (Gentamicin (Dialysis) Inj) 20 mg UNSCH PRN OTHER 05/13/17 15:45 05/14/17 16:23 (Zofran Inj) 4 mg UNSCH PRN IV PUSH 05/13/17 15:45 (Tylenol) 650 mg UNSCH PRN PO 05/13/17 15:45 (Benadryl) 25 mg UNSCH PRN PO 05/13/17 15:45 (Nitrostat Sl) 0.4 mg UNSCH PRN SL 05/13/17 15:45 (Catapres) 0.1 mg UNSCH PRN PO 05/13/17 15:45 (Epogen Inj) 10,000 units UNSCH PRN IV PUSH 05/13/17 15:45 05/14/17 16:23 (Gelfoam 12 Mm/7 Mm Top) 1 foam UNSCH PRN TOP 05/13/17 15:45 (Apresoline Inj) 10 mg Q4H PRN IV 05/13/17 19:00 05/15/17 01:07 (Trandate Inj) 10 mg UNSCH PRN IV 05/13/17 19:00 (Miralax) 17 gm BID PO 05/14/17 09:00 (Duoneb Neb) 1 ampule Q4HR NEB NEB 05/14/17 12:00 05/15/17 13:02 (Albuterol Neb) 2.5 mg Q2HR NEB PRN NEB 05/14/17 09:00 (Neurontin) 200 mg BID PO 05/14/17 10:00 05/15/17 08:33 (Norvasc) 10 mg DAILY PO 05/15/17 09:00 05/15/17 08:34 (Apresoline) 100 mg Q8HR PO 05/14/17 14:00 05/15/17 14:04 Albumin Human 100 ml @ 60 mls/hr WITH DIALYSIS IV 05/14/17 16:00 05/15/17 17:39 05/14/17 16:24 (Coreg) 12.5 mg Q12HR PO 05/15/17 21:00 (Diamox Inj) 500 mg BID IV PUSH 05/15/17 21:00 (Deltasone) 5 mg DAILY PO 05/17/17 09:00 (Ultram) 50 mg Q6H PRN PO 05/15/17 12:30 05/15/17 13:05 Vital Signs / I&O Vital Signs Date Time Temp Pulse Resp B/P (MAP) Pulse Ox O2 Delivery O2 Flow Rate FiO2 05/15/17 15:10 96 Nasal Cannula 2.00 Humidified 05/15/17 15:09 68 05/15/17 15:08 98.6 68 19 152/64 (93) 96 05/15/17 14:08 19 05/15/17 11:02 96 Nasal Cannula 2.00 Humidified 05/15/17 11:02 66 05/15/17 11:01 98.5 66 20 150/66 (94) 96 05/15/17 08:05 97 Nasal Cannula 2.00 05/15/17 07:48 96 Nasal Cannula 3.00 Humidified 05/15/17 07:47 65 05/15/17 07:46 98.5 65 20 157/68 (97) 96 05/15/17 03:26 70 05/15/17 03:00 95 Nasal Cannula 3.00 Humidified 05/15/17 03:00 98.2 63 16 150/59 (89) 95 05/15/17 03:00 63 150/59 (89) 05/14/17 23:00 69 05/14/17 23:00 98.0 69 16 147/64 (91) 97 05/14/17 23:00 97 Nasal Cannula 3.00 05/14/17 23:00 69 147/64 (91) 05/14/17 20:07 97 Nasal Cannula 3.00 05/14/17 19:00 65 151/60 (90) 05/14/17 19:00 98.0 65 17 151/60 (90) 94 05/14/17 19:00 94 Nasal Cannula 3.00 Humidified 05/14/17 19:00 65 I/O 05/14/17 05/14/17 05/14/17 05/15/17 05/15/17 05/15/17 07:00 15:00 23:00 07:00 15:00 23:00 Intake Total 0 ml 400 ml 680 ml 200 ml Output Total 450 ml 5485 ml 260 ml Balance -450 ml -5085 ml 420 ml 200 ml Intake Oral 0 ml 400 ml 480 ml IV Total 200 ml 200 ml Output Urine Total 450 ml 485 ml 260 ml Stool Total 3000 ml Hemodialysis 2000 ml # Bowel Movements 0 5 0 Physical Exam GENERAL: In dialysis, lethargic SKIN: Warm and dry. HEAD: Normocephalic. EYES: No scleral icterus. No injection or drainage. NECK: Supple, trachea midline. No JVD or lymphadenopathy. CARDIOVASCULAR: Regular rate and rhythm without murmurs, gallops, or rubs. RESPIRATORY: Breath sounds equal bilaterally. No accessory muscle use. GASTROINTESTINAL: Abdomen soft, non-tender, nondistended. MUSCULOSKELETAL: No cyanosis, mild edema. Laboratory Laboratory Tests Test 05/15/17 02:00 05/15/17 10:43 White Blood Count 18.5 TH/MM3 Red Blood Count 2.92 MIL/MM3 Hemoglobin 8.9 GM/DL Hematocrit 27.1 % Mean Corpuscular Volume 92.7 FL Mean Corpuscular Hemoglobin 30.5 PG Mean Corpuscular Hemoglobin Concent 32.9 % Red Cell Distribution Width 15.9 % Platelet Count 145 TH/MM3 Mean Platelet Volume 9.5 FL Blood Urea Nitrogen 43 MG/DL Creatinine 1.40 MG/DL Random Glucose 101 MG/DL Calcium Level 8.7 MG/DL Phosphorus Level 2.4 MG/DL Magnesium Level 2.1 MG/DL Sodium Level 141 MEQ/L Potassium Level 3.0 MEQ/L Chloride Level 101 MEQ/L Carbon Dioxide Level 31.1 MEQ/L Anion Gap 9 MEQ/L Estimat Glomerular Filtration Rate 37 ML/MIN Assessment and Plan Problem List: (1) Acute hypoxemic respiratory failure ICD Codes: J96.01 - Acute respiratory failure with hypoxia Status: Resolved (2) CHF exacerbation ICD Codes: I50.9 - Heart failure, unspecified Status: Acute (3) COPD exacerbation ICD Codes: J44.1 - Obstructive chronic bronchitis with exacerbation Status: Resolved (4) Community acquired pneumonia ICD Codes: J18.9 - Pneumonia, unspecified organism Status: Acute (5) MILI (acute kidney injury) ICD Codes: N17.9 - Acute kidney injury Status: Acute (6) Anemia ICD Codes: D64.9 - Anemia Status: Chronic (7) HTN (hypertension) ICD Codes: I10 - Hypertension Status: Chronic (8) DM (diabetes mellitus screen) ICD Codes: Z13.1 - Screening for diabetes mellitus Status: Chronic (9) Mitral stenosis ICD Codes: I05.0 - Rheumatic mitral stenosis Permanent Comment: Mild to moderate Very ill patient with very poor looking cxray. Agree with renal replacement if needed. Dr Miranda will see over weekend and Dr Fitzgerald next week Last Edited By: Regino Xavier MD, FACC, Frcp on May 11, 2017 18:27 Assessment and Plan Continue current program. Palliative care/hospice to provide comfort care. D/w pt's son. Problem Qualifiers (1) CHF exacerbation: Qualified Codes: I50.9 - Heart failure, unspecified (2) Community acquired pneumonia: Qualified Codes: J18.9 - Pneumonia, unspecified organism (3) Anemia: Qualified Codes: D64.9 - Anemia, unspecified (4) HTN (hypertension): Qualified Codes: I10 - Essential (primary) hypertension (5) Mitral stenosis: Qualified Codes: I05.0 - Rheumatic mitral stenosis Yulissa Fitzgerald MD May 15, 2017 15:57
[2017-05-15] MEDS: ENOXAPARIN SODIUM 60 MG/0.6 ML SYRINGE SQ SCH (18:21)
[2017-05-15] MEDS ORDERED: CARVEDILOL 12.5 MG TAB PO SCH (21:00)
[2017-05-16] VITALS (7 sets, daily range): BP systolic 162–169; BP diastolic 67–69; PULSE 62–72; RESP 22; TEMP 98.5–99.7; O2SAT 95–97
[2017-05-16] MEDS: RESP: ALBUTEROL 2.5 MG/IPRATROPIUM 0.5 MG NEB (SCH) NEB ×3 (03:11→08:00)
[2017-05-16] MEDS: traMADol HCL 50 MG TAB PO PRN (03:49)
--- NOTE | 2017-05-16 04:46 | RADRPT ---
EXAM DATE/TIME: 05/16/2017 03:31 [facility] COMPARISON: CHEST SINGLE AP, May 14, 2017, 3:35. INDICATIONS : Shortness of breath. MEDICAL HISTORY : Myocardial infarction. Chronic obstructive pulmonary disease. Congestive heart failure. SURGICAL HISTORY : Hysterectomy. CABG. ENCOUNTER: Subsequent ACUITY: 2 weeks PAIN SCORE: 0/10 LOCATION: Bilateral chest FINDINGS: The cardiac silhouette is normal in transverse diameter. Median sternotomy wires are present. There i s patchy alveolar disease on the right compatible with edema or pneumonia. There has been no signific ant change when compared to the prior exam. CONCLUSION: 1. Cardiomegaly. Right-sided edema versus pneumonia. There has been no significant change when compar ed to the prior exam. Konstantin Rojas MD on May 16, 2017 at 4:43 Board Certified Radiologist. This report was verified electronically.
[2017-05-16 04:58] LABS: HEMATOCRIT 28.8 % (35.0-46.0); HEMOGLOBIN 9.3 GM/DL (11.6-15.3); MEAN CELL VOLUME 93.8 FL (80.0-100.0); MEAN CORPUSCULAR HEMOGLOBIN 30.3 PG (27.0-34.0); MEAN CORPUSCULAR HGB CONC 32.3 % (32.0-36.0); MEAN PLATELET VOLUME 10.2 FL (7.0-11.0); PLATELET COUNT 129 TH/MM3 (150-450); RED BLOOD COUNT 3.07 MIL/MM3 (4.00-5.30); RED CELL DISTRIBUTION WIDTH 15.6 % (11.6-17.2); WHITE BLOOD COUNT 15.4 TH/MM3 (4.0-11.0)
[2017-05-16 05:21] LABS: BICARBONATE 26.3 MEQ/L (21.0-32.0); CALCIUM 8.6 MG/DL (8.5-10.1); CREATININE 2.02 MG/DL (0.50-1.00); PHOSPHORUS 2.2 MG/DL (2.5-4.9)
[2017-05-16] MEDS: cloNIDine HCL 0.2 MG TAB PO SCH (06:08)
[2017-05-16] MEDS: hydrALAZINE HCL 50 MG TAB PO SCH (06:09)
[2017-05-16] MEDS: INSULIN ASPART SUPPLEMENTAL SCALE SQ SCH (07:26)
--- NOTE | 2017-05-16 08:55 | HHI.CCPN ---
Subjective Remarks/Hospital Course This is a 76-year-old female with a history of congestive heart failure with preserved EF, smoking, COPD who presented to the emergency department on 04/23 with worsening shortness of breath, BNP greater than 4000, bilateral pulmonary infiltrates and was diagnosed at that time with CHF exacerbation. She was initially started on Lasix. At that time she did have an acute kidney injury on top of chronic renal insufficiency stage III. Nephrology was consulted and felt this was due to increased renal vein pressure. Despite attempts at diuresis, she is had a positive fluid balance during her hospital stay, and she persists with significant dyspnea. She was initially on Zosyn and azithromycin to empirically cover for possible COPD exacerbation. Zosyn was stopped on hospital day 7, but azithromycin continues through today empirically. She is remained afebrile throughout her hospital stay. A few days ago, she was started on prednisone for possible COPD exacerbation component to her shortness of breath. After starting on systemic steroids, her white count which was normal on admission, began to rise. She still remains afebrile. Yesterday, bilateral lower extremity Dopplers were positive for a left posterior tibial deep vein thrombosis. VQ scan at that time was indeterminate for PE in the setting of significant bilateral consolidations which likely decreases sensitivity of VQ scan for embolism. Due to the patient's persistent dyspnea and positive fluid balance for hospital stay despite attempts at diuresis, and due to the fact that her kidney injury continues to worsen, I was contacted by the hospitalist service for possible transfer to the intensive care unit for a more aggressive diuretic regimen. I evaluated the patient on arrival to the CVICU. The patient does complain of significant dyspnea, particularly with even light movement out of bed to chair. She states that she just wants to feel better. She denies chest pain, nausea, vomiting, fever, chills, or any other symptoms other than her shortness of breath. 05/11. 2-D echo had shown 50-55% ejection fraction mild to moderate MR, Moderate MS (by gradient of 7). Also evidence of pulmonary hypertension PASP 70 mm Hg. Patient needs improved BP control due to diastolic CHF. Increase clonidine to 0.3 mg q8, Cardura to 4 mg and Hydralazine to 50 q8. HR adequately controlled. Also evaluate with CT chest after adequate diuresis for emphysema and lung consolidation/effusion 05/12/17: UO remains excellent, 5L in 24 hours on Bumex gtt. BUN/Creat steadily increasing 115/2.96. May need HD> Pedal edema improved, CXR still showing pulmonary edema. CT chest to evaluate for infiltrate/effusion and also evaluate emphysema. Repeat limited Echo with Doppler next week to re valuate MS/MR. MS/ MR likely contributing to heart failure 05/13: Delayed note entry: seen and evaluted around 0700 AM. UOP is excellent, but BUN continues to rise. today, clinically patient declining and much more encephalopathic. still protecting airway, but now RASS -2/-3. requiring some more aggressive pulmonary toilet. Discussed with Dr. Pittman, and at this point needs HD for not only ongoing fluid removal, but for uremic encephalopathy which is worsening daily. continues to be afebrile. Additionally, with IHD, will need invasive central pressure monitoring to guide fluid removal and ensure we identify dry weight and optimal hemodynamics. In an ideal world, would combine LHC and RHC to eval mitral gradients and accurate LVEDP. for now will start with bedside RHC. 05/14: More awake and alert today. Less encephalopathic. Recognizes Her son Morris sitting at bedside. -3800 cc with initial intermittent hemodialysis yesterday. No bowel movement. 05/15: Currently on 2 L nasal cannula. More awake and alert and interactive. - 2 L with hemodialysis yesterday. Subjective 05/16: Remains on nasal cannula. Plans to transition to hospice today. Complains of thirst. BUN/creatinine slowly climbing again. Continues to make urine. Objective Vital Signs Date Time Temp Pulse Resp B/P (MAP) Pulse Ox O2 Delivery O2 Flow Rate FiO2 05/16/17 08:00 97 Nasal Cannula 2.00 Humidified 05/16/17 07:54 98.9 62 22 166/67 (100) Intake and Output 05/16/17 05/16/17 05/17/17 08:00 16:00 00:00 Intake Total 480 ml Output Total 350 ml Balance 130 ml Result Diagram: 05/16/17 0355 05/16/17 0355 Other Results Microbiology Date/Time Source Procedure Growth Status 05/10/17 13:30 Blood Peripheral Aerobic Blood Culture - Final NO GROWTH IN 5 DAYS Complete 05/10/17 13:30 Blood Peripheral Anaerobic Blood Culture - Final NO GROWTH IN 5 DAYS Complete 05/12/17 13:45 Urine Catheterized Urine Legionella Antigen - Final PRESUMPTIVE NEGATIVE FOR LEGIONELLA P... Complete 05/12/17 13:45 Urine Catheterized Urine Streptococcus pneumoniae Antigen (M - Final PRESUMPTIVE NEGATIVE FOR STREPTOCOCCU... Complete Imaging Last Impressions Chest X-Ray 05/16/17 0600 Signed Impressions: Service Date/Time: Tuesday, May 16, 2017 03:31 - CONCLUSION: 1. Cardiomegaly. Right-sided edema versus pneumonia. There has been no significant change when compared to the prior exam. Konstantin Rojas MD Abdomen X-Ray 05/14/17 0000 Signed Impressions: Service Date/Time: Sunday, May 14, 2017 08:13 - CONCLUSION: 1. Multiple loops of air-filled small bowel with subtle prominence of the bowel loops in the left upper quadrant. The findings likely reflect mild adynamic ileus. Developing small bowel obstruction is in the differential but felt to be less likely. Nii Zeng MD Head CT 05/12/17 0000 Signed Impressions: Service Date/Time: Friday, May 12, 2017 10:32 - CONCLUSION: No acute disease. Cameron Ashby MD Chest CT 05/12/17 0000 Signed Impressions: Service Date/Time: Friday, May 12, 2017 10:36 - CONCLUSION: 1. Diffuse infiltrates bilaterally suggestive of severe pulmonary edema and/or pneumonia. Clinical correlation is recommended. 2. Small bilateral pleural effusions. 3. Markedly enlarged heart with coronary artery calcifications. Cameron Ashby MD Lung Scan- Nuclear Medicine 05/09/17 0000 Signed Impressions: Service Date/Time: Tuesday, May 09, 2017 11:08 - CONCLUSION: 1. Indeterminate for pulmonary embolus. Don Vega MD Lower Extremity Ultrasound 05/09/17 0000 Signed Impressions: Service Date/Time: Tuesday, May 09, 2017 12:05 - CONCLUSION: 1. Occlusive deep venous thrombosis within the left posterior tibial veins. 2. No deep venous thrombosis within the right lower extremity. Cameron Ashby MD Renal Ultrasound 04/24/17 0000 Signed Impressions: Service Date/Time: Monday, April 24, 2017 23:08 - CONCLUSION: 1. Echogenic kidneys likely secondary to medical renal disease. 2. Minimal ascites. 3. Left pleural effusion. Rasta Vieira MD Objective Remarks GENERAL: 76-year-old female, resting in bed in no acute distress on nasal cannula HEENT: Normocephalic. Atraumatic. Pupils equal, round, reactive, conjugate. NECK: Trachea is midline. + JVD. CHEST: Few crackles appreciated in the bilateral lower lobes. CARDIOVASCULAR: RRR. S1 and S2. No S4. Without murmur ABDOMEN: Soft, nontender, slightly protuberant. Complaining of some abdominal pain. Last bowel movement 05/10 MUSCULOSKELETAL: Pulses 2+. No peripheral edema. NEUROLOGICAL: Oriented to person, place and time. Moves all 4 extremities to command. Strength is equal and symmetric. Normal sensation. A/P Assessment and Plan Neuro/Psych: Acute toxic metabolic encephalopathy - likely uremic Peripheral neuropathy Currently on oxycodone/acetaminophen 10/325 mg every 4 hours when necessary pain 4-10. Oxycodone/acetaminophen 10/325 one tablet 3 times a day at home Will decrease gabapentin 00 mg twice a day. 22.3 elevated gabapentin level Continue fluoxetine 40 mg by mouth daily for depression CT brain 2 this admission revealed no acute intracranial findings CV: CHF exacerbation, diastolic type Moderate mitral stenosis by gradient/Mild MR Hypertension Echocardiogram 50-55% EF. Mild LVH. Moderate MS/MR. Moderate left pleural effusion. 05/13 - placed PA catheter for central pressure guided IHD and volume removal in the setting of severe MILI and CHF. 05/14 - [place]-Ramana catheter. Heart rate 75. Arterial line pressure 151/65 (96) CVP 5. Cardiac output 7.1 L/minute. Cardiac index 4.4. Pulmonary arterial Pressure 58/15. Pulmonary capillary wedge pressure 20 mmHg achieved at 51 cm Discontinued SGC 05/15 Currently on clonidine 0.6 mg 3 times a day, amlodipine 10 mg daily, hydralazine 100 mg every 8 hours, carvedilol 25 mg twice a day and doxazosin 4 mg daily Currently on acetazolamide 500 mg every [address] Fitzgerald - cardiology following Consider right and left cardiac catheterization. Unclear whether MS/MR, ischemia , contributing to biventricular failure repeat echo 05/14 to reevaluate mitral gradients remains pending Resp: Acute respiratory insufficiency Pulmonary edema - resolving Acute on chronic hypoxemia Currently nasal cannula 2 L to maintain saturations greater than equal to 90% Incentive spirometry while awake Albuterol/ipratropium aerosols every 4 hours with albuterol aerosols every 2 hours. Dyspnea Budesonide/formoterol 160/4.5 2 puffs twice a day A cappella/EZPap every 4 hours GI: Acute protein calorie malnutrition- moderate Schatzki ring Erosive gastritis Duodenitis Hypertension Constipation Hepatitis C positive - genotype and viral load pending Advance diet as tolerated Continue pantoprazole 40 mg by mouth twice a day Docusate sodium/senna 2 tabs in a.m., polyethylene glycol 17 g twice a day. : Vazquez catheter for accurate I's and O's in a critically ill patient on diuretics Endo: Sliding-scale insulin with Novulog with Accu-Cheks before meals/at bedtime/low regimen Renal: Acute kidney injury superimposed on stage IIIa chronic kidney disease with proteinuria Renal ultrasound - medical renal disease. No hydronephrosis. Proteinuria noted on UA. IHD . Dr. Pittman. -2000 cc 05/14 Heme: Occlusive left posterior tibialis thrombosis History of warfarin use - 0.5 mg daily Leukocytosis Normocytic anemia Thrombocytopenia Currently on enoxaparin 60 mg subcutaneous daily. Continue ferrous sulfate 325 mg twice daily Cryoglobulin workup positive. Confirmatory screen sent. 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 ID: Currently no indication for antibiotics FEN: Hypopotassemia Replace electrolytes as clinically indicated. KPhos 15 mmol IV 1 now MSK: RA factor positive Currently prednisone taper 10 mg daily continue with screening cryoglobulins positive PT evaluate and treat Access - Right IJ [place]-Ramana catheter day #3 - discontinue 05/15. Cordis remains - Left IJ hemodialysis catheter. #4 Prophylaxis - GI - pantoprazole - DVT - SCD/enoxaparin Level III follow-up Discussed with Dr. Patten. Discussed with isabel Caceres discussed all questions answered. Amilcar Mills MD May 16, 2017 08:55
[2017-05-16] MEDS ORDERED: GABAPENTIN 100 MG CAP PO SCH (09:00)
[2017-05-16] MEDS: POLYETHYLENE GLYCOL 17 GM PKG PO SCH (09:00)
[2017-05-16] MEDS ORDERED: CARVEDILOL 12.5 MG TAB PO SCH (09:00)
[2017-05-16] MEDS: DOCUSATE SODIUM 50 MG/SENNA 8.6 MG TAB PO SCH (09:00)
[2017-05-16] MEDS ORDERED: POTASSIUM CHLORIDE 20 MEQ PWD PACKET PO ONE (09:00)
[2017-05-16] MEDS: SODIUM CHLORIDE 0.9% FLUSH 10 ML FLUSH IV FLUSH SCH (09:27)
[2017-05-16] MEDS: BUDESONIDE-FORMOTEROL 160/4.5 MCG INHALER INH SCH (09:28)
[2017-05-16] MEDS: CARBAMIDE PEROXIDE 6.5% OTIC SOLN 15 ML BTL EACH EAR SCH (09:28)
[2017-05-16] MEDS: guaiFENesin E.R. 600 MG TAB PO SCH (09:29)
[2017-05-16] MEDS: FERROUS SULFATE 325 MG (65 MG ELEMENTAL IRON) TAB PO SCH (09:29)
[2017-05-16] MEDS: DOXAZOSIN MESYLATE 2 MG TAB PO SCH (09:29)
[2017-05-16] MEDS: PANTOPRAZOLE SOD 40 MG DELAYED RELEASE TAB PO SCH (09:29)
[2017-05-16] MEDS: FLUoxetine HCL 20 MG CAP PO SCH (09:29)
[2017-05-16] MEDS: amLODIPine BESYLATE 5 MG TAB PO SCH (09:30)
[2017-05-16] MEDS ORDERED: POTASSIUM PHOSPHATE INJ 15 MMOL in SODIUM CHLORIDE 0.9% INJ 150 ML IV ONE (10:00)
--- NOTE | 2017-05-16 11:16 | HHI.NPPN ---
Subjective General Problems: Anemia, Edema, Heart Disease Renal Failure: Chronic, Acute, Stage III Interval History She is sleepy. Patient and family have decided to transfer to hospice care center today. (Camila Cline) Review of Systems General Constitutional: Fatigue (Camila Cline) Respiratory Lungs: SOB (Camila Cline) Cardiovascular Cardiac: Palpitations, Edema (Camila Cline) Objective Data Data Vital Signs Date Time Temp Pulse Resp B/P (MAP) Pulse Ox O2 Delivery O2 Flow Rate FiO2 05/16/17 08:48 97 Nasal Cannula 2.00 05/16/17 08:00 97 Nasal Cannula 2.00 Humidified 05/16/17 07:54 98.9 62 22 166/67 (100) 95 05/16/17 07:00 72 05/16/17 04:50 20 05/16/17 03:49 95 Nasal Cannula 2.00 Humidified 05/16/17 03:15 66 05/16/17 03:00 99.7 65 22 169/67 (101) 95 05/15/17 23:47 98.6 65 20 145/60 (88) 95 05/15/17 23:35 62 05/15/17 23:09 95 Nasal Cannula 2.00 Humidified 05/15/17 21:35 97 Nasal Cannula 3.00 05/15/17 20:00 99.3 65 20 145/60 (88) 96 05/15/17 19:40 65 05/15/17 19:00 95 Nasal Cannula 2.00 Humidified 05/15/17 15:10 96 Nasal Cannula 2.00 Humidified 05/15/17 15:09 68 05/15/17 15:08 98.6 68 19 152/64 (93) 96 (Camila Cline) -: 05/16/17 0355 05/16/17 0355 Imaging Last 72 hours Impressions Chest X-Ray 05/16/17 0600 Signed Impressions: Service Date/Time: Tuesday, May 16, 2017 03:31 - CONCLUSION: 1. Cardiomegaly. Right-sided edema versus pneumonia. There has been no significant change when compared to the prior exam. Konstantin Rojas MD Chest X-Ray 05/14/17 0500 Signed Impressions: Service Date/Time: Sunday, May 14, 2017 03:35 - CONCLUSION: 1. Cardiomegaly and findings of vascular congestion without overt failure. The findings are improved when compared with the prior exam. Konstantin Rojas MD Abdomen X-Ray 05/14/17 0000 Signed Impressions: Service Date/Time: Sunday, May 14, 2017 08:13 - CONCLUSION: 1. Multiple loops of air-filled small bowel with subtle prominence of the bowel loops in the left upper quadrant. The findings likely reflect mild adynamic ileus. Developing small bowel obstruction is in the differential but felt to be less likely. Nii Zeng MD Tubes & Lines: Vas-Cath, Gonzalez (Camila Cline B. [employer]) Physical Exam General Appearance: Well Developed, No Acute Distress, Comfortable, Sleeping, Malnourished (Camila Cline B. [employer]) Throat Throat Exam: Oral Mucosa [place] & Moist (Camila Cline B. [employer]) Neck Neck Exam: Neck Supple (Camila Cline B. [employer]) Pulmonary Resp Exam: Breath Sounds Equal, No Distress, Crackles, Sputum, Decreased Bases (Camila Cline B. [employer]) Cardiology CV Exam: Regular, Normal Sinus Rhythm, Good Perfusion (Camila Cline B. [employer]) Gastrointestinal/Abdomen GI Exam: Soft, Non-Tender, Bowel Sounds Present (Camila Cline B. [employer]) Musculoskeletal MS Exam: Normal Gait, Normal Tone (SonCamila B. [employer]) Integumentary Skin Exam: Warm, Dry Skin Remarks scattered lower extremity abrasions (Camila Cline B. [employer]) Extremeties Extremities Exam: No Edema, Pedal Pulses Palpable (Camila Cline B. [employer]) Neurologic Neuro Exam: Moving All Extremities, Obtunded (Camila Cline B. [employer]) Psychiatric Psych Exam: Appropriate Responses (Camila Cline [place]) Assessment/Plan Discussed Condition With: Patient, Son Assessment Summary: MILI/Acute Renal Failure, Anemia of CKD, Fluid/Volume Overload, Proteinuria, CHF, Hypertension, Diabetes Mellitus, CKD Stage III Electrolyte Assessment: Hyponatremia Problem List: (1) MILI (acute kidney injury) ICD Codes: N17.9 - Acute kidney injury Status: Acute Plan: She has underlying CKD 3, baseline GFR 30, creatinine 1.61 Hx of diabetes. She is Hep C positive. 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 She had required HD x 2 treatments Renal biopsy with tissue sample would be required if continued treatment was requested; however patient and family have decided to transfer to hospice per their wishes. Can remove gonzalez and vascath just prior to discharge We will sign off given new developments. Call us if needed. (2) Hyponatremia ICD Codes: E87.1 - Hypo-osmolality and hyponatremia Plan: Improved,continue to monitor. Avoid NaCl tabs given hx of CHF. (3) CHF exacerbation ICD Codes: I50.9 - Heart failure, unspecified Status: Acute Plan: Echo this month shows: -LVH -Apical hypokinesis -Left ventricular function is low normal, EF 50-55% (diastolic dysfunction) would require heart cath to continue invasive treatments (4) Anemia ICD Codes: D64.9 - Anemia Status: Chronic Plan: She has iron deficiency. Received Venofer. On oral ferrous sulfate. Epogen with dialysis Transfuse if necessary. (5) Acute hypoxemic respiratory failure ICD Codes: J96.01 - Acute respiratory failure with hypoxia Status: Resolved Plan: Being treated for CAP On Zithromax and prednisone Refusing BiPap, on oxygen via nasal canula Recent saturation 98% oh 2L NC Former smoker, cessation discussed (6) Community acquired pneumonia ICD Codes: J18.9 - Pneumonia, unspecified organism Status: Acute Plan: See above Continue supportive care On nebulizers, inhalers, oxygen . (7) DVT (deep venous thrombosis) ICD Codes: I82.409 - Acute embolism and thrombosis of unspecified deep veins of unspecified lower extremity Plan: On Lovenox (Camila Cline) Plan patient was seen and examined. Agree with above assessment and plan. (Abebe Patten MD) Problem Qualifiers (1) CHF exacerbation: Qualified Codes: I50.9 - Heart failure, unspecified (2) Anemia: Qualified Codes: D64.9 - Anemia, unspecified (3) Community acquired pneumonia: Qualified Codes: J18.9 - Pneumonia, unspecified organism Camila Cline May 16, 2017 11:16 Abebe Patten MD May 16, 2017 18:40
[2017-05-16 11:52] LABS: HCV RNA PCR IU/ML 105000 IU/mL (0-14)
--- NOTE | 2017-05-16 12:33 | OTSOAPIP ---
RN REPORTS THAT PATIENT IS BEING DISCHARGED TO HOSPICE. OT WILL SIGN OFF. Therapist: Yuni Waddell OTR/L Signature on file
--- NOTE | 2017-05-16 13:40 | PD.CARD.PN ---
Subjective Subjective Remarks No CP or SOB, lethargic Objective Vital Signs / I&O Vital Signs Date Time Temp Pulse Resp B/P (MAP) Pulse Ox O2 Delivery O2 Flow Rate FiO2 05/16/17 11:39 97 Nasal Cannula 2.00 Humidified 05/16/17 11:34 98.5 62 22 162/69 (100) 95 05/16/17 11:00 65 05/16/17 08:48 97 Nasal Cannula 2.00 05/16/17 08:00 97 Nasal Cannula 2.00 Humidified 05/16/17 07:54 98.9 62 22 166/67 (100) 95 05/16/17 07:00 72 05/16/17 04:50 20 05/16/17 03:49 95 Nasal Cannula 2.00 Humidified 05/16/17 03:15 66 05/16/17 03:00 99.7 65 22 169/67 (101) 95 05/15/17 23:47 98.6 65 20 145/60 (88) 95 05/15/17 23:35 62 05/15/17 23:09 95 Nasal Cannula 2.00 Humidified 05/15/17 21:35 97 Nasal Cannula 3.00 05/15/17 20:00 99.3 65 20 145/60 (88) 96 05/15/17 19:40 65 05/15/17 19:00 95 Nasal Cannula 2.00 Humidified 05/15/17 15:10 96 Nasal Cannula 2.00 Humidified 05/15/17 15:09 68 05/15/17 15:08 98.6 68 19 152/64 (93) 96 I/O 05/15/17 05/15/17 05/15/17 05/16/17 05/16/17 05/16/17 07:00 15:00 23:00 07:00 15:00 23:00 Intake Total 680 ml 200 ml 500 ml 480 ml 480 ml Output Total 260 ml 230 ml 350 ml 250 ml Balance 420 ml 200 ml 270 ml 130 ml 230 ml Intake Oral 480 ml 500 ml 480 ml 480 ml IV Total 200 ml 200 ml Output Urine Total 260 ml 230 ml 350 ml 250 ml # Bowel Movements 0 0 0 0 Physical Exam GENERAL: In NAD, lethargic SKIN: Warm and dry. HEAD: Normocephalic. EYES: No scleral icterus. No injection or drainage. NECK: Supple, trachea midline. No JVD or lymphadenopathy. CARDIOVASCULAR: Regular rate and rhythm without murmurs, gallops, or rubs. RESPIRATORY: Breath sounds equal bilaterally. No accessory muscle use. GASTROINTESTINAL: Abdomen soft, non-tender, nondistended. MUSCULOSKELETAL: No cyanosis, mild edema. Laboratory Laboratory Tests Test 05/16/17 03:55 White Blood Count 15.4 TH/MM3 Red Blood Count 3.07 MIL/MM3 Hemoglobin 9.3 GM/DL Hematocrit 28.8 % Mean Corpuscular Volume 93.8 FL Mean Corpuscular Hemoglobin 30.3 PG Mean Corpuscular Hemoglobin Concent 32.3 % Red Cell Distribution Width 15.6 % Platelet Count 129 TH/MM3 Mean Platelet Volume 10.2 FL Blood Urea Nitrogen 67 MG/DL Creatinine 2.02 MG/DL Random Glucose 184 MG/DL Calcium Level 8.6 MG/DL Phosphorus Level 2.2 MG/DL Magnesium Level 2.0 MG/DL Sodium Level 136 MEQ/L Potassium Level 3.3 MEQ/L Chloride Level 100 MEQ/L Carbon Dioxide Level 26.3 MEQ/L Anion Gap 10 MEQ/L Estimat Glomerular Filtration Rate 24 ML/MIN Imaging Last 24 hours Impressions Chest X-Ray 05/16/17 0600 Signed Impressions: Service Date/Time: Tuesday, May 16, 2017 03:31 - CONCLUSION: 1. Cardiomegaly. Right-sided edema versus pneumonia. There has been no significant change when compared to the prior exam. Konstantin Rojas MD Assessment and Plan Problem List: (1) Acute hypoxemic respiratory failure ICD Codes: J96.01 - Acute respiratory failure with hypoxia Status: Resolved (2) CHF exacerbation ICD Codes: I50.9 - Heart failure, unspecified Status: Acute (3) COPD exacerbation ICD Codes: J44.1 - Obstructive chronic bronchitis with exacerbation Status: Resolved (4) Community acquired pneumonia ICD Codes: J18.9 - Pneumonia, unspecified organism Status: Acute (5) MILI (acute kidney injury) ICD Codes: N17.9 - Acute kidney injury Status: Acute (6) Anemia ICD Codes: D64.9 - Anemia Status: Chronic (7) HTN (hypertension) ICD Codes: I10 - Hypertension Status: Chronic (8) DM (diabetes mellitus screen) ICD Codes: Z13.1 - Screening for diabetes mellitus Status: Chronic (9) Mitral stenosis ICD Codes: I05.0 - Rheumatic mitral stenosis Permanent Comment: Mild to moderate Very ill patient with very poor looking cxray. Agree with renal replacement if needed. Dr Miranda will see over weekend and Dr Fitzgerald next week Last Edited By: Regino Xavier MD, FACC, Frcp on May 11, 2017 18:27 Assessment and Plan Continue current program with comfort care. No new cardiac issues. Discharge to hospice today as planned. Problem Qualifiers (1) CHF exacerbation: Qualified Codes: I50.9 - Heart failure, unspecified (2) Community acquired pneumonia: Qualified Codes: J18.9 - Pneumonia, unspecified organism (3) Anemia: Qualified Codes: D64.9 - Anemia, unspecified (4) HTN (hypertension): Qualified Codes: I10 - Essential (primary) hypertension (5) Mitral stenosis: Qualified Codes: I05.0 - Rheumatic mitral stenosis Yulissa Fitzgerald MD May 16, 2017 13:40
--- NOTE | 2017-05-16 20:28 | ECHRPT ---
Indication: EF ASSESSMENT OF MITRAL VALVE CONCLUSIONS Mild thickening of the mitral valve leaflets. Mild mitral annular calcification. Moderate mitral valve regurgitation. Moderate mitral valve stenosis. Mitral valve mean gradient is 6 mmHg. The mitral valve area by Pressure Halftime Method is 1.73 cm. Normal estimated pulmonary pressures. BP: 169 / 67 HR: 65 Rhythm: Sinus MEASUREMENTS (Male / Female) Normal Values Technical Quality:Good DOPPLER MV Peak Velocity 219.0 cm/s MV Peak Gradient 19.2 mmHg MV Mean Velocity 109.0 cm/s MV Mean Gradient 6.0 mmHg MV Area PHT 2.0 cm Mitral E Point Velocity 177.0 cm/s Mitral A Point Velocity 82.8 cm/s Mitral E to A Ratio 2.1 FINDINGS MITRAL VALVE Mild thickening of the mitral valve leaflets. Mild mitral annular calcification. Moderate mitral valve regurgitation. Mild mitral valve stenosis. Mitral valve mean gradient is 6 mmHg. The mitral valve area by Pressure Halftime Method is 1.73 cm. TRICUSPID VALVE Structurally normal tricuspid valve. No tricuspid valve stenosis or regurgitation. Normal estimated pulmonary pressures. Yulissa Fitzgerald MD, FACC (Electronically Signed) Final Date:16 May 2017 20:27
[2017-05-17] MEDS ORDERED: predniSONE 5 MG TAB PO SCH (09:00)
== END 2017-05-16 11:30 | disposition hospice, inpatient (51) | DRG 291 ==
LOC: NEPE 04:49 → NEDA 06:35 → NEDH 10:47 → HCIS 14:00 → HCVI 05-10 13:14
PROVIDERS: ADMIT Internal Medicine Critical Care Medicine; ATTEND Internal Medicine Critical Care Medicine
PROC: 5A09357 Assistance with Respiratory Ventilation, Less than 24 Consecutive Hours, Continuous Positive Airway Pressure (ICD-10-PCS; principal; 2017-04-23)
PROC: 0DB68ZX Excision of Stomach, Via Natural or Artificial Opening Endoscopic, Diagnostic (ICD-10-PCS; 2017-04-27)
PROC: 03HY32Z Insertion of Monitoring Device into Upper Artery, Percutaneous Approach (ICD-10-PCS; 2017-05-13)
PROC: 30233N1 Transfusion of Nonautologous Red Blood Cells into Peripheral Vein, Percutaneous Approach (ICD-10-PCS; 2017-05-13)
PROC: 05HN33Z Insertion of Infusion Device into Left Internal Jugular Vein, Percutaneous Approach (ICD-10-PCS; 2017-05-13)
PROC: 05HM33Z Insertion of Infusion Device into Right Internal Jugular Vein, Percutaneous Approach (ICD-10-PCS; 2017-05-13)
PROC: 5A1D70Z Performance of Urinary Filtration, Intermittent, Less than 6 Hours Per Day (ICD-10-PCS; 2017-05-13)
DX: I13.0 Hypertensive heart and chronic kidney disease with heart failure and stage 1 through stage 4 chronic kidney disease, or unspecified chronic kidney disease (principal); N17.0 Acute kidney failure with tubular necrosis; J96.01 Acute respiratory failure with hypoxia; J18.9 Pneumonia, unspecified organism; G92 Toxic encephalopathy; E44.0 Moderate protein-calorie malnutrition; I82.402 Acute embolism and thrombosis of unspecified deep veins of left lower extremity; I24.8 Other forms of acute ischemic heart disease; N18.3 Chronic kidney disease, stage 3 (moderate); D69.6 Thrombocytopenia, unspecified; I50.33 Acute on chronic diastolic (congestive) heart failure; J44.0 Chronic obstructive pulmonary disease with (acute) lower respiratory infection; K92.2 Gastrointestinal hemorrhage, unspecified; N17.9 Acute kidney failure, unspecified; J44.1 Chronic obstructive pulmonary disease with (acute) exacerbation; J98.11 Atelectasis; E87.1 Hypo-osmolality and hyponatremia; I82.441 Acute embolism and thrombosis of right tibial vein; K22.2 Esophageal obstruction; E11.21 Type 2 diabetes mellitus with diabetic nephropathy; D50.9 Iron deficiency anemia, unspecified; F17.210 Nicotine dependence, cigarettes, uncomplicated; E11.22 Type 2 diabetes mellitus with diabetic chronic kidney disease; Z88.6 Allergy status to analgesic agent; I25.2 Old myocardial infarction; M81.0 Age-related osteoporosis without current pathological fracture; E78.5 Hyperlipidemia, unspecified; Z85.42 Personal history of malignant neoplasm of other parts of uterus; Z95.2 Presence of prosthetic heart valve; E11.40 Type 2 diabetes mellitus with diabetic neuropathy, unspecified; I25.10 Atherosclerotic heart disease of native coronary artery without angina pectoris; Z95.1 Presence of aortocoronary bypass graft; Z90.710 Acquired absence of both cervix and uterus; Z96.643 Presence of artificial hip joint, bilateral; Z96.653 Presence of artificial knee joint, bilateral; Z99.2 Dependence on renal dialysis; Z86.718 Personal history of other venous thrombosis and embolism; D63.1 Anemia in chronic kidney disease; Z79.01 Long term (current) use of anticoagulants; R04.0 Epistaxis; F32.9 Major depressive disorder, single episode, unspecified; G89.29 Other chronic pain; R51 Headache; I08.1 Rheumatic disorders of both mitral and tricuspid valves; K29.70 Gastritis, unspecified, without bleeding; K29.80 Duodenitis without bleeding; K44.9 Diaphragmatic hernia without obstruction or gangrene; Z53.29 Procedure and treatment not carried out because of patient's decision for other reasons; B19.20 Unspecified viral hepatitis C without hepatic coma; E87.6 Hypokalemia; K59.00 Constipation, unspecified; H61.20 Impacted cerumen, unspecified ear; K31.9 Disease of stomach and duodenum, unspecified; Z51.5 Encounter for palliative care; Z66 Do not resuscitate; I27.20 Pulmonary hypertension, unspecified
CPT/HCPCS: 36430; 36600; 70450; 71010; 71020; 71045; 71046; 71250; 74018; 76775; 78582; 80048; 80053; 80069; 80074; 80076; 80171; 81001; 82043; 82140; 82150; 82550; 82595; 82728; 82805; 82948; 83036; 83540; 83550; 83605; 83690; 83735; 83880; 83935; 84100; 84165; 84300; 84484; 84550; 85025; 85027; 85060; 85379; 85384; 85610; 85730; 86021; 86038; 86160; 86317; 86335; 86430; 86738; 86803; 86850; 86900; 86901; 86920; 87040; 87340; 87449; 87522; 87902; 88305; 90935; 93005; 93306; 93308; 93970; 94002; 94640; 94664; 94667; 94668; 96374; 96375; A9540; A9567; J0360; J0456; J0696; J1120; J1205; J1580; J1644; J1650; J1750; J1756; J1815; J1940; J2150; J2270; J2405; J2920; J2930; J3475; J3480; J7030; J7050; J7512; J7613; P9016; P9047; Q4081